=== PATIENT | female | born 1990 | race Caucasian/White ===

== ENCOUNTER 2017-10-23 22:01 | Emergency (ER) | payer OTHER ==
[~2017-10-23] VITALS: Ht 172.7 cm; Wt 81.6 kg
[~2017-10-23 22:01] MED LIST: ACHD5005 PO; ALPR1TAB72 PO; CEPH500C PO; CONCERTA; HYDR1CAP2 PO; METH20TA PO; NAPR-243 PO; PARO10TA21 PO; PARO30TA74 PO; TRAZADONE PO; TRZ50T PO; VNL75T PO; [UNRECOGNIZED DRUG - OTHER]; [UNRECOGNIZED DRUG - OTHER] PO
--- OUTSIDE RECORDS SUMMARY | 2017-10-23 22:07 | XMS REPORT ---
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 332247896 Problem Marijuana abuse F12.10 Active 21719345 Problem Alcohol dependence, binge pattern F10.20 Active 838270509 Problem Benzodiazepine abuse F13.10 Active 229735088 Problem Missed period N92.6 Active 52787253 Problem Dysthymia F34.1 Active 99431577 Problem Major depressive disorder, recurrent, moderate F33.1 Active 01981226 Problem Post-traumatic stress disorder, unspecified F43.10 Active 77184955 Problem Drug induced constipation K59.03 Active 55681812 Problem Opioid dependence, uncomplicated F11.20 Active 46734923 ALLERGIES No Information ENCOUNTERS Encounter Location Date Diagnosis [facility] [place] [address] [address] Nov, [facility] [place] [id number] [place] [address] 24884- 7852 Oct, [facility] [place] [id number] [place] [address] 12610- 0867 Sep, Acute pain of right wrist M25.531 and Missed period N92.6 [facility] [place] [id number] [place] [address] 75444[address] Aug, Acute pain of right wrist M25.531 ; Dysthymia F34.1 ; Screening for hyperlipidemia Z13.220 ; Screening for diabetes mellitus Z13.1 and Screening for other and unspecified deficiency anemia Z13.0 [facility] [id number] [place] [address] Aug, [facility] [address] [place] [address] July, Opioid dependence, uncomplicated F11.20 and Methamphetamine abuse, 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 [facility] [address] [place] [address] July, Opioid dependence, uncomplicated F11.20 and Methamphetamine abuse, 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 [facility] [address] [place] [address] July, Opioid dependence, uncomplicated F11.20 and Methamphetamine abuse, 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 [facility] [address] [address] Jun, Opioid dependence, uncomplicated F11.20 [facility] [address] [place] [address] Jun, Opioid dependence, uncomplicated F11.20 and Methamphetamine abuse, 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 [facility] [address] [address] Jun, [facility] [address] [address] Jun, Moderate episode of recurrent major depressive disorder F33.1 ; Post-traumatic stress disorder, unspecified F43.10 and Opioid dependence , uncomplicated F11.20 [facility] [id number] [place] [address] 37847- 9743 Jun, Opioid dependence, uncomplicated F11.20 [facility] [id number] [place] [address] 09964- 0830 May, Opioid dependence, uncomplicated F11.20 [facility] [address] [place] [address] May, Opioid dependence, uncomplicated F11.20 and Methamphetamine abuse, 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 [facility] [place] [address] [address] May, Opioid dependence, uncomplicated F11.20 [facility] [id number] [place] [address] 86187- 2564 May, Opioid dependence, uncomplicated F11.20 [facility] [address] [place] [address] May, Opioid dependence, uncomplicated F11.20 and Methamphetamine abuse, 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 [facility] [address] 841092- [address] May, Moderate episode of recurrent major depressive disorder F33.1 ; Post-traumatic stress disorder, unspecified F43.10 and Opioid dependence , uncomplicated F11.20 [facility] [address] [address] May, [facility] [address] [address] Apr, Opioid dependence, uncomplicated F11.20 [facility] [address] [place] [address] Apr, Opioid dependence, uncomplicated F11.20 and Methamphetamine abuse, 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 [facility] [address] [address] Apr, Opioid dependence, uncomplicated F11.20 [facility] [address] [place] [address] Apr, Opioid dependence, uncomplicated F11.20 and Methamphetamine abuse, 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 [facility] [id number] [place] [address] 37327- 8944 Apr, Opioid dependence, uncomplicated F11.20 [facility] [address] [place] [address] Apr, Opioid dependence, uncomplicated F11.20 [facility] [id number] [place] [address] 52054- 2544 Apr, Opioid dependence, uncomplicated F11.20 [facility] [address] [place] [address] Mar, Opioid dependence, uncomplicated F11.20 [facility] [id number] [place] [address] 36337- 0818 Mar, Opioid dependence, uncomplicated F11.20 [facility] [address] [place] [address] Mar, Opioid dependence, uncomplicated F11.20 [facility] [place] [id number] [place] [address] 95668- 0426 Mar, [facility] [place] [id number] [place] [address] 6[address] 2546 Mar, Opioid dependence, uncomplicated F11.20 [facility] [place] [id number] [place] [address]57[address] 2546 Mar, Opioid dependence, uncomplicated F11.20 [facility] [place] [id number] [place] [address] 64551- 1806 Mar, Moderate episode of recurrent major depressive disorder F33.1 ; Post-traumatic stress disorder, unspecified F43.10 and Opioid dependence , uncomplicated F11.20 [facility] [place] [id number] [place] [address] 56441- 8736 Mar, Opioid dependence, uncomplicated F11.20 [facility] [place] [id number] [place] [address] 34111- 7538 Feb, Moderate episode of recurrent major depressive disorder F33.1 [facility] [address] [place] [address] 28 Feb, 2017 Opioid dependence, uncomplicated F11.20 [facility] [place] [id number] [place] [address] 40194 2546 27 Feb, 2017 Opioid dependence, uncomplicated F11.20 [facility] [place] [id number] [place] [address] 02364 2546 Feb, Opioid dependence, uncomplicated F11.20 [facility] [place] [id number] [place] [address] 55118- 7596 19 Feb, 2017 [facility] [place] [id number] [place] [address] 59118- 3736 18 Feb, 2017 [facility] [place] [id number] [place] [address] 94849- 2836 15 Feb, 2017 Moderate episode of recurrent major depressive disorder F33.1 [facility] [address] [place] [address] 14 Feb, 2017 Opioid dependence, uncomplicated F11.20 [facility] [place] [id number] [place] [address] 22502 2546 14 Feb, 2017 [facility] [id number] [place] [address] 44716 2546 14 Feb, 2017 [facility] [id number] [place] [address] 84741 2546 14 Feb, 2017 [facility] [id number] [place] [address] 11009- 8756 13 Feb, 2017 [facility] [place] [id number] [place] [address] 76647- 4306 Feb, [facility] [place] [id number] [place] [address] 09180- 1226 13 Feb, 2017 Moderate episode of recurrent major depressive disorder F33.1 ; Post-traumatic stress disorder, unspecified F43.10 and Opioid dependence , uncomplicated F11.20 [facility] [place] [address] [place] [address] 04943- 9546 12 Feb, 2017 [facility] [id number] [place] [address] 21696- 9322 Feb, [facility] [address] [place] [address] 08 Feb, 2017 Opioid dependence, uncomplicated F11.20 [facility] [place] [address] [place] [address] 71738 2546 08 Feb, 2017 Moderate episode of recurrent major depressive disorder F33.1 [facility] [place] [address] [place] [address] 79050 2546 07 Feb, 2017 Opioid dependence, uncomplicated F11.20 [facility] [place] [address] [place] [address] 61473- 2546 07 Feb, 2017 [facility] [place] [id number] [place] [address] 102601- 7519 Feb, [facility] [id number] [place] [address] 62137- 9788 Feb, [facility] [id number] [place] [address] 86848- 7560 Feb, [facility] [id number] [place] [address] 81739- 5416 Feb, [facility] [address] [place] [address] Feb, Opioid dependence, uncomplicated F11.20 [facility] [id number] [place] [address] 77867- 7336 Feb, [facility] [id number] [place] [address] 18767- 0142 Jan, Opioid dependence, uncomplicated F11.20 and Drug induced constipation K59.03 [facility] [id number] [place] [address] 77069- 0425 Jan, [facility] [id number] [place] [address] 26364- 4474 Jan, Moderate episode of recurrent major depressive disorder F33.1 and Post-traumatic stress disorder, unspecified F43.10 [facility] [address] [place] [address] Jan, [facility] [id number] [place] [address] 79680- 2762 Jan, [facility] [id number] [place] [address] 86035- 2832 Jan, [facility] [address] [place] [address] Jan, [facility] [id number] [place] [address] 72789- 1810 Jan, Opioid dependence, uncomplicated F11.20 ; Drug induced constipation K59.03 and Adverse effect of other opioids, initial encounter T40.2X5A [facility] [place] [id number] [place] [address] 28366- 1109 Jan, [facility] [place] [id number] [place] [address] 34181- 6948 Jan, [facility] [place] [address] 60[address]- 4841 Jan, Opiate dependence, continuous F11.20 [facility] [address] [place] [address] 17 Jan, 2017 Opiate dependence, continuous F11.20 ; 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 ; Benzodiazepine abuse F13.10 ; Alcohol dependence, binge pattern F10.20 and Marijuana abuse F12.10 [facility] [place] [id number] [place] [address] 18812- 1452 16 Jan, 2017 [facility] [place] [address] 85348- 9817 15 Jan, 2017 [facility] [place] [address] 51882- 7934 Jan, [facility] [place] [address] 57744- 3952 14 Jan, 2017 Urinary frequency R35.0 and Opiate dependence, continuous F11.20 [facility] [address] [place] [address] 10 Jan, 2017 Opiate dependence, continuous F11.20 ; 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 ; Benzodiazepine abuse F13.10 ; Alcohol dependence, binge pattern F10.20 and Marijuana abuse F12.10 [facility] [address] [place] [address] 08 Jan, 2017 [facility] [place] [id number] [place] [address] 09914- 7508 08 Jan, 2017 Moderate episode of recurrent major depressive disorder F33.1 and Post-traumatic stress disorder, unspecified F43.10 [facility] [place] [id number] [place] [address] 91164- 9673 08 Jan, 2017 [facility] [place] [id number] [place] [address] 76435- 4909 07 Jan, 2017 Moderate episode of recurrent major depressive disorder F33.1 and Substance abuse withdrawal without complication F19.230 [facility] [place] [id number] [address] 07 Jan, 2017 [facility] [place] [address] [place] [address] 78[address] 14 Jun, 2014 [facility] [place] [address] [place] [address]- 7029 Jun, [facility] [place] [address] [place] [address] 2165 May, [facility] [place] [id number] [address]- 2793 May, [facility] [place] [address] [place] [address]- 4085 Apr, [facility] [place] [address] [place] [address]- 8675 Apr, [facility] [place] [address] [place] [address]- 3146 Apr, [facility] [place] [address] [place] [address]- 4428 Apr, [facility] [place] [address] [place] [address]- 8749 Apr, [facility] [place] [address] [place] [address]- 2804 Apr, [facility] [place] [id number], [place] [address] 4912 Dec, [facility] [place] [id number] [address]9 Dec, [id number] [id number] Nov, [facility] [place] [id number] [address] Sep, IMMUNIZATIONS No Known Immunizations SOCIAL HISTORY Never Assessed REASON FOR VISIT SUBAB f/u PLAN OF CARE Activity Details Follow Up 1 Week Reason:SUBABFU VITAL SIGNS MEDICATIONS Medication Instructions Dosage Frequency Start Date End Date Duration Status Suboxone 8-2 MG Sublingual Once a day 3 film under the tongue and allow to dissolve 24h 1 days Active RESULTS No Results PROCEDURES Procedure Date Ordered Result Body Site Alcohol and/or drug services July 28, 2017 INSTRUCTIONS MEDICATIONS ADMINISTERED No Known Medications MEDICAL (GENERAL) HISTORY Type Description Date Medical History ADHD Medical History depression Medical History anxiety Surgical History tongue clipped as a child
--- OUTSIDE RECORDS SUMMARY | 2017-10-23 22:07 | XMS REPORT ---
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 328829783 Problem Marijuana abuse F12.10 Active 56469958 Problem Alcohol dependence, binge pattern F10.20 Active 551149169 Problem Benzodiazepine abuse F13.10 Active 752056220 Problem Missed period N92.6 Active 69700906 Problem Dysthymia F34.1 Active 33917126 Problem Major depressive disorder, recurrent, moderate F33.1 Active 35715178 Problem Post-traumatic stress disorder, unspecified F43.10 Active 56325294 Problem Drug induced constipation K59.03 Active 09956196 Problem Opioid dependence, uncomplicated F11.20 Active 21179493 ALLERGIES No Information ENCOUNTERS Encounter Location Date Diagnosis [facility] [address] [address] Nov, [facility] [address] [address] Sep, Acute pain of right wrist M25.531 and Missed period N92.6 [facility] [address] [address] Aug, Acute pain of right wrist M25.531 ; Dysthymia F34.1 ; Screening for hyperlipidemia Z13.220 ; Screening for diabetes mellitus Z13.1 and Screening for other and unspecified deficiency anemia Z13.0 [facility] [id number] [place] [address] Aug, [facility] [address] [place] [address] July, Opioid dependence, uncomplicated F11.20 and Methamphetamine abuse, 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 [facility] [address] [place] [address] July, Opioid dependence, uncomplicated F11.20 and Methamphetamine abuse, 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 [facility] [place] [address] [id number] July, Opioid dependence, uncomplicated F11.20 and Methamphetamine abuse, 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 [facility] [address] [address] Jun, Opioid dependence, uncomplicated F11.20 [facility] [address] [place] [address] Jun, Opioid dependence, uncomplicated F11.20 and Methamphetamine abuse, 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 [facility] [address] 4[address] Jun, [facility] [address] [address] Jun, Moderate episode of recurrent major depressive disorder F33.1 ; Post-traumatic stress disorder, unspecified F43.10 and Opioid dependence , uncomplicated F11.20 [facility] [address] [address] Jun, Opioid dependence, uncomplicated F11.20 [facility] [id number] [place] [address] May, Opioid dependence, uncomplicated F11.20 [facility] [place] [address] [place] [address] May, Opioid dependence, uncomplicated F11.20 and Methamphetamine abuse, 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10 and Opioid dependence , uncomplicated F11.20 [facility] [address] [address] May, [facility] [address] [address] Apr, Opioid dependence, uncomplicated F11.20 [facility] [address] [place] [address] Apr, Opioid dependence, uncomplicated F11.20 and Methamphetamine abuse, 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 [facility] [address] [address] Apr, Opioid dependence, uncomplicated F11.20 [facility] [place] [address] [place] [address] Apr, Opioid dependence, uncomplicated F11.20 and Methamphetamine abuse, 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 [facility] [address] 396168[address] Apr, Opioid dependence, uncomplicated F11.20 [facility] [address] [place] [address] Apr, Opioid dependence, uncomplicated F11.20 [facility] [address] [address] Apr, Opioid dependence, uncomplicated F11.20 [facility] [address] [place] [address] Mar, Opioid dependence, uncomplicated F11.20 [facility] [address] [address] Mar, Opioid dependence, uncomplicated F11.20 [facility] [address] [address] Mar, Opioid dependence, uncomplicated F11.20 [facility] [id number] [place] [address] Mar, [facility] [id number] [place] [address] Mar, Opioid dependence, uncomplicated F11.20 [facility] [id number] [place] [address] Mar, Opioid dependence, uncomplicated F11.20 [facility] [id number] [place] [address] Mar, Moderate episode of recurrent major depressive disorder F33.1 ; Post-traumatic stress disorder, unspecified F43.10 and Opioid dependence , uncomplicated F11.20 [facility] [id number] [place] [address] Mar, Opioid dependence, uncomplicated F11.20 [facility] [id number] [place] [address] Feb, Moderate episode of recurrent major depressive disorder F33.1 [facility] [address] [place] [address] 28 Feb, 2017 Opioid dependence, uncomplicated F11.20 [facility] [id number] [place] [address] 27 Feb, 2017 Opioid dependence, uncomplicated F11.20 [facility] [id number] [place] [address] Feb, Opioid dependence, uncomplicated F11.20 [facility] [id number] [place] [address] 2546 19 Feb, 2017 [facility] [id number] [place] [address]- [address] 18 Feb, 2017 [facility] [id number] [place] [address] 15 Feb, 2017 Moderate episode of recurrent major depressive disorder F33.1 [facility] [address] [place] [address] 14 Feb, 2017 Opioid dependence, uncomplicated F11.20 [facility] [address] [address] 14 Feb, 2017 [facility] [id number] [place] [address] 2546 14 Feb, 2017 [facility] [address] [place] [address] 2546 14 Feb, 2017 [facility] [id number] [place] [address]65 2546 13 Feb, 2017 [facility] [address] [place] [address] Feb, [facility] [id number] [place] [address] 18531- 8[address] 13 Feb, 2017 Moderate episode of recurrent major depressive disorder F33.1 ; Post-traumatic stress disorder, unspecified F43.10 and Opioid dependence , uncomplicated F11.20 [facility] [id number] [place] [address]34- 8676 12 Feb, 2017 [facility] [id number] [place] [address] 90[address]- [address] Feb, [facility] [address] [place] [address] 08 Feb, 2017 Opioid dependence, uncomplicated F11.20 [facility] [address] [address] 08 Feb, 2017 Moderate episode of recurrent major depressive disorder F33.1 [facility] [address] [place] [address]26 2546 07 Feb, 2017 Opioid dependence, uncomplicated F11.20 [facility] [id number] [place] [address] 025[address] 2546 07 Feb, 2017 [facility] [address] [place] [address]68- [address] Feb, [facility] [address] [place] [address] Feb, [facility] [id number] [place] [address]297 Feb, [facility] [id number] [place] [address] Feb, [facility] [address] [place] [address] Feb, Opioid dependence, uncomplicated F11.20 [facility] [id number] [place] [address] 84[address]- 5886 Feb, [facility] [id number] [place] [address] 27646[address]098 Jan, Opioid dependence, uncomplicated F11.20 and Drug induced constipation K59.03 [facility] [id number] [place] [address] 79938- 8727 Jan, [facility] [address] [address] Jan, Moderate episode of recurrent major depressive disorder F33.1 and Post-traumatic stress disorder, unspecified F43.10 [facility] [address] [place] [address] Jan, [facility] [id number] [place] [address] 8[address]39- [address] Jan, [facility] [id number] [place] [address] 16963- 8257 Jan, [facility] [address] [place] [address] Jan, [facility] [id number] [place] [address] 69[address]- 6184 Jan, Opioid dependence, uncomplicated F11.20 ; Drug induced constipation K59.03 and Adverse effect of other opioids, initial encounter T40.2X5A [facility] [id number] [place] [address] 60037[address] 49[address] Jan, [facility] [id number] [place] [address] 27899- 4[address] Jan, [facility] [id number] [place] [address] 12129- 8236 Jan, Opiate dependence, continuous F11.20 [facility] [address] [place] [address] 17 Jan, 2017 Opiate dependence, continuous F11.20 ; 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 ; Benzodiazepine abuse F13.10 ; Alcohol dependence, binge pattern F10.20 and Marijuana abuse F12.10 [facility] [id number] [place] [address]- [address] 16 Jan, 2017 [facility] [address] [address] Jan, [facility] [address] [address] Jan, [facility] [address] [address] 14 Jan, 2017 Urinary frequency R35.0 and Opiate dependence, continuous F11.20 [facility] [address] [place] [address] Jan, Opiate dependence, continuous F11.20 ; 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 ; Benzodiazepine abuse F13.10 ; Alcohol dependence, binge pattern F10.20 and Marijuana abuse F12.10 [facility] [address] [place] [address] Jan, [facility] [id number] [place] [address] 6[address] Jan, Moderate episode of recurrent major depressive disorder F33.1 and Post-traumatic stress disorder, unspecified F43.10 [facility] [id number] [place] [address] 97822- 4617 Jan, [facility] [address] [place] [address] 6[address]82- 6588 Jan, Moderate episode of recurrent major depressive disorder F33.1 and Substance abuse withdrawal without complication F19.230 [facility] [address] [address] Jan, [facility] [id number] [address] Jun, [facility] [address] [address] Jun, [facility] [id number] [address] May, [facility] [address] [address] May, [facility] [id number] [address] Apr, [facility] [address] Apr, [facility] [address] [address] 7671 Apr, [facility] [address] [address] 8607 Apr, [facility] [address] [address] Apr, [facility] [address] [address] Apr, [facility] [id number] [address] Dec, [facility] [id number] [address] Dec, [facility] [address] [facility] [id number] [id number] Nov, [facility] [address] [address] Sep, IMMUNIZATIONS No Known Immunizations SOCIAL HISTORY [...] Body Site Alcohol and/or drug services July 22, 2017 INSTRUCTIONS MEDICATIONS ADMINISTERED No Known Medications MEDICAL (GENERAL) HISTORY Type Description Date Medical History ADHD Medical History depression Medical History anxiety Surgical History tongue clipped as a child
--- OUTSIDE RECORDS SUMMARY | 2017-10-23 22:08 | XMS REPORT ---
Author Author SHELLY ALVAREZ Organization [facility] Address [address] 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 008399191 Problem Marijuana abuse F12.10 Active 76393515 Problem Alcohol dependence, binge pattern F10.20 Active 576933876 Problem Benzodiazepine abuse F13.10 Active 700094973 Problem Missed period N92.6 Active 93404023 Problem Dysthymia F34.1 Active 48462472 Problem Major depressive disorder, recurrent, moderate F33.1 Active 91143733 Problem Post-traumatic stress disorder, unspecified F43.10 Active 31494378 Problem Drug induced constipation K59.03 Active 41364939 Problem Opioid dependence, uncomplicated F11.20 Active 59129741 ALLERGIES No Information ENCOUNTERS Encounter Location Date Diagnosis [facility] [address] [address] Nov, [facility] [address] [address] Sep, Acute pain of right wrist M25.531 and Missed period N92.6 [facility] [address] [address] Aug, Acute pain of right wrist M25.531 ; Dysthymia F34.1 ; Screening for hyperlipidemia Z13.220 ; Screening for diabetes mellitus Z13.1 and Screening for other and unspecified deficiency anemia Z13.0 [facility] [id number] [place] [address] Aug, [facility] [address] [place] [address] July, Opioid dependence, uncomplicated F11.20 and Methamphetamine abuse, 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 [facility] [address] [place] [address] July, Opioid dependence, uncomplicated F11.20 and Methamphetamine abuse, 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 [facility] [address] [id number] July, Opioid dependence, uncomplicated F11.20 and Methamphetamine abuse, 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 [facility] [address] [address] Jun, Opioid dependence, uncomplicated F11.20 [facility] [address] [place] [address] Jun, Opioid dependence, uncomplicated F11.20 and Methamphetamine abuse, 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 [facility] [address] [address] Jun, [facility] [address] [address] Jun, Moderate episode of recurrent major depressive disorder F33.1 ; Post-traumatic stress disorder, unspecified F43.10 and Opioid dependence , uncomplicated F11.20 [facility] [address] [address] Jun, Opioid dependence, uncomplicated F11.[address] [facility] [id number] [place] [address] May, Opioid dependence, uncomplicated F11.20 [facility] [address] [place] [address] May, Opioid dependence, uncomplicated F11.20 and Methamphetamine abuse, 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 [facility] [id number] [place] [address] May, Opioid dependence, uncomplicated F11.20 [facility] [address] [address] May, Opioid dependence, uncomplicated F11.20 [facility] [address] [place] [address] May, Opioid dependence, uncomplicated F11.20 and Methamphetamine abuse, 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 [facility] [id number] [place] [address] May, Moderate episode of recurrent major depressive disorder F33.1 ; Post-traumatic stress disorder, unspecified F43.10 and Opioid dependence , uncomplicated F11.20 [facility] [id number] [place] [address] May, [facility] [address] [address] Apr, Opioid dependence, uncomplicated F11.20 [facility] [address] [place] [address] Apr, Opioid dependence, uncomplicated F11.20 and Methamphetamine abuse, 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 [facility] [address] 736509[address] Apr, Opioid dependence, uncomplicated F11.20 [facility] [address] [place] [address] Apr, Opioid dependence, uncomplicated F11.20 and Methamphetamine abuse, 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 [facility] [address] 5[address]400[address] Apr, Opioid dependence, uncomplicated F11.20 [facility] [address] [place] [address] Apr, Opioid dependence, uncomplicated F11.20 [facility] [address] [address] Apr, Opioid dependence, uncomplicated F11.20 [facility] [address] [place] [address] Mar, Opioid dependence, uncomplicated F11.20 [facility] [address] [address] Mar, Opioid dependence, uncomplicated F11.20 [facility] [id number] [place] [address] Mar, Opioid dependence, uncomplicated F11.20 [facility] [id number] [place] [address] Mar, [facility] [address] [address] Mar, Opioid dependence, uncomplicated F11.20 [facility] [id number] [place] [address] Mar, Opioid dependence, uncomplicated F11.20 [facility] [id number] [place] [address] 2543 Mar, Moderate episode of recurrent major depressive disorder F33.1 ; Post-traumatic stress disorder, unspecified F43.10 and Opioid dependence , uncomplicated F11.20 [facility] [id number] [place] [address]205[address] Mar, Opioid dependence, uncomplicated F11.20 [facility] [id number] [place] [address] 10072[address] 7[address] 28 Feb, 2017 Moderate episode of recurrent major depressive disorder F33.1 [facility] [address] [place] [address] 28 Feb, 2017 Opioid dependence, uncomplicated F11.20 [facility] [id number] [place] [address] 2546 27 Feb, 2017 Opioid dependence, uncomplicated F11.20 [facility] [id number] [place] [address] 53088[address] Feb, Opioid dependence, uncomplicated F11.20 [facility] [id number] [place] [address] 2546 19 Feb, 2017 [facility] [id number] [place] [address] 8[address]93[address] 18 Feb, 2017 [facility] [id number] [place] [address]99 2546 15 Feb, 2017 Moderate episode of recurrent major depressive disorder F33.1 [facility] [address] [place] [address] 14 Feb, 2017 Opioid dependence, uncomplicated F11.20 [facility] [address] [place] [address] 14 Feb, 2017 [facility] [id number] [place] [address] 6[address]45- [address] 14 Feb, 2017 [facility] [id number] [place] [address] 13097- 3[address] 14 Feb, 2017 [facility] [id number] [place] [address] 39295- [address] Feb, [facility] [id number] [place] [address] 42060- 9846 Feb, [facility] [id number] [place] [address] 25454- 3446 13 Feb, 2017 Moderate episode of recurrent major depressive disorder F33.1 ; Post-traumatic stress disorder, unspecified F43.10 and Opioid dependence , uncomplicated F11.20 [facility] [id number] [place] [address] 88804- [address]66 12 Feb, 2017 [facility] [id number] [place] [address] 8[address]50[address] Feb, [facility] [address] [place] [address] 08 Feb, 2017 Opioid dependence, uncomplicated F11.20 [facility] [id number] [place] [address] 06677 2546 08 Feb, 2017 Moderate episode of recurrent major depressive disorder F33.1 [facility] [address] [place] [address] 46582 2546 07 Feb, 2017 Opioid dependence, uncomplicated F11.20 [facility] [id number] [place] [address] 13231 2546 07 Feb, 2017 [facility] [id number] [place] [address] 77663- 2546 06 Feb, 2017 [facility] [id number] [place] [address] 05899- 8066 Feb, [facility] [id number] [place] [address] 79043- [address]29 Feb, [facility] [id number] [place] [address]63- 80[address] Feb, [facility] [address] [place] [address] Feb, Opioid dependence, uncomplicated F11.20 [facility] [address] [address] Feb, [facility] [id number] [place] [address] 50418- 5897 Jan, Opioid dependence, uncomplicated F11.20 and Drug induced constipation K59.03 [facility] [id number] [place] [address] 53009- 7875 Jan, [facility] [address] [address] Jan, Moderate episode of recurrent major depressive disorder F33.1 and Post-traumatic stress disorder, unspecified F43.10 [facility] [address] [place] [address] Jan, [facility] [id number] [place] [address] 00907- 0418 Jan, [facility] [id number] [place] [address] 74393- 6821 Jan, [facility] [address] [place] [address] Jan, [facility] [id number] [place] [address] 55189- 1880 Jan, Opioid dependence, uncomplicated F11.20 ; Drug induced constipation K59.03 and Adverse effect of other opioids, initial encounter T40.2X5A [facility] [id number] [place] [address] 39129- 6755 Jan, [facility] [id number] [place] [address] 21885912- 6784 Jan, [facility] [id number] [place] [address] 34614- 8095 Jan, Opiate dependence, continuous F11.20 [facility] [address] [place] [address] 17 Jan, 2017 Opiate dependence, continuous F11.20 ; 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 ; Benzodiazepine abuse F13.10 ; Alcohol dependence, binge pattern F10.20 and Marijuana abuse F12.10 [facility] [id number] [place] [address] 43088- 7513 16 Jan, 2017 [facility] [id number] [place] [address] 45599- 2104 Jan, [facility] [id number] [place] [address] 18612- 4264 15 Jan, 2017 [facility] [id number] [place] [address] 01608- [address] 14 Jan, 2017 Urinary frequency R35.0 and Opiate dependence, continuous F11.20 [facility] [address] [place] [address] Jan, Opiate dependence, continuous F11.20 ; 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 ; Benzodiazepine abuse F13.10 ; Alcohol dependence, binge pattern F10.20 and Marijuana abuse F12.10 [facility] [address] [place] [address] 08 Jan, 2017 [facility] [id number] [place] [address] 28996- 8193 Jan, Moderate episode of recurrent major depressive disorder F33.1 and Post-traumatic stress disorder, unspecified F43.10 [facility] [id number] [place] [address] 03284- 5390 Jan, [facility] [address] [place] [address] 66160- 5268 Jan, Moderate episode of recurrent major depressive disorder F33.1 and Substance abuse withdrawal without complication F19.230 [facility] [id number] [place] [address] 80074- 8605 Jan, [facility] [id number] [address] Jun, [facility] [address] [address] Jun, [facility] [id number] [address] May, [facility] [address] [address] May, [facility] [address] [address] Apr, [facility] [address] [address] Apr, [facility] [address] [address] Apr, [facility] [address] [address] 25[address] Apr, [facility] [address] [address] Apr, [facility] [address] [address] Apr, [facility] [address] [address] Dec, [facility] [id number] [address] Dec, [facility] [address] [facility] [id number] [id number] Nov, [facility] [address] [address] Sep, IMMUNIZATIONS No Known Immunizations SOCIAL HISTORY Never Assessed REASON FOR VISIT suboxone rx (06/17-06/24) PLAN OF CARE VITAL SIGNS MEDICATIONS Medication Instructions Dosage Frequency Start Date End Date Duration Status Suboxone 8-2 MG Sublingual Once a day. CHARGE FULL AMOUNT TO [facility] 3 film under the tongue and allow to dissolve Jun, 8 days Active RESULTS No Results PROCEDURES No Known procedures INSTRUCTIONS MEDICATIONS ADMINISTERED No Known Medications MEDICAL (GENERAL) HISTORY Type Description Date Medical History ADHD Medical History depression Medical History anxiety Surgical History tongue clipped as a child
--- OUTSIDE RECORDS SUMMARY | 2017-10-23 22:08 | XMS REPORT ---
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 177280657 Problem Marijuana abuse F12.10 Active 50117747 Problem Alcohol dependence, binge pattern F10.20 Active 465531608 Problem Benzodiazepine abuse F13.10 Active 745433116 Problem Missed period N92.6 Active 82565082 Problem Dysthymia F34.1 Active 87379755 Problem Major depressive disorder, recurrent, moderate F33.1 Active 94918759 Problem Post-traumatic stress disorder, unspecified F43.10 Active 82441895 Problem Drug induced constipation K59.03 Active 28863834 Problem Opioid dependence, uncomplicated F11.20 Active 79035123 ALLERGIES No Information ENCOUNTERS Encounter Location Date Diagnosis [facility] [address] [address] Nov, [facility] [address] [address] Sep, Acute pain of right wrist M25.531 and Missed period N92.6 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 [facility] [address] [place] [address] July, Opioid dependence, uncomplicated F11.20 and Methamphetamine abuse, 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 [facility] [place] [address] [id number] July, Opioid dependence, uncomplicated F11.20 and Methamphetamine abuse, 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 [facility] [address] [address] Jun, Opioid dependence, uncomplicated F11.20 [facility] [address] [place] [address] Jun, Opioid dependence, uncomplicated F11.20 and Methamphetamine abuse, 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 [facility] [address] 848625- [address] Jun, [facility] [address] 371357[address] Jun, Moderate episode of recurrent major depressive disorder F33.1 ; Post-traumatic stress disorder, unspecified F43.10 and Opioid dependence , uncomplicated F11.20 [facility] [address] [address] Jun, Opioid dependence, uncomplicated F11.20 [facility] [id number] [place] [address] May, Opioid dependence, uncomplicated F11.20 [facility] [address] [place] [address] May, Opioid dependence, uncomplicated F11.20 and Methamphetamine abuse, 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 [facility] [id number] [place] [address] May, Opioid dependence, uncomplicated F11.20 [facility] [address] [id number]- [address] May, Opioid dependence, uncomplicated F11.20 [facility] [address] [place] [address] May, Opioid dependence, uncomplicated F11.20 and Methamphetamine abuse, 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 [address] [address] Apr, Opioid dependence, uncomplicated F11.20 [facility] [address] [place] [address] Apr, Opioid dependence, uncomplicated F11.20 and Methamphetamine abuse, 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 [address] 122[address] Apr, Opioid dependence, uncomplicated F11.20 [facility] [address] [place] [address] Apr, Opioid dependence, uncomplicated F11.20 [facility] [address] [address] Apr, Opioid dependence, uncomplicated F11.20 [facility] [address] [place] [address] Mar, Opioid dependence, uncomplicated F11.20 [facility] [address] [address] Mar, Opioid dependence, uncomplicated F11.20 [facility] [address] [address] Mar, Opioid dependence, uncomplicated F11.20 [facility] [id number] [place] [address] Mar, [facility] [id number] [place] [address] Mar, Opioid dependence, uncomplicated F11.20 [facility] [id number] [place] [address] Mar, Opioid dependence, uncomplicated F11.20 [facility] [id number] [place] [address] Mar, Moderate episode of recurrent major depressive disorder F33.1 ; Post-traumatic stress disorder, unspecified F43.10 and Opioid dependence , uncomplicated F11.20 [facility] [id number] [place] [address] Mar, Opioid dependence, uncomplicated F11.20 [facility] [id number] [place] [address]- [address] Feb, Moderate episode of recurrent major depressive disorder F33.1 [facility] [address] [place] [address] 28 Feb, 2017 Opioid dependence, uncomplicated F11.20 [facility] [id number] [place] [address] 7[address]67- [address] 27 Feb, 2017 Opioid dependence, uncomplicated F11.20 [facility] [id number] [place] [address] Feb, Opioid dependence, uncomplicated F11.20 [facility] [id number] [place] [address] 2546 19 Feb, 2017 [facility] [id number] [place] [address]- [address] 18 Feb, 2017 [facility] [id number] [place] [address] 81276- [address] 15 Feb, 2017 Moderate episode of recurrent major depressive disorder F33.1 [facility] [address] [place] [address] 14 Feb, 2017 Opioid dependence, uncomplicated F11.20 [facility] [id number] [place] [address] 14 Feb, 2017 [facility] [id number] [place] [address] 2546 14 Feb, 2017 [facility] [id number] [place] [address] 39657 2546 14 Feb, 2017 [facility] [id number] [place] [address] 65[address] 2546 13 Feb, 2017 [facility] [id number] [place] [address] 57[address]- [address] Feb, [facility] [id number] [place] [address] 9[address]38- [address]86 13 Feb, 2017 Moderate episode of recurrent major depressive disorder F33.1 ; Post-traumatic stress disorder, unspecified F43.10 and Opioid dependence , uncomplicated F11.20 [facility] [id number] [place] [address]60- [address] 12 Feb, 2017 [facility] [id number] [place] [address] 85462- [address] Feb, [facility] [address] [place] [address] 08 Feb, 2017 Opioid dependence, uncomplicated F11.20 [facility] [address] [place] [address] 08 Feb, 2017 Moderate episode of recurrent major depressive disorder F33.1 [facility] [id number] [place] [address]6720 2546 07 Feb, 2017 Opioid dependence, uncomplicated F11.20 [facility] [id number] [place] [address] 16406 2546 07 Feb, 2017 [facility] [id number] [place] [address] 60[address]- 2546 Feb, [facility] [id number] [place] [address] 78060- 9846 Feb, [facility] [id number] [place] [address]- 2839 Feb, [facility] [id number] [place] [address] 20230- 77[address] Feb, [facility] [address] [place] [address] Feb, Opioid dependence, uncomplicated F11.20 [facility] [id number] [place] [address] 49395- 2666 Feb, [facility] [id number] [place] [address] 55259- 3439 Jan, Opioid dependence, uncomplicated F11.20 and Drug induced constipation K59.03 [facility] [id number] [place] [address] 56332- 2912 Jan, [facility] [address] [address] Jan, Moderate episode of recurrent major depressive disorder F33.1 and Post-traumatic stress disorder, unspecified F43.10 [facility] [address] [place] [address] Jan, [facility] [id number] [place] [address] 34892- 0778 Jan, [facility] [id number] [place] [address] 23473- 2878 Jan, [facility] [address] [place] [address] Jan, [facility] [id number] [place] [address] 23689- 8278 Jan, Opioid dependence, uncomplicated F11.20 ; Drug induced constipation K59.03 and Adverse effect of other opioids, initial encounter T40.2X5A [facility] [id number] [place] [address]18- 4837 Jan, [facility] [id number] [place] [address]105- 3707 Jan, 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 [id number] [place] [address] 78055- 0279 16 Jan, 2017 [facility] [address] [address]- [address] Jan, [facility] [address] [address]- [address] Jan, 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 [id number] [place] [address] 98750- 0017 Jan, Moderate episode of recurrent major depressive disorder F33.1 and Post-traumatic stress disorder, unspecified F43.10 [facility] [id number] [place] [address] 00747- 9216 Jan, [facility] [address] [place] [address] 0[address]73- 3691 Jan, Moderate episode of recurrent major depressive disorder F33.1 and Substance abuse withdrawal without complication F19.230 [facility] [address] [address]- [address] Jan, [facility] [id number] [address] Jun, [facility] [id number] [place] [address] Jun, [facility] [id number] [address] May, [facility] [address], [place] [address] 3911 May, [facility] [id number] [address]29 Apr, [facility] [address] Apr, [facility] [address] [place] [address]- 1018 Apr, [facility] [address] [place] [address]- [address] Apr, [facility] [address] Apr, [facility] [address] Apr, [facility] [id number] [address] Dec, [facility] [id number] [address] Dec, [facility] [address] [facility] [id number] [id number] Nov, [facility] [address] [place] [address] Sep, IMMUNIZATIONS No Known Immunizations SOCIAL HISTORY Never Assessed REASON FOR VISIT SUBAB F/U PLAN OF CARE Activity Details Follow Up 1 Week Reason:SUBABFU VITAL SIGNS MEDICATIONS Medication Instructions Dosage Frequency Start Date End Date Duration Status Suboxone 8-2 MG Sublingual Once a day 3 film under the tongue and allow to dissolve 24h 1 days Active RESULTS No Results PROCEDURES Procedure Date Ordered Result Body Site Alcohol and/or drug services June 02, 2017 INSTRUCTIONS MEDICATIONS ADMINISTERED No Known Medications MEDICAL (GENERAL) HISTORY Type Description Date Medical History ADHD Medical History depression Medical History anxiety Surgical History tongue clipped as a child
--- OUTSIDE RECORDS SUMMARY | 2017-10-23 22:08 | XMS REPORT ---
Author Author SHELLY ALVAREZ Organization [facility] Address [address] 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 753480433 Problem Marijuana abuse F12.10 Active 79019996 Problem Alcohol dependence, binge pattern F10.20 Active 473385264 Problem Benzodiazepine abuse F13.10 Active 417253196 Problem Missed period N92.6 Active 78798368 Problem Dysthymia F34.1 Active 05986796 Problem Major depressive disorder, recurrent, moderate F33.1 Active 49576036 Problem Post-traumatic stress disorder, unspecified F43.10 Active 36667944 Problem Drug induced constipation K59.03 Active 43946910 Problem Opioid dependence, uncomplicated F11.20 Active 76127588 ALLERGIES No Known Allergies ENCOUNTERS Encounter Location Date Diagnosis [facility] [address] [address] Nov, [facility] [address] [address] Sep, Acute pain of right wrist M25.531 and Missed period N92.6 [facility] [address] [address] Aug, Acute pain of right wrist M25.531 ; Dysthymia F34.1 ; Screening for hyperlipidemia Z13.220 ; Screening for diabetes mellitus Z13.1 and Screening for other and unspecified deficiency anemia Z13.0 [facility] [id number] [place] [address] Aug, [facility] [address] [place] [address] July, Opioid dependence, uncomplicated F11.20 and Methamphetamine abuse, 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 [facility] [address] [place] [address] July, Opioid dependence, uncomplicated F11.20 and Methamphetamine abuse, 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 [facility] [place] [address] [id number] July, Opioid dependence, uncomplicated F11.20 and Methamphetamine abuse, 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 [facility] [address] [address] Jun, Opioid dependence, uncomplicated F11.20 [facility] [address] [place] [address] Jun, Opioid dependence, uncomplicated F11.20 and Methamphetamine abuse, 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 [facility] [id number] [place] [address] Jun, [facility] [address] [address] Jun, Moderate episode of recurrent major depressive disorder F33.1 ; Post-traumatic stress disorder, unspecified F43.10 and Opioid dependence , uncomplicated F11.20 [facility] [id number] [place] [address] Jun, Opioid dependence, uncomplicated F11.20 [facility] [id number] [place] [address] May, Opioid dependence, uncomplicated F11.20 [facility] [address] [place] [address] May, Opioid dependence, uncomplicated F11.20 and Methamphetamine abuse, 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 [facility] [id number] [place] [address] May, Opioid dependence, uncomplicated F11.20 [facility] [address] [address] May, Opioid dependence, uncomplicated F11.20 [facility] [address] [place] [address] May, Opioid dependence, uncomplicated F11.20 and Methamphetamine abuse, 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 [facility] [id number] [place] [address] May, Moderate episode of recurrent major depressive disorder F33.1 ; Post-traumatic stress disorder, unspecified F43.10 and Opioid dependence , uncomplicated F11.20 [facility] [id number] [place] [address] May, [facility] [address] [address] Apr, Opioid dependence, uncomplicated F11.20 [facility] [address] [place] [address] Apr, Opioid dependence, uncomplicated F11.20 and Methamphetamine abuse, 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 [facility] [address] [address] Apr, Opioid dependence, uncomplicated F11.20 [facility] [address] [place] [address] Apr, Opioid dependence, uncomplicated F11.20 and Methamphetamine abuse, 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 [facility] [address] 574749[address] Apr, Opioid dependence, uncomplicated F11.20 [facility] [address] [place] [address] Apr, Opioid dependence, uncomplicated F11.20 [facility] [address] [address] Apr, Opioid dependence, uncomplicated F11.20 [facility] [address] [place] [address] Mar, Opioid dependence, uncomplicated F11.20 [facility] [address] [address] Mar, Opioid dependence, uncomplicated F11.20 [facility] [id number] [place] [address] Mar, Opioid dependence, uncomplicated F11.20 [facility] [id number] [place] [address] 2541 Mar, [facility] [address] [address] 2546 Mar, Opioid dependence, uncomplicated F11.20 [facility] [id number] [place] [address]26[address] 2546 Mar, Opioid dependence, uncomplicated F11.20 [facility] [address] [address] 2546 Mar, Moderate episode of recurrent major depressive disorder F33.1 ; Post-traumatic stress disorder, unspecified F43.10 and Opioid dependence , uncomplicated F11.20 [facility] [id number] [place] [address] Mar, Opioid dependence, uncomplicated F11.20 [facility] [id number] [place] [address]6439 2546 28 Feb, 2017 Moderate episode of recurrent major depressive disorder F33.1 [facility] [address] [place] [address] 28 Feb, 2017 Opioid dependence, uncomplicated F11.20 [facility] [id number] [place] [address] 86399 2546 27 Feb, 2017 Opioid dependence, uncomplicated F11.20 [facility] [id number] [place] [address] 2546 Feb, Opioid dependence, uncomplicated F11.20 [facility] [id number] [place] [address] 84960 2546 19 Feb, 2017 [facility] [id number] [place] [address] 89466 2546 18 Feb, 2017 [facility] [id number] [place] [address] 14650 2546 15 Feb, 2017 Moderate episode of recurrent major depressive disorder F33.1 [facility] [address] [place] [address] 14 Feb, 2017 Opioid dependence, uncomplicated F11.20 [facility] [id number] [place] [address] 54970[address] 14 Feb, 2017 [facility] [id number] [place] [address] 37298 2546 14 Feb, 2017 [facility] [id number] [place] [address] 71671- 8546 14 Feb, 2017 [facility] [id number] [place] [address] 37779- 6496 Feb, [facility] [id number] [place] [address] 08982- 1186 Feb, [facility] [id number] [place] [address] 87454- 3866 Feb, Moderate episode of recurrent major depressive disorder F33.1 ; Post-traumatic stress disorder, unspecified F43.10 and Opioid dependence , uncomplicated F11.20 [facility] [id number] [place] [address] 93315- 7866 12 Feb, 2017 [facility] [id number] [place] [address] 61602- 6186 Feb, [facility] [address] [place] [address] 08 Feb, 2017 Opioid dependence, uncomplicated F11.20 [facility] [id number] [place] [address] 77439 2546 08 Feb, 2017 Moderate episode of recurrent major depressive disorder F33.1 [facility] [id number] [place] [address] 38332 2546 07 Feb, 2017 Opioid dependence, uncomplicated F11.20 [facility] [id number] [place] [address] 32111 2546 07 Feb, 2017 [facility] [id number] [place] [address] 30282 2546 06 Feb, 2017 [facility] [id number] [place] [address] 96091 2546 Feb, [facility] [id number] [place] [address] 90572- 1686 Feb, [facility] [id number] [place] [address] Feb, [facility] [address] [address] Feb, Opioid dependence, uncomplicated F11.20 [facility] [address] [address] 2546 Feb, [facility] [id number] [place] [address] 12882- 6104 Jan, Opioid dependence, uncomplicated F11.20 and Drug induced constipation K59.03 [facility] [id number] [place] [address] 29113- 7061 Jan, [facility] [address] [address] Jan, Moderate episode of recurrent major depressive disorder F33.1 and Post-traumatic stress disorder, unspecified F43.10 [facility] [address] [place] [address] Jan, [facility] [id number] [place] [address] 86291- 2485 Jan, [facility] [id number] [place] [address] 13568- 4201 Jan, [facility] [address] [place] [address] Jan, [facility] [id number] [place] [address] 88452- 5065 Jan, Opioid dependence, uncomplicated F11.20 ; Drug induced constipation K59.03 and Adverse effect of other opioids, initial encounter T40.2X5A [facility] [id number] [place] [address] 64081- 8393 Jan, [facility] [id number] [place] [address] 48062- 2043 Jan, [facility] [id number] [place] [address] 34654- 5325 Jan, Opiate dependence, continuous F11.20 [facility] [address] [place] [address] 17 Jan, 2017 Opiate dependence, continuous F11.20 ; 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 ; Benzodiazepine abuse F13.10 ; Alcohol dependence, binge pattern F10.20 and Marijuana abuse F12.10 [facility] [id number] [place] [address] 13733- 8298 16 Jan, 2017 [facility] [id number] [place] [address] 24848- 9330 15 Jan, 2017 [facility] [id number] [place] [address] 73287- 1304 15 Jan, 2017 [facility] [address] [address] 14 Jan, 2017 Urinary frequency R35.0 and Opiate dependence, continuous F11.20 [facility] [address] [place] [address] Jan, Opiate dependence, continuous F11.20 ; 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 ; Benzodiazepine abuse F13.10 ; Alcohol dependence, binge pattern F10.20 and Marijuana abuse F12.10 [facility] [address] [place] [address] 08 Jan, 2017 [facility] [id number] [place] [address] 61518- 2900 Jan, Moderate episode of recurrent major depressive disorder F33.1 and Post-traumatic stress disorder, unspecified F43.10 [facility] [id number] [place] [address] 55351- 8609 Jan, [facility] [address] [place] [address] 8[address]80- 9875 Jan, Moderate episode of recurrent major depressive disorder F33.1 and Substance abuse withdrawal without complication F19.230 [facility] [id number] [place] [address] 82595- 6718 Jan, [facility] [address] [facility] [id number] [address] Jun, [facility] [address] [facility] [id number] [address] Jun, [facility] [address] May, [facility] [address] [facility] [id number] [address] May, [facility] [address] [facility] [id number] [address] Apr, [facility] [address] [facility] [id number] Apr, [facility] [address] [address] Apr, [facility] [address] [address] 0[address] Apr, [facility] [address] [address] Apr, [facility] [id number] [address] Apr, [facility] [id number] [address] Dec, [facility] [id number] [address] Dec, [facility] [id number] [id number] Nov, [facility] [id number] [address] Sep, IMMUNIZATIONS No Known Immunizations SOCIAL HISTORY Never Assessed REASON FOR VISIT MAT F/U PLAN OF CARE Activity Details Follow Up 4 Weeks Reason:MAT Pending Test PDM - ATS (PROFILE 8) Pending Test PDM - AMPHETAMINES W/ REFLEX d/l ISOMERS VITAL SIGNS Height 69.5 in 2017-06-07 Weight 156.8 lbs 2017-06-07 Temperature 98.2 degrees Fahrenheit 2017-06-07 Heart Rate 102 bpm 2017-06-07 Respiratory Rate 20 2017-06-07 BMI 22.82 kg/m2 2017-06-07 Blood pressure systolic 144 mmHg 2017-06-07 Blood pressure diastolic 92 mmHg 2017-06-07 MEDICATIONS Medication Instructions Dosage Frequency Start Date End Date Duration Status Zoloft 100 mg Orally Once a day 1 tablet 24h Feb, 30 day(s) Active Suboxone 8-2 MG Sublingual Once a day. CHARGE FULL AMOUNT TO [place] 3 film under the tongue and allow to dissolve 7 days Active RESULTS No Results PROCEDURES Procedure Date Ordered Result Body Site DRUG TEST PRSMV CHEM ANLYZR June 07, 2017 DRUG SCREEN AMPHETAMINES 03/08June 07, 2017 INSTRUCTIONS MEDICATIONS ADMINISTERED No Known Medications MEDICAL (GENERAL) HISTORY Type Description Date Medical History ADHD Medical History depression Medical History anxiety Surgical History tongue clipped as a child
--- OUTSIDE RECORDS SUMMARY | 2017-10-23 22:08 | XMS REPORT ---
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 103996312 Problem Marijuana abuse F12.10 Active 71352972 Problem Alcohol dependence, binge pattern F10.20 Active 073058943 Problem Benzodiazepine abuse F13.10 Active 875962293 Problem Missed period N92.6 Active 94193207 Problem Dysthymia F34.1 Active 00692715 Problem Major depressive disorder, recurrent, moderate F33.1 Active 58441828 Problem Post-traumatic stress disorder, unspecified F43.10 Active 48015784 Problem Drug induced constipation K59.03 Active 76721449 Problem Opioid dependence, uncomplicated F11.20 Active 98556547 ALLERGIES No Information ENCOUNTERS Encounter Location Date Diagnosis [facility] [address] [address] Nov, [facility] [address] [address] Sep, Acute pain of right wrist M25.531 and Missed period N92.6 [facility] [address] [address] Aug, Acute pain of right wrist M25.531 ; Dysthymia F34.1 ; Screening for hyperlipidemia Z13.220 ; Screening for diabetes mellitus Z13.1 and Screening for other and unspecified deficiency anemia Z13.0 [facility] [id number] [place] [address] Aug, [facility] [address] [place] [address] July, Opioid dependence, uncomplicated F11.20 and Methamphetamine abuse, 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 [facility] [address] [place] [address] July, Opioid dependence, uncomplicated F11.20 and Methamphetamine abuse, 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 [facility] [address] [id number] July, Opioid dependence, uncomplicated F11.20 and Methamphetamine abuse, 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 [facility] [address] [address] Jun, Opioid dependence, uncomplicated F11.20 [facility] [address] [place] [address] Jun, Opioid dependence, uncomplicated F11.20 and Methamphetamine abuse, 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 [facility] [address] 5615[address] Jun, [facility] [address] [address] Jun, Moderate episode of recurrent major depressive disorder F33.1 ; Post-traumatic stress disorder, unspecified F43.10 and Opioid dependence , uncomplicated F11.20 [facility] [address] [address] Jun, Opioid dependence, uncomplicated F11.20 [facility] [id number] [place] [address] May, Opioid dependence, uncomplicated F11.20 [facility] [address] [place] [address] May, Opioid dependence, uncomplicated F11.20 and Methamphetamine abuse, 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 [facility] [id number] [place] [address] May, Opioid dependence, uncomplicated F11.20 [facility] [address] [id number] May, Opioid dependence, uncomplicated F11.20 [facility] [address] [place] [address] May, Opioid dependence, uncomplicated F11.20 and Methamphetamine abuse, 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 [facility] [address] [address] May, Moderate episode of recurrent major depressive disorder F33.1 ; Post-traumatic stress disorder, unspecified F43.10 and Opioid dependence , uncomplicated F11.20 [facility] [address] [address] May, [facility] [address] [address] Apr, Opioid dependence, uncomplicated F11.20 [facility] [address] [place] [address] Apr, Opioid dependence, uncomplicated F11.20 and Methamphetamine abuse, 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 [facility] [address] [address] Apr, Opioid dependence, uncomplicated F11.20 [facility] [address] [place] [address] Apr, Opioid dependence, uncomplicated F11.20 and Methamphetamine abuse, 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 [facility] [address] 784000- [address] Apr, Opioid dependence, uncomplicated F11.20 [facility] [address] [place] [address] Apr, Opioid dependence, uncomplicated F11.20 [facility] [address] [address] Apr, Opioid dependence, uncomplicated F11.20 [facility] [address] [place] [address] Mar, Opioid dependence, uncomplicated F11.20 [facility] [address] [address] Mar, Opioid dependence, uncomplicated F11.20 [facility] [address] [address] Mar, Opioid dependence, uncomplicated F11.20 [facility] [id number] [place] [address] Mar, [facility] [id number] [place] [address] Mar, Opioid dependence, uncomplicated F11.20 [facility] [id number] [place] [address] Mar, Opioid dependence, uncomplicated F11.20 [facility] [id number] [place] [address] Mar, Moderate episode of recurrent major depressive disorder F33.1 ; Post-traumatic stress disorder, unspecified F43.10 and Opioid dependence , uncomplicated F11.20 [facility] [id number] [place] [address] Mar, Opioid dependence, uncomplicated F11.20 [facility] [id number] [place] [address] Feb, Moderate episode of recurrent major depressive disorder F33.1 [facility] [address] [place] [address] 28 Feb, 2017 Opioid dependence, uncomplicated F11.20 [facility] [id number] [place] [address] 27 Feb, 2017 Opioid dependence, uncomplicated F11.20 [facility] [id number] [place] [address]- [address] Feb, Opioid dependence, uncomplicated F11.20 [facility] [id number] [place] [address] 2546 19 Feb, 2017 [facility] [id number] [place] [address] 26[address] 18 Feb, 2017 [facility] [id number] [place] [address] 15 Feb, 2017 Moderate episode of recurrent major depressive disorder F33.1 [facility] [address] [place] [address] 14 Feb, 2017 Opioid dependence, uncomplicated F11.20 [facility] [address] [address] 14 Feb, 2017 [facility] [id number] [place] [address] 2546 14 Feb, 2017 [facility] [id number] [place] [address] 2546 14 Feb, 2017 [facility] [id number] [place] [address] 2546 13 Feb, 2017 [facility] [id number] [place] [address]- [address] Feb, [facility] [id number] [place] [address] 13 Feb, 2017 Moderate episode of recurrent major depressive disorder F33.1 ; Post-traumatic stress disorder, unspecified F43.10 and Opioid dependence , uncomplicated F11.20 [facility] [id number] [place] [address]47[address] 12 Feb, 2017 [facility] [id number] [place] [address] Feb, [facility] [address] [place] [address] 08 Feb, 2017 Opioid dependence, uncomplicated F11.20 [facility] [address] [address] 08 Feb, 2017 Moderate episode of recurrent major depressive disorder F33.1 [facility] [id number] [place] [address] 2546 07 Feb, 2017 Opioid dependence, uncomplicated F11.20 [facility] [id number] [place] [address] 2546 07 Feb, 2017 [facility] [id number] [place] [address] 56406- 2546 Feb, [facility] [id number] [place] [address]34- 0[address] Feb, [facility] [id number] [place] [address]188- 8023 Feb, [facility] [id number] [place] [address]36- 6156 Feb, [facility] [address] [place] [address] Feb, Opioid dependence, uncomplicated F11.20 [facility] [id number] [place] [address]12- 7[address] Feb, [facility] [id number] [place] [address] 81272- 4950 Jan, Opioid dependence, uncomplicated F11.20 and Drug induced constipation K59.03 [facility] [id number] [place] [address] 87488- [address]2 Jan, [facility] [address] [address] Jan, Moderate episode of recurrent major depressive disorder F33.1 and Post-traumatic stress disorder, unspecified F43.10 [facility] [address] [place] [address] Jan, [facility] [id number] [place] [address] 43[address]- 7731 Jan, [facility] [id number] [place] [address] 76741- 5988 Jan, [facility] [address] [place] [address] Jan, [facility] [id number] [place] [address] 26073- 6468 Jan, Opioid dependence, uncomplicated F11.20 ; Drug induced constipation K59.03 and Adverse effect of other opioids, initial encounter T40.2X5A [facility] [id number] [place] [address] 27869- 2676 Jan, [facility] [id number] [place] [address] 45613- 3[address] Jan, [facility] [id number] [place] [address] 32213- 9387 Jan, Opiate dependence, continuous F11.20 [facility] [address] [place] [address] 17 Jan, 2017 Opiate dependence, continuous F11.20 ; 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 ; Benzodiazepine abuse F13.10 ; Alcohol dependence, binge pattern F10.20 and Marijuana abuse F12.10 [facility] [id number] [place] [address]237- [address] 16 Jan, 2017 [facility] [address] [address] Jan, [facility] [address] [address] Jan, [facility] [address] [address] 14 Jan, 2017 Urinary frequency R35.0 and Opiate dependence, continuous F11.20 [facility] [address] [place] [address] Jan, Opiate dependence, continuous F11.20 ; 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 ; Benzodiazepine abuse F13.10 ; Alcohol dependence, binge pattern F10.20 and Marijuana abuse F12.10 [facility] [address] [place] [address] Jan, [facility] [id number] [place] [address] 08307- 8765 Jan, Moderate episode of recurrent major depressive disorder F33.1 and Post-traumatic stress disorder, unspecified F43.10 [facility] [id number] [place] [address] 91741- 7737 Jan, [facility] [address] [place] [address]- 9846 Jan, Moderate episode of recurrent major depressive disorder F33.1 and Substance abuse withdrawal without complication F19.230 [facility] [address] [address]- [address]30 Jan, [facility] [id number] [address] Jun, [facility] [address] [address] Jun, [facility] [id number] [address] May, [facility] [id number] [address] May, [facility] [id number] [address] 8055 Apr, [facility] [address] Apr, [facility] [id number] Apr, [facility] [address] [address]- 7340 Apr, [facility] [address] 9[address] Apr, [facility] [address] Apr, [facility] [id number] [address] 4806 Dec, [facility] [id number] [address] Dec, [facility] [address] [facility] [id number] [id number] Nov, [facility] [address] [address] Sep, IMMUNIZATIONS No Known Immunizations SOCIAL HISTORY Never Assessed REASON FOR VISIT SUBAB F/U PLAN OF CARE Activity Details Follow Up MAT only Reason:SUBABFU VITAL SIGNS MEDICATIONS Medication Instructions Dosage Frequency Start Date End Date Duration Status Suboxone 8-2 MG Sublingual Once a day 3 film under the tongue and allow to dissolve 24h 1 days Active RESULTS No Results PROCEDURES Procedure Date Ordered Result Body Site Alcohol and/or drug services June 17, 2017 INSTRUCTIONS MEDICATIONS ADMINISTERED No Known Medications MEDICAL (GENERAL) HISTORY Type Description Date Medical History ADHD Medical History depression Medical History anxiety Surgical History tongue clipped as a child
--- OUTSIDE RECORDS SUMMARY | 2017-10-23 22:08 | XMS REPORT ---
Author Author SHELLY ALVAREZ Organization [facility] Address [address] 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 807675107 Problem Marijuana abuse F12.10 Active 93978727 Problem Alcohol dependence, binge pattern F10.20 Active 579373628 Problem Benzodiazepine abuse F13.10 Active 574981949 Problem Missed period N92.6 Active 45702019 Problem Dysthymia F34.1 Active 23660736 Problem Major depressive disorder, recurrent, moderate F33.1 Active 12516047 Problem Post-traumatic stress disorder, unspecified F43.10 Active 42057350 Problem Drug induced constipation K59.03 Active 83286577 Problem Opioid dependence, uncomplicated F11.20 Active 60143187 ALLERGIES No Information ENCOUNTERS Encounter Location Date Diagnosis [facility] [address] [address] Nov, [facility] [address] [address] Sep, Acute pain of right wrist M25.531 and Missed period N92.6 [facility] [address] [address] Aug, Acute pain of right wrist M25.531 ; Dysthymia F34.1 ; Screening for hyperlipidemia Z13.220 ; Screening for diabetes mellitus Z13.1 and Screening for other and unspecified deficiency anemia Z13.0 [facility] [id number] [place] [address] Aug, [facility] [address] [place] [address] July, Opioid dependence, uncomplicated F11.20 and Methamphetamine abuse, 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 [facility] [address] [place] [address] July, Opioid dependence, uncomplicated F11.20 and Methamphetamine abuse, 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 [facility] [place] [address] [id number] July, Opioid dependence, uncomplicated F11.20 and Methamphetamine abuse, 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 [facility] [address] [address] Jun, Opioid dependence, uncomplicated F11.20 [facility] [address] [place] [address] Jun, Opioid dependence, uncomplicated F11.20 and Methamphetamine abuse, 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 [facility] [address] [address] Jun, [facility] [address] [address] Jun, Moderate episode of recurrent major depressive disorder F33.1 ; Post-traumatic stress disorder, unspecified F43.10 and Opioid dependence , uncomplicated F11.20 [facility] [address] [address] Jun, Opioid dependence, uncomplicated F11.20 [facility] [id number] [place] [address] May, Opioid dependence, uncomplicated F11.20 [facility] [address] [place] [address] May, Opioid dependence, uncomplicated F11.20 and Methamphetamine abuse, 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 [facility] [id number] [place] [address] May, Opioid dependence, uncomplicated F11.20 [facility] [address] [address] May, Opioid dependence, uncomplicated F11.20 [facility] [address] [place] [address] May, Opioid dependence, uncomplicated F11.20 and Methamphetamine abuse, 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 [facility] [id number] [place] [address] May, Moderate episode of recurrent major depressive disorder F33.1 ; Post-traumatic stress disorder, unspecified F43.10 and Opioid dependence , uncomplicated F11.20 [facility] [id number] [place] [address] May, [facility] [address] [address]14[address] Apr, Opioid dependence, uncomplicated F11.20 [facility] [address] [place] [address] Apr, Opioid dependence, uncomplicated F11.20 and Methamphetamine abuse, 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 [facility] [address] 7823[address]- [address] Apr, Opioid dependence, uncomplicated F11.20 [facility] [address] [place] [address] Apr, Opioid dependence, uncomplicated F11.20 and Methamphetamine abuse, 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 [facility] [address] 803212- [address] Apr, Opioid dependence, uncomplicated F11.20 [facility] [address] [place] [address] Apr, Opioid dependence, uncomplicated F11.20 [facility] [address] [address] Apr, Opioid dependence, uncomplicated F11.20 [facility] [address] [place] [address] Mar, Opioid dependence, uncomplicated F11.20 [facility] [address] [address] Mar, Opioid dependence, uncomplicated F11.20 [facility] [id number] [place] [address] Mar, Opioid dependence, uncomplicated F11.20 [facility] [id number] [place] [address] Mar, [facility] [address] [address] Mar, Opioid dependence, uncomplicated F11.20 [facility] [id number] [place] [address] Mar, Opioid dependence, uncomplicated F11.20 [facility] [id number] [place] [address] 2542 Mar, Moderate episode of recurrent major depressive disorder F33.1 ; Post-traumatic stress disorder, unspecified F43.10 and Opioid dependence , uncomplicated F11.20 [facility] [id number] [place] [address] 6[address] Mar, Opioid dependence, uncomplicated F11.20 [facility] [id number] [place] [address] 28 Feb, 2017 Moderate episode of recurrent major depressive disorder F33.1 [facility] [address] [place] [address] 28 Feb, 2017 Opioid dependence, uncomplicated F11.20 [facility] [id number] [place] [address] 2546 27 Feb, 2017 Opioid dependence, uncomplicated F11.20 [facility] [id number] [place] [address]22- [address] Feb, Opioid dependence, uncomplicated F11.20 [facility] [id number] [place] [address] 2546 19 Feb, 2017 [facility] [id number] [place] [address] 18 Feb, 2017 [facility] [id number] [place] [address] 30443 2546 15 Feb, 2017 Moderate episode of recurrent major depressive disorder F33.1 [facility] [address] [place] [address] 14 Feb, 2017 Opioid dependence, uncomplicated F11.20 [facility] [address] [place] [address]- [address] 14 Feb, 2017 [facility] [id number] [place] [address] 56834- [address] 14 Feb, 2017 [facility] [id number] [place] [address] 04244- 7986 14 Feb, 2017 [facility] [id number] [place] [address] 8[address]03- 69[address] Feb, [facility] [id number] [place] [address] 68306- [address] Feb, [facility] [id number] [place] [address] 63933- 6986 13 Feb, 2017 Moderate episode of recurrent major depressive disorder F33.1 ; Post-traumatic stress disorder, unspecified F43.10 and Opioid dependence , uncomplicated F11.20 [facility] [id number] [place] [address] 85024- 1666 12 Feb, 2017 [facility] [id number] [place] [address] 71330- [address] Feb, [facility] [address] [place] [address] 08 Feb, 2017 Opioid dependence, uncomplicated F11.20 [facility] [id number] [place] [address] 21548 2546 08 Feb, 2017 Moderate episode of recurrent major depressive disorder F33.1 [facility] [address] [place] [address] 36[address] 2546 07 Feb, 2017 Opioid dependence, uncomplicated F11.20 [facility] [id number] [place] [address] 44467 2546 07 Feb, 2017 [facility] [address] [place] [address] 89102- 2546 06 Feb, 2017 [facility] [id number] [place] [address] 06098- [address]326 Feb, [facility] [id number] [place] [address] 88535- 2889 Feb, [facility] [id number] [place] [address] 73299- 6256 Feb, [facility] [address] [place] [address] Feb, Opioid dependence, uncomplicated F11.20 [facility] [address] [address] 2546 Feb, [facility] [id number] [place] [address] 02091- 7381 Jan, Opioid dependence, uncomplicated F11.20 and Drug induced constipation K59.03 [facility] [id number] [place] [address] 09332- 6496 Jan, [facility] [address] [address] Jan, Moderate episode of recurrent major depressive disorder F33.1 and Post-traumatic stress disorder, unspecified F43.10 [facility] [address] [place] [address] Jan, [facility] [id number] [place] [address] 58232- 8719 Jan, [facility] [id number] [place] [address] 45320- 7465 Jan, [facility] [address] [place] [address] Jan, [facility] [id number] [place] [address] 41486- 7132 Jan, Opioid dependence, uncomplicated F11.20 ; Drug induced constipation K59.03 and Adverse effect of other opioids, initial encounter T40.2X5A [facility] [id number] [place] [address] 18374- 3576 Jan, [facility] [id number] [place] [address] 89357657- 6479 Jan, [facility] [address] [place] [address] 37792- 9259 Jan, Opiate dependence, continuous F11.20 [facility] [address] [place] [address] 17 Jan, 2017 Opiate dependence, continuous F11.20 ; 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 ; Benzodiazepine abuse F13.10 ; Alcohol dependence, binge pattern F10.20 and Marijuana abuse F12.10 [facility] [id number] [place] [address] 72650- 5766 16 Jan, 2017 [facility] [id number] [place] [address] 77291- 4978 Jan, [facility] [id number] [place] [address] 58400- 3786 15 Jan, 2017 [facility] [id number] [place] [address] 41003- 5807 14 Jan, 2017 Urinary frequency R35.0 and Opiate dependence, continuous F11.20 [facility] [address] [place] [address] Jan, Opiate dependence, continuous F11.20 ; 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 ; Benzodiazepine abuse F13.10 ; Alcohol dependence, binge pattern F10.20 and Marijuana abuse F12.10 [facility] [address] [place] [address] 08 Jan, 2017 [facility] [id number] [place] [address] 22022- 4725 Jan, Moderate episode of recurrent major depressive disorder F33.1 and Post-traumatic stress disorder, unspecified F43.10 [facility] [id number] [place] [address] 93351- 9992 Jan, [facility] [address] [place] [address]39- 1420 Jan, Moderate episode of recurrent major depressive disorder F33.1 and Substance abuse withdrawal without complication F19.230 [facility] [id number] [place] [address] 11469- 2616 Jan, [facility] [id number] [address] Jun, [facility] [address] [place] [address] Jun, [facility] [id number] [address] May, [facility] [address] [address] May, [facility] [id number] [address] Apr, [facility] [address] [address] Apr, [facility] [address] [address] Apr, [facility] [address] [address]- 7[address] Apr, [facility] [address] [address] Apr, [facility] [address] [address]- [address] Apr, [facility] [id number] [address] Dec, [facility] [id number] [address] Dec, [facility] [id number] [id number] Nov, [facility] [address] [address] Sep, IMMUNIZATIONS No Known Immunizations SOCIAL HISTORY Never Assessed REASON FOR VISIT Requests return call PLAN OF CARE VITAL SIGNS MEDICATIONS Unknown Medications RESULTS No Results PROCEDURES No Known procedures INSTRUCTIONS MEDICATIONS ADMINISTERED No Known Medications MEDICAL (GENERAL) HISTORY Type Description Date Medical History ADHD Medical History depression Medical History anxiety Surgical History tongue clipped as a child
--- OUTSIDE RECORDS SUMMARY | 2017-10-23 22:09 | XMS REPORT ---
Author Author VINCE ARBEN 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 864454104 Problem Marijuana abuse F12.10 Active 62775753 Problem Alcohol dependence, binge pattern F10.20 Active 392065422 Problem Benzodiazepine abuse F13.10 Active 809502146 Problem Missed period N92.6 Active 99283401 Problem Dysthymia F34.1 Active 98377451 Problem Major depressive disorder, recurrent, moderate F33.1 Active 54822037 Problem Post-traumatic stress disorder, unspecified F43.10 Active 50062539 Problem Drug induced constipation K59.03 Active 61374197 Problem Opioid dependence, uncomplicated F11.20 Active 10744264 ALLERGIES No Information ENCOUNTERS Encounter Location Date Diagnosis [facility] [address] [address] Nov, [facility] [address] [address] Sep, Acute pain of right wrist M25.531 and Missed period N92.6 [facility] [address] [address] Aug, Acute pain of right wrist M25.531 ; Dysthymia F34.1 ; Screening for hyperlipidemia Z13.220 ; Screening for diabetes mellitus Z13.1 and Screening for other and unspecified deficiency anemia Z13.0 [facility] [id number] [place] [address] Aug, [facility] [address] [place] [address] July, Opioid dependence, uncomplicated F11.20 and Methamphetamine abuse, 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 [facility] [address] [place] [address] July, Opioid dependence, uncomplicated F11.20 and Methamphetamine abuse, 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 [facility] [place] [address] [id number] July, Opioid dependence, uncomplicated F11.20 and Methamphetamine abuse, 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 [facility] [address] [address] Jun, Opioid dependence, uncomplicated F11.20 [facility] [address] [place] [address] Jun, Opioid dependence, uncomplicated F11.20 and Methamphetamine abuse, 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 [facility] [address] 9[address] Jun, [facility] [address] 939993[address] Jun, Moderate episode of recurrent major depressive disorder F33.1 ; Post-traumatic stress disorder, unspecified F43.10 and Opioid dependence , uncomplicated F11.20 [facility] [address] [address] Jun, Opioid dependence, uncomplicated F11.[address] [facility] [id number] [place] [address] May, Opioid dependence, uncomplicated F11.20 [facility] [address] [place] [address] May, Opioid dependence, uncomplicated F11.20 and Methamphetamine abuse, 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 [facility] [id number] [place] [address] May, Opioid dependence, uncomplicated F11.20 [facility] [address] [id number] May, Opioid dependence, uncomplicated F11.20 [facility] [address] [place] [address] May, Opioid dependence, uncomplicated F11.20 and Methamphetamine abuse, 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 [facility] [facility] [address] [address] May, Moderate episode of recurrent major depressive disorder F33.1 ; Post-traumatic stress disorder, unspecified F43.10 and Opioid dependence , uncomplicated F11.20 [facility] [address] [address] May, [facility] [address] [address] Apr, Opioid dependence, uncomplicated F11.20 [facility] [address] [place] [address] Apr, Opioid dependence, uncomplicated F11.20 and Methamphetamine abuse, 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 [facility] [address] [address] Apr, Opioid dependence, uncomplicated F11.20 [facility] [address] [place] [address] Apr, Opioid dependence, uncomplicated F11.20 and Methamphetamine abuse, 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 [facility] [address] 752772- [address] Apr, Opioid dependence, uncomplicated F11.20 [facility] [address] [place] [address] Apr, Opioid dependence, uncomplicated F11.20 [facility] [address] [address] Apr, Opioid dependence, uncomplicated F11.20 [facility] [address] [place] [address] Mar, Opioid dependence, uncomplicated F11.20 [facility] [address] [address] Mar, Opioid dependence, uncomplicated F11.[address] [facility] [facility] [address] [address] Mar, Opioid dependence, uncomplicated F11.[address] [facility] [id number] [place] [address] Mar, [facility] [id number] [place] [address] Mar, Opioid dependence, uncomplicated F11.20 [facility] [id number] [place] [address]85[address] Mar, Opioid dependence, uncomplicated F11.20 [facility] [id number] [place] [address] 06775- [address] Mar, Moderate episode of recurrent major depressive disorder F33.1 ; Post-traumatic stress disorder, unspecified F43.10 and Opioid dependence , uncomplicated F11.20 [facility] [id number] [place] [address] Mar, Opioid dependence, uncomplicated F11.20 [facility] [id number] [place] [address] Feb, Moderate episode of recurrent major depressive disorder F33.1 [facility] [address] [place] [address] 28 Feb, 2017 Opioid dependence, uncomplicated F11.20 [facility] [id number] [place] [address] 27 Feb, 2017 Opioid dependence, uncomplicated F11.20 [facility] [id number] [place] [address] 79131[address] Feb, Opioid dependence, uncomplicated F11.20 [facility] [id number] [place] [address] 2546 19 Feb, 2017 [facility] [id number] [place] [address] 70221- [address] 18 Feb, 2017 [facility] [id number] [place] [address] 9[address] 15 Feb, 2017 Moderate episode of recurrent major depressive disorder F33.1 [facility] [address] [place] [address] 14 Feb, 2017 Opioid dependence, uncomplicated F11.20 [facility] [address] [address] 14 Feb, 2017 [facility] [id number] [place] [address] 2546 14 Feb, 2017 [facility] [id number] [place] [address] 19[address] 2546 14 Feb, 2017 [facility] [id number] [place] [address] 24[address] 2546 13 Feb, 2017 [facility] [id number] [place] [address] 50948- [address] Feb, [facility] [id number] [place] [address] 04783- 3[address] 13 Feb, 2017 Moderate episode of recurrent major depressive disorder F33.1 ; Post-traumatic stress disorder, unspecified F43.10 and Opioid dependence , uncomplicated F11.20 [facility] [id number] [place] [address] 30781- 79[address] 12 Feb, 2017 [facility] [id number] [place] [address]48- [address] Feb, [facility] [address] [place] [address] 08 Feb, 2017 Opioid dependence, uncomplicated F11.20 [facility] [address], [place] [address]46 08 Feb, 2017 Moderate episode of recurrent major depressive disorder F33.1 [facility] [id number] [place] [address] 50358 2546 07 Feb, 2017 Opioid dependence, uncomplicated F11.20 [facility] [id number] [place] [address] 63271 2546 07 Feb, 2017 [facility] [id number] [place] [address] 45773- 2546 Feb, [facility] [id number] [place] [address] 02237- 3[address] Feb, [facility] [id number] [place] [address]38- 0[address] Feb, [facility] [id number] [place] [address] 48218- 4376 Feb, [facility] [address] [place] [address] Feb, Opioid dependence, uncomplicated F11.20 [facility] [id number] [place] [address] 69705- 4596 Feb, [facility] [id number] [place] [address] 87080- 4282 Jan, Opioid dependence, uncomplicated F11.20 and Drug induced constipation K59.03 [facility] [id number] [place] [address] 84135- 0815 Jan, [facility] [address] [address] Jan, Moderate episode of recurrent major depressive disorder F33.1 and Post-traumatic stress disorder, unspecified F43.10 [facility] [address] [place] [address] Jan, [facility] [id number] [place] [address] 42453- 9431 Jan, [facility] [id number] [place] [address] 52303- 7472 Jan, [facility] [address] [place] [address] Jan, [facility] [id number] [place] [address] 79893- 9972 Jan, Opioid dependence, uncomplicated F11.20 ; Drug induced constipation K59.03 and Adverse effect of other opioids, initial encounter T40.2X5A [facility] [id number] [place] [address] 27721- 9348 Jan, [facility] [id number] [place] [address] 81098- 5834 Jan, [facility] [id number] [place] [address] 01473- 7442 Jan, Opiate dependence, continuous F11.20 [facility] [address] [place] [address] 17 Jan, 2017 Opiate dependence, continuous F11.20 ; 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 ; Benzodiazepine abuse F13.10 ; Alcohol dependence, binge pattern F10.20 and Marijuana abuse F12.10 [facility] [id number] [place] [address] 28846- 3[address] 16 Jan, 2017 [facility] [address] [address]- [address] Jan, [facility] [address] [address] Jan, [facility] [address] [address] 14 Jan, 2017 Urinary frequency R35.0 and Opiate dependence, continuous F11.20 [facility] [address] [place] [address] Jan, Opiate dependence, continuous F11.20 ; 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 [address] [place] [address] Jan, [facility] [id number] [place] [address] 40823- 8626 Jan, Moderate episode of recurrent major depressive disorder F33.1 and Post-traumatic stress disorder, unspecified F43.10 [facility] [id number] [place] [address] 51547- 3904 Jan, [facility] [address] [place] [address] 37729- 8594 Jan, Moderate episode of recurrent major depressive disorder F33.1 and Substance abuse withdrawal without complication F19.230 [facility] [address] [address] Jan, [facility] [id number], [place] [address] Jun, [facility] [address], [place] [address] Jun, [facility] [id number], [place] [address] May, [facility] [address], [place] [address] May, [facility] [id number], [place] [address]262 Apr, [facility] [address] Apr, [facility] [address], [place] [address]- 7[address] Apr, [facility] [address], [place] [address]- 6[address] Apr, [facility] [address], [place] [address] 6777 Apr, [facility] [address] Apr, [facility] [id number], [place] [address] Dec, [facility] [id number] [address] Dec, [facility] [address] [facility] [id number] [id number] Nov, [facility] [address], [place] [address] Sep, IMMUNIZATIONS No Known Immunizations SOCIAL HISTORY Never Assessed REASON FOR VISIT SUBAB-F/U PLAN OF CARE Activity Details Follow Up 1 Week Reason:SUBABFU VITAL SIGNS MEDICATIONS Medication Instructions Dosage Frequency Start Date End Date Duration Status Suboxone 8-2 MG Sublingual Once a day 3 film under the tongue and allow to dissolve 24h 1 days Active RESULTS No Results PROCEDURES Procedure Date Ordered Result Body Site Alcohol and/or drug services May 13, 2017 INSTRUCTIONS MEDICATIONS ADMINISTERED No Known Medications MEDICAL (GENERAL) HISTORY Type Description Date Medical History ADHD Medical History depression Medical History anxiety Surgical History tongue clipped as a child
--- OUTSIDE RECORDS SUMMARY | 2017-10-23 22:09 | XMS REPORT ---
Author Author SHELLY ALVAREZ Organization [facility] Address [address] 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 467533503 Problem Marijuana abuse F12.10 Active 33430880 Problem Alcohol dependence, binge pattern F10.20 Active 151312687 Problem Benzodiazepine abuse F13.10 Active 417250905 Problem Missed period N92.6 Active 80504361 Problem Dysthymia F34.1 Active 41715076 Problem Major depressive disorder, recurrent, moderate F33.1 Active 64767310 Problem Post-traumatic stress disorder, unspecified F43.10 Active 74370621 Problem Drug induced constipation K59.03 Active 43957177 Problem Opioid dependence, uncomplicated F11.20 Active 45438994 ALLERGIES No Information ENCOUNTERS Encounter Location Date Diagnosis [facility] [address] [address] Nov, [facility] [address] [address] Sep, Acute pain of right wrist M25.531 and Missed period N92.6 [facility] [address] [address] Aug, Acute pain of right wrist M25.531 ; Dysthymia F34.1 ; Screening for hyperlipidemia Z13.220 ; Screening for diabetes mellitus Z13.1 and Screening for other and unspecified deficiency anemia Z13.0 [facility] [id number] [place] [address] Aug, [facility] [address] [place] [address] July, Opioid dependence, uncomplicated F11.20 and Methamphetamine abuse, 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 [facility] [address] [place] [address] July, Opioid dependence, uncomplicated F11.20 and Methamphetamine abuse, 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 [facility] [place] [address] [id number] July, Opioid dependence, uncomplicated F11.20 and Methamphetamine abuse, 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 [facility] [address] [address] Jun, Opioid dependence, uncomplicated F11.20 [facility] [place] [address] [place] [address] Jun, Opioid dependence, uncomplicated F11.20 and Methamphetamine abuse, 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 [facility] [address] [address] Jun, [facility] [address] [address] Jun, Moderate episode of recurrent major depressive disorder F33.1 ; Post-traumatic stress disorder, unspecified F43.10 and Opioid dependence , uncomplicated F11.20 [facility] [address] [address] Jun, Opioid dependence, uncomplicated F11.20 [facility] [id number] [place] [address] May, Opioid dependence, uncomplicated F11.20 [facility] [place] [address] [place] [address] May, Opioid dependence, uncomplicated F11.20 and Methamphetamine abuse, 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 [facility] [id number] [place] [address] May, Opioid dependence, uncomplicated F11.20 [facility] [address] [address] May, Opioid dependence, uncomplicated F11.20 [facility] [place] [address] [place] [address] May, Opioid dependence, uncomplicated F11.20 and Methamphetamine abuse, 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 [facility] [id number] [place] [address] May, Moderate episode of recurrent major depressive disorder F33.1 ; Post-traumatic stress disorder, unspecified F43.10 and Opioid dependence , uncomplicated F11.20 [facility] [id number] [place] [address] May, [facility] [address] [address] Apr, Opioid dependence, uncomplicated F11.20 [facility] [place] [address] [place] [address] Apr, Opioid dependence, uncomplicated F11.20 and Methamphetamine abuse, 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 [facility] [address] [address] Apr, Opioid dependence, uncomplicated F11.20 [facility] [place] [address] [place] [address] Apr, Opioid dependence, uncomplicated F11.20 and Methamphetamine abuse, 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 [facility] [address] [address] Apr, Opioid dependence, uncomplicated F11.20 [facility] [place] [address] [place] [address] Apr, Opioid dependence, uncomplicated F11.20 [facility] [address] [address] Apr, Opioid dependence, uncomplicated F11.20 [facility] [address] [place] [address] Mar, Opioid dependence, uncomplicated F11.20 [facility] [address] [address] Mar, Opioid dependence, uncomplicated F11.20 [facility] [id number] [place] [address] Mar, Opioid dependence, uncomplicated F11.20 [facility] [id number] [place] [address] Mar, [facility] [address] [address] Mar, Opioid dependence, uncomplicated F11.20 [facility] [id number] [place] [address] Mar, Opioid dependence, uncomplicated F11.20 [facility] [id number] [place] [address] 25[address] Mar, Moderate episode of recurrent major depressive disorder F33.1 ; Post-traumatic stress disorder, unspecified F43.10 and Opioid dependence , uncomplicated F11.20 [facility] [id number] [place] [address] Mar, Opioid dependence, uncomplicated F11.20 [facility] [id number] [place] [address] 28 Feb, 2017 Moderate episode of recurrent major depressive disorder F33.1 [facility] [address] [place] [address] 28 Feb, 2017 Opioid dependence, uncomplicated F11.20 [facility] [id number] [place] [address] 2546 27 Feb, 2017 Opioid dependence, uncomplicated F11.20 [facility] [id number] [place] [address] Feb, Opioid dependence, uncomplicated F11.20 [facility] [id number] [place] [address] 2546 19 Feb, 2017 [facility] [id number] [place] [address] 85[address] 18 Feb, 2017 [facility] [id number] [place] [address] 25[address] 15 Feb, 2017 Moderate episode of recurrent major depressive disorder F33.1 [facility] [address] [place] [address] 14 Feb, 2017 Opioid dependence, uncomplicated F11.20 [facility] [id number] [place] [address] 14 Feb, 2017 [facility] [id number] [place] [address] 14 Feb, 2017 [facility] [id number] [place] [address]42[address] 14 Feb, 2017 [facility] [id number] [place] [address] Feb, [facility] [id number] [place] [address] Feb, [facility] [id number] [place] [address] 13 Feb, 2017 Moderate episode of recurrent major depressive disorder F33.1 ; Post-traumatic stress disorder, unspecified F43.10 and Opioid dependence , uncomplicated F11.20 [facility] [id number] [place] [address] 12 Feb, 2017 [facility] [id number] [place] [address] 47[address] Feb, [facility] [address] [place] [address] 08 Feb, 2017 Opioid dependence, uncomplicated F11.20 [facility] [id number] [place] [address] 2546 08 Feb, 2017 Moderate episode of recurrent major depressive disorder F33.1 [facility] [id number] [place] [address] 2546 07 Feb, 2017 Opioid dependence, uncomplicated F11.20 [facility] [id number] [place] [address] 2546 07 Feb, 2017 [facility] [id number] [place] [address] 11085[address] 06 Feb, 2017 [facility] [id number] [place] [address] 67[address] Feb, [facility] [id number] [place] [address] 21584[address] Feb, [facility] [id number] [place] [address] Feb, [facility] [address] [place] [address] Feb, Opioid dependence, uncomplicated F11.20 [facility] [address] [address] Feb, [facility] [id number] [place] [address] Jan, Opioid dependence, uncomplicated F11.20 and Drug induced constipation K59.03 [facility] [id number] [place] [address] Jan, [facility] [address] [address] Jan, Moderate episode of recurrent major depressive disorder F33.1 and Post-traumatic stress disorder, unspecified F43.10 [facility] [address] [place] [address] Jan, [facility] [id number] [place] [address]16- 18[address] Jan, [facility] [id number] [place] [address] 32651[address] 8[address] Jan, [facility] [address] [place] [address] Jan, [facility] [id number] [place] [address] Jan, Opioid dependence, uncomplicated F11.20 ; Drug induced constipation K59.03 and Adverse effect of other opioids, initial encounter T40.2X5A [facility] [id number] [place] [address] 68[address] Jan, [facility] [id number] [place] [address] [id number]- 5484 Jan, [facility] [id number] [place] [address] Jan, Opiate dependence, continuous F11.20 [facility] [address] [place] [address] 17 Jan, 2017 Opiate dependence, continuous F11.20 ; 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 ; Benzodiazepine abuse F13.10 ; Alcohol dependence, binge pattern F10.20 and Marijuana abuse F12.10 [facility] [id number] [place] [address] 78728- [address]23 16 Jan, 2017 [facility] [id number] [place] [address] 15589- 96[address] Jan, [facility] [id number] [place] [address] 15328- 8943 15 Jan, 2017 [facility] [id number] [place] [address] 43216- 6957 14 Jan, 2017 Urinary frequency R35.0 and Opiate dependence, continuous F11.20 [facility] [address] [place] [address] Jan, Opiate dependence, continuous F11.20 ; 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 ; Benzodiazepine abuse F13.10 ; Alcohol dependence, binge pattern F10.20 and Marijuana abuse F12.10 [facility] [address] [place] [address] 08 Jan, 2017 [facility] [id number] [place] [address] 3[address] Jan, Moderate episode of recurrent major depressive disorder F33.1 and Post-traumatic stress disorder, unspecified F43.10 [facility] [id number] [place] [address] 8[address]06- [address] Jan, [facility] [address] [place] [address] Jan, Moderate episode of recurrent major depressive disorder F33.1 and Substance abuse withdrawal without complication F19.230 [facility] [id number] [place] [address] 12648- 8[address] Jan, [facility] [id number] [address] Jun, [facility] [address] [place] [address] Jun, [facility] [address] [place] [address] May, [facility] [address] [place] [address] May, [facility] [address] [address] Apr, [facility] [address] [address] Apr, [facility] [address] [place] [address] Apr, [facility] [address] [place] [address] Apr, [facility] [address] [place] [address] Apr, [facility] [address] [place] [address] Apr, [facility] [address] [place] [address] Dec, [facility] [id number] [address] Dec, [facility] [address] [id number] [id number] Nov, [facility] [address] [place] [address] Sep, IMMUNIZATIONS No Known Immunizations SOCIAL HISTORY Never Assessed REASON FOR VISIT Suboxone RX (05/27-06/02) PLAN OF CARE VITAL SIGNS MEDICATIONS Medication Instructions Dosage Frequency Start Date End Date Duration Status Suboxone 8-2 MG Sublingual Once a day. CHARGE FULL AMOUNT TO [facility] 3 film under the tongue and allow to dissolve May, 7 days Active RESULTS No Results PROCEDURES No Known procedures INSTRUCTIONS MEDICATIONS ADMINISTERED No Known Medications MEDICAL (GENERAL) HISTORY Type Description Date Medical History ADHD Medical History depression Medical History anxiety Surgical History tongue clipped as a child
--- OUTSIDE RECORDS SUMMARY | 2017-10-23 22:09 | XMS REPORT ---
Author Author SHELLY ALVAREZ Organization [facility] Address [address] 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 333924429 Problem Marijuana abuse F12.10 Active 19102953 Problem Alcohol dependence, binge pattern F10.20 Active 413168372 Problem Benzodiazepine abuse F13.10 Active 289632795 Problem Missed period N92.6 Active 60674533 Problem Dysthymia F34.1 Active 15689571 Problem Major depressive disorder, recurrent, moderate F33.1 Active 50115817 Problem Post-traumatic stress disorder, unspecified F43.10 Active 27843275 Problem Drug induced constipation K59.03 Active 46204320 Problem Opioid dependence, uncomplicated F11.20 Active 94451228 ALLERGIES No Information ENCOUNTERS Encounter Location Date Diagnosis [facility] [address] [address] Nov, [facility] [address] [address] Sep, Acute pain of right wrist M25.531 and Missed period N92.6 [facility] [address] [address] Aug, Acute pain of right wrist M25.531 ; Dysthymia F34.1 ; Screening for hyperlipidemia Z13.220 ; Screening for diabetes mellitus Z13.1 and Screening for other and unspecified deficiency anemia Z13.0 [facility] [id number] [place] [address] Aug, [facility] [address] [place] [address] July, Opioid dependence, uncomplicated F11.20 and Methamphetamine abuse, 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 [facility] [address] [place] [address] July, Opioid dependence, uncomplicated F11.20 and Methamphetamine abuse, 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 [facility] [place] [address] [id number] July, Opioid dependence, uncomplicated F11.20 and Methamphetamine abuse, 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 [facility] [address] [address] Jun, Opioid dependence, uncomplicated F11.20 [facility] [address] [place] [address] Jun, Opioid dependence, uncomplicated F11.20 and Methamphetamine abuse, 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 [facility] [address] [address] Jun, [facility] [address] [address] Jun, Moderate episode of recurrent major depressive disorder F33.1 ; Post-traumatic stress disorder, unspecified F43.10 and Opioid dependence , uncomplicated F11.20 [facility] [address] [address] Jun, Opioid dependence, uncomplicated F11.20 [facility] [id number] [place] [address] May, Opioid dependence, uncomplicated F11.20 [facility] [address] [place] [address] May, Opioid dependence, uncomplicated F11.20 and Methamphetamine abuse, 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 [facility] [id number] [place] [address] May, Opioid dependence, uncomplicated F11.20 [facility] [address] [address] May, Opioid dependence, uncomplicated F11.20 [facility] [address] [place] [address] May, Opioid dependence, uncomplicated F11.20 and Methamphetamine abuse, 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 [facility] [id number] [place] [address] May, Moderate episode of recurrent major depressive disorder F33.1 ; Post-traumatic stress disorder, unspecified F43.10 and Opioid dependence , uncomplicated F11.20 [facility] [id number] [place] [address] May, [facility] [address] [address] Apr, Opioid dependence, uncomplicated F11.20 [facility] [address] [place] [address] Apr, Opioid dependence, uncomplicated F11.20 and Methamphetamine abuse, 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 [facility] [address] 9728[address] Apr, Opioid dependence, uncomplicated F11.20 [facility] [address] [place] [address] Apr, Opioid dependence, uncomplicated F11.20 and Methamphetamine abuse, 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 [facility] [address] 6975[address]- [address] Apr, Opioid dependence, uncomplicated F11.20 [facility] [address] [place] [address] Apr, Opioid dependence, uncomplicated F11.20 [facility] [address] [address] Apr, Opioid dependence, uncomplicated F11.20 [facility] [address] [place] [address] Mar, Opioid dependence, uncomplicated F11.20 [facility] [address] [address] Mar, Opioid dependence, uncomplicated F11.20 [facility] [id number] [place] [address] Mar, Opioid dependence, uncomplicated F11.20 [facility] [id number] [place] [address] Mar, [facility] [address] [address] Mar, Opioid dependence, uncomplicated F11.20 [facility] [id number] [place] [address] Mar, Opioid dependence, uncomplicated F11.20 [facility] [id number] [place] [address] 2541 Mar, Moderate episode of recurrent major depressive disorder F33.1 ; Post-traumatic stress disorder, unspecified F43.10 and Opioid dependence , uncomplicated F11.20 [facility] [id number] [place] [address] Mar, Opioid dependence, uncomplicated F11.20 [facility] [id number] [place] [address]- [address] 28 Feb, 2017 Moderate episode of recurrent major depressive disorder F33.1 [facility] [address] [place] [address] 28 Feb, 2017 Opioid dependence, uncomplicated F11.20 [facility] [id number] [place] [address] 2546 27 Feb, 2017 Opioid dependence, uncomplicated F11.20 [facility] [id number] [place] [address] Feb, Opioid dependence, uncomplicated F11.20 [facility] [id number] [place] [address] 14[address] 2546 19 Feb, 2017 [facility] [id number] [place] [address] 02148- 2366 18 Feb, 2017 [facility] [id number] [place] [address] 74[address] 2546 15 Feb, 2017 Moderate episode of recurrent major depressive disorder F33.1 [facility] [address] [place] [address] 14 Feb, 2017 Opioid dependence, uncomplicated F11.20 [facility] [address] [place] [address] 6[address]- [address] 14 Feb, 2017 [facility] [id number] [place] [address] 92834- 7196 14 Feb, 2017 [facility] [id number] [place] [address] 38086- 2406 14 Feb, 2017 [facility] [id number] [place] [address] 92099- 2356 Feb, [facility] [id number] [place] [address] 28240- 3006 Feb, [facility] [id number] [place] [address] 85433- 4316 13 Feb, 2017 Moderate episode of recurrent major depressive disorder F33.1 ; Post-traumatic stress disorder, unspecified F43.10 and Opioid dependence , uncomplicated F11.20 [facility] [id number] [place] [address] 30297- 3026 12 Feb, 2017 [facility] [id number] [place] [address] 12677- 8346 Feb, [facility] [address] [place] [address] 08 Feb, 2017 Opioid dependence, uncomplicated F11.20 [facility] [address] [place] [address] 15238 2546 08 Feb, 2017 Moderate episode of recurrent major depressive disorder F33.1 [facility] [address] [place] [address] 79295 2546 07 Feb, 2017 Opioid dependence, uncomplicated F11.20 [facility] [id number] [place] [address] 54443 2546 07 Feb, 2017 [facility] [address] [place] [address] 57109- 2546 06 Feb, 2017 [facility] [id number] [place] [address] 48726- 6946 Feb, [facility] [id number] [place] [address] 82140- 4049 Feb, [facility] [id number] [place] [address] 27319- 7096 Feb, [facility] [address] [place] [address] Feb, Opioid dependence, uncomplicated F11.20 [facility] [address] [address] 2546 Feb, [facility] [id number] [place] [address] 00269- 5114 Jan, Opioid dependence, uncomplicated F11.20 and Drug induced constipation K59.03 [facility] [id number] [place] [address] 36748- 5880 Jan, [facility] [address] [address] Jan, Moderate episode of recurrent major depressive disorder F33.1 and Post-traumatic stress disorder, unspecified F43.10 [facility] [address] [place] [address] Jan, [facility] [id number] [place] [address] 03521- 4223 Jan, [facility] [id number] [place] [address] 37554- 2822 Jan, [facility] [address] [place] [address] Jan, [facility] [id number] [place] [address] 96130- 7322 Jan, Opioid dependence, uncomplicated F11.20 ; Drug induced constipation K59.03 and Adverse effect of other opioids, initial encounter T40.2X5A [facility] [id number] [place] [address] 14849- 6585 Jan, [facility] [id number] [place] [address] [id number]- 6534 Jan, [facility] [address] [place] [address] 56854- 0820 Jan, Opiate dependence, continuous F11.20 [facility] [address] [place] [address] 17 Jan, 2017 Opiate dependence, continuous F11.20 ; 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 ; Benzodiazepine abuse F13.10 ; Alcohol dependence, binge pattern F10.20 and Marijuana abuse F12.10 [facility] [id number] [place] [address] 95034- 5676 16 Jan, 2017 [facility] [id number] [place] [address] 23292- 6311 Jan, [facility] [id number] [place] [address] 56268- 7512 15 Jan, 2017 [facility] [id number] [place] [address] 61662- 3892 14 Jan, 2017 Urinary frequency R35.0 and Opiate dependence, continuous F11.20 [facility] [address] [place] [address] Jan, Opiate dependence, continuous F11.20 ; 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 [address] [place] [address] 08 Jan, 2017 [facility] [id number] [place] [address] 33471- 3835 Jan, Moderate episode of recurrent major depressive disorder F33.1 and Post-traumatic stress disorder, unspecified F43.10 [facility] [id number] [place] [address] 59528- 2528 Jan, [facility] [address] [place] [address] 92673- 7134 Jan, Moderate episode of recurrent major depressive disorder F33.1 and Substance abuse withdrawal without complication F19.230 [facility] [id number] [place] [address] 35722- 4992 Jan, [facility] [id number] [address] Jun, [facility] [address] [address]76 Jun, [facility] [address] [address] May, [facility] [address] [address] May, [facility] [address] [address] Apr, [facility] [address] [address]- [address] Apr, [facility] [address] [address] 5[address] Apr, [facility] [address] [address] Apr, [facility] [address] [address] Apr, [facility] [address] [address] 8[address] Apr, [facility] [address] [address] Dec, [facility] [id number] [address] Dec, [facility] [id number] [id number] Nov, [facility] [address] [address] Sep, IMMUNIZATIONS No Known Immunizations SOCIAL HISTORY Never Assessed REASON FOR VISIT suboxone rx (06/03-06/09) PLAN OF CARE VITAL SIGNS MEDICATIONS Medication Instructions Dosage Frequency Start Date End Date Duration Status Suboxone 8-2 MG Sublingual Once a day. CHARGE FULL AMOUNT [facility] 3 film under the tongue and allow to dissolve 7 days Active RESULTS No Results PROCEDURES No Known procedures INSTRUCTIONS MEDICATIONS ADMINISTERED No Known Medications MEDICAL (GENERAL) HISTORY Type Description Date Medical History ADHD Medical History depression Medical History anxiety Surgical History tongue clipped as a child
--- OUTSIDE RECORDS SUMMARY | 2017-10-23 22:09 | XMS REPORT ---
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 853940038 Problem Marijuana abuse F12.10 Active 57077340 Problem Alcohol dependence, binge pattern F10.20 Active 877475941 Problem Benzodiazepine abuse F13.10 Active 254710092 Problem Missed period N92.6 Active 84735403 Problem Dysthymia F34.1 Active 38488169 Problem Major depressive disorder, recurrent, moderate F33.1 Active 81560466 Problem Post-traumatic stress disorder, unspecified F43.10 Active 61920345 Problem Drug induced constipation K59.03 Active 77288226 Problem Opioid dependence, uncomplicated F11.20 Active 17357513 ALLERGIES No Information ENCOUNTERS Encounter Location Date Diagnosis [facility] [address] [address] Nov, [facility] [address] [address] Sep, Acute pain of right wrist M25.531 and Missed period N92.6 [facility] [address] [address] Aug, Acute pain of right wrist M25.531 ; Dysthymia F34.1 ; Screening for hyperlipidemia Z13.220 ; Screening for diabetes mellitus Z13.1 and Screening for other and unspecified deficiency anemia Z13.0 [facility] [id number] [place] [address] Aug, [facility] [address] [place] [address] July, Opioid dependence, uncomplicated F11.20 and Methamphetamine abuse, 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 [facility] [address] [place] [address] July, Opioid dependence, uncomplicated F11.20 and Methamphetamine abuse, 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 [facility] [place] [address] [place] [address] July, Opioid dependence, uncomplicated F11.20 and Methamphetamine abuse, 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 [facility] [address] [address] Jun, Opioid dependence, uncomplicated F11.20 [facility] [address] [place] [address] Jun, Opioid dependence, uncomplicated F11.20 and Methamphetamine abuse, 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 [facility] [id number] [place] [address] Jun, [facility] [address] [address]187[address] Jun, Moderate episode of recurrent major depressive disorder F33.1 ; Post-traumatic stress disorder, unspecified F43.10 and Opioid dependence , uncomplicated F11.20 [facility] [id number] [place] [address] Jun, Opioid dependence, uncomplicated F11.20 [facility] [id number] [place] [address] May, Opioid dependence, uncomplicated F11.20 [facility] [address] [place] [address] May, Opioid dependence, uncomplicated F11.20 and Methamphetamine abuse, 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 [facility] [id number] [place] [address] May, Opioid dependence, uncomplicated F11.20 [facility] [id number] [place] [address] May, Opioid dependence, uncomplicated F11.20 [facility] [place] [address] [place] [address] May, Opioid dependence, uncomplicated F11.20 and Methamphetamine abuse, 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 [facility] [address] [address] May, Moderate episode of recurrent major depressive disorder F33.1 ; Post-traumatic stress disorder, unspecified F43.10 and Opioid dependence , uncomplicated F11.20 [facility] [address] [address] May, [facility] [address] [address]407[address] Apr, Opioid dependence, uncomplicated F11.20 [facility] [address] [address] Apr, Opioid dependence, uncomplicated F11.20 and Methamphetamine abuse, 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 [facility] [address] 082585[address] Apr, Opioid dependence, uncomplicated F11.20 [facility] [place] [address] [place] [address] Apr, Opioid dependence, uncomplicated F11.20 and Methamphetamine abuse, 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 [facility] [address] [address]406[address] Apr, Opioid dependence, uncomplicated F11.20 [facility] [address] [place] [address] Apr, Opioid dependence, uncomplicated F11.20 [facility] [address] [address] Apr, Opioid dependence, uncomplicated F11.20 [facility] [address] [place] [address] Mar, Opioid dependence, uncomplicated F11.20 [facility] [address] [address]406[address] Mar, Opioid dependence, uncomplicated F11.20 [facility] [address] [address] Mar, Opioid dependence, uncomplicated F11.20 [facility] [id number] [place] [address] Mar, [facility] [id number] [place] [address] 2546 Mar, Opioid dependence, uncomplicated F11.20 [facility] [id number] [place] [address] 2546 Mar, Opioid dependence, uncomplicated F11.20 [facility] [id number] [place] [address] 25[address] Mar, Moderate episode of recurrent major depressive disorder F33.1 ; Post-traumatic stress disorder, unspecified F43.10 and Opioid dependence , uncomplicated F11.20 [facility] [id number] [place] [address] 2546 Mar, Opioid dependence, uncomplicated F11.20 [facility] [id number] [place] [address] Feb, Moderate episode of recurrent major depressive disorder F33.1 [facility] [address] [place] [address] 28 Feb, 2017 Opioid dependence, uncomplicated F11.20 [facility] [id number] [place] [address] 2546 27 Feb, 2017 Opioid dependence, uncomplicated F11.20 [facility] [id number] [place] [address] 27[address] 2546 Feb, Opioid dependence, uncomplicated F11.20 [facility] [id number] [place] [address] 2546 19 Feb, 2017 [facility] [id number] [place] [address] 2546 18 Feb, 2017 [facility] [id number] [place] [address] 22[address] 2546 15 Feb, 2017 Moderate episode of recurrent major depressive disorder F33.1 [facility] [address] [place] [address] 14 Feb, 2017 Opioid dependence, uncomplicated F11.20 [facility] [id number] [place] [address] 14 Feb, 2017 [facility] [id number] [place] [address] 14 Feb, 2017 [facility] [id number] [place] [address]- [address] 14 Feb, 2017 [facility] [id number] [place] [address] Feb, [facility] [id number] [place] [address] Feb, [facility] [id number] [place] [address] Feb, Moderate episode of recurrent major depressive disorder F33.1 ; Post-traumatic stress disorder, unspecified F43.10 and Opioid dependence , uncomplicated F11.20 [facility] [id number] [place] [address] 12 Feb, 2017 [facility] [id number] [place] [address] Feb, [facility] [address] [place] [address] 08 Feb, 2017 Opioid dependence, uncomplicated F11.20 [facility] [id number] [place] [address] 08 Feb, 2017 Moderate episode of recurrent major depressive disorder F33.1 [facility] [id number] [place] [address] 07 Feb, 2017 Opioid dependence, uncomplicated F11.20 [facility] [id number] [place] [address] 07 Feb, 2017 [facility] [id number] [place] [address]- [address] 06 Feb, 2017 [facility] [id number] [place] [address] 12[address]- [address] Feb, [facility] [id number] [place] [address] Feb, [facility] [id number] [place] [address] Feb, [facility] [address] [place] [address] Feb, Opioid dependence, uncomplicated F11.20 [facility] [address] 704505- [address] Feb, [facility] [id number] [place] [address] 753982- 34[address] Jan, Opioid dependence, uncomplicated F11.20 and Drug induced constipation K59.03 [facility] [id number] [place] [address] Jan, [facility] [address] [address] Jan, Moderate episode of recurrent major depressive disorder F33.1 and Post-traumatic stress disorder, unspecified F43.10 [facility] [address] [place] [address] Jan, [facility] [id number] [place] [address] Jan, [facility] [id number] [place] [address] Jan, [facility] [address] [place] [address] Jan, [facility] [id number] [place] [address] Jan, Opioid dependence, uncomplicated F11.20 ; Drug induced constipation K59.03 and Adverse effect of other opioids, initial encounter T40.2X5A [facility] [id number] [place] [address] 7[address]- [address] Jan, [facility] [address] [address] Jan, [facility] [id number] [place] [address] 17 Jan, 2017 Opiate dependence, continuous F11.20 [facility] [address] [place] [address] 17 Jan, 2017 Opiate dependence, continuous F11.20 ; 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 ; Benzodiazepine abuse F13.10 ; Alcohol dependence, binge pattern F10.20 and Marijuana abuse F12.10 [facility] [id number] [place] [address] 16 Jan, 2017 [facility] [address] [address] 15 Jan, 2017 [facility] [address] [address] 15 Jan, 2017 [facility] [address] [address] 14 Jan, 2017 Urinary frequency R35.0 and Opiate dependence, continuous F11.20 [facility] [address] [place] [address] 10 Jan, 2017 Opiate dependence, continuous F11.20 ; 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 ; Benzodiazepine abuse F13.10 ; Alcohol dependence, binge pattern F10.20 and Marijuana abuse F12.10 [facility] [address] [place] [address] 08 Jan, 2017 [facility] [id number] [place] [address] 08 Jan, 2017 Moderate episode of recurrent major depressive disorder F33.1 and Post-traumatic stress disorder, unspecified F43.10 [facility] [id number] [place] [address] 08 Jan, 2017 [facility] [address] [address] 07 Jan, 2017 Moderate episode of recurrent major depressive disorder F33.1 and Substance abuse withdrawal without complication F19.230 [facility] [address] [address] Jan, [facility] [id number] [address] Jun, [facility] [address] [place] [address] Jun, [facility] [id number] [place] [address] May, [facility] [id number] [place] [address] May, [facility] [address] [address] Apr, [facility] [address] [address] Apr, [facility] [address] [place] [address] Apr, [facility] [address] [place] [address] Apr, [facility] [address] [place] [address] Apr, [facility] [address] [place] [address] Apr, [facility] [address] [address] Dec, [facility] [id number] [address] Dec, [facility] [address] [id number] [id number] Nov, [facility] [address] [address] Sep, IMMUNIZATIONS No Known Immunizations SOCIAL HISTORY Never Assessed REASON FOR VISIT BH f/u PLAN OF CARE Activity Details Follow Up 1 Week Reason: VITAL SIGNS MEDICATIONS Unknown Medications RESULTS No Results PROCEDURES Procedure Date Ordered Result Body Site Psychotherapy, patient &/family, 30 minutes, established patient June 07, 2017 INSTRUCTIONS MEDICATIONS ADMINISTERED No Known Medications MEDICAL (GENERAL) HISTORY Type Description Date Medical History ADHD Medical History depression Medical History anxiety Surgical History tongue clipped as a child
--- OUTSIDE RECORDS SUMMARY | 2017-10-23 22:10 | XMS REPORT ---
Author Author SHELLY ALVAREZ Organization [facility] Address [address] 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 406009541 Problem Major depressive disorder, recurrent, moderate F33.1 Active 72298646 Problem Post-traumatic stress disorder, unspecified F43.10 Active 75134550 ALLERGIES No Information ENCOUNTERS Encounter Location Date Diagnosis [facility] [address] [address] Aug, [facility] [address] [place] [address] Aug, [facility] [address] [address] Aug, [facility] [address] [address] Aug, [facility] [address] [place] [address] July, Opioid dependence, uncomplicated F11.20 and Methamphetamine abuse, 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 [facility] [address] [place] [address] July, Opioid dependence, uncomplicated F11.20 and Methamphetamine abuse, 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 [facility] [address] [place] [address] July, Opioid dependence, uncomplicated F11.20 and Methamphetamine abuse, 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 [facility] [address] [place] [id number] [place] [address] Jun, Opioid dependence, uncomplicated F11.20 [facility] [address] [place] [address] Jun, Opioid dependence, uncomplicated F11.20 and Methamphetamine abuse, 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 [facility] [id number] [place] [address] Jun, [facility] [address] [address] Jun, Moderate episode of recurrent major depressive disorder F33.1 ; Post-traumatic stress disorder, unspecified F43.10 and Opioid dependence , uncomplicated F11.20 [facility] [id number] [place] [address] Jun, Opioid dependence, uncomplicated F11.20 [facility] [place] [id number] [place] [address] May, Opioid dependence, uncomplicated F11.20 [facility] [address] [place] [address] May, Opioid dependence, uncomplicated F11.20 and Methamphetamine abuse, 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 [facility] [id number] [place] [address] May, Opioid dependence, uncomplicated F11.20 [facility] [place] [id number] [place] [address] May, Opioid dependence, uncomplicated F11.20 [facility] [address] [place] [address] May, Opioid dependence, uncomplicated F11.20 and Methamphetamine abuse, 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 [facility] [id number] [place] [address] May, Moderate episode of recurrent major depressive disorder F33.1 ; Post-traumatic stress disorder, unspecified F43.10 and Opioid dependence , uncomplicated F11.20 [facility] [id number] [place] [address] May, [facility] [id number] [place] [address] Apr, Opioid dependence, uncomplicated F11.20 [facility] [address] [place] [address] Apr, Opioid dependence, uncomplicated F11.20 and Methamphetamine abuse, 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 [facility] [address] [address] Apr, Opioid dependence, uncomplicated F11.20 [facility] [address] [place] [address] Apr, Opioid dependence, uncomplicated F11.20 and Methamphetamine abuse, 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 [facility] [address] [address] Apr, Opioid dependence, uncomplicated F11.20 [facility] [address] [place] [address] Apr, Opioid dependence, uncomplicated F11.20 [facility] [address] [address] Apr, Opioid dependence, uncomplicated F11.20 [facility] [address] [place] [address] Mar, Opioid dependence, uncomplicated F11.20 [facility] [address] [address] Mar, Opioid dependence, uncomplicated F11.20 [facility] [id number] [place] [address] Mar, Opioid dependence, uncomplicated F11.20 [facility] [address] [address] Mar, [facility] [address] [address] Mar, Opioid dependence, uncomplicated F11.20 [facility] [address] [address] Mar, Opioid dependence, uncomplicated F11.20 [facility] [id number] [place] [address] Mar, Moderate episode of recurrent major depressive disorder F33.1 ; Post-traumatic stress disorder, unspecified F43.10 and Opioid dependence , uncomplicated F11.20 [facility] [id number] [place] [address] 2546 Mar, Opioid dependence, uncomplicated F11.20 [facility] [id number] [place] [address]46 Feb, Moderate episode of recurrent major depressive disorder F33.1 [facility] [address] [place] [address] 28 Feb, 2017 Opioid dependence, uncomplicated F11.20 [facility] [id number] [place] [address] 2546 Feb, Opioid dependence, uncomplicated F11.20 [facility] [id number] [place] [address] 2546 Feb, Opioid dependence, uncomplicated F11.20 [facility] [id number] [place] [address] 2546 19 Feb, 2017 [facility] [id number] [place] [address] 645[address] 2546 18 Feb, 2017 [facility] [id number] [place] [address] 2546 15 Feb, 2017 Moderate episode of recurrent major depressive disorder F33.1 [facility] [address] [place] [address] 14 Feb, 2017 Opioid dependence, uncomplicated F11.20 [facility] [id number] [place] [address] 2546 14 Feb, 2017 [facility] [id number] [place] [address] 97[address] 2546 14 Feb, 2017 [facility] [id number] [place] [address] 153505- [address] 14 Feb, 2017 [facility] [address] [place] [address] Feb, [facility] [id number] [place] [address] Feb, [facility] [id number] [place] [address] 9[address]73- 75[address] 13 Feb, 2017 Moderate episode of recurrent major depressive disorder F33.1 ; Post-traumatic stress disorder, unspecified F43.10 and Opioid dependence , uncomplicated F11.20 [facility] [id number] [place] [address] 63041[address] 98[address] 12 Feb, 2017 [facility] [id number] [place] [address] Feb, [facility] [address] [place] [address] Feb, Opioid dependence, uncomplicated F11.20 [facility] [id number] [place] [address] 08 Feb, 2017 Moderate episode of recurrent major depressive disorder F33.1 [facility] [id number] [place] [address]76- [address] 07 Feb, 2017 Opioid dependence, uncomplicated F11.20 [facility] [address] [place] [address] 59951[address] Feb, [facility] [id number] [place] [address] 38[address] 2546 Feb, [facility] [address] [place] [address] 20336[address] 6[address] 05 Feb, 2017 [facility] [id number] [place] [address] 78560- [address] Feb, [facility] [id number] [place] [address] 75[address]- [address] Feb, [facility] [address] [place] [address] Feb, Opioid dependence, uncomplicated F11.20 [facility] [id number] [place] [address]76- [address] Feb, [facility] [address] 655669[address] Jan, Opioid dependence, uncomplicated F11.20 and Drug induced constipation K59.03 [facility] [address] [address] Jan, [facility] [address] [id number]- [address] Jan, Moderate episode of recurrent major depressive disorder F33.1 and Post-traumatic stress disorder, unspecified F43.10 [facility] [address] [address] Jan, [facility] [address] [address] Jan, [facility] [address] [place] [address] Jan, [facility] [address] [place] [address] Jan, [facility] [address] [place] [address] Jan, Opioid dependence, uncomplicated F11.20 ; Drug induced constipation K59.03 and Adverse effect of other opioids, initial encounter T40.2X5A [facility] [address] [place] [id number] [place] [address] 7[address]31- [address] Jan, [facility] [address] [address] Jan, [facility] [address] [place] [address] Jan, Opiate dependence, continuous F11.20 [facility] [address] [place] [address] Jan, Opiate dependence, continuous F11.20 ; 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 ; Benzodiazepine abuse F13.10 ; Alcohol dependence, binge pattern F10.20 and Marijuana abuse F12.10 [facility] [id number] [place] [address] 19953- [address] 16 Jan, 2017 [facility] [address] [address] 15 Jan, 2017 [facility] [address] [address] 15 Jan, 2017 [facility] [address] [address] 14 Jan, 2017 Urinary frequency R35.0 and Opiate dependence, continuous F11.20 [facility] [address] [place] [address] 10 Jan, 2017 Opiate dependence, continuous F11.20 ; 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 ; Benzodiazepine abuse F13.10 ; Alcohol dependence, binge pattern F10.20 and Marijuana abuse F12.10 [facility] [address] [place] [address] 08 Jan, 2017 [facility] [address] [address] 08 Jan, 2017 Moderate episode of recurrent major depressive disorder F33.1 and Post-traumatic stress disorder, unspecified F43.10 [facility] [id number] [place] [address]5820[address] 08 Jan, 2017 [facility] [id number] [place] [address] 15955- 1883 07 Jan, 2017 Moderate episode of recurrent major depressive disorder F33.1 and Substance abuse withdrawal without complication F19.230 [facility] [id number] [place] [address] 07 Jan, 2017 [facility] [address] [address] 14 Jun, 2014 [facility] [id number] [place] [address] 90806- 0594 Jun, [facility] [address] [address] May, [facility] [address] [facility] [id number] [address] May, [facility] [address] [id number] [address] Apr, [facility] [address] [id number] [address] Apr, [facility] [address] [address] Apr, [facility] [address] [id number] [address] Apr, [facility] [address] [address] Apr, [facility] [address] [address] Apr, [facility] [address] [address] Dec, [facility] [address] [facility] [id number], [place] [address] Dec, [place] [id number] [id number] Nov, [facility] [address] [facility] [id number], [place] [address] Sep, IMMUNIZATIONS No Known Immunizations SOCIAL HISTORY Never Assessed REASON FOR VISIT Suboxone RX (03/22-03/25) PLAN OF CARE VITAL SIGNS MEDICATIONS Medication Instructions Dosage Frequency Start Date End Date Duration Status Suboxone 8-2 MG Sublingual Once a day 3 film under the tongue and allow to dissolve 24h Mar, 4 days Active RESULTS No Results PROCEDURES No Known procedures INSTRUCTIONS MEDICATIONS ADMINISTERED No Known Medications MEDICAL (GENERAL) HISTORY Type Description Date Medical History ADHD Medical History depression Medical History anxiety Surgical History tongue clipped as a child
--- OUTSIDE RECORDS SUMMARY | 2017-10-23 22:10 | XMS REPORT ---
Author Author SHELLY ALVAREZ Organization [facility] Address [address] 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 681777902 Problem Marijuana abuse F12.10 Active 49553782 Problem Alcohol dependence, binge pattern F10.20 Active 874273570 Problem Benzodiazepine abuse F13.10 Active 410280200 Problem Missed period N92.6 Active 75611059 Problem Dysthymia F34.1 Active 69761111 Problem Major depressive disorder, recurrent, moderate F33.1 Active 28372352 Problem Post-traumatic stress disorder, unspecified F43.10 Active 22442087 Problem Drug induced constipation K59.03 Active 30045024 Problem Opioid dependence, uncomplicated F11.20 Active 50729964 ALLERGIES No Information ENCOUNTERS Encounter Location Date Diagnosis [facility] [address] [address] Nov, [facility] [address] [address] Sep, Acute pain of right wrist M25.531 and Missed period N92.6 [facility] [address] [address] Aug, Acute pain of right wrist M25.531 ; Dysthymia F34.1 ; Screening for hyperlipidemia Z13.220 ; Screening for diabetes mellitus Z13.1 and Screening for other and unspecified deficiency anemia Z13.0 [facility] [id number] [place] [address] Aug, [facility] [address] [place] [address] July, Opioid dependence, uncomplicated F11.20 and Methamphetamine abuse, 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 [facility] [address] [place] [address] July, Opioid dependence, uncomplicated F11.20 and Methamphetamine abuse, 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 [facility] [address] [id number] July, Opioid dependence, uncomplicated F11.20 and Methamphetamine abuse, 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 [facility] [address] [address] Jun, Opioid dependence, uncomplicated F11.20 [facility] [address] [place] [address] Jun, Opioid dependence, uncomplicated F11.20 and Methamphetamine abuse, 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 [facility] [address] [address] Jun, [facility] [address] [address] Jun, Moderate episode of recurrent major depressive disorder F33.1 ; Post-traumatic stress disorder, unspecified F43.10 and Opioid dependence , uncomplicated F11.20 [facility] [address] [address] Jun, Opioid dependence, uncomplicated F11.20 [facility] [id number] [place] [address] May, Opioid dependence, uncomplicated F11.20 [facility] [address] [place] [address] May, Opioid dependence, uncomplicated F11.20 and Methamphetamine abuse, 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 [facility] [id number] [place] [address] May, Opioid dependence, uncomplicated F11.20 [facility] [address] [address] May, Opioid dependence, uncomplicated F11.20 [facility] [address] [place] [address] May, Opioid dependence, uncomplicated F11.20 and Methamphetamine abuse, 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 [facility] [id number] [place] [address] May, Moderate episode of recurrent major depressive disorder F33.1 ; Post-traumatic stress disorder, unspecified F43.10 and Opioid dependence , uncomplicated F11.20 [facility] [id number] [place] [address] May, [facility] [address] [address] Apr, Opioid dependence, uncomplicated F11.20 [facility] [address] [place] [address] Apr, Opioid dependence, uncomplicated F11.20 and Methamphetamine abuse, 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 [facility] [address] [address]44833[address] Apr, Opioid dependence, uncomplicated F11.20 [facility] [address] [place] [address] Apr, Opioid dependence, uncomplicated F11.20 and Methamphetamine abuse, 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 [facility] [address] 280461[address] Apr, Opioid dependence, uncomplicated F11.20 [facility] [address] [place] [address] Apr, Opioid dependence, uncomplicated F11.20 [facility] [address] [address] Apr, Opioid dependence, uncomplicated F11.20 [facility] [address] [place] [address] Mar, Opioid dependence, uncomplicated F11.20 [facility] [address] [address] Mar, Opioid dependence, uncomplicated F11.20 [facility] [id number] [place] [address] Mar, Opioid dependence, uncomplicated F11.20 [facility] [id number] [place] [address]34[address] Mar, [facility] [address] [address] Mar, Opioid dependence, uncomplicated F11.20 [facility] [id number] [place] [address] 24[address] Mar, Opioid dependence, uncomplicated F11.20 [facility] [id number] [place] [address] 254 Mar, Moderate episode of recurrent major depressive disorder F33.1 ; Post-traumatic stress disorder, unspecified F43.10 and Opioid dependence , uncomplicated F11.20 [facility] [id number] [place] [address] 98[address] Mar, Opioid dependence, uncomplicated F11.20 [facility] [id number] [place] [address]17[address] 28 Feb, 2017 Moderate episode of recurrent major depressive disorder F33.1 [facility] [address] [place] [address] 28 Feb, 2017 Opioid dependence, uncomplicated F11.20 [facility] [id number] [place] [address] 2546 27 Feb, 2017 Opioid dependence, uncomplicated F11.20 [facility] [id number] [place] [address] Feb, Opioid dependence, uncomplicated F11.20 [facility] [id number] [place] [address] 29272 2546 19 Feb, 2017 [facility] [id number] [place] [address] 77482- 4[address] 18 Feb, 2017 [facility] [id number] [place] [address] 19480 2546 15 Feb, 2017 Moderate episode of recurrent major depressive disorder F33.1 [facility] [address] [place] [address] 14 Feb, 2017 Opioid dependence, uncomplicated F11.20 [facility] [id number] [place] [address] 65856[address] 14 Feb, 2017 [facility] [id number] [place] [address] 02503- 4[address] 14 Feb, 2017 [facility] [id number] [place] [address] 20038- 6[address] 14 Feb, 2017 [facility] [id number] [place] [address] 42518- 79[address] Feb, [facility] [id number] [place] [address]- [address] Feb, [facility] [id number] [place] [address] 42922- 4[address] 13 Feb, 2017 Moderate episode of recurrent major depressive disorder F33.1 ; Post-traumatic stress disorder, unspecified F43.10 and Opioid dependence , uncomplicated F11.20 [facility] [id number] [place] [address] 64424- [address] 12 Feb, 2017 [facility] [id number] [place] [address] 98829- 57[address] Feb, [facility] [address] [place] [address] 08 Feb, 2017 Opioid dependence, uncomplicated F11.20 [facility] [id number] [place] [address] 31018 2546 08 Feb, 2017 Moderate episode of recurrent major depressive disorder F33.1 [facility] [id number] [place] [address] 23335 2546 07 Feb, 2017 Opioid dependence, uncomplicated F11.20 [facility] [id number] [place] [address] 89616 2546 07 Feb, 2017 [facility] [id number] [place] [address] 26368- 25[address] 06 Feb, 2017 [facility] [id number] [place] [address] 03450- 8286 Feb, [facility] [id number] [place] [address] 98707- [address] Feb, [facility] [id number] [place] [address] 54985- 8636 Feb, [facility] [address] [place] [address] Feb, Opioid dependence, uncomplicated F11.20 [facility] [address] [address] Feb, [facility] [id number] [place] [address] 9[address]92- 8[address] Jan, Opioid dependence, uncomplicated F11.20 and Drug induced constipation K59.03 [facility] [id number] [place] [address]- [address] Jan, [facility] [address] [address] Jan, Moderate episode of recurrent major depressive disorder F33.1 and Post-traumatic stress disorder, unspecified F43.10 [facility] [address] [place] [address] Jan, [facility] [id number] [place] [address] 99016- 8[address] Jan, [facility] [id number] [place] [address] 43156- 5529 Jan, [facility] [address] [place] [address] Jan, [facility] [id number] [place] [address] 75713- 84[address] Jan, Opioid dependence, uncomplicated F11.20 ; Drug induced constipation K59.03 and Adverse effect of other opioids, initial encounter T40.2X5A [facility] [id number] [place] [address] 71113- 4533 Jan, [facility] [id number] [place] [address] [id number]- 8602 Jan, [facility] [id number] [place] [address] 88183- 4790 Jan, Opiate dependence, continuous F11.20 [facility] [address] [place] [address] 17 Jan, 2017 Opiate dependence, continuous F11.20 ; 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 ; Benzodiazepine abuse F13.10 ; Alcohol dependence, binge pattern F10.20 and Marijuana abuse F12.10 [facility] [id number] [place] [address] 29800- 5214 16 Jan, 2017 [facility] [id number] [place] [address] 60303- 9887 Jan, [facility] [id number] [place] [address] 71554- 1579 15 Jan, 2017 [facility] [id number] [place] [address] 52800- 2720 14 Jan, 2017 Urinary frequency R35.0 and Opiate dependence, continuous F11.20 [facility] [address] [place] [address] Jan, Opiate dependence, continuous F11.20 ; 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 ; Benzodiazepine abuse F13.10 ; Alcohol dependence, binge pattern F10.20 and Marijuana abuse F12.10 [facility] [address] [place] [address] 08 Jan, 2017 [facility] [id number] [place] [address] 39792- 2344 Jan, Moderate episode of recurrent major depressive disorder F33.1 and Post-traumatic stress disorder, unspecified F43.10 [facility] [id number] [place] [address] 82754- 5534 Jan, [facility] [address] [place] [address] 69368- [address]687 Jan, Moderate episode of recurrent major depressive disorder F33.1 and Substance abuse withdrawal without complication F19.230 [facility] [id number] [place] [address] 32502- 7484 Jan, [facility] [id number] [address] Jun, [facility] [address] [address] Jun, [facility] [address] [address] May, [facility] [id number] [address] May, [facility] [id number] [address] Apr, [facility] [address] [address] Apr, [facility] [address] [address] Apr, [facility] [address] [address] Apr, [facility] [address] [address] Apr, [facility] [address] [address] Apr, [facility] [address] [address] Dec, [facility] [id number] [address] Dec, [facility] [address] [id number] [id number] Nov, [facility] [address] [address] Sep, IMMUNIZATIONS No Known Immunizations SOCIAL HISTORY Never Assessed REASON FOR VISIT Suboxone RX (05/13-05/19) PLAN OF CARE VITAL SIGNS MEDICATIONS Medication Instructions Dosage Frequency Start Date End Date Duration Status Suboxone 8-2 MG Sublingual Once a day. CHARGE TO [facility] 3 film under the tongue and allow to dissolve 7 days Active RESULTS No Results PROCEDURES No Known procedures INSTRUCTIONS MEDICATIONS ADMINISTERED No Known Medications MEDICAL (GENERAL) HISTORY Type Description Date Medical History ADHD Medical History depression Medical History anxiety Surgical History tongue clipped as a child
--- OUTSIDE RECORDS SUMMARY | 2017-10-23 22:10 | XMS REPORT ---
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 452269296 Problem Marijuana abuse F12.10 Active 88800778 Problem Alcohol dependence, binge pattern F10.20 Active 803297317 Problem Benzodiazepine abuse F13.10 Active 711622119 Problem Missed period N92.6 Active 18140583 Problem Dysthymia F34.1 Active 07213206 Problem Major depressive disorder, recurrent, moderate F33.1 Active 04896403 Problem Post-traumatic stress disorder, unspecified F43.10 Active 25980300 Problem Drug induced constipation K59.03 Active 02471589 Problem Opioid dependence, uncomplicated F11.20 Active 18062251 ALLERGIES No Information ENCOUNTERS Encounter Location Date Diagnosis [facility] [address] [address] Nov, [facility] [address] [address] Sep, Acute pain of right wrist M25.531 and Missed period N92.6 [facility] [address] [address] Aug, Acute pain of right wrist M25.531 ; Dysthymia F34.1 ; Screening for hyperlipidemia Z13.220 ; Screening for diabetes mellitus Z13.1 and Screening for other and unspecified deficiency anemia Z13.0 [facility] [id number] [place] [address] Aug, [facility] [address] [place] [address] July, Opioid dependence, uncomplicated F11.20 and Methamphetamine abuse, 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 [facility] [address] [place] [address] July, Opioid dependence, uncomplicated F11.20 and Methamphetamine abuse, 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 [facility] [address] [id number] July, Opioid dependence, uncomplicated F11.20 and Methamphetamine abuse, 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 [facility] [address] [address] Jun, Opioid dependence, uncomplicated F11.20 [facility] [address] [place] [address] Jun, Opioid dependence, uncomplicated F11.20 and Methamphetamine abuse, 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 [facility] [address] 3320[address] Jun, [facility] [address] [address] Jun, Moderate episode of recurrent major depressive disorder F33.1 ; Post-traumatic stress disorder, unspecified F43.10 and Opioid dependence , uncomplicated F11.20 [facility] [address] [address] Jun, Opioid dependence, uncomplicated F11.20 [facility] [id number] [place] [address] May, Opioid dependence, uncomplicated F11.20 [facility] [address] [place] [address] May, Opioid dependence, uncomplicated F11.20 and Methamphetamine abuse, 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 [facility] [id number] [place] [address] May, Opioid dependence, uncomplicated F11.20 [facility] [address] [id number] May, Opioid dependence, uncomplicated F11.20 [facility] [address] [place] [address] May, Opioid dependence, uncomplicated F11.20 and Methamphetamine abuse, 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 [facility] [address] [address] May, Moderate episode of recurrent major depressive disorder F33.1 ; Post-traumatic stress disorder, unspecified F43.10 and Opioid dependence , uncomplicated F11.20 [facility] [address] [address] May, [facility] [address] [address] Apr, Opioid dependence, uncomplicated F11.20 [facility] [address] [place] [address] Apr, Opioid dependence, uncomplicated F11.20 and Methamphetamine abuse, 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 [facility] [address] [address] Apr, Opioid dependence, uncomplicated F11.20 [facility] [address] [place] [address] Apr, Opioid dependence, uncomplicated F11.20 and Methamphetamine abuse, 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 [facility] [address] 172598- [address] Apr, Opioid dependence, uncomplicated F11.20 [facility] [address] [place] [address] Apr, Opioid dependence, uncomplicated F11.20 [facility] [address] [address] Apr, Opioid dependence, uncomplicated F11.20 [facility] [address] [place] [address] Mar, Opioid dependence, uncomplicated F11.20 [facility] [address] [address] Mar, Opioid dependence, uncomplicated F11.20 [facility] [address] [address] Mar, Opioid dependence, uncomplicated F11.20 [facility] [id number] [place] [address] Mar, [facility] [id number] [place] [address] Mar, Opioid dependence, uncomplicated F11.20 [facility] [id number] [place] [address] Mar, Opioid dependence, uncomplicated F11.20 [facility] [id number] [place] [address] Mar, Moderate episode of recurrent major depressive disorder F33.1 ; Post-traumatic stress disorder, unspecified F43.10 and Opioid dependence , uncomplicated F11.20 [facility] [id number] [place] [address] Mar, Opioid dependence, uncomplicated F11.20 [facility] [id number] [place] [address] Feb, Moderate episode of recurrent major depressive disorder F33.1 [facility] [address] [place] [address] 28 Feb, 2017 Opioid dependence, uncomplicated F11.20 [facility] [id number] [place] [address] 27 Feb, 2017 Opioid dependence, uncomplicated F11.20 [facility] [id number] [place] [address] Feb, Opioid dependence, uncomplicated F11.20 [facility] [id number] [place] [address] 2546 19 Feb, 2017 [facility] [id number] [place] [address] 18 Feb, 2017 [facility] [id number] [place] [address] 15 Feb, 2017 Moderate episode of recurrent major depressive disorder F33.1 [facility] [address] [place] [address] 14 Feb, 2017 Opioid dependence, uncomplicated F11.20 [facility] [address] [address] 14 Feb, 2017 [facility] [id number] [place] [address] 2546 14 Feb, 2017 [facility] [address] [place] [address] 2546 14 Feb, 2017 [facility] [id number] [place] [address] 2546 13 Feb, 2017 [facility] [address] [place] [address] Feb, [facility] [id number] [place] [address] 13 Feb, 2017 Moderate episode of recurrent major depressive disorder F33.1 ; Post-traumatic stress disorder, unspecified F43.10 and Opioid dependence , uncomplicated F11.20 [facility] [id number] [place] [address]- [address] 12 Feb, 2017 [facility] [id number] [place] [address] Feb, [facility] [address] [place] [address] 08 Feb, 2017 Opioid dependence, uncomplicated F11.20 [facility] [address] [address] 08 Feb, 2017 Moderate episode of recurrent major depressive disorder F33.1 [facility] [address] [place] [address] 2546 07 Feb, 2017 Opioid dependence, uncomplicated F11.20 [facility] [id number] [place] [address] 56[address] 2546 07 Feb, 2017 [facility] [address] [place] [address]51- [address] Feb, [facility] [address] [place] [address] 7[address]- [address] Feb, [facility] [id number] [place] [address] Feb, [facility] [id number] [place] [address]- [address] Feb, [facility] [address] [place] [address] Feb, Opioid dependence, uncomplicated F11.20 [facility] [id number] [place] [address]- [address] Feb, [facility] [id number] [place] [address]- [address] Jan, Opioid dependence, uncomplicated F11.20 and Drug induced constipation K59.03 [facility] [id number] [place] [address]34- [address] Jan, [facility] [address] [address] Jan, Moderate episode of recurrent major depressive disorder F33.1 and Post-traumatic stress disorder, unspecified F43.10 [facility] [address] [place] [address] Jan, [facility] [id number] [place] [address] 24[address]- [address] Jan, [facility] [id number] [place] [address] 7[address]- [address] Jan, [facility] [address] [place] [address] Jan, [facility] [id number] [place] [address]- [address] Jan, Opioid dependence, uncomplicated F11.20 ; Drug induced constipation K59.03 and Adverse effect of other opioids, initial encounter T40.2X5A [facility] [id number] [place] [address] 9[address]83- 69[address] Jan, [facility] [id number] [place] [address] 44[address]- [address] Jan, [facility] [id number] [place] [address] 34666- 1485 Jan, Opiate dependence, continuous F11.20 [facility] [address] [place] [address] 17 Jan, 2017 Opiate dependence, continuous F11.20 ; 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 ; Benzodiazepine abuse F13.10 ; Alcohol dependence, binge pattern F10.20 and Marijuana abuse F12.10 [facility] [id number] [place] [address] 16 Jan, 2017 [facility] [address] [address] Jan, [facility] [address] [address] Jan, [facility] [address] [address] 14 Jan, 2017 Urinary frequency R35.0 and Opiate dependence, continuous F11.20 [facility] [address] [place] [address] Jan, Opiate dependence, continuous F11.20 ; 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 ; Benzodiazepine abuse F13.10 ; Alcohol dependence, binge pattern F10.20 and Marijuana abuse F12.10 [facility] [address] [place] [address] Jan, [facility] [id number] [place] [address] Jan, Moderate episode of recurrent major depressive disorder F33.1 and Post-traumatic stress disorder, unspecified F43.10 [facility] [id number] [place] [address] 6[address] Jan, [facility] [address] [place] [address] Jan, Moderate episode of recurrent major depressive disorder F33.1 and Substance abuse withdrawal without complication F19.230 [facility] [address] [address] Jan, [facility] [id number] [address] Jun, [facility] [address] Jun, [facility] [id number] May, [facility] [address] [address] May, [facility] [id number] [address] Apr, [facility] [address] Apr, [facility] [address] Apr, [facility] [address] [address] Apr, [facility] [address] [address] Apr, [facility] [id number] Apr, [facility] [id number] [address] Dec, [facility] [address] [id number] [address] Dec, [facility] [address] [facility] [id number] [id number] Nov, [facility] [address] [address] Sep, IMMUNIZATIONS No Known Immunizations SOCIAL HISTORY [...]
--- OUTSIDE RECORDS SUMMARY | 2017-10-23 22:10 | XMS REPORT ---
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 259344520 Problem Marijuana abuse F12.10 Active 98773370 Problem Alcohol dependence, binge pattern F10.20 Active 173081916 Problem Benzodiazepine abuse F13.10 Active 323885062 Problem Missed period N92.6 Active 38711278 Problem Dysthymia F34.1 Active 53474920 Problem Major depressive disorder, recurrent, moderate F33.1 Active 35785174 Problem Post-traumatic stress disorder, unspecified F43.10 Active 87337097 Problem Drug induced constipation K59.03 Active 65957596 Problem Opioid dependence, uncomplicated F11.20 Active 92443870 ALLERGIES No Information ENCOUNTERS Encounter Location Date Diagnosis [facility] [address] [address] Nov, [facility] [address] [address] Sep, Acute pain of right wrist M25.531 and Missed period N92.6 [facility] [address] [address] Aug, Acute pain of right wrist M25.531 ; Dysthymia F34.1 ; Screening for hyperlipidemia Z13.220 ; Screening for diabetes mellitus Z13.1 and Screening for other and unspecified deficiency anemia Z13.0 [facility] [id number] [place] [address] Aug, [facility] [address] [place] [address] July, Opioid dependence, uncomplicated F11.20 and Methamphetamine abuse, 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 [facility] [address] [place] [address] July, Opioid dependence, uncomplicated F11.20 and Methamphetamine abuse, 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 [address] [address] Jun, Moderate episode of recurrent major depressive disorder F33.1 ; Post-traumatic stress disorder, unspecified F43.10 and Opioid dependence , uncomplicated F11.20 [facility] [id number] [place] [address] Jun, Opioid dependence, uncomplicated F11.20 [facility] [id number] [place] [address] May, Opioid dependence, uncomplicated F11.20 [facility] [address] [place] [address] May, Opioid dependence, uncomplicated F11.20 and Methamphetamine abuse, 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 [facility] [id number] [place] [address] May, Opioid dependence, uncomplicated F11.20 [facility] [id number] [place] [address] May, Opioid dependence, uncomplicated F11.20 [facility] [address] [place] [address] May, Opioid dependence, uncomplicated F11.20 and Methamphetamine abuse, 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 [facility] [address] [address] May, Moderate episode of recurrent major depressive disorder F33.1 ; Post-traumatic stress disorder, unspecified F43.10 and Opioid dependence , uncomplicated F11.20 [facility] [address] [address] May, 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 [address] [address] Apr, Opioid dependence, uncomplicated F11.20 [facility] [address] [place] [address] Mar, Opioid dependence, uncomplicated F11.20 [facility] [address] 722138[address] Mar, Opioid dependence, uncomplicated F11.20 [facility] [address] [address] Mar, Opioid dependence, uncomplicated F11.20 [facility] [id number] [place] [address] Mar, [facility] [id number] [place] [address] 2546 Mar, Opioid dependence, uncomplicated F11.20 [facility] [id number] [place] [address] 44882 2546 Mar, Opioid dependence, uncomplicated F11.20 [facility] [id number] [place] [address] 2546 Mar, Moderate episode of recurrent major depressive disorder F33.1 ; Post-traumatic stress disorder, unspecified F43.10 and Opioid dependence , uncomplicated F11.20 [facility] [id number] [place] [address] 2546 Mar, Opioid dependence, uncomplicated F11.20 [facility] [id number] [place] [address] 2546 Feb, Moderate episode of recurrent major depressive disorder F33.1 [facility] [address] [place] [address] 28 Feb, 2017 Opioid dependence, uncomplicated F11.20 [facility] [id number] [place] [address] 15068 2546 27 Feb, 2017 Opioid dependence, uncomplicated F11.20 [facility] [id number] [place] [address] 2546 Feb, Opioid dependence, uncomplicated F11.20 [facility] [id number] [place] [address] 07859 2546 19 Feb, 2017 [facility] [id number] [place] [address] 78328 2546 18 Feb, 2017 [facility] [id number] [place] [address] 11118 2546 15 Feb, 2017 Moderate episode of recurrent major depressive disorder F33.1 [facility] [address] [place] [address] 14 Feb, 2017 Opioid dependence, uncomplicated F11.20 [facility] [id number] [place] [address] 14 Feb, 2017 [facility] [id number] [place] [address] 14 Feb, 2017 [facility] [id number] [place] [address]- [address] 14 Feb, 2017 [facility] [id number] [place] [address] Feb, [facility] [id number] [place] [address] Feb, [facility] [id number] [place] [address] Feb, Moderate episode of recurrent major depressive disorder F33.1 ; Post-traumatic stress disorder, unspecified F43.10 and Opioid dependence , uncomplicated F11.20 [facility] [id number] [place] [address] 12 Feb, 2017 [facility] [id number] [place] [address] Feb, [facility] [address] [place] [address] 08 Feb, 2017 Opioid dependence, uncomplicated F11.20 [facility] [id number] [place] [address] 08 Feb, 2017 Moderate episode of recurrent major depressive disorder F33.1 [facility] [address] [place] [address] 07 Feb, 2017 Opioid dependence, uncomplicated F11.20 [facility] [id number] [place] [address] 07 Feb, 2017 [facility] [id number] [place] [address] 22[address]- 56[address] 06 Feb, 2017 [facility] [id number] [place] [address] 19043- [address] Feb, [facility] [id number] [place] [address] 8[address]- [address] Feb, [facility] [id number] [place], [place] [address] Feb, [facility] [address] [place] [address] Feb, Opioid dependence, uncomplicated F11.20 [facility] [address] 530169- [address] Feb, [facility] [id number] [place] [address] 687145- [address]2 Jan, Opioid dependence, uncomplicated F11.20 and Drug induced constipation K59.03 [facility] [id number] [place] [address]853- [address] Jan, [facility] [address] [address] Jan, Moderate episode of recurrent major depressive disorder F33.1 and Post-traumatic stress disorder, unspecified F43.10 [facility] [address] [place] [address] Jan, [facility] [id number] [place] [address] 99208[address] 2445 Jan, [facility] [id number] [place] [address] 83185- 5688 Jan, [facility] [address] [place] [address] Jan, [facility] [id number] [place] [address] 16809[address] 26[address] Jan, Opioid dependence, uncomplicated F11.20 ; Drug induced constipation K59.03 and Adverse effect of other opioids, initial encounter T40.2X5A [facility] [id number] [place] [address] 33969- [address]2 Jan, [facility] [address] 8[address] Jan, [facility] [id number] [place] [address] 26063- 69[address] 17 Jan, 2017 Opiate dependence, continuous F11.20 [facility] [address] [place] [address] 17 Jan, 2017 Opiate dependence, continuous F11.20 ; 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 ; Benzodiazepine abuse F13.10 ; Alcohol dependence, binge pattern F10.20 and Marijuana abuse F12.10 [facility] [id number] [place] [address] 33590- 5453 16 Jan, 2017 [facility] [address] [address] 15 Jan, 2017 [facility] [address] [address] 15 Jan, 2017 [facility] [address] [address] 14 Jan, 2017 Urinary frequency R35.0 and Opiate dependence, continuous F11.20 [facility] [address] [place] [address] 10 Jan, 2017 Opiate dependence, continuous F11.20 ; 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 ; Benzodiazepine abuse F13.10 ; Alcohol dependence, binge pattern F10.20 and Marijuana abuse F12.10 [facility] [address] [place] [address] 08 Jan, 2017 [facility] [id number] [place] [address] 08 Jan, 2017 Moderate episode of recurrent major depressive disorder F33.1 and Post-traumatic stress disorder, unspecified F43.10 [facility] [id number] [place] [address] 71371- [address] 08 Jan, 2017 [facility] [address] [address] 07 Jan, 2017 Moderate episode of recurrent major depressive disorder F33.1 and Substance abuse withdrawal without complication F19.230 [facility] [address] [address] Jan, [facility] [id number] [address] Jun, [facility] [address] [address] Jun, [facility] [address] [address] May, [facility] [address] [address] May, [facility] [address] [address] Apr, [facility] [address] [address] Apr, [facility] [address] [address] Apr, [facility] [address] [address] Apr, [facility] [address] [address] Apr, [facility] [address] [address] Apr, [facility] [address] [address] Dec, [facility] [id number] [address] Dec, [facility] [address] [id number] [id number] Nov, [facility] [address] [address] Sep, IMMUNIZATIONS No Known Immunizations SOCIAL HISTORY Never Assessed REASON FOR VISIT f/u PLAN OF CARE Activity Details Follow Up 1 Week for one hour Reason: VITAL SIGNS MEDICATIONS Unknown Medications RESULTS No Results PROCEDURES Procedure Date Ordered Result Body Site Psychotherapy, patient &/family, 30 minutes, established patient May 10, 2017 INSTRUCTIONS MEDICATIONS ADMINISTERED No Known Medications MEDICAL (GENERAL) HISTORY Type Description Date Medical History ADHD Medical History depression Medical History anxiety Surgical History tongue clipped as a child
--- OUTSIDE RECORDS SUMMARY | 2017-10-23 22:11 | XMS REPORT ---
Author Author SHELLY ALVAREZ Organization [facility] Address [address] 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 078048282 Problem Major depressive disorder, recurrent, moderate F33.1 Active 70071047 Problem Post-traumatic stress disorder, unspecified F43.10 Active 77463294 ALLERGIES No Information ENCOUNTERS Encounter Location Date Diagnosis [facility] [address] [place] [address] Aug, [facility] [address] [address] Aug, [facility] [address] [place] [address] July, Opioid dependence, uncomplicated F11.20 and Methamphetamine abuse, 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 [facility] [address] [place] [address] July, Opioid dependence, uncomplicated F11.20 and Methamphetamine abuse, 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 [facility] [address] [place] [address] July, Opioid dependence, uncomplicated F11.20 and Methamphetamine abuse, 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 [facility] [address] [address] Jun, Opioid dependence, uncomplicated F11.20 [facility] [address] [place] [address] Jun, Opioid dependence, uncomplicated F11.20 and Methamphetamine abuse, 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 [facility] [id number] [place] [address] Jun, [facility] [id number] [place], [place] [address] Jun, Moderate episode of recurrent major depressive disorder F33.1 ; Post-traumatic stress disorder, unspecified F43.10 and Opioid dependence , uncomplicated F11.20 [facility] [id number] [place] [address] Jun, Opioid dependence, uncomplicated F11.20 [facility] [id number] [place] [address] 808524- [address] May, Opioid dependence, uncomplicated F11.20 [facility] [address] [id number] May, Opioid dependence, uncomplicated F11.20 and Methamphetamine abuse, 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 [facility] [id number] [place] [address]46[address] May, Opioid dependence, uncomplicated F11.20 [facility] [id number] [place] [address] 67[address] May, Opioid dependence, uncomplicated F11.20 [facility] [address] [place] [address] May, Opioid dependence, uncomplicated F11.20 and Methamphetamine abuse, 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 [facility] [id number] [place] [address] May, Moderate episode of recurrent major depressive disorder F33.1 ; Post-traumatic stress disorder, unspecified F43.10 and Opioid dependence , uncomplicated F11.20 [facility] [id number] [place] [id number] May, [facility] [id number] [place] [address]994[address] Apr, Opioid dependence, uncomplicated F11.20 [facility] [address] [place] [address] Apr, Opioid dependence, uncomplicated F11.20 and Methamphetamine abuse, 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 [address] 376362[address] Apr, Opioid dependence, uncomplicated F11.20 [facility] [address] [address] Apr, Opioid dependence, uncomplicated F11.20 [facility] [address] [address] Apr, Opioid dependence, uncomplicated F11.20 [facility] [address] [place] [address] Mar, Opioid dependence, uncomplicated F11.20 [facility] [address] [address] Mar, Opioid dependence, uncomplicated F11.20 [facility] [address] [id number] Mar, Opioid dependence, uncomplicated F11.20 [facility] [id number] [place] [address] 2542 Mar, [facility] [address] [address] Mar, Opioid dependence, uncomplicated F11.20 [facility] [address] [id number]- [address] Mar, Opioid dependence, uncomplicated F11.20 [facility] [address] [place] [address]44- [address] Mar, Moderate episode of recurrent major depressive disorder F33.1 ; Post-traumatic stress disorder, unspecified F43.10 and Opioid dependence , uncomplicated F11.20 [facility] [address] [place] [address] 82572 2546 02 Mar, 2017 Opioid dependence, uncomplicated F11.20 [facility] [address] [place] [address] 46235 2546 28 Feb, 2017 Moderate episode of recurrent major depressive disorder F33.1 [facility] [address] [place] [address] 28 Feb, 2017 Opioid dependence, uncomplicated F11.20 [facility] [address] [place] [address] 33991 2546 27 Feb, 2017 Opioid dependence, uncomplicated F11.20 [facility] [address] [place] [address] 55383 2546 20 Feb, 2017 Opioid dependence, uncomplicated F11.20 [facility] [address] [place] [address] 17837 2546 19 Feb, 2017 [facility] [address] [place] [address] 81694 2546 18 Feb, 2017 [facility] [address] [place] [address] 13712 2546 15 Feb, 2017 Moderate episode of recurrent major depressive disorder F33.1 [facility] [address] [place] [address] 14 Feb, 2017 Opioid dependence, uncomplicated F11.20 [facility] [address] [place] [address] 21894 2546 14 Feb, 2017 [facility] [address] [place] [address] 99540 2546 14 Feb, 2017 [facility] [address] [place] [address] 72780 2546 14 Feb, 2017 [facility] [address] [place] [address] 54608 2546 13 Feb, 2017 [facility] [address] [place] [address] 65413- 25[address] Feb, [facility] [address] [address] Feb, Moderate episode of recurrent major depressive disorder F33.1 ; Post-traumatic stress disorder, unspecified F43.10 and Opioid dependence , uncomplicated F11.20 [facility] [address] [place] [address] 45550 2546 12 Feb, 2017 [facility] [address] [place] [address] 19374 2546 Feb, [facility] [address] [place] [address] Feb, Opioid dependence, uncomplicated F11.20 [facility] [address] [place] [address] 21280 2546 Feb, Moderate episode of recurrent major depressive disorder F33.1 [facility] [address] [place] [address] 97481- 8186 Feb, Opioid dependence, uncomplicated F11.20 [facility] [address] [place] [address] 98098 2546 Feb, [facility] [address] [place] [address] 50436 2546 Feb, [facility] [address] [place] [address] 21746 2546 Feb, [facility] [address] [place] [address] 44253 2546 Feb, [facility] [address] [place] [address] 30313 2546 Feb, [facility] [address] [place] [address] Feb, Opioid dependence, uncomplicated F11.20 [facility] [address] [address] 2546 Feb, [facility] [address] [place] [address] 28565 2546 Jan, Opioid dependence, uncomplicated F11.20 and Drug induced constipation K59.03 [facility] [address] [place] [address] 01681- 4[address] Jan, [facility] [address] 812654- 7163 Jan, Moderate episode of recurrent major depressive disorder F33.1 and Post-traumatic stress disorder, unspecified F43.10 [facility] [address] [place] [address] Jan, [facility] [address] [address] Jan, [facility] [address] [address] Jan, [facility] [address] [place] [address] Jan, [facility] [address] [place] [address] Jan, Opioid dependence, uncomplicated F11.20 ; Drug induced constipation K59.03 and Adverse effect of other opioids, initial encounter T40.2X5A [facility] [address] [place] [address] 83890- 7118 Jan, [facility] [address] [address]- [address] Jan, [facility] [address] [address] Jan, Opiate dependence, continuous F11.20 [facility] [address] [place] [address] Jan, Opiate dependence, continuous F11.20 ; 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 ; Benzodiazepine abuse F13.10 ; Alcohol dependence, binge pattern F10.20 and Marijuana abuse F12.10 [facility] [address] [place] [address] 53200- 2431 Jan, [facility] [address] [place] [address] 13372- 4412 Jan, [facility] [address] [place] [address] 00629- 1550 15 Jan, 2017 [facility] [address] [place] [address] 82297- 2983 14 Jan, 2017 Urinary frequency R35.0 and Opiate dependence, continuous F11.20 [facility] [address] [place] [address] 10 Jan, 2017 Opiate dependence, continuous F11.20 ; 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 ; Benzodiazepine abuse F13.10 ; Alcohol dependence, binge pattern F10.20 and Marijuana abuse F12.10 [facility] [address] [place] [address] 08 Jan, 2017 [facility] [address] [place] [address] 23804- 6146 08 Jan, 2017 Moderate episode of recurrent major depressive disorder F33.1 and Post-traumatic stress disorder, unspecified F43.10 [facility] [address] [place] [address] 82137- 3716 08 Jan, 2017 [facility] [address] [address]21- [address] 07 Jan, 2017 Moderate episode of recurrent major depressive disorder F33.1 and Substance abuse withdrawal without complication F19.230 [facility] [address] [place] [address] 61225- 5621 07 Jan, 2017 [facility] [address] [place] [address] 01728- 0709 Jun, [facility] [address] [place] [address] 96048- 2204 Jun, [facility] [address] [address]- [address] May, [facility] [address] [place] [address] 55410- 3599 May, [facility] [address] [place] [address] 90508- 0622 Apr, [facility] [address] [facility] [id number] [address] Apr, [facility] [address] [id number] [address] 2546 Apr, [facility] [address] [id number] [address] 2546 Apr, [facility] [address] [address]- 25[address] Apr, [facility] [address] [id number] [address] 2546 Apr, [facility] [address] [address] 2546 Dec, [facility] [address] [id number] [address] 2546 Dec, [facility] [address] [id number] [id number] Nov, [facility] [address] [facility] [id number] [address] 2546 Sep, IMMUNIZATIONS No Known Immunizations SOCIAL HISTORY Never Assessed REASON FOR VISIT Med Dispense PLAN OF CARE VITAL SIGNS MEDICATIONS Unknown Medications RESULTS No Results PROCEDURES No Known procedures INSTRUCTIONS MEDICATIONS ADMINISTERED No Known Medications MEDICAL (GENERAL) HISTORY Type Description Date Medical History ADHD Medical History depression Medical History anxiety Surgical History tongue clipped as a child
--- OUTSIDE RECORDS SUMMARY | 2017-10-23 22:11 | XMS REPORT ---
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 959818859 Problem Marijuana abuse F12.10 Active 02434354 Problem Alcohol dependence, binge pattern F10.20 Active 657268929 Problem Benzodiazepine abuse F13.10 Active 430678145 Problem Missed period N92.6 Active 76905694 Problem Dysthymia F34.1 Active 51023805 Problem Major depressive disorder, recurrent, moderate F33.1 Active 47054981 Problem Post-traumatic stress disorder, unspecified F43.10 Active 47504807 Problem Drug induced constipation K59.03 Active 29715021 Problem Opioid dependence, uncomplicated F11.20 Active 72075554 ALLERGIES No Information ENCOUNTERS Encounter Location Date Diagnosis [facility] [address] [address] Nov, [facility] [address] [address] Sep, Acute pain of right wrist M25.531 and Missed period N92.6 [facility] [address] [address] Aug, Acute pain of right wrist M25.531 ; Dysthymia F34.1 ; Screening for hyperlipidemia Z13.220 ; Screening for diabetes mellitus Z13.1 and Screening for other and unspecified deficiency anemia Z13.0 [facility] [id number] [place] [address] Aug, [facility] [address] [place] [address] July, Opioid dependence, uncomplicated F11.20 and Methamphetamine abuse, 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 [facility] [address] [place] [address] July, Opioid dependence, uncomplicated F11.20 and Methamphetamine abuse, 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 [facility] [address] [id number] July, Opioid dependence, uncomplicated F11.20 and Methamphetamine abuse, 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 [facility] [address] [address] Jun, Opioid dependence, uncomplicated F11.20 [facility] [address] [place] [address] Jun, Opioid dependence, uncomplicated F11.20 and Methamphetamine abuse, 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 [facility] [address] [address] Jun, [facility] [address] [address] Jun, Moderate episode of recurrent major depressive disorder F33.1 ; Post-traumatic stress disorder, unspecified F43.10 and Opioid dependence , uncomplicated F11.20 [facility] [address] [address] Jun, Opioid dependence, uncomplicated F11.20 [facility] [id number] [place] [address] May, Opioid dependence, uncomplicated F11.20 [facility] [address] [place] [address] May, Opioid dependence, uncomplicated F11.20 and Methamphetamine abuse, 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 [facility] [id number] [place] [address] May, Opioid dependence, uncomplicated F11.20 [facility] [address] [id number] May, Opioid dependence, uncomplicated F11.20 [facility] [address] [place] [address] May, Opioid dependence, uncomplicated F11.20 and Methamphetamine abuse, 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 [facility] [address] [address] May, Moderate episode of recurrent major depressive disorder F33.1 ; Post-traumatic stress disorder, unspecified F43.10 and Opioid dependence , uncomplicated F11.20 [facility] [address] [address] May, [facility] [address] [address] Apr, Opioid dependence, uncomplicated F11.20 [facility] [address] [place] [address] Apr, Opioid dependence, uncomplicated F11.20 and Methamphetamine abuse, 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 [facility] [address] [address] Apr, Opioid dependence, uncomplicated F11.20 [facility] [address] [place] [address] Apr, Opioid dependence, uncomplicated F11.20 and Methamphetamine abuse, 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 [facility] [address] 648142- [address] Apr, Opioid dependence, uncomplicated F11.20 [facility] [address] [place] [address] Apr, Opioid dependence, uncomplicated F11.20 [facility] [address] [address] Apr, Opioid dependence, uncomplicated F11.20 [facility] [address] [place] [address] Mar, Opioid dependence, uncomplicated F11.20 [facility] [address] [address] Mar, Opioid dependence, uncomplicated F11.20 [facility] [address] [address] Mar, Opioid dependence, uncomplicated F11.20 [facility] [id number] [place] [address] Mar, [facility] [id number] [place] [address] Mar, Opioid dependence, uncomplicated F11.20 [facility] [id number] [place] [address] Mar, Opioid dependence, uncomplicated F11.20 [facility] [id number] [place] [address] Mar, Moderate episode of recurrent major depressive disorder F33.1 ; Post-traumatic stress disorder, unspecified F43.10 and Opioid dependence , uncomplicated F11.20 [facility] [id number] [place] [address] Mar, Opioid dependence, uncomplicated F11.20 [facility] [id number] [place] [address] Feb, Moderate episode of recurrent major depressive disorder F33.1 [facility] [address] [place] [address] 28 Feb, 2017 Opioid dependence, uncomplicated F11.20 [facility] [id number] [place] [address] 27 Feb, 2017 Opioid dependence, uncomplicated F11.20 [facility] [id number] [place] [address] Feb, Opioid dependence, uncomplicated F11.20 [facility] [id number] [place] [address] 2546 19 Feb, 2017 [facility] [id number] [place] [address] 18 Feb, 2017 [facility] [id number] [place] [address] 15 Feb, 2017 Moderate episode of recurrent major depressive disorder F33.1 [facility] [address] [place] [address] 14 Feb, 2017 Opioid dependence, uncomplicated F11.20 [facility] [address] [address] 14 Feb, 2017 [facility] [id number] [place] [address] 25[address] 14 Feb, 2017 [facility] [address] [place] [address] 2546 14 Feb, 2017 [facility] [id number] [place] [address] 2546 13 Feb, 2017 [facility] [address] [place] [address] Feb, [facility] [id number] [place] [address] 13 Feb, 2017 Moderate episode of recurrent major depressive disorder F33.1 ; Post-traumatic stress disorder, unspecified F43.10 and Opioid dependence , uncomplicated F11.20 [facility] [id number] [place] [address] 12 Feb, 2017 [facility] [id number] [place] [address] Feb, [facility] [address] [place] [address] 08 Feb, 2017 Opioid dependence, uncomplicated F11.20 [facility] [address] [address] 08 Feb, 2017 Moderate episode of recurrent major depressive disorder F33.1 [facility] [address] [place] [address] 2546 07 Feb, 2017 Opioid dependence, uncomplicated F11.20 [facility] [id number] [place] [address] 2546 07 Feb, 2017 [facility] [address] [place] [address]- [address] Feb, [facility] [address] [place] [address] 8[address]- [address] Feb, [facility] [id number] [place] [address] Feb, [facility] [id number] [place] [address] Feb, [facility] [address] [place] [address] Feb, Opioid dependence, uncomplicated F11.20 [facility] [id number] [place] [address] Feb, [facility] [id number] [place] [address] 82457[address] Jan, Opioid dependence, uncomplicated F11.20 and Drug induced constipation K59.03 [facility] [id number] [place] [address]- [address] Jan, [facility] [address] [address] Jan, Moderate episode of recurrent major depressive disorder F33.1 and Post-traumatic stress disorder, unspecified F43.10 [facility] [address] [place] [address] Jan, [facility] [id number] [place] [address]10- 164[address] Jan, [facility] [id number] [place] [address] 6[address]52- 8827 Jan, [facility] [address] [place] [address] Jan, [facility] [id number] [place] [address]- [address] Jan, Opioid dependence, uncomplicated F11.20 ; Drug induced constipation K59.03 and Adverse effect of other opioids, initial encounter T40.2X5A [facility] [id number] [place] [address] 65[address]- [address] Jan, [facility] [id number] [place] [address] 52196- 9[address] Jan, [facility] [id number] [place] [address] 9[address]23- 2429 Jan, Opiate dependence, continuous F11.20 [facility] [address] [place] [address] 17 Jan, 2017 Opiate dependence, continuous F11.20 ; 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 ; Benzodiazepine abuse F13.10 ; Alcohol dependence, binge pattern F10.20 and Marijuana abuse F12.10 [facility] [id number] [place] [address] 16 Jan, 2017 [facility] [address] [address] Jan, [facility] [address] [address] Jan, [facility] [address] [address] 14 Jan, 2017 Urinary frequency R35.0 and Opiate dependence, continuous F11.20 [facility] [address] [place] [address] Jan, Opiate dependence, continuous F11.20 ; 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 ; Benzodiazepine abuse F13.10 ; Alcohol dependence, binge pattern F10.20 and Marijuana abuse F12.10 [facility] [address] [place] [address] Jan, [facility] [id number] [place] [address] Jan, Moderate episode of recurrent major depressive disorder F33.1 and Post-traumatic stress disorder, unspecified F43.10 [facility] [id number] [place] [address] 89959- [address]66 Jan, [facility] [address] [place] [address] Jan, Moderate episode of recurrent major depressive disorder F33.1 and Substance abuse withdrawal without complication F19.230 [facility] [address] [address] Jan, [facility] [id number] [address] Jun, [facility] [address] [address] Jun, [facility] [id number] [address] May, [facility] [address] [place] [address] May, [facility] [id number] [address] Apr, [facility] [address] Apr, [facility] [address] [address] Apr, [facility] [address] [place] [address] Apr, [facility] [address] [address] Apr, [facility] [address] Apr, [facility] [id number] [address] Dec, [facility] [id number] [address] Dec, [facility] [address] [facility] [id number] [id number] Nov, [facility] [address] [address] Sep, IMMUNIZATIONS No Known Immunizations SOCIAL HISTORY [...] Result Body Site Alcohol and/or drug services Apr 29, 2017 INSTRUCTIONS MEDICATIONS ADMINISTERED No Known Medications MEDICAL (GENERAL) HISTORY Type Description Date Medical History ADHD Medical History depression Medical History anxiety Surgical History tongue clipped as a child
--- OUTSIDE RECORDS SUMMARY | 2017-10-23 22:11 | XMS REPORT ---
Author Author SHELLY ALVAREZ Organization [facility] Address [address] 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 [address] [place] [address] July, Opioid dependence, uncomplicated F11.20 and Methamphetamine abuse, 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 [facility] [address] [place] [address] July, Opioid dependence, uncomplicated F11.20 and Methamphetamine abuse, 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 [facility] [address] [address] Jun, Opioid dependence, uncomplicated F11.20 [facility] [address] [place] [address] Jun, Opioid dependence, uncomplicated F11.20 and Methamphetamine abuse, 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 [facility] [id number] [place] [address] Jun, [facility] [id number] [place] [address] Jun, Moderate episode of recurrent major depressive disorder F33.1 ; Post-traumatic stress disorder, unspecified F43.10 and Opioid dependence , uncomplicated F11.20 [facility] [id number] [place] [address]32[address] Jun, Opioid dependence, uncomplicated F11.20 [facility] [id number] [place] [address]- [address] May, Opioid dependence, uncomplicated F11.20 [facility] [address] [id number] May, Opioid dependence, uncomplicated F11.20 and Methamphetamine abuse, 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 [facility] [id number] [place] [address] May, Opioid dependence, uncomplicated F11.20 [facility] [id number] [place] [address] May, Opioid dependence, uncomplicated F11.20 [facility] [address] [place] [address] May, Opioid dependence, uncomplicated F11.20 and Methamphetamine abuse, 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 [facility] [id number] [place] [address] May, Moderate episode of recurrent major depressive disorder F33.1 ; Post-traumatic stress disorder, unspecified F43.10 and Opioid dependence , uncomplicated F11.20 [facility] [id number] [place], [place] [id number] May, [facility] [id number] [place] [address] 34[address] Apr, Opioid dependence, uncomplicated F11.20 [facility] [address] [place] [address] Apr, Opioid dependence, uncomplicated F11.20 and Methamphetamine abuse, 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 [facility] [address] [address] Apr, Opioid dependence, uncomplicated F11.20 [facility] [address] [address] Apr, Opioid dependence, uncomplicated F11.20 and Methamphetamine abuse, 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 [facility] [address] 5745[address] Apr, Opioid dependence, uncomplicated F11.20 [facility] [address] [address] Apr, Opioid dependence, uncomplicated F11.20 [facility] [address] [address] Apr, Opioid dependence, uncomplicated F11.20 [facility] [address] [place] [address] Mar, Opioid dependence, uncomplicated F11.20 [facility] [address] [address] Mar, Opioid dependence, uncomplicated F11.20 [facility] [address] [id number] Mar, Opioid dependence, uncomplicated F11.20 [facility] [id number] [place] [address] 2543 Mar, [facility] [address] [address] Mar, Opioid dependence, uncomplicated F11.20 [facility] [address] [id number]- 47[address] Mar, Opioid dependence, uncomplicated F11.20 [facility] [id number] [place] [address] Mar, Moderate episode of recurrent major depressive disorder F33.1 ; Post-traumatic stress disorder, unspecified F43.10 and Opioid dependence , uncomplicated F11.20 [facility] [id number] [place] [address]804 2546 02 Mar, 2017 Opioid dependence, uncomplicated F11.20 [facility] [id number] [place] [address] 84868 2546 28 Feb, 2017 Moderate episode of recurrent major depressive disorder F33.1 [facility] [address] [place] [address] 28 Feb, 2017 Opioid dependence, uncomplicated F11.20 [facility] [id number] [place] [address] 21878 2546 27 Feb, 2017 Opioid dependence, uncomplicated F11.20 [facility] [id number] [place] [address] 33784 2546 20 Feb, 2017 Opioid dependence, uncomplicated F11.20 [facility] [id number] [place] [address] 2546 19 Feb, 2017 [facility] [id number] [place] [address] 64269 2546 18 Feb, 2017 [facility] [id number] [place] [address] 62223 2546 15 Feb, 2017 Moderate episode of recurrent major depressive disorder F33.1 [facility] [address] [place] [address] 14 Feb, 2017 Opioid dependence, uncomplicated F11.20 [facility] [id number] [place] [address] 82394 2546 14 Feb, 2017 [facility] [id number] [place] [address] 48849 2546 14 Feb, 2017 [facility] [id number] [place] [address] 33572 2546 14 Feb, 2017 [facility] [id number] [place] [address] 53383 2546 13 Feb, 2017 [facility] [id number] [place] [address] 6[address]- [address] Feb, [facility] [address] [address] Feb, Moderate episode of recurrent major depressive disorder F33.1 ; Post-traumatic stress disorder, unspecified F43.10 and Opioid dependence , uncomplicated F11.20 [facility] [address] [place] [address] 54950 2546 12 Feb, 2017 [facility] [id number] [place] [address] 55318 2546 Feb, [facility] [address] [place] [address] Feb, Opioid dependence, uncomplicated F11.20 [facility] [id number] [place] [address] 32307 2546 Feb, Moderate episode of recurrent major depressive disorder F33.1 [facility] [id number] [place] [address] 33562- 6116 Feb, Opioid dependence, uncomplicated F11.20 [facility] [id number] [place] [address] 32311 2546 Feb, [facility] [id number] [place] [address] 45565 2546 Feb, [facility] [address] [place] [address] 19051 2546 Feb, [facility] [id number] [place] [address] 21563 2546 Feb, [facility] [id number] [place] [address] 07673 2546 Feb, [facility] [address] [place] [address] Feb, Opioid dependence, uncomplicated F11.20 [facility] [address] [address] 2546 Feb, [facility] [address] [place] [address] 50142 2546 Jan, Opioid dependence, uncomplicated F11.20 and Drug induced constipation K59.03 [facility] [id number] [place] [address] 7[address]- 1048 Jan, [facility] [address] 771265- [address] Jan, Moderate episode of recurrent major depressive disorder F33.1 and Post-traumatic stress disorder, unspecified F43.10 [facility] [address] [place] [address] Jan, [facility] [address] [address] Jan, [facility] [address] [address] Jan, [facility] [address] [place] [address] Jan, [facility] [address] [place] [address]- [address] Jan, Opioid dependence, uncomplicated F11.20 ; Drug induced constipation K59.03 and Adverse effect of other opioids, initial encounter T40.2X5A [facility] [address] [place] [address] 38181- 24[address] Jan, [facility] [address] [address] Jan, [facility] [address] [address] Jan, Opiate dependence, continuous F11.20 [facility] [address] [place] [address] Jan, Opiate dependence, continuous F11.20 ; 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 ; Benzodiazepine abuse F13.10 ; Alcohol dependence, binge pattern F10.20 and Marijuana abuse F12.10 [facility] [id number] [place] [address] 46[address]- 8156 Jan, [facility] [address] [place] [address]- 1334 Jan, [facility] [id number] [place] [address] 33660- 6111 15 Jan, 2017 [facility] [id number] [place] [address] 53453- 0237 14 Jan, 2017 Urinary frequency R35.0 and Opiate dependence, continuous F11.20 [facility] [address] [place] [address] 10 Jan, 2017 Opiate dependence, continuous F11.20 ; 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 [address] [place] [address] 08 Jan, 2017 [facility] [id number] [place] [address]- 6[address] 08 Jan, 2017 Moderate episode of recurrent major depressive disorder F33.1 and Post-traumatic stress disorder, unspecified F43.10 [facility] [id number] [place] [address] 54632- 9688 08 Jan, 2017 [facility] [address] [address] 07 Jan, 2017 Moderate episode of recurrent major depressive disorder F33.1 and Substance abuse withdrawal without complication F19.230 [facility] [id number] [place] [address] 33637- 4102 07 Jan, 2017 [facility] [id number] [place] [address] 20935- 4055 Jun, [facility] [id number] [place] [address] 41640- 9595 Jun, [facility] [address] [address] May, [facility] [id number] [place] [address]11- 7365 May, [facility] [id number] [place] [address] 25237- 1728 Apr, [facility] [address] [facility] [id number] [address] Apr, [facility] [id number] [address] 2546 Apr, [facility] [id number] [address] 2546 Apr, [facility] [address] [address] Apr, [facility] [id number] [address] 2546 Apr, [facility] [address] [address] 2546 Dec, [facility] [id number] [address] 2546 Dec, [facility] [address] [id number] [id number] Nov, [facility] [address] [facility] [id number] [address] 2546 Sep, IMMUNIZATIONS No Known Immunizations SOCIAL [...]
--- OUTSIDE RECORDS SUMMARY | 2017-10-23 22:12 | XMS REPORT ---
Author Author SHELLY ALVAREZ Organization [facility] Address [address] 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 631483552 Problem Major depressive disorder, recurrent, moderate F33.1 Active 01933526 Problem Post-traumatic stress disorder, unspecified F43.10 Active [id number] ALLERGIES No Information ENCOUNTERS Encounter Location Date Diagnosis [facility] [address] [place] [address] Aug, [facility] [address] [address] Aug, [facility] [address] [place] [address] July, Opioid dependence, uncomplicated F11.20 and Methamphetamine abuse, 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 [facility] [address] [place] [address] July, Opioid dependence, uncomplicated F11.20 and Methamphetamine abuse, 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 [facility] [address] [place] [address] July, Opioid dependence, uncomplicated F11.20 and Methamphetamine abuse, 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 [facility] [address] [address] Jun, Opioid dependence, uncomplicated F11.20 [facility] [address] [place] [address] Jun, Opioid dependence, uncomplicated F11.20 and Methamphetamine abuse, 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 [facility] [id number] [place] [address] Jun, [facility] [id number] [place] [address] Jun, Moderate episode of recurrent major depressive disorder F33.1 ; Post-traumatic stress disorder, unspecified F43.10 and Opioid dependence , uncomplicated F11.20 [facility] [id number] [place] [address] Jun, Opioid dependence, uncomplicated F11.20 [facility] [id number] [place] [address] May, Opioid dependence, uncomplicated F11.20 [facility] [address] [id number] May, Opioid dependence, uncomplicated F11.20 and Methamphetamine abuse, 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 [facility] [id number] [place] [address] May, Opioid dependence, uncomplicated F11.20 [facility] [id number] [place] [address] May, Opioid dependence, uncomplicated F11.20 [facility] [address] [place] [address] May, Opioid dependence, uncomplicated F11.20 and Methamphetamine abuse, 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 [facility] [id number] [place] [address] May, Moderate episode of recurrent major depressive disorder F33.1 ; Post-traumatic stress disorder, unspecified F43.10 and Opioid dependence , uncomplicated F11.20 [facility] [id number] [place] [id number] May, [facility] [id number] [place] [address] Apr, Opioid dependence, uncomplicated F11.20 [facility] [address] [place] [address] Apr, Opioid dependence, uncomplicated F11.20 and Methamphetamine abuse, 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 [facility] [address] [address] Apr, Opioid dependence, uncomplicated F11.20 [facility] [address] [address] Apr, Opioid dependence, uncomplicated F11.20 and Methamphetamine abuse, 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 [facility] [address] 6949[address] Apr, Opioid dependence, uncomplicated F11.20 [facility] [address] [address] Apr, Opioid dependence, uncomplicated F11.20 [facility] [address] [address] Apr, Opioid dependence, uncomplicated F11.20 [facility] [address] [place] [address] Mar, Opioid dependence, uncomplicated F11.20 [facility] [address] [address] Mar, Opioid dependence, uncomplicated F11.20 [facility] [address] [id number] Mar, Opioid dependence, uncomplicated F11.20 [facility] [id number] [place] [address] 25[address] Mar, [facility] [address] [address] Mar, Opioid dependence, uncomplicated F11.20 [facility] [address] [id number] Mar, Opioid dependence, uncomplicated F11.20 [facility] [id number] [place] [address] Mar, Moderate episode of recurrent major depressive disorder F33.1 ; Post-traumatic stress disorder, unspecified F43.10 and Opioid dependence , uncomplicated F11.20 [facility] [id number] [place] [address] 2546 02 Mar, 2017 Opioid dependence, uncomplicated F11.20 [facility] [id number] [place] [address] 62346 2546 28 Feb, 2017 Moderate episode of recurrent major depressive disorder F33.1 [facility] [address] [place] [address] 28 Feb, 2017 Opioid dependence, uncomplicated F11.20 [facility] [id number] [place] [address] 2546 27 Feb, 2017 Opioid dependence, uncomplicated F11.20 [facility] [id number] [place] [address] 96652 2546 20 Feb, 2017 Opioid dependence, uncomplicated F11.20 [facility] [id number] [place] [address] 69652 2546 19 Feb, 2017 [facility] [id number] [place] [address] 7[address] 2546 18 Feb, 2017 [facility] [id number] [place] [address] 33155 2546 15 Feb, 2017 Moderate episode of recurrent major depressive disorder F33.1 [facility] [address] [place] [address] 14 Feb, 2017 Opioid dependence, uncomplicated F11.20 [facility] [id number] [place] [address] 47373 2546 14 Feb, 2017 [facility] [id number] [place] [address] 52892 2546 14 Feb, 2017 [facility] [id number] [place] [address] 16007 2546 14 Feb, 2017 [facility] [id number] [place] [address] 82317 2546 13 Feb, 2017 [facility] [id number] [place] [address] 15489- 25[address] Feb, [facility] [address] [address] Feb, Moderate episode of recurrent major depressive disorder F33.1 ; Post-traumatic stress disorder, unspecified F43.10 and Opioid dependence , uncomplicated F11.20 [facility] [address] [place] [address]885 2546 12 Feb, 2017 [facility] [id number] [place] [address] 59028 2546 Feb, [facility] [address] [place] [address] Feb, Opioid dependence, uncomplicated F11.20 [facility] [id number] [place] [address] 86446 2546 Feb, Moderate episode of recurrent major depressive disorder F33.1 [facility] [id number] [place] [address] 8[address] Feb, Opioid dependence, uncomplicated F11.20 [facility] [id number] [place] [address] 66789 2546 Feb, [facility] [id number] [place] [address] 61442 2546 Feb, [facility] [address] [place] [address] 46848 2546 Feb, [facility] [id number] [place] [address] 81444 2546 Feb, [facility] [address] [place] [address] 37[address] 2546 Feb, [facility] [address] [place] [address] Feb, Opioid dependence, uncomplicated F11.20 [facility] [address], [place] [address] 25[address] Feb, [facility] [address] [place] [address] 10160 2546 Jan, Opioid dependence, uncomplicated F11.20 and Drug induced constipation K59.03 [facility] [id number] [place] [address] Jan, [facility] [address] 798089- [address] Jan, Moderate episode of recurrent major depressive disorder F33.1 and Post-traumatic stress disorder, unspecified F43.10 [facility] [address] [place] [address] Jan, [facility] [address] [address] Jan, [facility] [address] [address] Jan, [facility] [address] [place] [address] Jan, [facility] [address] [place] [address] Jan, Opioid dependence, uncomplicated F11.20 ; Drug induced constipation K59.03 and Adverse effect of other opioids, initial encounter T40.2X5A [facility] [address] [place] [address] Jan, [facility] [address] [address] Jan, [facility] [address] [address] Jan, Opiate dependence, continuous F11.20 [facility] [address] [place] [address] Jan, Opiate dependence, continuous F11.20 ; 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 ; Benzodiazepine abuse F13.10 ; Alcohol dependence, binge pattern F10.20 and Marijuana abuse F12.10 [facility] [id number] [place] [address] 06738[address] 6[address] Jan, [facility] [address] [place] [address] 46394- 5295 Jan, [facility] [id number] [place] [address] 68[address]- [address] 15 Jan, 2017 [facility] [id number] [place] [address] 92342- 2275 14 Jan, 2017 Urinary frequency R35.0 and Opiate dependence, continuous F11.20 [facility] [address] [place] [address] 10 Jan, 2017 Opiate dependence, continuous F11.20 ; 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 ; Benzodiazepine abuse F13.10 ; Alcohol dependence, binge pattern F10.20 and Marijuana abuse F12.10 [facility] [address] [place] [address] 08 Jan, 2017 [facility] [id number] [place] [address] 16666- 4268 08 Jan, 2017 Moderate episode of recurrent major depressive disorder F33.1 and Post-traumatic stress disorder, unspecified F43.10 [facility] [id number] [place] [address] 73083- 4401 08 Jan, 2017 [facility] [address] [address]- [address] 07 Jan, 2017 Moderate episode of recurrent major depressive disorder F33.1 and Substance abuse withdrawal without complication F19.230 [facility] [id number] [place] [address] 69243- 7973 07 Jan, 2017 [facility] [id number] [place] [address] 20799- 3667 Jun, [facility] [id number] [place] [address] 57936- 7730 Jun, [facility] [address] [address] May, [facility] [id number] [place] [address] 6[address]89- 6658 May, [facility] [id number] [place] [address] 13165- 0747 Apr, [facility] [address] [facility] [id number], [place] [address] Apr, [facility] [address] [id number], [place] [address] 2546 Apr, [facility] [id number], [place] [address] 2546 Apr, [facility] [address], [place] [address] Apr, [facility] [id number], [place] [address] 2546 Apr, [facility] [address], [place] [address] 2546 Dec, [facility] [id number], [place] [address] 2546 Dec, [facility] [address] [id number] [id number] Nov, [facility] [address] [facility] [id number], [place] [address] 2546 Sep, IMMUNIZATIONS No Known Immunizations SOCIAL [...]
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
--- OUTSIDE RECORDS SUMMARY | 2017-10-23 22:12 | XMS REPORT ---
Author Author SHELLY ALVAREZ Organization [facility] Address [address] 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 592185629 Problem Marijuana abuse F12.10 Active 98263928 Problem Alcohol dependence, binge pattern F10.20 Active 337623310 Problem Benzodiazepine abuse F13.10 Active 557194303 Problem Missed period N92.6 Active 57886376 Problem Dysthymia F34.1 Active 44316005 Problem Major depressive disorder, recurrent, moderate F33.1 Active 54573810 Problem Post-traumatic stress disorder, unspecified F43.10 Active 15369046 Problem Drug induced constipation K59.03 Active 35116686 Problem Opioid dependence, uncomplicated F11.20 Active 66377487 ALLERGIES No Information ENCOUNTERS Encounter Location Date Diagnosis [facility] [address] [address] Sep, Acute pain of right wrist M25.531 and Missed period N92.6 [facility] [id number] [place] [address] Aug, Acute pain of right wrist M25.531 ; Dysthymia F34.1 ; Screening for hyperlipidemia Z13.220 ; Screening for diabetes mellitus Z13.1 and Screening for other and unspecified deficiency anemia Z13.0 [facility] [address] [address] Aug, [facility] [address] [place] [address] July, Opioid dependence, uncomplicated F11.20 and Methamphetamine abuse, 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 [facility] [address] [place] [address] July, Opioid dependence, uncomplicated F11.20 and Methamphetamine abuse, 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 [facility] [address] [place] [address] July, Opioid dependence, uncomplicated F11.20 and Methamphetamine abuse, 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 [facility] [id number] [place] [address] Jun, Opioid dependence, uncomplicated F11.20 [facility] [address] [place] [address] Jun, Opioid dependence, uncomplicated F11.20 and Methamphetamine abuse, 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 [facility] [address] [address] Jun, [facility] [address] [address] Jun, Moderate episode of recurrent major depressive disorder F33.1 ; Post-traumatic stress disorder, unspecified F43.10 and Opioid dependence , uncomplicated F11.20 [facility] [id number] [place] [address] Jun, Opioid dependence, uncomplicated F11.20 [facility] [address] [address] May, Opioid dependence, uncomplicated F11.20 [facility] [address] [place] [address] May, Opioid dependence, uncomplicated F11.20 and Methamphetamine abuse, 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 [facility] [id number] [place] [address] May, Opioid dependence, uncomplicated F11.20 [facility] [id number] [place] [address] May, Opioid dependence, uncomplicated F11.20 [facility] [address] [place] [address] May, Opioid dependence, uncomplicated F11.20 and Methamphetamine abuse, 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 [facility] [address] [address] May, Moderate episode of recurrent major depressive disorder F33.1 ; Post-traumatic stress disorder, unspecified F43.10 and Opioid dependence , uncomplicated F11.20 [facility] [id number] [place] [address] May, [facility] [id number] [place] [address] Apr, Opioid dependence, uncomplicated F11.20 [facility] [address] [place] [address] Apr, Opioid dependence, uncomplicated F11.20 and Methamphetamine abuse, 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 [facility] [address] 6[address] 16 Apr, 2017 Opioid dependence, uncomplicated F11.[address] [facility] [address] [place] [address] Apr, Opioid dependence, uncomplicated F11.20 and Methamphetamine abuse, 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 [facility] [id number] [place] [address] Apr, Opioid dependence, uncomplicated F11.20 [facility] [address] [place] [address] Apr, Opioid dependence, uncomplicated F11.20 [facility] [id number] [place] [address] Apr, Opioid dependence, uncomplicated F11.20 [facility] [address] [place] [address] Mar, Opioid dependence, uncomplicated F11.20 [facility] [id number] [place] [address] Mar, Opioid dependence, uncomplicated F11.20 [facility] [id number] [place] [address] Mar, Opioid dependence, uncomplicated F11.20 [facility] [id number] [place] [address] Mar, [facility] [id number] [address] Mar, Opioid dependence, uncomplicated F11.20 [facility] [id number] [place] [address] 2546 Mar, Opioid dependence, uncomplicated F11.20 [facility] [id number] [place] [address] 2546 Mar, Moderate episode of recurrent major depressive disorder F33.1 ; Post-traumatic stress disorder, unspecified F43.10 and Opioid dependence , uncomplicated F11.20 [facility] [id number] [place] [address] 2546 Mar, Opioid dependence, uncomplicated F11.20 [facility] [id number] [place] [address] 2546 28 Feb, 2017 Moderate episode of recurrent major depressive disorder F33.1 [facility] [address] [place] [address] 28 Feb, 2017 Opioid dependence, uncomplicated F11.20 [facility] [id number] [place] [address] 2546 27 Feb, 2017 Opioid dependence, uncomplicated F11.20 [facility] [id number] [place] [address] 2546 20 Feb, 2017 Opioid dependence, uncomplicated F11.20 [facility] [id number] [place] [address] 73765 2546 19 Feb, 2017 [facility] [id number] [place] [address] 125[address] 2546 18 Feb, 2017 [facility] [id number] [place] [address] 2546 15 Feb, 2017 Moderate episode of recurrent major depressive disorder F33.1 [facility] [address] [place] [address] 14 Feb, 2017 Opioid dependence, uncomplicated F11.20 [facility] [id number] [place] [address]18[address] 14 Feb, 2017 [facility] [address] [address] 14 Feb, 2017 [facility] [id number] [place] [address]- [address] 14 Feb, 2017 [facility] [id number] [place] [address] 14014[address] 13 Feb, 2017 [facility] [id number] [place] [address] 16661- 6[address] 13 Feb, 2017 [facility] [id number] [place] [address] 7[address]87- [address] 13 Feb, 2017 Moderate episode of recurrent major depressive disorder F33.1 ; Post-traumatic stress disorder, unspecified F43.10 and Opioid dependence , uncomplicated F11.20 [facility] [id number] [place] [address] 12 Feb, 2017 [facility] [id number] [place] [address] Feb, [facility] [address] [place] [address] 08 Feb, 2017 Opioid dependence, uncomplicated F11.20 [facility] [id number] [place] [address] 72765- 8[address] 08 Feb, 2017 Moderate episode of recurrent major depressive disorder F33.1 [facility] [id number] [place] [address] 05486- [address] 07 Feb, 2017 Opioid dependence, uncomplicated F11.20 [facility] [id number] [place] [address] 20379 2546 07 Feb, 2017 [facility] [id number] [place] [address]- [address] 06 Feb, 2017 [facility] [id number] [place] [address] 8[address]23- 74[address] 05 Feb, 2017 [facility] [id number] [place] [address] 37267- 4[address] Feb, [facility] [id number] [place] [address] 53229[address] Feb, [facility] [address] [address] Feb, Opioid dependence, uncomplicated F11.20 [facility] [id number] [place] [address] 41428- 9556 Feb, [facility] [address] [address] Jan, Opioid dependence, uncomplicated F11.20 and Drug induced constipation K59.03 [facility] [address] [address] Jan, [facility] [address] [address] Jan, Moderate episode of recurrent major depressive disorder F33.1 and Post-traumatic stress disorder, unspecified F43.10 [facility] [address] [place] [address] Jan, [facility] [address] [address] Jan, [facility] [address] [address] Jan, [facility] [address] [place] [address] Jan, [facility] [address] [address] Jan, Opioid dependence, uncomplicated F11.20 ; Drug induced constipation K59.03 and Adverse effect of other opioids, initial encounter T40.2X5A [facility] [address] [address] Jan, [facility] [address] [address] Jan, [facility] [address] [address] Jan, Opiate dependence, continuous F11.20 [facility] [address] [place] [address] 17 Jan, 2017 Opiate dependence, continuous F11.20 ; 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 ; Benzodiazepine abuse F13.10 ; Alcohol dependence, binge pattern F10.20 and Marijuana abuse F12.10 [facility] [id number] [place] [address]56- 57[address] 16 Jan, 2017 [facility] [address] 826316- 2299 Jan, [facility] [id number] [place] [address] 17102- 459[address] Jan, [facility] [address] [address] 14 Jan, 2017 Urinary frequency R35.0 and Opiate dependence, continuous F11.20 [facility] [address] [place] [address] Jan, Opiate dependence, continuous F11.20 ; 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 ; Benzodiazepine abuse F13.10 ; Alcohol dependence, binge pattern F10.20 and Marijuana abuse F12.10 [facility] [address] [place] [address] 08 Jan, 2017 [facility] [address] [place] [id number] [place] [address] 9[address]64[address] 08 Jan, 2017 Moderate episode of recurrent major depressive disorder F33.1 and Post-traumatic stress disorder, unspecified F43.10 [facility] [id number] [place] [address] 9[address]06- [address] 08 Jan, 2017 [facility] [address] [place] [address]187- [address] 07 Jan, 2017 Moderate episode of recurrent major depressive disorder F33.1 and Substance abuse withdrawal without complication F19.230 [facility] [id number] [place] [address] 17799- 9510 07 Jan, 2017 [facility] [address] [address] Jun, [facility] [id number] [address] Jun, [facility] [address] [place] [address] May, [facility] [id number] [address] May, [facility] [address] [address] Apr, [facility] [id number] [address] Apr, [facility] [address] [address] Apr, [facility] [address] [address] Apr, [facility] [address] [address] Apr, [facility] [id number] [address] Apr, [facility] [address] [address] Dec, [facility] [address] [facility] [id number] [address] Dec, [facility] [address] [id number] [id number] Nov, [facility] [address] [facility] [id number] [address] Sep, IMMUNIZATIONS No Known Immunizations SOCIAL HISTORY Never Assessed REASON FOR VISIT Suboxone RX (04/30-05/05) PLAN OF CARE VITAL SIGNS MEDICATIONS Medication Instructions Dosage Frequency Start Date End Date Duration Status Suboxone 8-2 MG Sublingual Once a day. CHARGE TO [facility] AL[place] 3 film under the tongue and allow to dissolve 6 days Active RESULTS No Results PROCEDURES No Known procedures INSTRUCTIONS MEDICATIONS ADMINISTERED No Known Medications MEDICAL (GENERAL) HISTORY Type Description Date Medical History ADHD Medical History depression Medical History anxiety Surgical History tongue clipped as a child
--- OUTSIDE RECORDS SUMMARY | 2017-10-23 22:12 | XMS REPORT ---
Author Author SHELLY ALVAREZ Organization [facility] Address [address] 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 204766661 Problem Major depressive disorder, recurrent, moderate F33.1 Active 66361622 Problem Post-traumatic stress disorder, unspecified F43.10 Active [id number] ALLERGIES No Information ENCOUNTERS Encounter Location Date Diagnosis [facility] [address] [place] [address] Aug, [facility] [address] [address] Aug, [facility] [address] [place] [address] July, Opioid dependence, uncomplicated F11.20 and Methamphetamine abuse, 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 [facility] [address] [place] [address] July, Opioid dependence, uncomplicated F11.20 and Methamphetamine abuse, 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 [facility] [address] [place] [address] July, Opioid dependence, uncomplicated F11.20 and Methamphetamine abuse, 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 [facility] [address] [address] Jun, Opioid dependence, uncomplicated F11.20 [facility] [address] [place] [address] Jun, Opioid dependence, uncomplicated F11.20 and Methamphetamine abuse, 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 [facility] [id number] [place] [address] Jun, [facility] [id number] [place], [place] [address] Jun, Moderate episode of recurrent major depressive disorder F33.1 ; Post-traumatic stress disorder, unspecified F43.10 and Opioid dependence , uncomplicated F11.20 [facility] [id number] [place] [address] Jun, Opioid dependence, uncomplicated F11.20 [facility] [id number] [place] [address] 963352[address] May, Opioid dependence, uncomplicated F11.20 [facility] [address] [id number] May, Opioid dependence, uncomplicated F11.20 and Methamphetamine abuse, 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 [facility] [id number] [place] [address] May, Opioid dependence, uncomplicated F11.20 [facility] [id number] [place] [address] May, Opioid dependence, uncomplicated F11.20 [facility] [address] [place] [address] May, Opioid dependence, uncomplicated F11.20 and Methamphetamine abuse, 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 [facility] [id number] [place] [address] May, Moderate episode of recurrent major depressive disorder F33.1 ; Post-traumatic stress disorder, unspecified F43.10 and Opioid dependence , uncomplicated F11.20 [facility] [id number] [place], [place] [id number] May, [facility] [id number] [place] [address] Apr, Opioid dependence, uncomplicated F11.20 [facility] [address] [place] [address] Apr, Opioid dependence, uncomplicated F11.20 and Methamphetamine abuse, 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 [facility] [address] [address] Apr, Opioid dependence, uncomplicated F11.20 [facility] [address] [address] Apr, Opioid dependence, uncomplicated F11.20 and Methamphetamine abuse, 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 [facility] [address] 6376[address] Apr, Opioid dependence, uncomplicated F11.20 [facility] [address] [address] Apr, Opioid dependence, uncomplicated F11.20 [facility] [address] [address] Apr, Opioid dependence, uncomplicated F11.20 [facility] [address] [place] [address] Mar, Opioid dependence, uncomplicated F11.20 [facility] [address] [address] Mar, Opioid dependence, uncomplicated F11.20 [facility] [address] [id number] Mar, Opioid dependence, uncomplicated F11.20 [facility] [id number] [place] [address] 2543 Mar, [facility] [address] [address] Mar, Opioid dependence, uncomplicated F11.20 [facility] [address] [id number] Mar, Opioid dependence, uncomplicated F11.20 [facility] [id number] [place] [address] Mar, Moderate episode of recurrent major depressive disorder F33.1 ; Post-traumatic stress disorder, unspecified F43.10 and Opioid dependence , uncomplicated F11.20 [facility] [id number] [place] [address]57 2546 02 Mar, 2017 Opioid dependence, uncomplicated F11.20 [facility] [id number] [place] [address] 29505 2546 28 Feb, 2017 Moderate episode of recurrent major depressive disorder F33.1 [facility] [address] [place] [address] 28 Feb, 2017 Opioid dependence, uncomplicated F11.20 [facility] [id number] [place] [address]30 2546 27 Feb, 2017 Opioid dependence, uncomplicated F11.20 [facility] [id number] [place] [address]63 2546 20 Feb, 2017 Opioid dependence, uncomplicated F11.20 [facility] [id number] [place] [address] 0[address]95 2546 19 Feb, 2017 [facility] [id number] [place] [address] 66732 2546 18 Feb, 2017 [facility] [id number] [place] [address] 54162 2546 15 Feb, 2017 Moderate episode of recurrent major depressive disorder F33.1 [facility] [address] [place] [address] 14 Feb, 2017 Opioid dependence, uncomplicated F11.20 [facility] [id number] [place] [address] 51265 2546 14 Feb, 2017 [facility] [id number] [place] [address] 46118 2546 14 Feb, 2017 [facility] [id number] [place] [address] 53804 2546 14 Feb, 2017 [facility] [id number] [place] [address] 84180 2546 13 Feb, 2017 [facility] [id number] [place] [address]33[address] Feb, [facility] [address] [address] Feb, Moderate episode of recurrent major depressive disorder F33.1 ; Post-traumatic stress disorder, unspecified F43.10 and Opioid dependence , uncomplicated F11.20 [facility] [address] [place] [address] 31327 2546 12 Feb, 2017 [facility] [id number] [place] [address] 43407 2546 Feb, [facility] [address] [place] [address] Feb, Opioid dependence, uncomplicated F11.20 [facility] [id number] [place] [address] 66791 2546 Feb, Moderate episode of recurrent major depressive disorder F33.1 [facility] [id number] [place] [address] 76608[address] Feb, Opioid dependence, uncomplicated F11.20 [facility] [id number] [place] [address] 41864 2546 Feb, [facility] [id number] [place] [address] 44216 2546 Feb, [facility] [address] [place] [address] 96554 2546 Feb, [facility] [id number] [place] [address] 07644 2546 Feb, [facility] [address] [place] [address] 53232 2546 Feb, [facility] [address] [place] [address] Feb, Opioid dependence, uncomplicated F11.20 [facility] [address] [address] 2546 Feb, [facility] [address] [place] [address] 77613 2546 Jan, Opioid dependence, uncomplicated F11.20 and Drug induced constipation K59.03 [facility] [id number] [place] [address]39[address] Jan, [facility] [address] 878516- [address] Jan, Moderate episode of recurrent major depressive disorder F33.1 and Post-traumatic stress disorder, unspecified F43.10 [facility] [address] [place] [address] Jan, [facility] [address] [address] Jan, [facility] [address] [address] Jan, [facility] [address] [place] [address] Jan, [facility] [address] [place] [address] Jan, Opioid dependence, uncomplicated F11.20 ; Drug induced constipation K59.03 and Adverse effect of other opioids, initial encounter T40.2X5A [facility] [address] [place] [address] 36695- 0009 Jan, [facility] [address] [address] Jan, [facility] [address] [address] Jan, Opiate dependence, continuous F11.20 [facility] [address] [place] [address] Jan, Opiate dependence, continuous F11.20 ; 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 ; Benzodiazepine abuse F13.10 ; Alcohol dependence, binge pattern F10.20 and Marijuana abuse F12.10 [facility] [id number] [place] [address]65[address] 7[address] Jan, [facility] [address] [place] [address] 55901- 7879 Jan, [facility] [id number] [place] [address] 87660- 6[address] 15 Jan, 2017 [facility] [id number] [place] [address] 31458- 8236 14 Jan, 2017 Urinary frequency R35.0 and Opiate dependence, continuous F11.20 [facility] [address] [place] [address] 10 Jan, 2017 Opiate dependence, continuous F11.20 ; 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 ; Benzodiazepine abuse F13.10 ; Alcohol dependence, binge pattern F10.20 and Marijuana abuse F12.10 [facility] [address] [place] [address] 08 Jan, 2017 [facility] [id number] [place] [address] 30308- [address] 08 Jan, 2017 Moderate episode of recurrent major depressive disorder F33.1 and Post-traumatic stress disorder, unspecified F43.10 [facility] [id number] [place] [address] 60081- 0056 08 Jan, 2017 [facility] [address] [address] 07 Jan, 2017 Moderate episode of recurrent major depressive disorder F33.1 and Substance abuse withdrawal without complication F19.230 [facility] [id number] [place] [address] 35733- 5857 07 Jan, 2017 [facility] [id number] [place] [address] 49582- 8391 Jun, [facility] [id number] [place] [address] 31145- 3296 Jun, [facility] [address] [address] May, [facility] [id number] [place] [address] 37801- 9595 May, [facility] [id number] [place] [address] 99099- 6396 Apr, [facility] [address] [facility] [id number] [address] Apr, [facility] [id number] [address] 2546 Apr, [facility] [id number] [address] 2546 Apr, [facility] [address] [place] [address] Apr, [facility] [address] [id number] [address] 2546 Apr, [facility] [address], [place] [address] 2546 Dec, [facility] [address] [id number], [place] [address] 2546 Dec, [facility] [address] [id number] [id number] Nov, [facility] [address] [facility] [id number] [address] 2546 Sep, IMMUNIZATIONS No Known Immunizations SOCIAL [...]
--- OUTSIDE RECORDS SUMMARY | 2017-10-23 22:12 | XMS REPORT ---
Author Author MARYLIN MARRUFO [facility] [place] [facility] Address [address] [place] [address] Care Team Providers Care Transfer Machine Operator Name Role Phone MARYLIN MARRUFO Unavailable PROBLEMS Type Condition ICD9-CM Code CYB35-UU Code Onset Dates Condition Status SNOMED Code Problem Benzodiazepine abuse F13.10 Active 465751573 Problem Alcohol dependence, binge pattern F10.20 Active 500784021 Problem Drug induced constipation K59.03 Active 69585717 Problem Opioid dependence, uncomplicated F11.20 Active 61621846 Problem Marijuana abuse F12.10 Active 67324347 Problem 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 903091439 Problem Major depressive disorder, recurrent, moderate F33.1 Active 78173425 Problem Post-traumatic stress disorder, unspecified F43.10 Active [id number] ALLERGIES No Information ENCOUNTERS Encounter Location Date Diagnosis [facility] [address] [place] [address] Aug, [facility] [address] [address] Aug, [facility] [address] [place] [address] July, [facility] [address] [place] [address] July, Opioid dependence, uncomplicated F11.20 and Methamphetamine abuse, 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 [facility] [id number] [place] [address]678[address] Jun, Opioid dependence, uncomplicated F11.20 [facility] [address] [place] [address] Jun, Opioid dependence, uncomplicated F11.20 and Methamphetamine abuse, 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 [facility] [id number] [place] [address]309- 9942 Jun, [facility] [address] [place] [address] Jun, Moderate episode of recurrent major depressive disorder F33.1 ; Post-traumatic stress disorder, unspecified F43.10 and Opioid dependence , uncomplicated F11.20 [facility] [id number] [place] [address] 87240- 7803 Jun, Opioid dependence, uncomplicated F11.20 [facility] [address] [address] May, Opioid dependence, uncomplicated F11.20 [facility] [address] [place] [address] May, Opioid dependence, uncomplicated F11.20 and Methamphetamine abuse, 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 [facility] [id number] [place] [address] 22289- 8415 May, Opioid dependence, uncomplicated F11.20 [facility] [address] [address] May, Opioid dependence, uncomplicated F11.20 [facility] [address] [place] [address] May, Opioid dependence, uncomplicated F11.20 and Methamphetamine abuse, 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 [facility] [id number] [place] [address] 12608- 3234 May, Moderate episode of recurrent major depressive disorder F33.1 ; Post-traumatic stress disorder, unspecified F43.10 and Opioid dependence , uncomplicated F11.20 [facility] [id number] [place] [address] 71330- 7146 May, [facility] [id number] [place] [address] 33232- 4794 Apr, Opioid dependence, uncomplicated F11.20 [facility] [address] [place] [address] Apr, Opioid dependence, uncomplicated F11.20 and Methamphetamine abuse, 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 [facility] [address] [address] Apr, Opioid dependence, uncomplicated F11.20 [facility] [address] [place] [address] 16 Apr, 2017 Opioid dependence, uncomplicated F11.20 and Methamphetamine abuse, 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 [facility] [id number] [place] [address] 02212 2546 15 Apr, 2017 Opioid dependence, uncomplicated F11.20 [facility] [address] [place] [address] Apr, Opioid dependence, uncomplicated F11.20 [facility] [id number] [place] [address]9586 2546 Apr, Opioid dependence, uncomplicated F11.20 [facility] [address] [place] [address] Mar, Opioid dependence, uncomplicated F11.20 [facility] [id number] [place] [address] 16071- 2486 Mar, Opioid dependence, uncomplicated F11.20 [facility] [id number] [place] [address] 14691- 2136 Mar, Opioid dependence, uncomplicated F11.20 [facility] [address] [address] 2546 Mar, [facility] [id number] [place] [address] 82406 254 Mar, Opioid dependence, uncomplicated F11.20 [facility] [id number] [place] [address] 39736 2546 Mar, Opioid dependence, uncomplicated F11.20 [facility] [id number] [place] [address] 68457 2549 Mar, Moderate episode of recurrent major depressive disorder F33.1 ; Post-traumatic stress disorder, unspecified F43.10 and Opioid dependence , uncomplicated F11.20 [facility] [id number] [place] [address] 50663- 5536 Mar, Opioid dependence, uncomplicated F11.20 [facility] [id number] [place] [address] 54663 2546 28 Feb, 2017 Moderate episode of recurrent major depressive disorder F33.1 [facility] [address] [place] [address] 28 Feb, 2017 Opioid dependence, uncomplicated F11.20 [facility] [id number] [place] [address] 97676 2546 27 Feb, 2017 Opioid dependence, uncomplicated F11.20 [facility] [id number] [place] [address] 68984 2546 20 Feb, 2017 Opioid dependence, uncomplicated F11.20 [facility] [id number] [place] [address] 76133 2546 19 Feb, 2017 [facility] [id number] [place] [address] 84554 2546 18 Feb, 2017 [facility] [id number] [place] [address] 47922 2546 15 Feb, 2017 Moderate episode of recurrent major depressive disorder F33.1 [facility] [address] [place] [address] 14 Feb, 2017 Opioid dependence, uncomplicated F11.20 [facility] [id number] [place] [address] 00023 2546 14 Feb, 2017 [facility] [id number] [place] [address] 62842 2546 14 Feb, 2017 [facility] [id number] [place] [address] 25403 2546 14 Feb, 2017 [facility] [id number] [place] [address] 74546 2546 13 Feb, 2017 [facility] [id number] [place] [address] 36981 2546 13 Feb, 2017 [facility] [id number] [place] [address] 25435 2546 13 Feb, 2017 Moderate episode of recurrent major depressive disorder F33.1 ; Post-traumatic stress disorder, unspecified F43.10 and Opioid dependence , uncomplicated F11.20 [facility] [id number] [place] [address] 76506 2546 12 Feb, 2017 [facility] [id number] [place] [address] 62898 2546 Feb, [facility] [address] [place] [address] Feb, Opioid dependence, uncomplicated F11.20 [facility] [id number] [place] [address] 72356 2546 Feb, Moderate episode of recurrent major depressive disorder F33.1 [facility] [address] [address] 2546 Feb, Opioid dependence, uncomplicated F11.20 [facility] [id number] [place] [address] 94962- 8906 Feb, [facility] [address] [address] 2546 Feb, [facility] [id number] [place] [address] 44562 2546 Feb, [facility] [id number] [place] [address] 02631 2546 Feb, [facility] [id number] [place] [address] 16273 2546 Feb, [facility] [address] [place] [address] Feb, Opioid dependence, uncomplicated F11.20 [facility] [id number] [place] [address] 74207 2546 Feb, [facility] [id number] [place] [address] 30423 2546 Jan, Opioid dependence, uncomplicated F11.20 and Drug induced constipation K59.03 [facility] [id number] [place] [address] 74040 2546 Jan, [facility] [id number] [place] [address] 13266- 7451 Jan, Moderate episode of recurrent major depressive disorder F33.1 and Post-traumatic stress disorder, unspecified F43.10 [facility] [address] [place] [address] Jan, [facility] [id number] [place] [address] 19010- 7789 Jan, [facility] [address] 39045- 7[address] Jan, [facility] [address] [place] [address] Jan, [facility] [address] [address] Jan, Opioid dependence, uncomplicated F11.20 ; Drug induced constipation K59.03 and Adverse effect of other opioids, initial encounter T40.2X5A [facility] [address] [address]- [address] Jan, [facility] [address] 10757- 1044 Jan, [facility] [id number] [place] [address] 36845- 8550 Jan, Opiate dependence, continuous F11.20 [facility] [address] [place] [address] Jan, Opiate dependence, continuous F11.20 ; 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 ; Benzodiazepine abuse F13.10 ; Alcohol dependence, binge pattern F10.20 and Marijuana abuse F12.10 [facility] [id number] [place] [address] 00724- 4997 Jan, [facility] [address] [address]26- 6[address] Jan, [facility] [id number] [place] [address] 23352- 9879 Jan, [facility] [address] [address] Jan, Urinary frequency R35.0 and Opiate dependence, continuous F11.20 [facility] [address] [place] [address] Jan, Opiate dependence, continuous F11.20 ; 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 ; Benzodiazepine abuse F13.10 ; Alcohol dependence, binge pattern F10.20 and Marijuana abuse F12.10 [facility] [address] [place] [address] Jan, [facility] [address] 373182- 8003 Jan, Moderate episode of recurrent major depressive disorder F33.1 and Post-traumatic stress disorder, unspecified F43.10 [facility] [id number] [place] [address] [id number]- [phone] Jan, [facility] [id number] [place] [address] 23400- 8682 Jan, Moderate episode of recurrent major depressive disorder F33.1 and Substance abuse withdrawal without complication F19.230 [facility] [id number] [place] [address] 86330- 1260 Jan, [facility] [id number] [place] [address] 42619- 2654 Jun, [facility] [id number] [place] [address] 81478- 3785 Jun, [facility] [id number] [place] [address] 85150- 2601 May, [facility] [id number] [place] [address] 78225- 7347 May, [facility] [address] [id number]- [id number] Apr, [facility] [id number] [place] [address] 35501- 7530 Apr, [facility] [address] 74258- 9606 Apr, [facility] [address] [facility] [id number] [place] [address] 2546 Apr, [facility] [address] [id number] [address] 25[address] Apr, [facility] [address] [id number] [address] 2546 Apr, [facility] [address] [id number] [address] 2546 Dec, [facility] [address] [facility] [id number] [address] 2546 Dec, [facility] [address] [id number] [id number] Nov, [facility] [address] [facility] [id number] [address] 2546 Sep, IMMUNIZATIONS No Known Immunizations SOCIAL HISTORY Never Assessed REASON FOR VISIT Brief PLAN OF CARE VITAL SIGNS MEDICATIONS Unknown Medications RESULTS No Results PROCEDURES Procedure Date Ordered Result Body Site Alcohol and/or drug services Jan 11, 2017 INSTRUCTIONS MEDICATIONS ADMINISTERED No Known Medications MEDICAL (GENERAL) HISTORY Type Description Date Medical History ADHD Medical History depression Medical History anxiety Surgical History tongue clipped as a child
--- OUTSIDE RECORDS SUMMARY | 2017-10-23 22:13 | XMS REPORT ---
Author Author SHELLY ALVAREZ Organization [facility] Address [address] 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 426236598 Problem Dysthymia F34.1 Active 30866328 Problem Drug induced constipation K59.03 Active 83867515 Problem Post-traumatic stress disorder, unspecified F43.10 Active 54254161 Problem Alcohol dependence, binge pattern F10.20 Active 482056094 Problem Opioid dependence, uncomplicated F11.20 Active 49340991 Problem Major depressive disorder, recurrent, moderate F33.1 Active 10538030 ALLERGIES No Information ENCOUNTERS Encounter Location Date Diagnosis [facility] [address] [address] Aug, Acute pain of right wrist M25.531 ; Dysthymia F34.1 ; Screening for hyperlipidemia Z13.220 ; Screening for diabetes mellitus Z13.1 and Screening for other and unspecified deficiency anemia Z13.0 [facility] [id number] [place] [address] Aug, [facility] [address] [place] [address] July, Opioid dependence, uncomplicated F11.20 and Methamphetamine abuse, 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 [facility] [address] [place] [address] July, Opioid dependence, uncomplicated F11.20 and Methamphetamine abuse, 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 [facility] [address] [place] [address] July, Opioid dependence, uncomplicated F11.20 and Methamphetamine abuse, 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 [facility] [id number] [place] [address] Jun, Opioid dependence, uncomplicated F11.20 [facility] [address] [place] [address] Jun, Opioid dependence, uncomplicated F11.20 and Methamphetamine abuse, 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 [facility] [id number] [place] [address] Jun, [facility] [id number] [place] [address]65[address] Jun, Moderate episode of recurrent major depressive disorder F33.1 ; Post-traumatic stress disorder, unspecified F43.10 and Opioid dependence , uncomplicated F11.20 [facility] [id number] [place] [address]68[address] Jun, Opioid dependence, uncomplicated F11.20 [facility] [id number] [place] [address] May, Opioid dependence, uncomplicated F11.20 [facility] [address] [place] [address] May, Opioid dependence, uncomplicated F11.20 and Methamphetamine abuse, 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 [facility] [id number] [place] [address] May, Opioid dependence, uncomplicated F11.20 [facility] [id number] [place] [address]1286[address] May, Opioid dependence, uncomplicated F11.20 [facility] [address] [place] [address] May, Opioid dependence, uncomplicated F11.20 and Methamphetamine abuse, 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 [facility] [id number] [place] [address] May, Moderate episode of recurrent major depressive disorder F33.1 ; Post-traumatic stress disorder, unspecified F43.10 and Opioid dependence , uncomplicated F11.20 [facility] [id number] [place] [address] May, [facility] [address] [address] Apr, Opioid dependence, uncomplicated F11.20 [facility] [place] [address] [place] [address] Apr, Opioid dependence, uncomplicated F11.20 and Methamphetamine abuse, 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 [facility] [address] [address] Apr, Opioid dependence, uncomplicated F11.20 [facility] [address] [place] [address] Apr, Opioid dependence, uncomplicated F11.20 and Methamphetamine abuse, 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 [facility] [address] [address] Apr, Opioid dependence, uncomplicated F11.20 [facility] [address] [place] [address] Apr, Opioid dependence, uncomplicated F11.20 [facility] [address] [address] Apr, Opioid dependence, uncomplicated F11.20 [facility] [address] [place] [address] Mar, Opioid dependence, uncomplicated F11.20 [facility] [address] [address] Mar, Opioid dependence, uncomplicated F11.20 [facility] [id number] [place] [address] Mar, Opioid dependence, uncomplicated F11.20 [facility] [address] [address] Mar, [facility] [address] [address] Mar, Opioid dependence, uncomplicated F11.20 [facility] [address] [address] Mar, Opioid dependence, uncomplicated F11.20 [facility] [id number] [place] [address] 11269[address] Mar, Moderate episode of recurrent major depressive disorder F33.1 ; Post-traumatic stress disorder, unspecified F43.10 and Opioid dependence , uncomplicated F11.20 [facility] [id number] [place] [address] 07807[address] 7[address] Mar, Opioid dependence, uncomplicated F11.20 [facility] [id number] [place] [address]46[address] Feb, Moderate episode of recurrent major depressive disorder F33.1 [facility] [address] [place] [address] Feb, Opioid dependence, uncomplicated F11.20 [facility] [id number] [place] [address] 7[address]63[address] 27 Feb, 2017 Opioid dependence, uncomplicated F11.20 [facility] [id number] [place] [address] 18981- 7767 20 Feb, 2017 Opioid dependence, uncomplicated F11.20 [facility] [id number] [place] [address] 11915- 3178 19 Feb, 2017 [facility] [id number] [place] [address] 75441[address] 64[address] 18 Feb, 2017 [facility] [id number] [place] [address] 87021- [address] 15 Feb, 2017 Moderate episode of recurrent major depressive disorder F33.1 [facility] [address] [place] [address] 14 Feb, 2017 Opioid dependence, uncomplicated F11.20 [facility] [id number] [place] [address] 93736[address] 14 Feb, 2017 [facility] [id number] [place] [address] 50322[address] 7299 14 Feb, 2017 [facility] [id number] [place] [address] 44938[address] 14 Feb, 2017 [facility] [id number] [place] [address] 13863- 8096 13 Feb, 2017 [facility] [id number] [place] [address] 27651- 9166 13 Feb, 2017 [facility] [id number] [place] [address] 15779- 7194 13 Feb, 2017 Moderate episode of recurrent major depressive disorder F33.1 ; Post-traumatic stress disorder, unspecified F43.10 and Opioid dependence , uncomplicated F11.20 [facility] [id number] [place] [address] 95738- 7986 12 Feb, 2017 [facility] [id number] [place] [address] 28338[address] Feb, [facility] [address] [place] [address] Feb, Opioid dependence, uncomplicated F11.20 [facility] [id number] [place] [address] 30990- 4809 08 Feb, 2017 Moderate episode of recurrent major depressive disorder F33.1 [facility] [id number] [place] [address] 41016- 9316 07 Feb, 2017 Opioid dependence, uncomplicated F11.20 [facility] [id number] [place] [address] 18320- 5016 07 Feb, 2017 [facility] [id number] [place] [address]45 2546 Feb, [facility] [id number] [place] [address] 69424- 4686 05 Feb, 2017 [facility] [id number] [place] [address] 85356- 8536 Feb, [facility] [id number] [place] [address] 34303- 5566 Feb, [facility] [address] [place] [address] Feb, Opioid dependence, uncomplicated F11.20 [facility] [id number] [place] [address] 05815- 7294 Feb, [facility] [address] 7479[address]- [address]89 Jan, Opioid dependence, uncomplicated F11.20 and Drug induced constipation K59.03 [facility] [address] [address] Jan, [facility] [address] [address] Jan, Moderate episode of recurrent major depressive disorder F33.1 and Post-traumatic stress disorder, unspecified F43.10 [facility] [address] [place] [address] Jan, [facility] [address] [address] Jan, [facility] [address] 65545- [address] Jan, [facility] [address] [place] [address] Jan, [facility] [address] 05447[address]60 Jan, Opioid dependence, uncomplicated F11.20 ; Drug induced constipation K59.03 and Adverse effect of other opioids, initial encounter T40.2X5A [facility] [id number] [place] [address] 16183- 8965 Jan, [facility] [id number] [place] [address] 40604- 1730 Jan, [facility] [address] [address] Jan, Opiate dependence, continuous F11.20 [facility] [address] [place] [address] Jan, Opiate dependence, continuous F11.20 ; 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 ; Benzodiazepine abuse F13.10 ; Alcohol dependence, binge pattern F10.20 and Marijuana abuse F12.10 [facility] [id number] [place] [address] 03467- 9494 16 Jan, 2017 [facility] [address] 747910- 7[address] 15 Jan, 2017 [facility] [id number] [place] [address] 42171- 2850 Jan, [facility] [address] 412468- [address] 14 Jan, 2017 Urinary frequency R35.0 and Opiate dependence, continuous F11.20 [facility] [address] [address] 10 Jan, 2017 Opiate dependence, continuous F11.20 ; 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 ; Benzodiazepine abuse F13.10 ; Alcohol dependence, binge pattern F10.20 and Marijuana abuse F12.10 [facility] [address] [place] [address] 08 Jan, 2017 [facility] [address] [address] 08 Jan, 2017 Moderate episode of recurrent major depressive disorder F33.1 and Post-traumatic stress disorder, unspecified F43.10 [facility] [id number] [place] [address] 10283- 1413 08 Jan, 2017 [facility] [id number] [place] [address] 73407- 4627 07 Jan, 2017 Moderate episode of recurrent major depressive disorder F33.1 and Substance abuse withdrawal without complication F19.230 [facility] [id number] [place] [address] 11661- 5000 07 Jan, 2017 [facility] [address] 18752- 1747 14 Jun, 2014 [facility] [id number] [place] [address] 38792- 9368 13 Jun, 2014 [facility] [address] [address] May, [facility] [address] [facility] [id number] [address] May, [facility] [address] [id number] [address] Apr, [facility] [address] [id number] [address] Apr, [facility] [address] [address] Apr, [facility] [address] [id number] [address] Apr, [facility] [address] [address] Apr, [facility] [address] [id number] [address] Apr, [facility] [address] [id number] [address] Dec, [facility] [address] [id number] [address] 2546 Dec, [facility] [id number] [id number] Nov, [facility] [address] [facility] [id number] [address] 2546 Sep, IMMUNIZATIONS No Known Immunizations SOCIAL HISTORY Never Assessed REASON FOR VISIT Suboxone RX (04/22-04/29) PLAN OF CARE VITAL SIGNS MEDICATIONS Medication Instructions Dosage Frequency Start Date End Date Duration Status Suboxone 8-2 MG Sublingual Once a day. CHARGE TO [facility] 3 film under the tongue and allow to dissolve Apr, 8 days Active RESULTS No Results PROCEDURES No Known procedures INSTRUCTIONS MEDICATIONS ADMINISTERED No Known Medications MEDICAL (GENERAL) HISTORY Type Description Date Medical History ADHD Medical History depression Medical History anxiety Surgical History tongue clipped as a child
--- OUTSIDE RECORDS SUMMARY | 2017-10-23 22:13 | XMS REPORT ---
Author Author SHELLY ALVAREZ Organization [facility] Address [address] 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20 and Methamphetamine abuse, 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 [facility] [address] [place] [address] July, Opioid dependence, uncomplicated F11.20 and Methamphetamine abuse, 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 [facility] [address] [address] Jun, Opioid dependence, uncomplicated F11.20 [facility] [address] [place] [address] Jun, Opioid dependence, uncomplicated F11.20 and Methamphetamine abuse, 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 [facility] [id number] [place] [address] Jun, [facility] [id number] [place], [place] [address] Jun, Moderate episode of recurrent major depressive disorder F33.1 ; Post-traumatic stress disorder, unspecified F43.10 and Opioid dependence , uncomplicated F11.20 [facility] [id number] [place] [address] Jun, Opioid dependence, uncomplicated F11.20 [facility] [id number] [place] [address] May, Opioid dependence, uncomplicated F11.20 [facility] [address] [id number] May, Opioid dependence, uncomplicated F11.20 and Methamphetamine abuse, 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 [facility] [id number] [place] [address] May, Opioid dependence, uncomplicated F11.20 [facility] [id number] [place] [address] May, Opioid dependence, uncomplicated F11.20 [facility] [address] [place] [address] May, Opioid dependence, uncomplicated F11.20 and Methamphetamine abuse, 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 [facility] [id number] [place] [address] May, Moderate episode of recurrent major depressive disorder F33.1 ; Post-traumatic stress disorder, unspecified F43.10 and Opioid dependence , uncomplicated F11.20 [facility] [id number] [place] [id number] May, [facility] [id number] [place] [address] Apr, Opioid dependence, uncomplicated F11.20 [facility] [address] [place] [address] Apr, Opioid dependence, uncomplicated F11.20 and Methamphetamine abuse, 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 [facility] [address] [address] Apr, Opioid dependence, uncomplicated F11.20 [facility] [address] [address] Apr, Opioid dependence, uncomplicated F11.20 and Methamphetamine abuse, 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 [facility] [address] [address]88[address] Apr, Opioid dependence, uncomplicated F11.20 [facility] [address] [address] Apr, Opioid dependence, uncomplicated F11.20 [facility] [address] [address] Apr, Opioid dependence, uncomplicated F11.20 [facility] [address] [place] [address] Mar, Opioid dependence, uncomplicated F11.20 [facility] [address] [address] Mar, Opioid dependence, uncomplicated F11.20 [facility] [address] [phone] Mar, Opioid dependence, uncomplicated F11.20 [facility] [id number] [place] [address] 2541 Mar, [facility] [address] [address] 254 Mar, Opioid dependence, uncomplicated F11.20 [facility] [address] [id number]- [address] Mar, Opioid dependence, uncomplicated F11.20 [facility] [id number] [place] [address] Mar, Moderate episode of recurrent major depressive disorder F33.1 ; Post-traumatic stress disorder, unspecified F43.10 and Opioid dependence , uncomplicated F11.20 [facility] [id number] [place] [address] 30786 2546 02 Mar, 2017 Opioid dependence, uncomplicated F11.20 [facility] [id number] [place] [address] 49499 2546 28 Feb, 2017 Moderate episode of recurrent major depressive disorder F33.1 [facility] [address] [place] [address] 28 Feb, 2017 Opioid dependence, uncomplicated F11.20 [facility] [id number] [place] [address] 76130 2546 27 Feb, 2017 Opioid dependence, uncomplicated F11.20 [facility] [id number] [place] [address] 59946 2546 20 Feb, 2017 Opioid dependence, uncomplicated F11.20 [facility] [id number] [place] [address] 09199 2546 19 Feb, 2017 [facility] [id number] [place] [address] 81624 2546 18 Feb, 2017 [facility] [id number] [place] [address] 10734 2546 15 Feb, 2017 Moderate episode of recurrent major depressive disorder F33.1 [facility] [address] [place] [address] 14 Feb, 2017 Opioid dependence, uncomplicated F11.20 [facility] [id number] [place] [address] 69892 2546 14 Feb, 2017 [facility] [id number] [place] [address] 80186 2546 14 Feb, 2017 [facility] [id number] [place] [address] 56966 2546 14 Feb, 2017 [facility] [id number] [place] [address] 67162 2546 13 Feb, 2017 [facility] [id number] [place] [address] Feb, [facility] [address] [address] Feb, Moderate episode of recurrent major depressive disorder F33.1 ; Post-traumatic stress disorder, unspecified F43.10 and Opioid dependence , uncomplicated F11.20 [facility] [id number] [place] [address] 10224 2546 12 Feb, 2017 [facility] [id number] [place] [address] 67628 2546 Feb, [facility] [address] [place] [address] Feb, Opioid dependence, uncomplicated F11.20 [facility] [id number] [place] [address] 0[address]97 2546 Feb, Moderate episode of recurrent major depressive disorder F33.1 [facility] [id number] [place] [address] 0[address]14[address] Feb, Opioid dependence, uncomplicated F11.20 [facility] [id number] [place] [address] 64654 2546 Feb, [facility] [id number] [place] [address] 40753 2546 Feb, [facility] [id number] [place] [address] 39731 2546 Feb, [facility] [id number] [place] [address] 49205 2546 Feb, [facility] [id number] [place] [address] 33356 2546 Feb, [facility] [address] [place] [address] Feb, Opioid dependence, uncomplicated F11.20 [facility] [address] [address] 2546 Feb, [facility] [id number] [place] [address] 11266 2546 Jan, Opioid dependence, uncomplicated F11.20 and Drug induced constipation K59.03 [facility] [id number] [place] [address] 98571- 2666 Jan, [facility] [address] 272178- [address] Jan, Moderate episode of recurrent major depressive disorder F33.1 and Post-traumatic stress disorder, unspecified F43.10 [facility] [address] [place] [address] Jan, [facility] [address] [address] Jan, [facility] [address] [address] Jan, [facility] [address] [place] [address] Jan, [facility] [address] [place] [address] 11046[address] Jan, Opioid dependence, uncomplicated F11.20 ; Drug induced constipation K59.03 and Adverse effect of other opioids, initial encounter T40.2X5A [facility] [address] [place] [address] 47050- 4[address] Jan, [facility] [address] 23[address] Jan, [facility] [address] [address] Jan, Opiate dependence, continuous F11.20 [facility] [address] [place] [address] Jan, Opiate dependence, continuous F11.20 ; 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 ; Benzodiazepine abuse F13.10 ; Alcohol dependence, binge pattern F10.20 and Marijuana abuse F12.10 [facility] [id number] [place] [address] 98713- 7805 Jan, [facility] [address] [place] [address] 20797- 0785 Jan, [facility] [id number] [place] [address] 66888- [address] 15 Jan, 2017 [facility] [id number] [place] [address] 61630- [address] 14 Jan, 2017 Urinary frequency R35.0 and Opiate dependence, continuous F11.20 [facility] [address] [place] [address] 10 Jan, 2017 Opiate dependence, continuous F11.20 ; 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 ; Benzodiazepine abuse F13.10 ; Alcohol dependence, binge pattern F10.20 and Marijuana abuse F12.10 [facility] [address] [place] [address] 08 Jan, 2017 [facility] [id number] [place] [address] 01349- [address] 08 Jan, 2017 Moderate episode of recurrent major depressive disorder F33.1 and Post-traumatic stress disorder, unspecified F43.10 [facility] [id number] [place] [address] 10008- 9946 08 Jan, 2017 [facility] [address] [address] 07 Jan, 2017 Moderate episode of recurrent major depressive disorder F33.1 and Substance abuse withdrawal without complication F19.230 [facility] [id number] [place] [address] 27324- 34[address] 07 Jan, 2017 [facility] [id number] [place] [address] 04035- 5742 Jun, [facility] [id number] [place] [address] 87625- 48[address] Jun, [facility] [address] [address] May, [facility] [id number] [place] [address] 40321- 6243 May, [facility] [id number] [place] [address] 23492- 3801 Apr, [facility] [address] [facility] [id number] [address] Apr, [facility] [address] [id number] [address] 2546 Apr, [facility] [address] [id number] [address] 2546 Apr, [facility] [address] [place] [address] Apr, [facility] [address] [id number] [address] 2546 Apr, [facility] [address] [place] [address] 2546 Dec, [facility] [address] [id number] [address] 2546 Dec, [facility] [address] [id number] [id number] Nov, [facility] [address] [facility] [id number] [address] 2546 Sep, IMMUNIZATIONS No Known Immunizations SOCIAL [...]
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
--- OUTSIDE RECORDS SUMMARY | 2017-10-23 22:14 | XMS REPORT ---
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 065215395 Problem Major depressive disorder, recurrent, moderate F33.1 Active 59542458 Problem Post-traumatic stress disorder, unspecified F43.10 Active 40407272 ALLERGIES No Information ENCOUNTERS Encounter Location Date Diagnosis [facility] [address] [place] [address] Aug, [facility] [address] [place] [id number] [place] [address] Aug, [facility] [address] [place] [address] July, Opioid dependence, uncomplicated F11.20 and Methamphetamine abuse, 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 [facility] [address] [place] [address] July, Opioid dependence, uncomplicated F11.20 and Methamphetamine abuse, 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 [facility] [address] [place] [address] July, Opioid dependence, uncomplicated F11.20 and Methamphetamine abuse, 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 [facility] [id number] [place] [address] 27[address] Jun, Opioid dependence, uncomplicated F11.20 [facility] [address] [place] [address] Jun, Opioid dependence, uncomplicated F11.20 and Methamphetamine abuse, 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 [facility] [id number] [place] [address] 14399- 4269 Jun, [facility] [id number] [place] [address] Jun, Moderate episode of recurrent major depressive disorder F33.1 ; Post-traumatic stress disorder, unspecified F43.10 and Opioid dependence , uncomplicated F11.20 [facility] [id number] [place] [address] 25840- 4342 Jun, Opioid dependence, uncomplicated F11.20 [facility] [id number] [place] [address] 723121- 7187 May, Opioid dependence, uncomplicated F11.20 [facility] [address] [place] [address] May, Opioid dependence, uncomplicated F11.20 and Methamphetamine abuse, 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 [facility] [id number] [place] [address] 09095- 2579 May, Opioid dependence, uncomplicated F11.20 [facility] [id number] [place] [address] 03151[address] 9161 May, Opioid dependence, uncomplicated F11.20 [facility] [address] [place] [address] May, Opioid dependence, uncomplicated F11.20 and Methamphetamine abuse, 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 [facility] [id number] [place] [address] 87597- 9993 May, Moderate episode of recurrent major depressive disorder F33.1 ; Post-traumatic stress disorder, unspecified F43.10 and Opioid dependence , uncomplicated F11.20 [facility] [id number] [place] [id number] May, [facility] [id number] [place] [address] 56299- 3147 Apr, Opioid dependence, uncomplicated F11.20 [facility] [address] [place] [address] Apr, Opioid dependence, uncomplicated F11.20 and Methamphetamine abuse, 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 [facility] [address] [address] Apr, Opioid dependence, uncomplicated F11.20 [facility] [address] [place] [address] Apr, Opioid dependence, uncomplicated F11.20 and Methamphetamine abuse, 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 [facility] [address] [address] 8[address] Apr, Opioid dependence, uncomplicated F11.20 [facility] [address] [place] [address] Apr, Opioid dependence, uncomplicated F11.20 [facility] [id number] [place] [address] 42564- 4556 Apr, Opioid dependence, uncomplicated F11.20 [facility] [address] [place] [address] Mar, Opioid dependence, uncomplicated F11.20 [facility] [address] [address] Mar, Opioid dependence, uncomplicated F11.20 [facility] [id number] [place] [address] 94821- 4387 Mar, Opioid dependence, uncomplicated F11.20 [facility] [id number] [place] [address] 45097- 1642 Mar, [facility] [address] [address] 2542 Mar, Opioid dependence, uncomplicated F11.20 [facility] [id number] [place] [address] 48057- 1223 Mar, Opioid dependence, uncomplicated F11.20 [facility] [id number] [place] [address] 25561- 0475 Mar, Moderate episode of recurrent major depressive disorder F33.1 ; Post-traumatic stress disorder, unspecified F43.10 and Opioid dependence , uncomplicated F11.20 [facility] [id number] [place] [address] 80240 2546 02 Mar, 2017 Opioid dependence, uncomplicated F11.20 [facility] [id number] [place] [address] 77450 2546 28 Feb, 2017 Moderate episode of recurrent major depressive disorder F33.1 [facility] [address] [place] [address] 28 Feb, 2017 Opioid dependence, uncomplicated F11.20 [facility] [id number] [place] [address] 32138 2546 27 Feb, 2017 Opioid dependence, uncomplicated F11.20 [facility] [id number] [place] [address] 80085 2546 20 Feb, 2017 Opioid dependence, uncomplicated F11.20 [facility] [id number] [place] [address] 12613 2546 19 Feb, 2017 [facility] [id number] [place] [address] 83151 2546 18 Feb, 2017 [facility] [id number] [place] [address] 79579 2546 15 Feb, 2017 Moderate episode of recurrent major depressive disorder F33.1 [facility] [address] [place] [address] 14 Feb, 2017 Opioid dependence, uncomplicated F11.20 [facility] [address] [place] [address] 16720 2546 14 Feb, 2017 [facility] [id number] [place] [address] 42093 2546 14 Feb, 2017 [facility] [id number] [place] [address] 22310 2546 14 Feb, 2017 [facility] [id number] [place] [address] 26879 2546 13 Feb, 2017 [facility] [id number] [place] [address] 56880 2546 13 Feb, 2017 [facility] [address] [place] [address] 86685- 3430 Feb, Moderate episode of recurrent major depressive disorder F33.1 ; Post-traumatic stress disorder, unspecified F43.10 and Opioid dependence , uncomplicated F11.20 [facility] [id number] [place] [address] 45932- 0196 12 Feb, 2017 [facility] [id number] [place] [address] 12227 2546 Feb, [facility] [address] [place] [address] Feb, Opioid dependence, uncomplicated F11.20 [facility] [id number] [place] [address] 21195- 8146 Feb, Moderate episode of recurrent major depressive disorder F33.1 [facility] [id number] [place] [address] 86422- 8426 07 Feb, 2017 Opioid dependence, uncomplicated F11.20 [facility] [address] [place] [address] 57536 2546 Feb, [facility] [id number] [place] [address] 83498 2546 Feb, [facility] [address] [place] [address] 06927 2546 Feb, [facility] [id number] [place] [address] 59588 2546 Feb, [facility] [address] [place] [address] 15187 2546 Feb, [facility] [address] [place] [address] Feb, Opioid dependence, uncomplicated F11.20 [facility] [address] [place] [address] 96523 2546 Feb, [facility] [address] [place] [address] 96556- 8496 Jan, Opioid dependence, uncomplicated F11.20 and Drug induced constipation K59.03 [facility] [id number] [place] [address] 19467- 9414 Jan, [facility] [address] [id number]- 4410 Jan, Moderate episode of recurrent major depressive disorder F33.1 and Post-traumatic stress disorder, unspecified F43.10 [facility] [address] [id number] Jan, [facility] [id number] [place] [address] 16418- 9171 Jan, [facility] [address] 84023- 2203 Jan, [facility] [address] [place] [address] Jan, [facility] [address] [place] [address] 84614- 7060 Jan, Opioid dependence, uncomplicated F11.20 ; Drug induced constipation K59.03 and Adverse effect of other opioids, initial encounter T40.2X5A [facility] [address] [place] [address] 39116- 9301 Jan, [facility] [id number] [place] [address] 38640- 7995 Jan, [facility] [address] [place] [address] 62603- 5150 Jan, Opiate dependence, continuous F11.20 [facility] [address] [place] [address] Jan, Opiate dependence, continuous F11.20 ; 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 ; Benzodiazepine abuse F13.10 ; Alcohol dependence, binge pattern F10.20 and Marijuana abuse F12.10 [facility] [id number] [place] [address] 48912- 8865 16 Jan, 2017 [facility] [address] 76598- 4106 Jan, [facility] [id number] [place] [address] 39679- 7469 15 Jan, 2017 [facility] [id number] [place] [address] 18577- 1332 14 Jan, 2017 Urinary frequency R35.0 and Opiate dependence, continuous F11.20 [facility] [address] [place] [address] 10 Jan, 2017 Opiate dependence, continuous F11.20 ; 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 ; Benzodiazepine abuse F13.10 ; Alcohol dependence, binge pattern F10.20 and Marijuana abuse F12.10 [facility] [address] [place] [address] 08 Jan, 2017 [facility] [address] 64375- 2503 08 Jan, 2017 Moderate episode of recurrent major depressive disorder F33.1 and Post-traumatic stress disorder, unspecified F43.10 [facility] [id number] [place] [address] 63368- 1408 08 Jan, 2017 [facility] [address] 22271- 5971 07 Jan, 2017 Moderate episode of recurrent major depressive disorder F33.1 and Substance abuse withdrawal without complication F19.230 [facility] [id number] [place] [address] 28316- 4546 07 Jan, 2017 [facility] [id number] [place] [address] 94498- 2402 Jun, [facility] [id number] [place] [address] 06897- 2016 Jun, [facility] [address] 77817- 7931 May, [facility] [id number] [place] [address] 18868- 5357 May, [facility] [id number] [place] [address] 02827- 7643 Apr, [facility] [address] [facility] [id number] [address] Apr, [facility] [address] [id number] [address] 4226 Apr, [facility] [address] [id number] [address] 7636 Apr, [facility] [address] [address] 65[address] Apr, [facility] [address] [id number] [address] 1488 Apr, [facility] [address] [address] Dec, [facility] [address] [id number] [address] 0226 Dec, [facility] [address] [id number] [id number] Nov, [facility] [address] [facility] [id number], [place] [address] Sep, IMMUNIZATIONS No Known Immunizations SOCIAL HISTORY Never Assessed REASON FOR VISIT Subab-F/U PLAN OF CARE Activity Details Follow Up 2 Weeks Reason:subsb fu meet with Peer support and casemanagement between appointment VITAL SIGNS MEDICATIONS Unknown Medications RESULTS No Results PROCEDURES Procedure Date Ordered Result Body Site Alcohol and/or drug services Jan 21, 2017 INSTRUCTIONS MEDICATIONS ADMINISTERED No Known Medications MEDICAL (GENERAL) HISTORY Type Description Date Medical History ADHD Medical History depression Medical History anxiety Surgical History tongue clipped as a child
--- OUTSIDE RECORDS SUMMARY | 2017-10-23 22:14 | XMS REPORT ---
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 666275846 Problem Major depressive disorder, recurrent, moderate F33.1 Active 62225589 Problem Post-traumatic stress disorder, unspecified F43.10 Active 61124019 ALLERGIES No Information ENCOUNTERS Encounter Location Date Diagnosis [facility] [address] [place] [address] Aug, [facility] [address] [place], [place] [id number] [place] [address] Aug, [facility] [address] [place] [address] July, Opioid dependence, uncomplicated F11.20 and Methamphetamine abuse, 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 [facility] [address] [place] [address] July, Opioid dependence, uncomplicated F11.20 and Methamphetamine abuse, 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 [facility] [address] [place] [address] July, Opioid dependence, uncomplicated F11.20 and Methamphetamine abuse, 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 [facility] [id number] [place] [address] 85112- [address]574 Jun, Opioid dependence, uncomplicated F11.20 [facility] [address] [place] [address] Jun, Opioid dependence, uncomplicated F11.20 and Methamphetamine abuse, 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 [facility] [id number] [place] [address] 96572- 0312 Jun, [facility] [id number] [place] [address] Jun, Moderate episode of recurrent major depressive disorder F33.1 ; Post-traumatic stress disorder, unspecified F43.10 and Opioid dependence , uncomplicated F11.20 [facility] [id number] [place] [address] 50139- 2377 Jun, Opioid dependence, uncomplicated F11.20 [facility] [id number] [place] [address] 945437- 6469 May, Opioid dependence, uncomplicated F11.20 [facility] [address] [place] [address] May, Opioid dependence, uncomplicated F11.20 and Methamphetamine abuse, 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 [facility] [id number] [place] [address] 52820- 3835 May, Opioid dependence, uncomplicated F11.20 [facility] [id number] [place] [address] 74411- 2670 May, Opioid dependence, uncomplicated F11.20 [facility] [address] [place] [address] May, Opioid dependence, uncomplicated F11.20 and Methamphetamine abuse, 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 [facility] [id number] [place] [address] 33429- 2602 May, Moderate episode of recurrent major depressive disorder F33.1 ; Post-traumatic stress disorder, unspecified F43.10 and Opioid dependence , uncomplicated F11.20 [facility] [id number] [place] [id number] May, [facility] [id number] [place] [address] 65860- 9854 Apr, Opioid dependence, uncomplicated F11.20 [facility] [address] [place] [address] Apr, Opioid dependence, uncomplicated F11.20 and Methamphetamine abuse, 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 [facility] [address] [address] Apr, Opioid dependence, uncomplicated F11.20 [facility] [address] [place] [address] Apr, Opioid dependence, uncomplicated F11.20 and Methamphetamine abuse, 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 [facility] [address] [address] Apr, Opioid dependence, uncomplicated F11.20 [facility] [address] [place] [address] Apr, Opioid dependence, uncomplicated F11.20 [facility] [id number] [place] [address] 59100- 6673 Apr, Opioid dependence, uncomplicated F11.20 [facility] [address] [place] [address] Mar, Opioid dependence, uncomplicated F11.20 [facility] [address] [address] Mar, Opioid dependence, uncomplicated F11.20 [facility] [id number] [place] [address] 43126- 2525 Mar, Opioid dependence, uncomplicated F11.20 [facility] [id number] [place] [address] 96200- 0648 Mar, [facility] [address] [address] 2544 Mar, Opioid dependence, uncomplicated F11.20 [facility] [id number] [place] [address] 46280- 4513 Mar, Opioid dependence, uncomplicated F11.20 [facility] [id number] [place] [address] 62612- 5476 Mar, Moderate episode of recurrent major depressive disorder F33.1 ; Post-traumatic stress disorder, unspecified F43.10 and Opioid dependence , uncomplicated F11.20 [facility] [id number] [place] [address] 86237 2546 02 Mar, 2017 Opioid dependence, uncomplicated F11.20 [facility] [id number] [place] [address] 92456 2546 28 Feb, 2017 Moderate episode of recurrent major depressive disorder F33.1 [facility] [address] [place] [address] 28 Feb, 2017 Opioid dependence, uncomplicated F11.20 [facility] [id number] [place] [address] 24549 2546 27 Feb, 2017 Opioid dependence, uncomplicated F11.20 [facility] [id number] [place] [address] 76056 2546 20 Feb, 2017 Opioid dependence, uncomplicated F11.20 [facility] [id number] [place] [address] 86996 2546 19 Feb, 2017 [facility] [id number] [place] [address] 39582 2546 18 Feb, 2017 [facility] [id number] [place] [address] 81496 2546 15 Feb, 2017 Moderate episode of recurrent major depressive disorder F33.1 [facility] [address] [place] [address] 14 Feb, 2017 Opioid dependence, uncomplicated F11.20 [facility] [address] [place] [address] 90609 2546 14 Feb, 2017 [facility] [id number] [place] [address] 33711 2546 14 Feb, 2017 [facility] [id number] [place] [address] 78455 2546 14 Feb, 2017 [facility] [id number] [place] [address] 54359 2546 13 Feb, 2017 [facility] [id number] [place] [address] 55103 2546 13 Feb, 2017 [facility] [address] [place] [address] 20547- 6071 Feb, Moderate episode of recurrent major depressive disorder F33.1 ; Post-traumatic stress disorder, unspecified F43.10 and Opioid dependence , uncomplicated F11.20 [facility] [id number] [place] [address] 84118- 8656 12 Feb, 2017 [facility] [id number] [place] [address] 55617 2546 Feb, [facility] [address] [place] [address] Feb, Opioid dependence, uncomplicated F11.20 [facility] [id number] [place] [address] 22590- 8286 Feb, Moderate episode of recurrent major depressive disorder F33.1 [facility] [id number] [place] [address] 63070- 0656 07 Feb, 2017 Opioid dependence, uncomplicated F11.20 [facility] [address] [place] [address] 68372 2546 Feb, [facility] [id number] [place] [address] 03516 2546 Feb, [facility] [address] [place] [address] 20657 2546 Feb, [facility] [id number] [place] [address] 26183 2546 Feb, [facility] [address] [place] [address] 47516 2546 Feb, [facility] [address] [place] [address] Feb, Opioid dependence, uncomplicated F11.20 [facility] [address] [place] [address] 31281 2546 Feb, [facility] [address] [place] [address] 68667- 2358 Jan, Opioid dependence, uncomplicated F11.20 and Drug induced constipation K59.03 [facility] [id number] [place] [address] 02917- 7746 Jan, [facility] [address] [id number]- 5701 Jan, Moderate episode of recurrent major depressive disorder F33.1 and Post-traumatic stress disorder, unspecified F43.10 [facility] [address] [id number] Jan, [facility] [id number] [place] [address] 67457- 6864 Jan, [facility] [address] [address]- 2021 Jan, [facility] [address] [place] [address] Jan, [facility] [address] [place] [address] 32388- 7695 Jan, Opioid dependence, uncomplicated F11.20 ; Drug induced constipation K59.03 and Adverse effect of other opioids, initial encounter T40.2X5A [facility] [address] [place] [address] 25697- 4696 Jan, [facility] [id number] [place] [address] 22975- 9589 Jan, [facility] [address] [place] [address] 76721- 2377 Jan, Opiate dependence, continuous F11.20 [facility] [address] [place] [address] Jan, Opiate dependence, continuous F11.20 ; 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 ; Benzodiazepine abuse F13.10 ; Alcohol dependence, binge pattern F10.20 and Marijuana abuse F12.10 [facility] [id number] [place] [address] 03767- 1651 16 Jan, 2017 [facility] [address] 36540- 4431 Jan, [facility] [id number] [place] [address] 62594- 6870 15 Jan, 2017 [facility] [id number] [place] [address] 25748- 4239 14 Jan, 2017 Urinary frequency R35.0 and Opiate dependence, continuous F11.20 [facility] [address] [place] [address] 10 Jan, 2017 Opiate dependence, continuous F11.20 ; 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 ; Benzodiazepine abuse F13.10 ; Alcohol dependence, binge pattern F10.20 and Marijuana abuse F12.10 [facility] [address] [place] [address] 08 Jan, 2017 [facility] [address] 65956- 2770 08 Jan, 2017 Moderate episode of recurrent major depressive disorder F33.1 and Post-traumatic stress disorder, unspecified F43.10 [facility] [id number] [place] [address] 34081- 1171 08 Jan, 2017 [facility] [address] 54877- 7359 07 Jan, 2017 Moderate episode of recurrent major depressive disorder F33.1 and Substance abuse withdrawal without complication F19.230 [facility] [id number] [place] [address] 11457- 0275 07 Jan, 2017 [facility] [id number] [place] [address] 62929- 6072 Jun, [facility] [id number] [place] [address] 78127- 1470 Jun, [facility] [address] 02956- 8486 May, [facility] [id number] [place] [address] 61681- 2983 May, [facility] [id number] [place] [address] 28807- 3709 Apr, [facility] [address] [facility] [id number] [address] 8[address] Apr, [facility] [address] [id number] [address]- 6726 Apr, [facility] [address] [id number] [address]- 5376 Apr, [facility] [address] [address] 2546 Apr, [facility] [address] [id number] [address]- 9896 Apr, [facility] [address] [address]- 1656 Dec, [facility] [address] [id number] [address] 7826 Dec, [id number] [id number] Nov, [facility] [address] [facility] [id number] [address] Sep, IMMUNIZATIONS No Known Immunizations SOCIAL HISTORY Never Assessed REASON FOR VISIT SUBAB F/U PLAN OF CARE Activity Details Follow Up 1 Week Reason:subabfu VITAL SIGNS MEDICATIONS Medication Instructions Dosage Frequency Start Date End Date Duration Status Suboxone 8-2 MG Sublingual Once a day 3 film under the tongue and allow to dissolve 24h 07 days Active RESULTS No Results PROCEDURES Procedure Date Ordered Result Body Site Alcohol and/or drug services Feb 11, 2017 INSTRUCTIONS MEDICATIONS ADMINISTERED No Known Medications MEDICAL (GENERAL) HISTORY Type Description Date Medical History ADHD Medical History depression Medical History anxiety Surgical History tongue clipped as a child
--- OUTSIDE RECORDS SUMMARY | 2017-10-23 22:14 | XMS REPORT ---
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 202787410 Problem Major depressive disorder, recurrent, moderate F33.1 Active 29533555 Problem Post-traumatic stress disorder, unspecified F43.10 Active 69658020 ALLERGIES No Information ENCOUNTERS Encounter Location Date Diagnosis [facility] [address] [place] [address] Aug, [facility] [address] [place], [place] [id number] [place] [address]63- 7009 Aug, [facility] [address] [place] [address] July, Opioid dependence, uncomplicated F11.20 and Methamphetamine abuse, episodic F15.10 [facility] [address] [place] [address] July, Opioid dependence, uncomplicated F11.20 and Methamphetamine abuse, 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 [id number] [place] [address] Jun, Moderate episode of recurrent major depressive disorder F33.1 ; Post-traumatic stress disorder, unspecified F43.10 and Opioid dependence , uncomplicated F11.20 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 [id number] [place] [address] 77900- 4650 May, Moderate episode of recurrent major depressive disorder F33.1 ; Post-traumatic stress disorder, unspecified F43.10 and Opioid dependence , uncomplicated F11.20 [facility] [id number] [place], [place] [address] May, 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 [facility] [address] 8[address]16- 7746 Apr, Opioid dependence, uncomplicated F11.20 [facility] [address] [place] [address] Apr, Opioid dependence, uncomplicated F11.20 [facility] [id number] [place] [address] 79131- 9485 Apr, Opioid dependence, uncomplicated F11.20 [facility] [address] [place] [address] Mar, Opioid dependence, uncomplicated F11.20 [facility] [address] 68162[address] 9855 Mar, Opioid dependence, uncomplicated F11.20 [facility] [id number] [place] [address] 29409- 8545 Mar, Opioid dependence, uncomplicated F11.20 [facility] [id number] [place] [address] 79187- 1755 Mar, [facility] [address] [address] 2547 Mar, Opioid dependence, uncomplicated F11.20 [facility] [id number] [place] [address] 22433- 0980 Mar, Opioid dependence, uncomplicated F11.20 [facility] [id number] [place] [address] 11866- 5806 Mar, Moderate episode of recurrent major depressive disorder F33.1 ; Post-traumatic stress disorder, unspecified F43.10 and Opioid dependence , uncomplicated F11.20 [facility] [id number] [place] [address] 39738 2546 02 Mar, 2017 Opioid dependence, uncomplicated F11.20 [facility] [id number] [place] [address] 19696 2546 28 Feb, 2017 Moderate episode of recurrent major depressive disorder F33.1 [facility] [address] [place] [address] 28 Feb, 2017 Opioid dependence, uncomplicated F11.20 [facility] [id number] [place] [address] 63286 2546 27 Feb, 2017 Opioid dependence, uncomplicated F11.20 [facility] [id number] [place] [address] 89596 2546 20 Feb, 2017 Opioid dependence, uncomplicated F11.20 [facility] [id number] [place] [address] 49522 2546 19 Feb, 2017 [facility] [id number] [place] [address] 82425 2546 18 Feb, 2017 [facility] [id number] [place] [address] 38116 2546 15 Feb, 2017 Moderate episode of recurrent major depressive disorder F33.1 [facility] [address] [place] [address] 14 Feb, 2017 Opioid dependence, uncomplicated F11.20 [facility] [address] [place] [address] 77340 2546 14 Feb, 2017 [facility] [id number] [place] [address] 22960 2546 14 Feb, 2017 [facility] [id number] [place] [address] 57176 2546 14 Feb, 2017 [facility] [id number] [place] [address] 55426 2546 13 Feb, 2017 [facility] [id number] [place] [address] 59705 2546 13 Feb, 2017 [facility] [address] [place] [address] 13430- 6263 Feb, Moderate episode of recurrent major depressive disorder F33.1 ; Post-traumatic stress disorder, unspecified F43.10 and Opioid dependence , uncomplicated F11.20 [facility] [id number] [place] [address] 87458- 6966 12 Feb, 2017 [facility] [id number] [place] [address] 61496 2546 Feb, [facility] [address] [place] [address] Feb, Opioid dependence, uncomplicated F11.20 [facility] [id number] [place] [address] 96185- 5126 Feb, Moderate episode of recurrent major depressive disorder F33.1 [facility] [id number] [place] [address] 56187- 1696 07 Feb, 2017 Opioid dependence, uncomplicated F11.20 [facility] [address] [place] [address] 76636 2546 Feb, [facility] [id number] [place] [address] 04254 2546 Feb, [facility] [address] [place] [address] 60447 2546 Feb, [facility] [id number] [place] [address] 63193 2546 Feb, [facility] [address] [place] [address] 22654 2546 Feb, [facility] [address] [place] [address] Feb, Opioid dependence, uncomplicated F11.20 [facility] [address] [place] [address] 64655 2546 Feb, [facility] [address] [place] [address] 28542- 7933 Jan, Opioid dependence, uncomplicated F11.20 and Drug induced constipation K59.03 [facility] [id number] [place] [address] 13845- 9763 Jan, [facility] [address] [id number]- 4433 Jan, Moderate episode of recurrent major depressive disorder F33.1 and Post-traumatic stress disorder, unspecified F43.10 [facility] [address] [id number] Jan, [facility] [id number] [place] [address] 05120- 7563 Jan, [facility] [address] 31629- 6446 Jan, [facility] [address] [place] [address] Jan, [facility] [address] [place] [address] 37805- 2494 Jan, Opioid dependence, uncomplicated F11.20 ; Drug induced constipation K59.03 and Adverse effect of other opioids, initial encounter T40.2X5A [facility] [address] [place] [address] 94788- 6446 Jan, [facility] [id number] [place] [address] 17057- 1118 Jan, [facility] [address] [place] [address] 55404- 4120 Jan, Opiate dependence, continuous F11.20 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 [id number] [place] [address] 09921- 5579 16 Jan, 2017 [facility] [address] 64022- 7120 Jan, [facility] [id number] [place] [address] 13122- 8862 15 Jan, 2017 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 [address] 87713- 0435 08 Jan, 2017 Moderate episode of recurrent major depressive disorder F33.1 and Post-traumatic stress disorder, unspecified F43.10 [facility] [id number] [place] [address] 31420- 2074 08 Jan, 2017 [facility] [address] 22883- 7134 07 Jan, 2017 Moderate episode of recurrent major depressive disorder F33.1 and Substance abuse withdrawal without complication F19.230 [facility] [id number] [place] [address] 36379- 1717 07 Jan, 2017 [facility] [id number] [place] [address] 85124- 9450 Jun, [facility] [id number] [place] [address] 98161- 6382 Jun, [facility] [address] 14827- 3141 May, [facility] [id number] [place] [address] 67034- 6561 May, [facility] [id number] [place] [address] 94958- 8647 Apr, [facility] [address] [facility] [id number] [address]- [address]56 Apr, [facility] [address] [id number] [address]- 5966 Apr, [facility] [address] [id number] [address]- 3766 Apr, [facility] [address] [place] [address] 2546 Apr, [facility] [address] [id number] [address]- 6586 Apr, [facility] [address] [place] [address]- 3766 Dec, [facility] [address] [id number], [place] [address]- 6996 Dec, [place] [id number] [id number] Nov, [facility] [address] [facility] [id number] [address] Sep, IMMUNIZATIONS No Known Immunizations SOCIAL HISTORY [...] Body Site Alcohol and/or drug services Feb 17, 2017 INSTRUCTIONS MEDICATIONS ADMINISTERED No Known Medications MEDICAL (GENERAL) HISTORY Type Description Date Medical History ADHD Medical History depression Medical History anxiety Surgical History tongue clipped as a child
--- OUTSIDE RECORDS SUMMARY | 2017-10-23 22:14 | XMS REPORT ---
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 533419005 Problem Major depressive disorder, recurrent, moderate F33.1 Active 39549988 Problem Post-traumatic stress disorder, unspecified F43.10 Active [id number] ALLERGIES No Information ENCOUNTERS Encounter Location Date Diagnosis [facility] [address] [place] [address] Aug, [facility] [address] [place] [id number] [place] [address] 19553- 0914 Aug, [facility] [address] [place] [address] July, Opioid dependence, uncomplicated F11.20 and Methamphetamine abuse, 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 [facility] [address] [place] [address] July, Opioid dependence, uncomplicated F11.20 and Methamphetamine abuse, 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 [id number] [place] [id number] Jun, [facility] [address] 955885- 1673 Jun, Moderate episode of recurrent major depressive disorder F33.1 ; Post-traumatic stress disorder, unspecified F43.10 and Opioid dependence , uncomplicated F11.20 [facility] [address] [address]6 Jun, Opioid dependence, uncomplicated F11.20 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 [facility] [id number] [place] [address] 61262- 1979 May, Moderate episode of recurrent major depressive disorder F33.1 ; Post-traumatic stress disorder, unspecified F43.10 and Opioid dependence , uncomplicated F11.20 [facility] [id number] [place] [id number] May, [facility] [id number] [place] [address] 26437- 0904 Apr, Opioid dependence, uncomplicated F11.20 [facility] [address] [place] [id number] Apr, Opioid dependence, uncomplicated F11.20 and Methamphetamine abuse, 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 [facility] [address] [address]882 2546 Apr, Opioid dependence, uncomplicated F11.20 [facility] [address] [place] [address] Apr, Opioid dependence, uncomplicated F11.20 and Methamphetamine abuse, 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 [facility] [address] 955882- 8406 Apr, Opioid dependence, uncomplicated F11.20 [facility] [address] [place] [id number] Apr, Opioid dependence, uncomplicated F11.20 [facility] [address] [address]- [address]80 Apr, Opioid dependence, uncomplicated F11.20 [facility] [address] [place] [address] Mar, Opioid dependence, uncomplicated F11.20 [facility] [address] [address]160 Mar, Opioid dependence, uncomplicated F11.20 [facility] [id number] [place] [address] 89696 2546 Mar, Opioid dependence, uncomplicated F11.20 [facility] [id number] [place] [address] 71732- 2426 Mar, [facility] [id number] [place] [address] 01503 2546 Mar, Opioid dependence, uncomplicated F11.20 [facility] [address] [address] 2546 Mar, Opioid dependence, uncomplicated F11.20 [facility] [id number] [place] [address] 66898- 9736 Mar, Moderate episode of recurrent major depressive disorder F33.1 ; Post-traumatic stress disorder, unspecified F43.10 and Opioid dependence , uncomplicated F11.20 [facility] [id number] [place] [address] 46858 2546 02 Mar, 2017 Opioid dependence, uncomplicated F11.20 [facility] [id number] [place] [address] 77439 2546 28 Feb, 2017 Moderate episode of recurrent major depressive disorder F33.1 [facility] [address] [place] [address] 28 Feb, 2017 Opioid dependence, uncomplicated F11.20 [facility] [id number] [place] [address] 36477 2546 27 Feb, 2017 Opioid dependence, uncomplicated F11.20 [facility] [id number] [place] [address] 69008 2546 20 Feb, 2017 Opioid dependence, uncomplicated F11.20 [facility] [id number] [place] [address] 02692 2546 19 Feb, 2017 [facility] [id number] [place] [address] 63594 2546 18 Feb, 2017 [facility] [id number] [place] [address] 76940 2546 15 Feb, 2017 Moderate episode of recurrent major depressive disorder F33.1 [facility] [address] [place] [address] 14 Feb, 2017 Opioid dependence, uncomplicated F11.20 [facility] [id number] [place] [address] 32939 2546 14 Feb, 2017 [facility] [address] [place] [address] 95631 2546 14 Feb, 2017 [facility] [id number] [place] [address] 84703 2546 14 Feb, 2017 [facility] [address] [place] [address] 19396 2546 13 Feb, 2017 [facility] [id number] [place] [address] 98973- 2546 Feb, [facility] [address] [place] [address] 27579- 6396 Feb, Moderate episode of recurrent major depressive disorder F33.1 ; Post-traumatic stress disorder, unspecified F43.10 and Opioid dependence , uncomplicated F11.20 [facility] [id number] [place] [address] 07144- 6386 12 Feb, 2017 [facility] [id number] [place] [address] 79994 2546 Feb, [facility] [address] [place] [address] Feb, Opioid dependence, uncomplicated F11.20 [facility] [id number] [place] [address] 72539- 6116 Feb, Moderate episode of recurrent major depressive disorder F33.1 [facility] [id number] [place] [address] 00099- 0976 07 Feb, 2017 Opioid dependence, uncomplicated F11.20 [facility] [id number] [place] [address] 42738 2546 Feb, [facility] [id number] [place] [address] 91050 2546 Feb, [facility] [address] [place] [address] 31498 2546 Feb, [facility] [id number] [place] [address] 92369 2546 Feb, [facility] [id number] [place] [address] 04464 2546 Feb, [facility] [address] [place] [address] Feb, Opioid dependence, uncomplicated F11.20 [facility] [id number] [place] [address] 67882 2546 Feb, [facility] [id number] [place] [address] 42444920- 4930 Jan, Opioid dependence, uncomplicated F11.20 and Drug induced constipation K59.03 [facility] [id number] [place] [address] 78408- 8400 Jan, [facility] [address] [place] [id number]- 6955 Jan, Moderate episode of recurrent major depressive disorder F33.1 and Post-traumatic stress disorder, unspecified F43.10 [facility] [address] [place] [id number] Jan, [facility] [address] 9[address]94- 8678 Jan, [facility] [address] 35899- 1157 Jan, [facility] [address] [place] [address] Jan, [facility] [address] [place] [address] 69730- 1498 Jan, Opioid dependence, uncomplicated F11.20 ; Drug induced constipation K59.03 and Adverse effect of other opioids, initial encounter T40.2X5A [facility] [address] [place] [address] 02432- 6709 Jan, [facility] [address] 48648- 6660 Jan, [facility] [address] [address]- [address] Jan, Opiate dependence, continuous F11.20 [facility] [address] [place] [address] Jan, Opiate dependence, continuous F11.20 ; 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 ; Benzodiazepine abuse F13.10 ; Alcohol dependence, binge pattern F10.20 and Marijuana abuse F12.10 [facility] [id number] [place] [address] 18419- 6205 Jan, [facility] [address] 04888- 1659 15 Jan, 2017 [facility] [id number] [place] [address] 04348- 4358 15 Jan, 2017 [facility] [address] 573200- 2231 14 Jan, 2017 Urinary frequency R35.0 and Opiate dependence, continuous F11.20 [facility] [address] [place] [address] Jan, Opiate dependence, continuous F11.20 ; 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 ; Benzodiazepine abuse F13.10 ; Alcohol dependence, binge pattern F10.20 and Marijuana abuse F12.10 [facility] [address] [place] [address] 08 Jan, 2017 [facility] [address] 61808- 1070 08 Jan, 2017 Moderate episode of recurrent major depressive disorder F33.1 and Post-traumatic stress disorder, unspecified F43.10 [facility] [id number] [place] [address] 69237- 1445 08 Jan, 2017 [facility] [address] 50821- 8597 07 Jan, 2017 Moderate episode of recurrent major depressive disorder F33.1 and Substance abuse withdrawal without complication F19.230 [facility] [id number] [place] [address] 15011- 8046 Jan, [facility] [id number] [place] [address] 45627- 6256 Jun, [facility] [id number] [place] [address] 23178- 0026 Jun, [facility] [address] 40994- 0844 May, [facility] [id number] [place] [address] 15917- 8765 May, [facility] [address] 24745- 3876 Apr, [facility] [address] [facility] [id number] [address]6 Apr, [facility] [address] [facility] [id number] [address]- 2546 Apr, [facility] [address] [id number] [address]- 2546 Apr, [facility] [address] [id number] [address]- 2546 Apr, [facility] [address] [id number] [address]- 2546 Apr, [facility] [address] [address]- 2476 Dec, [facility] [address] [id number] [address] 1636 Dec, [place] [id number] [id number] Nov, [facility] [address] [facility] [id number] [address]336 Sep, IMMUNIZATIONS No Known Immunizations SOCIAL HISTORY Never Assessed REASON FOR VISIT f/u PLAN OF CARE Activity Details Follow Up Next available Reason: VITAL SIGNS MEDICATIONS Unknown Medications RESULTS No Results PROCEDURES Procedure Date Ordered Result Body Site Psychotherapy, patient &/family, 30 minutes, established patient Feb 16, 2017 INSTRUCTIONS MEDICATIONS ADMINISTERED No Known Medications MEDICAL (GENERAL) HISTORY Type Description Date Medical History ADHD Medical History depression Medical History anxiety Surgical History tongue clipped as a child
--- OUTSIDE RECORDS SUMMARY | 2017-10-23 22:15 | XMS REPORT ---
Author Author SHELLY ALVAREZ Organization [facility] Address [address] 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 [facility] [id number] [place] [address] Jun, [facility] [id number] [place], [place] [address] Jun, Moderate episode of recurrent major depressive disorder F33.1 ; Post-traumatic stress disorder, unspecified F43.10 and Opioid dependence , uncomplicated F11.20 [facility] [id number] [place] [address] Jun, Opioid dependence, uncomplicated F11.20 [facility] [address] [address] May, Opioid dependence, uncomplicated F11.20 [facility] [address] [place] [address] May, Opioid dependence, uncomplicated F11.20 and Methamphetamine abuse, 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 [id number] [place] [address] May, Moderate episode of recurrent major depressive disorder F33.1 ; Post-traumatic stress disorder, unspecified F43.10 and Opioid dependence , uncomplicated F11.20 [facility] [id number] [place] [address] May, 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 [facility] [address] [address]37[address] Apr, Opioid dependence, uncomplicated F11.20 [facility] [address] Apr, Opioid dependence, uncomplicated F11.20 [facility] [address] [address] Apr, Opioid dependence, uncomplicated F11.20 [facility] [address] [place] [address] Mar, Opioid dependence, uncomplicated F11.20 [facility] [address] [address] Mar, Opioid dependence, uncomplicated F11.20 [facility] [address] [address] Mar, Opioid dependence, uncomplicated F11.20 [facility] [address] [address] Mar, [facility] [address] [address] Mar, Opioid dependence, uncomplicated F11.20 [facility] [address] [id number] Mar, Opioid dependence, uncomplicated F11.20 [facility] [address] [address] Mar, Moderate episode of recurrent major depressive disorder F33.1 ; Post-traumatic stress disorder, unspecified F43.10 and Opioid dependence , uncomplicated F11.20 [facility] [id number] [place] [address] 2546 02 Mar, 2017 Opioid dependence, uncomplicated F11.20 [facility] [id number] [place] [address] 2546 28 Feb, 2017 Moderate episode of recurrent major depressive disorder F33.1 [facility] [address] [place] [address] 28 Feb, 2017 Opioid dependence, uncomplicated F11.20 [facility] [id number] [place] [address] 2546 27 Feb, 2017 Opioid dependence, uncomplicated F11.20 [facility] [id number] [place] [address] 2546 20 Feb, 2017 Opioid dependence, uncomplicated F11.20 [facility] [id number] [place] [address] 2546 19 Feb, 2017 [facility] [id number] [place] [address] 2546 18 Feb, 2017 [facility] [id number] [place] [address] 2546 15 Feb, 2017 Moderate episode of recurrent major depressive disorder F33.1 [facility] [address] [place] [address] 14 Feb, 2017 Opioid dependence, uncomplicated F11.20 [facility] [id number] [place] [address] 2546 14 Feb, 2017 [facility] [id number] [place] [address] 36[address] 2546 14 Feb, 2017 [facility] [id number] [place] [address] 2546 14 Feb, 2017 [facility] [id number] [place] [address] 2546 13 Feb, 2017 [facility] [id number] [place] [address] Feb, [facility] [address] [address] Feb, Moderate episode of recurrent major depressive disorder F33.1 ; Post-traumatic stress disorder, unspecified F43.10 and Opioid dependence , uncomplicated F11.20 [facility] [address] [place] [address] 12 Feb, 2017 [facility] [id number] [place] [address] 25[address] Feb, [facility] [address] [place] [address] Feb, Opioid dependence, uncomplicated F11.20 [facility] [id number] [place] [address] Feb, Moderate episode of recurrent major depressive disorder F33.1 [facility] [id number] [place] [address] 07 Feb, 2017 Opioid dependence, uncomplicated F11.20 [facility] [id number] [place] [address] Feb, [facility] [id number] [place] [address] Feb, [facility] [address] [place] [address] [address] Feb, [facility] [id number] [place] [address]57 [address] Feb, [facility] [address] [place] [address] 2546 Feb, [facility] [address] [place] [address] Feb, Opioid dependence, uncomplicated F11.20 [facility] [address] [place] [address]845 2546 Feb, [facility] [address] [place] [address] Jan, Opioid dependence, uncomplicated F11.20 and Drug induced constipation K59.03 [facility] [address] [address] Jan, [facility] [address] [id number] Jan, Moderate episode of recurrent major depressive disorder F33.1 and Post-traumatic stress disorder, unspecified F43.10 [facility] [address] [id number] Jan, [facility] [address] [address] Jan, [facility] [address] [address] Jan, [facility] [address] [place] [address] Jan, [facility] [address] [place] [address] Jan, Opioid dependence, uncomplicated F11.20 ; Drug induced constipation K59.03 and Adverse effect of other opioids, initial encounter T40.2X5A [facility] [address] [place] [address] Jan, [facility] [address] [address] Jan, 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 [id number] [place] [address] 16 Jan, 2017 [facility] [address] [address] 15 Jan, 2017 [facility] [id number] [place] [address] 15 Jan, 2017 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 [id number] [place] [address] 08 Jan, 2017 Moderate episode of recurrent major depressive disorder F33.1 and Post-traumatic stress disorder, unspecified F43.10 [facility] [id number] [place] [address] 08 Jan, 2017 [facility] [address] [address] 07 Jan, 2017 Moderate episode of recurrent major depressive disorder F33.1 and Substance abuse withdrawal without complication F19.230 [facility] [id number] [place] [address]- [address] 07 Jan, 2017 [facility] [id number] [place] [address]- [address] Jun, [facility] [id number] [place] [address] Jun, [facility] [address] [address] May, [facility] [id number] [place] [address] 47873- [address] May, [facility] [address] [address] Apr, [facility] [address] [facility] [id number] [address] Apr, [facility] [address] [facility] [id number] [address] Apr, [facility] [address] [facility] [id number], [place] [address] Apr, [facility] [address] [address] Apr, [facility] [address] [id number], [place] [address] Apr, [facility] [address] [id number], [place] [address] Dec, [facility] [address] [id number], [place] [address] Dec, [facility] [address] [id number] [id number] Nov, [facility] [address] [facility] [id number] [address] Sep, IMMUNIZATIONS No Known Immunizations SOCIAL HISTORY Never Assessed REASON FOR VISIT MAT F/U PLAN OF CARE Activity Details Follow Up 2 Weeks Reason:MAT VITAL SIGNS Height 69.5 in 2017-02-02 Weight 170.3 lbs 2017-02-02 Temperature 98.1 degrees Fahrenheit 2017-02-02 Heart Rate 68 bpm 2017-02-02 Respiratory Rate 20 2017-02-02 BMI 24.79 kg/m2 2017-02-02 Blood pressure systolic 112 mmHg 2017-02-02 Blood pressure diastolic 64 mmHg 2017-02-02 MEDICATIONS Medication Instructions Dosage Frequency Start Date End Date Duration Status Buprenorphine HCl 8 MG Sublingual Once a day 2 tablets under the tongue and allow to dissolve 24h Jan, Active Suboxone 8-2 MG Sublingual Once a day 3 film under the tongue and allow to dissolve 24h Jan, Feb, 07 days Active Suboxone 8-2 MG Sublingual Once a day 2 film under the tongue and allow to dissolve 24h Jan, 1 dose Not-Taking RESULTS No Results PROCEDURES No Known procedures INSTRUCTIONS MEDICATIONS ADMINISTERED No Known Medications MEDICAL (GENERAL) HISTORY Type Description Date Medical History ADHD Medical History depression Medical History anxiety Surgical History tongue clipped as a child
--- OUTSIDE RECORDS SUMMARY | 2017-10-23 22:15 | XMS REPORT ---
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 746326588 Problem Major depressive disorder, recurrent, moderate F33.1 Active 48768247 Problem Post-traumatic stress disorder, unspecified F43.10 Active 39160528 ALLERGIES No Information ENCOUNTERS Encounter Location Date Diagnosis [facility] [address] [place] [address] Aug, [facility] [id number] [place] [address] Aug, [facility] [address] [place] [address] July, [facility] [address] [place] [address] July, Opioid dependence, uncomplicated F11.20 and Methamphetamine abuse, 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 [facility] [address] [place] [address] July, Opioid dependence, uncomplicated F11.20 and Methamphetamine abuse, 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 [facility] [address] [place] [address]87[address] Jun, Opioid dependence, uncomplicated F11.20 [facility] [address] [place] [address] Jun, Opioid dependence, uncomplicated F11.20 and Methamphetamine abuse, 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 [facility] [id number] [place] [address] 67348[address]555 Jun, [facility] [address] 653525- [address] Jun, Moderate episode of recurrent major depressive disorder F33.1 ; Post-traumatic stress disorder, unspecified F43.10 and Opioid dependence , uncomplicated F11.20 [facility] [address] [address] Jun, Opioid dependence, uncomplicated F11.20 [facility] [address] 9112[address] May, Opioid dependence, uncomplicated F11.20 [facility] [address] [address] May, Opioid dependence, uncomplicated F11.20 and Methamphetamine abuse, 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 [facility] [id number] [place] [address] 10478- 1681 May, Opioid dependence, uncomplicated F11.20 [facility] [id number] [place] [address] 54723[address] 8349 May, Opioid dependence, uncomplicated F11.20 [facility] [address] [address] May, Opioid dependence, uncomplicated F11.20 and Methamphetamine abuse, 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 [facility] [id number] [place] [id number] May, Moderate episode of recurrent major depressive disorder F33.1 ; Post-traumatic stress disorder, unspecified F43.10 and Opioid dependence , uncomplicated F11.20 [facility] [id number] [place] [address] May, [facility] [address] 653523- [address] Apr, Opioid dependence, uncomplicated F11.20 [facility] [address] [place] [address] Apr, Opioid dependence, uncomplicated F11.20 and Methamphetamine abuse, 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 [facility] [id number] [place] [address] Apr, Opioid dependence, uncomplicated F11.20 [facility] [address] [address] Apr, Opioid dependence, uncomplicated F11.20 and Methamphetamine abuse, 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 [facility] [address] 653522- [address] Apr, Opioid dependence, uncomplicated F11.20 [facility] [address] [address] Apr, Opioid dependence, uncomplicated F11.20 [facility] [address] [id number]46 Apr, Opioid dependence, uncomplicated F11.20 [facility] [address] [address] Mar, Opioid dependence, uncomplicated F11.20 [facility] [id number] [place] [address] 33314- 4270 Mar, Opioid dependence, uncomplicated F11.20 [facility] [address] 653522- 7796 Mar, Opioid dependence, uncomplicated F11.20 [facility] [address] [address]- [address] Mar, [facility] [id number] [place] Mar, Opioid dependence, uncomplicated F11.20 [facility] [id number] [place] [address] 81803- 5991 Mar, Opioid dependence, uncomplicated F11.20 [facility] [address] [id number]- 4202 Mar, Moderate episode of recurrent major depressive disorder F33.1 ; Post-traumatic stress disorder, unspecified F43.10 and Opioid dependence , uncomplicated F11.20 [facility] [address] [place] [address] 59101 2546 02 Mar, 2017 Opioid dependence, uncomplicated F11.20 [facility] [address] [place] [address] 59941 2546 28 Feb, 2017 Moderate episode of recurrent major depressive disorder F33.1 [facility] [address] [place] [address] 28 Feb, 2017 Opioid dependence, uncomplicated F11.20 [facility] [id number] [place] [address] 78428 2546 27 Feb, 2017 Opioid dependence, uncomplicated F11.20 [facility] [id number] [place] [address] 96037 2546 20 Feb, 2017 Opioid dependence, uncomplicated F11.20 [facility] [address] [place] [address] 00378 2546 19 Feb, 2017 [facility] [id number] [place] [address] 13319 2546 18 Feb, 2017 [facility] [address] [place] [address] 42172 2546 15 Feb, 2017 Moderate episode of recurrent major depressive disorder F33.1 [facility] [address] [place] [address] 14 Feb, 2017 Opioid dependence, uncomplicated F11.20 [facility] [address] [address] 2546 14 Feb, 2017 [facility] [address] [place] [address] 61994 2546 14 Feb, 2017 [facility] [address] [place] [address] 88449 2546 14 Feb, 2017 [facility] [address] [place] [address] 38821 2546 13 Feb, 2017 [facility] [address] [place] [address] 02754 2546 13 Feb, 2017 [facility] [id number] [place] [address] 42127 2546 13 Feb, 2017 Moderate episode of recurrent major depressive disorder F33.1 ; Post-traumatic stress disorder, unspecified F43.10 and Opioid dependence , uncomplicated F11.20 [facility] [id number] [place] [address] 60238 2546 12 Feb, 2017 [facility] [id number] [place] [address] 15551- 1166 Feb, [facility] [address] [place] [address] Feb, Opioid dependence, uncomplicated F11.20 [facility] [id number] [place] [address] 56877- 8766 08 Feb, 2017 Moderate episode of recurrent major depressive disorder F33.1 [facility] [id number] [place] [address] 70660 2546 07 Feb, 2017 Opioid dependence, uncomplicated F11.20 [facility] [id number] [place] [address] 64964 2546 Feb, [facility] [id number] [place] [address] 82227 2546 Feb, [facility] [id number] [place] [address] 92128 2546 Feb, [facility] [id number] [place] [address] 31304 2546 Feb, [facility] [id number] [place] [address] 22296 2546 Feb, [facility] [address] [place] [address] Feb, Opioid dependence, uncomplicated F11.20 [facility] [id number] [place] [address] 94347 2546 Feb, [facility] [id number] [place] [address] 91531 2546 Jan, Opioid dependence, uncomplicated F11.20 and Drug induced constipation K59.03 [facility] [id number] [place] [address] 41912- 8913 Jan, [facility] [id number] [place] [address] 30676- 4154 Jan, Moderate episode of recurrent major depressive disorder F33.1 and Post-traumatic stress disorder, unspecified F43.10 [facility] [address] [place] [address] Jan, [facility] [id number] [place] [address] 36741- 6704 Jan, [facility] [address] 62557- 3424 Jan, [facility] [address] [place] [address] Jan, [facility] [address] [address]- [address] Jan, Opioid dependence, uncomplicated F11.20 ; Drug induced constipation K59.03 and Adverse effect of other opioids, initial encounter T40.2X5A [facility] [id number] [place] [address] 47443- 2708 Jan, [facility] [address] [address]27- 1210 Jan, [facility] [id number] [place] [address] 48206- 1824 Jan, Opiate dependence, continuous F11.20 [facility] [address] [place] [address] Jan, Opiate dependence, continuous F11.20 ; 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 ; Benzodiazepine abuse F13.10 ; Alcohol dependence, binge pattern F10.20 and Marijuana abuse F12.10 [facility] [id number] [place] [address] 15107- 9390 16 Jan, 2017 [facility] [id number] [place] [address] 36639- 5880 Jan, [facility] [id number] [place] [address] 15008- 1449 15 Jan, 2017 [facility] [id number] [place] [address] 39572- 6647 14 Jan, 2017 Urinary frequency R35.0 and Opiate dependence, continuous F11.20 [facility] [address] [place] [address] 10 Jan, 2017 Opiate dependence, continuous F11.20 ; 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 ; Benzodiazepine abuse F13.10 ; Alcohol dependence, binge pattern F10.20 and Marijuana abuse F12.10 [facility] [address] [place] [address] 08 Jan, 2017 [facility] [id number] [place] [address] 78643- 0125 08 Jan, 2017 Moderate episode of recurrent major depressive disorder F33.1 and Post-traumatic stress disorder, unspecified F43.10 [facility] [id number] [place] [address] 51105- 1871 08 Jan, 2017 [facility] [id number] [place] [address] 27813- 2915 07 Jan, 2017 Moderate episode of recurrent major depressive disorder F33.1 and Substance abuse withdrawal without complication F19.230 [facility] [id number] [place] [address] 82627- 1171 07 Jan, 2017 [facility] [address] [place] [address] 81252- 8576 Jun, [facility] [id number] [place] [address] 26531- 8866 Jun, [facility] [id number] [place] [address] 44718- 4483 May, [facility] [id number] [place] [address] 23190- 6070 May, [facility] [address] [place] [address] 19721- 2747 Apr, [facility] [id number] [address]- 2546 Apr, [facility] [address] [facility] [id number] [address]- 2546 Apr, [facility] [id number] [address]- 2546 Apr, [facility] [id number] [address]- 2546 Apr, [facility] [id number], [place] [address]- 2546 Apr, [facility] [address] [address]- 2546 Dec, [facility] [id number], [place] [address] 2546 Dec, [facility] [id number] [id number] Nov, [facility] [address] [facility] [id number], [place] [address] Sep, IMMUNIZATIONS No Known Immunizations SOCIAL HISTORY Never Assessed REASON FOR VISIT f/u PLAN OF CARE Activity Details Follow Up Next available Reason: VITAL SIGNS MEDICATIONS Unknown Medications RESULTS No Results PROCEDURES Procedure Date Ordered Result Body Site Psychotherapy, patient &/family, 30 minutes, established patient Feb 01, 2017 INSTRUCTIONS MEDICATIONS ADMINISTERED No Known Medications MEDICAL (GENERAL) HISTORY Type Description Date Medical History ADHD Medical History depression Medical History anxiety Surgical History tongue clipped as a child
--- OUTSIDE RECORDS SUMMARY | 2017-10-23 22:15 | XMS REPORT ---
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 033439365 Problem Dysthymia F34.1 Active 97958860 Problem Drug induced constipation K59.03 Active 04897068 Problem Post-traumatic stress disorder, unspecified F43.10 Active 00300350 Problem Alcohol dependence, binge pattern F10.20 Active 246176018 Problem Opioid dependence, uncomplicated F11.20 Active 16887031 Problem Major depressive disorder, recurrent, moderate F33.1 Active [id number] ALLERGIES No Information ENCOUNTERS Encounter Location Date Diagnosis [facility] [place] [address] [address] Aug, Acute pain of right wrist M25.531 ; Dysthymia F34.1 ; Screening for hyperlipidemia Z13.220 ; Screening for diabetes mellitus Z13.1 and Screening for other and unspecified deficiency anemia Z13.0 [facility] [id number] [place] [address] Aug, [facility] [address] [place] [address] July, Opioid dependence, uncomplicated F11.20 and Methamphetamine abuse, episodic F15.10 [facility] [address] [place] [address] July, Opioid dependence, uncomplicated F11.20 and Methamphetamine abuse, episodic F15.10 [facility] [address] [place] [address] July, Opioid dependence, uncomplicated F11.20 and Methamphetamine abuse, episodic F15.10 [facility] [place] [id number] [place] [address]89[address] Jun, Opioid dependence, uncomplicated F11.20 [facility] [address] [id number] Jun, Opioid dependence, uncomplicated F11.20 and Methamphetamine abuse, episodic F15.10 [facility] [place] [id number] [place] [address] Jun, [facility] [id number] [place], [place] [id number] Jun, Moderate episode of recurrent major depressive disorder F33.1 ; Post-traumatic stress disorder, unspecified F43.10 and Opioid dependence , uncomplicated F11.20 [facility] [place] [id number] [place] [address] Jun, Opioid dependence, uncomplicated F11.20 [facility] [id number] [place] [address] May, Opioid dependence, uncomplicated F11.20 [facility] [address] [place] [address] May, Opioid dependence, uncomplicated F11.20 and Methamphetamine abuse, episodic F15.10 [facility] [place] [id number] [place] [id number] May, Opioid dependence, uncomplicated F11.20 [facility] [id number] [place] [address]40[address] May, Opioid dependence, uncomplicated F11.20 [facility] [address] [place] [address] May, Opioid dependence, uncomplicated F11.20 and Methamphetamine abuse, episodic F15.10 [facility] [place] [id number] [place] [address] May, Moderate episode of recurrent major depressive disorder F33.1 ; Post-traumatic stress disorder, unspecified F43.10 and Opioid dependence , uncomplicated F11.20 [facility] [place] [id number] [place] [id number] May, [facility] [id number] [place] [address] Apr, Opioid dependence, uncomplicated F11.20 [facility] [address] [address] Apr, Opioid dependence, uncomplicated F11.20 and Methamphetamine abuse, 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 [facility] [place] [address] [address] Apr, Opioid dependence, uncomplicated F11.20 [facility] [address] [address] Apr, Opioid dependence, uncomplicated F11.20 and Methamphetamine abuse, episodic F15.10 [facility] [place] [id number] [place] [address]703[address] Apr, Opioid dependence, uncomplicated F11.20 [facility] [address] [place] [address] Apr, Opioid dependence, uncomplicated F11.20 [facility] [id number] [place] [address] Apr, Opioid dependence, uncomplicated F11.20 [facility] [address] [place] [address] Mar, Opioid dependence, uncomplicated F11.20 [facility] [place] [id number] [place] [address] Mar, Opioid dependence, uncomplicated F11.20 [facility] [place] [id number] [place] [address] 34365 2546 Mar, Opioid dependence, uncomplicated F11.20 [facility] [place] [id number] [place] [address]7986[address] Mar, [facility] [place] [id number] [place] [address]89[address] 2546 Mar, Opioid dependence, uncomplicated F11.20 [facility] [place] [id number] [place] [address] 8[address]69[address] Mar, Opioid dependence, uncomplicated F11.20 [facility] [place] [id number] [place] [address]11[address] 18[address] Mar, Moderate episode of recurrent major depressive disorder F33.1 ; Post-traumatic stress disorder, unspecified F43.10 and Opioid dependence , uncomplicated F11.20 [facility] [place] [id number] [place] [address] Mar, Opioid dependence, uncomplicated F11.20 [facility] [id number] [place] [address] 2546 Feb, Moderate episode of recurrent major depressive disorder F33.1 [facility] [address] [place] [address] 28 Feb, 2017 Opioid dependence, uncomplicated F11.20 [facility] [place] [id number] [place] [address] 27 Feb, 2017 Opioid dependence, uncomplicated F11.20 [facility] [place] [id number] [place] [address] 2546 20 Feb, 2017 Opioid dependence, uncomplicated F11.20 [facility] [place] [id number] [place] [address] 2546 19 Feb, 2017 [facility] [place] [id number] [place] [address] 39472 2546 18 Feb, 2017 [facility] [place] [id number] [place] [address] 12902 2546 15 Feb, 2017 Moderate episode of recurrent major depressive disorder F33.1 [facility] [address] [place] [address] 14 Feb, 2017 Opioid dependence, uncomplicated F11.20 [facility] [place] [id number] [place] [address] 2546 14 Feb, 2017 [facility] [place] [id number] [place] [address] 38216 2546 14 Feb, 2017 [facility] [place] [id number] [place] [address] 74790- 9587 14 Feb, 2017 [facility] [place] [id number] [place] [address] 63758- 74[address] 13 Feb, 2017 [facility] [place] [id number] [place] [address] 9[address]89- 2196 13 Feb, 2017 [facility] [place] [id number] [place] [address] 26[address] 13 Feb, 2017 Moderate episode of recurrent major depressive disorder F33.1 ; Post-traumatic stress disorder, unspecified F43.10 and Opioid dependence , uncomplicated F11.20 [facility] [id number] [place] [address] 66573- 2596 12 Feb, 2017 [facility] [place] [id number] [place] [address] Feb, [facility] [address] [place] [address] Feb, Opioid dependence, uncomplicated F11.20 [facility] [id number] [place] [address] 77098- 0404 08 Feb, 2017 Moderate episode of recurrent major depressive disorder F33.1 [facility] [place] [id number] [place] [address] 75486- 8286 07 Feb, 2017 Opioid dependence, uncomplicated F11.20 [facility] [place] [address] [place] [address] 23460- 0186 07 Feb, 2017 [facility] [place] [id number] [place] [address] 30014 2546 Feb, [facility] [address] [place] [address] 07823 2546 05 Feb, 2017 [facility] [place] [id number] [place] [address] 43707- 7926 Feb, [facility] [id number] [place] [address] 46960- 6926 Feb, [facility] [address] [place] [address] Feb, Opioid dependence, uncomplicated F11.20 [facility] [id number] [place] [address]196- 2150 Feb, [facility] [address] [id number] 2546 Jan, Opioid dependence, uncomplicated F11.20 and Drug induced constipation K59.03 [facility] [address] [address] Jan, [facility] [address] [address] Jan, Moderate episode of recurrent major depressive disorder F33.1 and Post-traumatic stress disorder, unspecified F43.10 [facility] [address] [place] [address] Jan, [facility] [address] [address] Jan, [facility] [address] [address] Jan, [facility] [address] [place] [address] Jan, [facility] [address] [address] Jan, Opioid dependence, uncomplicated F11.20 ; Drug induced constipation K59.03 and Adverse effect of other opioids, initial encounter T40.2X5A [facility] [id number] [place] [address] 47968- 2261 Jan, [facility] [id number] [place] [address] 67474- 2542 Jan, 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 ; Benzodiazepine abuse F13.10 ; Alcohol dependence, binge pattern F10.20 and Marijuana abuse F12.10 [facility] [place] [id number] [place] [address] 04493- 3202 16 Jan, 2017 [facility] [place] [id number] [place] [address] 322519- 5000 15 Jan, 2017 [facility] [place] [id number] [place] [address] 50698- 7335 15 Jan, 2017 [facility] [place] [address] 10[address]70 14 Jan, 2017 Urinary frequency R35.0 and Opiate dependence, continuous F11.20 [facility] [address] [address] 10 Jan, 2017 Opiate dependence, continuous F11.20 ; 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 ; Benzodiazepine abuse F13.10 ; Alcohol dependence, binge pattern F10.20 and Marijuana abuse F12.10 [facility] [address] [place] [address] 08 Jan, 2017 [facility] [place] [id number] [place] [address] 65608- 1347 08 Jan, 2017 Moderate episode of recurrent major depressive disorder F33.1 and Post-traumatic stress disorder, unspecified F43.10 [facility] [place] [id number] [place] [address] 48311- 7834 08 Jan, 2017 [facility] [place] [id number] [place] [address] 02141- 1070 07 Jan, 2017 Moderate episode of recurrent major depressive disorder F33.1 and Substance abuse withdrawal without complication F19.230 [facility] [place] [id number] [place] [address] 40903- 9950 07 Jan, 2017 [facility] [place] [address] 43783- 0634 14 Jun, 2014 [facility] [place] [id number] [place] [address] 06819- 3060 13 Jun, 2014 [facility] [place] [address] 67[address] May, [facility] [place] [address] [facility] [id number] [address] 2546 May, [facility] [place] [id number] [address] Apr, [facility] [place] [id number] [address] Apr, [facility] [place] [address] [address] Apr, [facility] [place] [id number] [address] Apr, [facility] [place] [address] [address] 2546 Apr, [facility] [place] [address] [address] 2546 Apr, [facility] [place] [address] [address] Dec, [facility] [place] [id number] [address] Dec, [facility] [address] [id number] [id number] Nov, [facility] [place] [id number] [address] Sep, IMMUNIZATIONS No Known Immunizations SOCIAL HISTORY Never Assessed REASON FOR VISIT SUBAB F/U PLAN OF CARE Activity Details Follow Up 1 Week Reason:SUBABFU VITAL SIGNS MEDICATIONS Medication Instructions Dosage Frequency Start Date End Date Duration Status Suboxone 8-2 MG Sublingual Once a day 3 film under the tongue and allow to dissolve 24h 7 days Active RESULTS No Results PROCEDURES Procedure Date Ordered Result Body Site Alcohol and/or drug services Apr 01, 2017 INSTRUCTIONS MEDICATIONS ADMINISTERED No Known Medications MEDICAL (GENERAL) HISTORY Type Description Date Medical History ADHD Medical History depression Medical History anxiety Surgical History tongue clipped as a child
--- OUTSIDE RECORDS SUMMARY | 2017-10-23 22:15 | XMS REPORT ---
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 472037969 Problem Dysthymia F34.1 Active 34655387 Problem Drug induced constipation K59.03 Active 73082156 Problem Post-traumatic stress disorder, unspecified F43.10 Active 29349899 Problem Alcohol dependence, binge pattern F10.20 Active 857383508 Problem Opioid dependence, uncomplicated F11.20 Active 94670580 Problem Major depressive disorder, recurrent, moderate F33.1 Active 98656813 ALLERGIES No Information ENCOUNTERS Encounter Location Date Diagnosis [facility] [address] [address] Aug, Acute pain of right wrist M25.531 ; Dysthymia F34.1 ; Screening for hyperlipidemia Z13.220 ; Screening for diabetes mellitus Z13.1 and Screening for other and unspecified deficiency anemia Z13.0 [facility] [id number] [place] [address] Aug, [facility] [address] [place] [address] July, Opioid dependence, uncomplicated F11.20 and Methamphetamine abuse, 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 [facility] [address] [place] [address] July, Opioid dependence, uncomplicated F11.20 and Methamphetamine abuse, 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 [facility] [address] [place] [address] July, Opioid dependence, uncomplicated F11.20 and Methamphetamine abuse, 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 [facility] [id number] [place] [address]11[address] Jun, Opioid dependence, uncomplicated F11.20 [facility] [address] [id number] Jun, Opioid dependence, uncomplicated F11.20 and Methamphetamine abuse, 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 [facility] [id number] [place] [address] Jun, [facility] [id number] [place] [id number] Jun, Moderate episode of recurrent major depressive disorder F33.1 ; Post-traumatic stress disorder, unspecified F43.10 and Opioid dependence , uncomplicated F11.20 [facility] [id number] [place] [address] Jun, Opioid dependence, uncomplicated F11.20 [facility] [id number] [place] [address]5987- [address] May, Opioid dependence, uncomplicated F11.20 [facility] [address] [place] [address] May, Opioid dependence, uncomplicated F11.20 and Methamphetamine abuse, 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 [facility] [id number] [place] [id number] May, Opioid dependence, uncomplicated F11.20 [facility] [id number] [place] [address]30[address] May, Opioid dependence, uncomplicated F11.20 [facility] [address] [place] [address] May, Opioid dependence, uncomplicated F11.20 and Methamphetamine abuse, episodic F15.10 [facility] [id number] [place] [address] May, Moderate episode of recurrent major depressive disorder F33.1 ; Post-traumatic stress disorder, unspecified F43.10 and Opioid dependence , uncomplicated F11.20 [facility] [id number] [place] [id number] May, [facility] [id number] [place] [address]65[address] Apr, Opioid dependence, uncomplicated F11.20 [facility] [address] [address] Apr, Opioid dependence, uncomplicated F11.20 and Methamphetamine abuse, episodic F15.10 [facility] [address] [address] Apr, Opioid dependence, uncomplicated F11.20 [facility] [address] [address] Apr, Opioid dependence, uncomplicated F11.20 and Methamphetamine abuse, episodic F15.10 [facility] [id number] [place] [address] 47966[address] 44[address] Apr, Opioid dependence, uncomplicated F11.20 [facility] [address] [place] [address] Apr, Opioid dependence, uncomplicated F11.20 [facility] [id number] [place] [address] 48044[address] Apr, Opioid dependence, uncomplicated F11.20 [facility] [address] [place] [address] Mar, Opioid dependence, uncomplicated F11.20 [facility] [id number] [place] [address] 13244- [address] Mar, Opioid dependence, uncomplicated F11.20 [facility] [id number] [place] [address] 28582 2546 Mar, Opioid dependence, uncomplicated F11.20 [facility] [id number] [place] [address] 15442[address] Mar, [facility] [id number] [place] [address] 81133 2546 Mar, Opioid dependence, uncomplicated F11.20 [facility] [id number] [place] [address] 57278[address] Mar, Opioid dependence, uncomplicated F11.20 [facility] [id number] [place] [address] 33587[address] 9796 Mar, Moderate episode of recurrent major depressive disorder F33.1 ; Post-traumatic stress disorder, unspecified F43.10 and Opioid dependence , uncomplicated F11.20 [facility] [id number] [place] [address] 63776- 2486 Mar, Opioid dependence, uncomplicated F11.20 [facility] [id number] [place] [address]197 2546 Feb, Moderate episode of recurrent major depressive disorder F33.1 [facility] [address] [place] [address] 28 Feb, 2017 Opioid dependence, uncomplicated F11.20 [facility] [id number] [place] [address] 12553- 76[address] 27 Feb, 2017 Opioid dependence, uncomplicated F11.20 [facility] [id number] [place] [address] 14343 2546 20 Feb, 2017 Opioid dependence, uncomplicated F11.20 [facility] [id number] [place] [address] 68752 2546 19 Feb, 2017 [facility] [id number] [place] [address] 35445 2546 18 Feb, 2017 [facility] [id number] [place] [address] 41471 2546 15 Feb, 2017 Moderate episode of recurrent major depressive disorder F33.1 [facility] [address] [place] [address] 14 Feb, 2017 Opioid dependence, uncomplicated F11.20 [facility] [id number] [place] [address] 57168 2546 14 Feb, 2017 [facility] [id number] [place] [address] 10095 2546 14 Feb, 2017 [facility] [id number] [place] [address] 43287- 0657 14 Feb, 2017 [facility] [address] [place] [address] 52669- 6606 13 Feb, 2017 [facility] [id number] [place] [address] 52458- 4606 13 Feb, 2017 [facility] [id number] [place] [address] 76668- 4606 13 Feb, 2017 Moderate episode of recurrent major depressive disorder F33.1 ; Post-traumatic stress disorder, unspecified F43.10 and Opioid dependence , uncomplicated F11.20 [facility] [id number] [place] [address] 41909- 4656 12 Feb, 2017 [facility] [id number] [place] [address] 50436- 6246 Feb, [facility] [address] [place] [address] Feb, Opioid dependence, uncomplicated F11.20 [facility] [id number] [place] [address] 42565- [address] 08 Feb, 2017 Moderate episode of recurrent major depressive disorder F33.1 [facility] [id number] [place] [address] 82357- 5656 07 Feb, 2017 Opioid dependence, uncomplicated F11.20 [facility] [address] [place] [address] 88345- 0376 07 Feb, 2017 [facility] [id number] [place] [address] 29100 2546 Feb, [facility] [address] [place] [address] 64167 2546 05 Feb, 2017 [facility] [id number] [place] [address] 96718- 1966 Feb, [facility] [address] [place] [address] 41928- 7426 Feb, [facility] [address] [place] [address] Feb, Opioid dependence, uncomplicated F11.20 [facility] [id number] [place] [address] 25940- 5653 Feb, [facility] [address] [id number]46 Jan, Opioid dependence, uncomplicated F11.20 and Drug induced constipation K59.03 [facility] [address] [address] Jan, [facility] [address] [address] Jan, Moderate episode of recurrent major depressive disorder F33.1 and Post-traumatic stress disorder, unspecified F43.10 [facility] [address] [place] [address] Jan, [facility] [address] [address]- 3316 Jan, [facility] [address] [address] Jan, [facility] [address] [place] [address] Jan, [facility] [address] [address]9967[address] Jan, Opioid dependence, uncomplicated F11.20 ; Drug induced constipation K59.03 and Adverse effect of other opioids, initial encounter T40.2X5A [facility] [id number] [place] [address] 12554- 5318 Jan, [facility] [id number] [place] [address] 51368- 2541 Jan, [facility] [address] 74[address] Jan, Opiate dependence, continuous F11.20 [facility] [address] [place] [address] Jan, Opiate dependence, continuous F11.20 ; 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 ; Benzodiazepine abuse F13.10 ; Alcohol dependence, binge pattern F10.20 and Marijuana abuse F12.10 [facility] [id number] [place] [address] 84912- 0050 16 Jan, 2017 [facility] [id number] [place] [address] 675313- 1115 15 Jan, 2017 [facility] [id number] [place] [address] 89217- 4702 15 Jan, 2017 [facility] [address] [address]- [address] 14 Jan, 2017 Urinary frequency R35.0 and Opiate dependence, continuous F11.20 [facility] [address] [address] 10 Jan, 2017 Opiate dependence, continuous F11.20 ; 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 ; Benzodiazepine abuse F13.10 ; Alcohol dependence, binge pattern F10.20 and Marijuana abuse F12.10 [facility] [address] [place] [address] 08 Jan, 2017 [facility] [id number] [place] [address] 14106- 8645 08 Jan, 2017 Moderate episode of recurrent major depressive disorder F33.1 and Post-traumatic stress disorder, unspecified F43.10 [facility] [id number] [place] [address] 44664- 8668 08 Jan, 2017 [facility] [id number] [place] [address] 68318- 1005 07 Jan, 2017 Moderate episode of recurrent major depressive disorder F33.1 and Substance abuse withdrawal without complication F19.230 [facility] [id number] [place] [address] 18246- 4135 07 Jan, 2017 [facility] [address] 28186- 2573 14 Jun, 2014 [facility] [id number] [place] [address] 19392- 0834 13 Jun, 2014 [facility] [address] 17585- 5328 May, [facility] [address] [facility] [id number] [address] May, [facility] [address] [id number] [address] Apr, [facility] [address] [id number] [address] 0586 Apr, [facility] [address] [address] 8036 Apr, [facility] [address] [id number] [address] 7976 Apr, [facility] [address] [address]- 1226 Apr, [facility] [address] [address] 1806 Apr, [facility] [address] [address] 6[address] Dec, [facility] [id number] [address] Dec, [facility] [address] [id number] [id number] Nov, [facility] [address] [id number] [address] Sep, IMMUNIZATIONS No Known Immunizations SOCIAL HISTORY [...] Body Site Alcohol and/or drug services Apr 07, 2017 INSTRUCTIONS MEDICATIONS ADMINISTERED No Known Medications MEDICAL (GENERAL) HISTORY Type Description Date Medical History ADHD Medical History depression Medical History anxiety Surgical History tongue clipped as a child
--- OUTSIDE RECORDS SUMMARY | 2017-10-23 22:16 | XMS REPORT ---
Author Author SEHLLY ALVARZE Organization [facility] Address [address] 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 780992280 Problem Major depressive disorder, recurrent, moderate F33.1 Active 85647412 Problem Post-traumatic stress disorder, unspecified F43.10 Active [id number] ALLERGIES No Information ENCOUNTERS Encounter Location Date Diagnosis [facility] [address] [place] [address] Aug, [facility] [address] [address] Aug, [facility] [address] [place] [address] July, Opioid dependence, uncomplicated F11.20 and Methamphetamine abuse, 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 [facility] [address] [place] [address] July, Opioid dependence, uncomplicated F11.20 and Methamphetamine abuse, 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 [facility] [address] [place] [address] July, Opioid dependence, uncomplicated F11.20 and Methamphetamine abuse, 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 [facility] [address] [address] Jun, Opioid dependence, uncomplicated F11.20 [facility] [address] [place] [address] Jun, Opioid dependence, uncomplicated F11.20 and Methamphetamine abuse, 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 [facility] [id number] [place] [address] Jun, [facility] [id number] [place] [address] Jun, Moderate episode of recurrent major depressive disorder F33.1 ; Post-traumatic stress disorder, unspecified F43.10 and Opioid dependence , uncomplicated F11.20 [facility] [id number] [place] [address]50- [address]68 Jun, Opioid dependence, uncomplicated F11.20 [facility] [id number] [place] [address] 917663- [address] May, Opioid dependence, uncomplicated F11.20 [facility] [address] [id number] May, Opioid dependence, uncomplicated F11.20 and Methamphetamine abuse, 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 [facility] [id number] [place] [address] May, Opioid dependence, uncomplicated F11.20 [facility] [id number] [place] [address] May, Opioid dependence, uncomplicated F11.20 [facility] [address] [place] [address] May, Opioid dependence, uncomplicated F11.20 and Methamphetamine abuse, 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 [facility] [id number] [place] [address] May, Moderate episode of recurrent major depressive disorder F33.1 ; Post-traumatic stress disorder, unspecified F43.10 and Opioid dependence , uncomplicated F11.20 [facility] [id number] [place] [id number] May, [facility] [id number] [place] [address] Apr, Opioid dependence, uncomplicated F11.20 [facility] [address] [place] [address] Apr, Opioid dependence, uncomplicated F11.20 and Methamphetamine abuse, 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 [facility] [address] 3480[address] Apr, Opioid dependence, uncomplicated F11.20 [facility] [address] [address] Apr, Opioid dependence, uncomplicated F11.20 and Methamphetamine abuse, 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 [facility] [address] 348042- [address] Apr, Opioid dependence, uncomplicated F11.20 [facility] [address] [address] Apr, Opioid dependence, uncomplicated F11.20 [facility] [address] [address] Apr, Opioid dependence, uncomplicated F11.20 [facility] [address] [place] [address] Mar, Opioid dependence, uncomplicated F11.20 [facility] [address] [address] Mar, Opioid dependence, uncomplicated F11.20 [facility] [address] [id number] Mar, Opioid dependence, uncomplicated F11.20 [facility] [id number] [place] [address] 137[address] 2543 Mar, [facility] [address] [address] 254 Mar, Opioid dependence, uncomplicated F11.20 [facility] [address] [id number] [address]56 Mar, Opioid dependence, uncomplicated F11.20 [facility] [id number] [place] [address] Mar, Moderate episode of recurrent major depressive disorder F33.1 ; Post-traumatic stress disorder, unspecified F43.10 and Opioid dependence , uncomplicated F11.20 [facility] [id number] [place] [address] 35340 2546 02 Mar, 2017 Opioid dependence, uncomplicated F11.20 [facility] [id number] [place] [address] 35216 2546 28 Feb, 2017 Moderate episode of recurrent major depressive disorder F33.1 [facility] [address] [place] [address] 28 Feb, 2017 Opioid dependence, uncomplicated F11.20 [facility] [id number] [place] [address] 89316 2546 27 Feb, 2017 Opioid dependence, uncomplicated F11.20 [facility] [id number] [place] [address] 69341 2546 20 Feb, 2017 Opioid dependence, uncomplicated F11.20 [facility] [id number] [place] [address] 21986 2546 19 Feb, 2017 [facility] [id number] [place] [address] 34015 2546 18 Feb, 2017 [facility] [id number] [place] [address] 89926 2546 15 Feb, 2017 Moderate episode of recurrent major depressive disorder F33.1 [facility] [address] [place] [address] 14 Feb, 2017 Opioid dependence, uncomplicated F11.20 [facility] [id number] [place] [address] 86839 2546 14 Feb, 2017 [facility] [id number] [place] [address] 87410 2546 14 Feb, 2017 [facility] [id number] [place] [address] 01871 2546 14 Feb, 2017 [facility] [id number] [place] [address] 68608 2546 13 Feb, 2017 [facility] [id number] [place] [address] 80441- [address] Feb, [facility] [address] [address] Feb, Moderate episode of recurrent major depressive disorder F33.1 ; Post-traumatic stress disorder, unspecified F43.10 and Opioid dependence , uncomplicated F11.20 [facility] [address] [place] [address] 95623 2546 12 Feb, 2017 [facility] [id number] [place] [address] 32790 2546 Feb, [facility] [address] [place] [address] Feb, Opioid dependence, uncomplicated F11.20 [facility] [id number] [place] [address] 52787 2546 Feb, Moderate episode of recurrent major depressive disorder F33.1 [facility] [id number] [place] [address] 96658- 2[address] Feb, Opioid dependence, uncomplicated F11.20 [facility] [id number] [place] [address] 24420 2546 Feb, [facility] [id number] [place] [address] 09058 2546 Feb, [facility] [address] [place] [address] 13112 2546 Feb, [facility] [id number] [place] [address] 55287 2546 Feb, [facility] [id number] [place] [address] 36679 2546 Feb, [facility] [address] [place] [address] Feb, Opioid dependence, uncomplicated F11.20 [facility] [address] [address] 2546 Feb, [facility] [address] [place] [address] 44223 2546 Jan, Opioid dependence, uncomplicated F11.20 and Drug induced constipation K59.03 [facility] [id number] [place] [address] 54778- [address] Jan, [facility] [address] 913900- [address] Jan, Moderate episode of recurrent major depressive disorder F33.1 and Post-traumatic stress disorder, unspecified F43.10 [facility] [address] [place] [address] Jan, [facility] [address] [address] Jan, [facility] [address] [address] Jan, [facility] [address] [place] [address] Jan, [facility] [address] [place] [address] 32659- 4487 Jan, Opioid dependence, uncomplicated F11.20 ; Drug induced constipation K59.03 and Adverse effect of other opioids, initial encounter T40.2X5A [facility] [address] [place] [address] 38347- 0[address] Jan, [facility] [address] [address]- 1661 Jan, [facility] [address] [address]- [address] Jan, Opiate dependence, continuous F11.20 [facility] [address] [place] [address] Jan, Opiate dependence, continuous F11.20 ; 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 ; Benzodiazepine abuse F13.10 ; Alcohol dependence, binge pattern F10.20 and Marijuana abuse F12.10 [facility] [id number] [place] [address] 47408- 2763 Jan, [facility] [address] [place] [address] 23656- 3659 Jan, [facility] [id number] [place] [address] 28036- 3483 15 Jan, 2017 [facility] [id number] [place] [address] 76520- 2341 14 Jan, 2017 Urinary frequency R35.0 and Opiate dependence, continuous F11.20 [facility] [address] [place] [address] 10 Jan, 2017 Opiate dependence, continuous F11.20 ; 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 ; Benzodiazepine abuse F13.10 ; Alcohol dependence, binge pattern F10.20 and Marijuana abuse F12.10 [facility] [address] [place] [address] 08 Jan, 2017 [facility] [id number] [place] [address] 64376- 4[address] 08 Jan, 2017 Moderate episode of recurrent major depressive disorder F33.1 and Post-traumatic stress disorder, unspecified F43.10 [facility] [id number] [place] [address] 66390- 5490 08 Jan, 2017 [facility] [address] [address] 07 Jan, 2017 Moderate episode of recurrent major depressive disorder F33.1 and Substance abuse withdrawal without complication F19.230 [facility] [id number] [place] [address] 89444- 5402 07 Jan, 2017 [facility] [id number] [place] [address] 27434- 8603 Jun, [facility] [id number] [place] [address] 68600- 1738 Jun, [facility] [address] [address] May, [facility] [id number] [place] [address] 98058- 6580 May, [facility] [id number] [place] [address] 95050- 9777 Apr, [facility] [address] [facility] [id number] [address] Apr, [facility] [id number] [address] Apr, [facility] [id number] [address] 2546 Apr, [facility] [address] [id number] [address] 2546 Apr, [facility] [id number] [address] 2546 Apr, [facility] [address] [id number] [address] 25[address] Dec, [facility] [address] [id number] [address] Dec, [facility] [id number] [id number] Nov, [facility] [address] [facility] [id number] [address] Sep, IMMUNIZATIONS No Known Immunizations SOCIAL HISTORY Never Assessed REASON FOR VISIT Suboxone RX (02/10-02/23) PLAN OF CARE VITAL SIGNS MEDICATIONS Medication Instructions Dosage Frequency Start Date End Date Duration Status Suboxone 8-2 MG Sublingual Once a day 3 film under the tongue and allow to dissolve 24h Feb, 14 days Active RESULTS No Results PROCEDURES No Known procedures INSTRUCTIONS MEDICATIONS ADMINISTERED No Known Medications MEDICAL (GENERAL) HISTORY Type Description Date Medical History ADHD Medical History depression Medical History anxiety Surgical History tongue clipped as a child
--- OUTSIDE RECORDS SUMMARY | 2017-10-23 22:16 | XMS REPORT ---
Author Author SHELLY ALVAREZ Organization [facility] [place] Address [address] 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 813681652 Problem Major depressive disorder, recurrent, moderate F33.1 Active 24607383 Problem Post-traumatic stress disorder, unspecified F43.10 Active 49496546 ALLERGIES No Information ENCOUNTERS Encounter Location Date Diagnosis [facility] [address] [place] [address] Aug, [facility] [place] [address] [address] Aug, [facility] [address] [place] [address] July, Opioid dependence, uncomplicated F11.20 and Methamphetamine abuse, 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 [facility] [address] [place] [address] July, Opioid dependence, uncomplicated F11.20 and Methamphetamine abuse, 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 [facility] [address] [place] [address] July, Opioid dependence, uncomplicated F11.20 and Methamphetamine abuse, 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 [facility] [place] [address] [address] Jun, Opioid dependence, uncomplicated F11.20 [facility] [address] [place] [address] Jun, Opioid dependence, uncomplicated F11.20 and Methamphetamine abuse, 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 [facility] [id number] [place] [address] Jun, [facility] [place] [id number] [place], [place] [address] Jun, Moderate episode of recurrent major depressive disorder F33.1 ; Post-traumatic stress disorder, unspecified F43.10 and Opioid dependence , uncomplicated F11.20 [facility] [place] [id number] [place] [address] Jun, Opioid dependence, uncomplicated F11.20 [facility] [id number] [place] [address]235[address] May, Opioid dependence, uncomplicated F11.20 [facility] [address] [id number] May, Opioid dependence, uncomplicated F11.20 and Methamphetamine abuse, 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 [facility] [place] [id number] [place] [address]32[address] May, Opioid dependence, uncomplicated F11.20 [facility] [id number] [place] [address] May, Opioid dependence, uncomplicated F11.20 [facility] [address] [place] [address] May, Opioid dependence, uncomplicated F11.20 and Methamphetamine abuse, 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 [facility] [place] [id number] [place] [address] May, Moderate episode of recurrent major depressive disorder F33.1 ; Post-traumatic stress disorder, unspecified F43.10 and Opioid dependence , uncomplicated F11.20 [facility] [place] [id number] [place] [id number] May, [facility] [place] [id number] [place] [address] 10794[address] Apr, Opioid dependence, uncomplicated F11.20 [facility] [address] [place] [address] Apr, Opioid dependence, uncomplicated F11.20 and Methamphetamine abuse, 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 [facility] [address] [address] Apr, Opioid dependence, uncomplicated F11.20 [facility] [address] [address] Apr, Opioid dependence, uncomplicated F11.20 and Methamphetamine abuse, 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 [facility] [address] [address] Apr, Opioid dependence, uncomplicated F11.20 [facility] [address] [address] Apr, Opioid dependence, uncomplicated F11.20 [facility] [address] [address] Apr, Opioid dependence, uncomplicated F11.20 [facility] [address] [place] [address] Mar, Opioid dependence, uncomplicated F11.20 [facility] [address] [address] Mar, Opioid dependence, uncomplicated F11.20 [facility] [address] [id number] Mar, Opioid dependence, uncomplicated F11.20 [facility] [place] [id number] [place] [address] 2544 Mar, [facility] [place] [address] [address]48 Mar, Opioid dependence, uncomplicated F11.20 [facility] [place] [address] [id number] Mar, Opioid dependence, uncomplicated F11.20 [facility] [place] [id number] [place] [address] Mar, Moderate episode of recurrent major depressive disorder F33.1 ; Post-traumatic stress disorder, unspecified F43.10 and Opioid dependence , uncomplicated F11.20 [facility] [id number] [place] [address] 65269 2546 02 Mar, 2017 Opioid dependence, uncomplicated F11.20 [facility] [id number] [place] [address] 50048 2546 28 Feb, 2017 Moderate episode of recurrent major depressive disorder F33.1 [facility] [address] [place] [address] 28 Feb, 2017 Opioid dependence, uncomplicated F11.20 [facility] [id number] [place] [address] 67060 2546 27 Feb, 2017 Opioid dependence, uncomplicated F11.20 [facility] [id number] [place] [address] 50304 2546 20 Feb, 2017 Opioid dependence, uncomplicated F11.20 [facility] [id number] [place] [address] 96298 2546 19 Feb, 2017 [facility] [id number] [place] [address] 68894 2546 18 Feb, 2017 [facility] [id number] [place] [address] 40205 2546 15 Feb, 2017 Moderate episode of recurrent major depressive disorder F33.1 [facility] [address] [place] [address] 14 Feb, 2017 Opioid dependence, uncomplicated F11.20 [facility] [place] [id number] [place] [address] 47660 2546 14 Feb, 2017 [facility] [id number] [place] [address] 16367 2546 14 Feb, 2017 [facility] [id number] [place] [address] 73429 2546 14 Feb, 2017 [facility] [id number] [place] [address] 87512 2546 13 Feb, 2017 [facility] [place] [id number] [place] [address]66- [address] Feb, [facility] [place] [address] [address] Feb, Moderate episode of recurrent major depressive disorder F33.1 ; Post-traumatic stress disorder, unspecified F43.10 and Opioid dependence , uncomplicated F11.20 [facility] [place] [id number] [place] [address] 92051 2546 12 Feb, 2017 [facility] [place] [id number] [place] [address] 77497 2546 Feb, [facility] [address] [place] [address] Feb, Opioid dependence, uncomplicated F11.20 [facility] [place] [id number] [place] [address] 16301 2546 Feb, Moderate episode of recurrent major depressive disorder F33.1 [facility] [place] [id number] [place] [address]20- [address]6 Feb, Opioid dependence, uncomplicated F11.20 [facility] [place] [id number] [place] [address] 60930 2546 Feb, [facility] [place] [id number] [place] [address] 83155 2546 Feb, [facility] [place] [id number] [place] [address] 03108 2546 Feb, [facility] [place] [id number] [place] [address] 14625 2546 Feb, [facility] [place] [address] [place] [address] 75096 2546 Feb, [facility] [address] [place] [address] Feb, Opioid dependence, uncomplicated F11.20 [facility] [place] [address] [address] 2546 Feb, [facility] [place] [address] [place] [address] 60778 2546 Jan, Opioid dependence, uncomplicated F11.20 and Drug induced constipation K59.03 [facility] [place] [id number] [place] [address]32- 7407 Jan, [facility] [place] [address] 158106- 6180 Jan, Moderate episode of recurrent major depressive disorder F33.1 and Post-traumatic stress disorder, unspecified F43.10 [facility] [address] [place] [address] Jan, [facility] [address] [address] Jan, [facility] [place] [address] [address] Jan, [facility] [address] [place] [address] Jan, [facility] [place] [address] [place] [address] Jan, Opioid dependence, uncomplicated F11.20 ; Drug induced constipation K59.03 and Adverse effect of other opioids, initial encounter T40.2X5A [facility] [place] [address] [place] [address]- [address] Jan, [facility] [place] [address] [address] Jan, [facility] [place] [address] [address] Jan, Opiate dependence, continuous F11.20 [facility] [address] [place] [address] Jan, Opiate dependence, continuous F11.20 ; 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 ; Benzodiazepine abuse F13.10 ; Alcohol dependence, binge pattern F10.20 and Marijuana abuse F12.10 [facility] [place] [id number] [place] [address] 27252- 80[address] Jan, [facility] [place] [address] [place] [address]259[address] 26[address] Jan, [facility] [place] [id number] [place] [address] 66841- 7[address] 15 Jan, 2017 [facility] [place] [id number] [place] [address] 25796- 5765 14 Jan, 2017 Urinary frequency R35.0 and Opiate dependence, continuous F11.20 [facility] [address] [place] [address] 10 Jan, 2017 Opiate dependence, continuous F11.20 ; 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 ; Benzodiazepine abuse F13.10 ; Alcohol dependence, binge pattern F10.20 and Marijuana abuse F12.10 [facility] [address] [place] [address] 08 Jan, 2017 [facility] [place] [id number] [place] [address]444- [address] 08 Jan, 2017 Moderate episode of recurrent major depressive disorder F33.1 and Post-traumatic stress disorder, unspecified F43.10 [facility] [place] [id number] [place] [address]164- [address] 08 Jan, 2017 [facility] [place] [address] [address] 07 Jan, 2017 Moderate episode of recurrent major depressive disorder F33.1 and Substance abuse withdrawal without complication F19.230 [facility] [place] [id number] [place] [address] 15161- 0562 07 Jan, 2017 [facility] [place] [id number] [place] [address] 67796- 6679 Jun, [facility] [place] [id number] [place] [address] 09630- 4983 Jun, [facility] [place] [address] [address] May, [facility] [place] [id number] [place] [address] 43078- 0115 May, [facility] [place] [id number] [place] [address] 84666- 1105 Apr, [facility] [place] [address] [facility] [id number] [address] Apr, [facility] [place] [id number] [address] Apr, [facility] [place] [id number] [address] 2546 Apr, [facility] [place] [id number] [address]46 Apr, [facility] [place] [id number] [address]46 Apr, [facility] [place] [id number] [address] Dec, [facility] [place] [id number] [address] Dec, [facility] [address] [id number] [id number] Nov, [facility] [place] [address] [facility] [id number] [address] Sep, IMMUNIZATIONS No Known Immunizations SOCIAL HISTORY Never Assessed REASON FOR VISIT rx refill-zoloft PLAN OF CARE VITAL SIGNS MEDICATIONS Medication Instructions Dosage Frequency Start Date End Date Duration Status Zoloft 100 mg Orally Once a day 1 tablet 24h Feb, 30 day(s) Active RESULTS No Results PROCEDURES No Known procedures INSTRUCTIONS MEDICATIONS ADMINISTERED No Known Medications MEDICAL (GENERAL) HISTORY Type Description Date Medical History ADHD Medical History depression Medical History anxiety Surgical History tongue clipped as a child
--- OUTSIDE RECORDS SUMMARY | 2017-10-23 22:16 | XMS REPORT ---
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 934385595 Problem Major depressive disorder, recurrent, moderate F33.1 Active 15455545 Problem Post-traumatic stress disorder, unspecified F43.10 Active 21599412 ALLERGIES No Information ENCOUNTERS Encounter Location Date Diagnosis [facility] [address] [place] [address] Aug, [facility] [address] [place] [id number] [place] [address] Aug, [facility] [address] [place] [address] July, Opioid dependence, uncomplicated F11.20 and Methamphetamine abuse, 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 [facility] [address] [place] [address] July, Opioid dependence, uncomplicated F11.20 and Methamphetamine abuse, 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 [facility] [address] [place] [address] July, Opioid dependence, uncomplicated F11.20 and Methamphetamine abuse, 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 [facility] [id number] [place] [address]277[address] Jun, Opioid dependence, uncomplicated F11.20 [facility] [address] [place] [address] Jun, Opioid dependence, uncomplicated F11.20 and Methamphetamine abuse, 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 [facility] [id number] [place] [id number] Jun, [facility] [address] [address]364[address]- [address] Jun, Moderate episode of recurrent major depressive disorder F33.1 ; Post-traumatic stress disorder, unspecified F43.10 and Opioid dependence , uncomplicated F11.20 [facility] [address] [address] Jun, Opioid dependence, uncomplicated F11.20 [facility] [address] 253640- [address] May, Opioid dependence, uncomplicated F11.20 [facility] [address] [place] [address] May, Opioid dependence, uncomplicated F11.20 and Methamphetamine abuse, 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 [facility] [id number] [place] [address]36- 3686 May, Opioid dependence, uncomplicated F11.20 [facility] [id number] [place] [address] 975543- 3328 May, Opioid dependence, uncomplicated F11.20 [facility] [address] [place] [address] May, Opioid dependence, uncomplicated F11.20 and Methamphetamine abuse, 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 [facility] [id number] [place] [address] 35258[address] 8[address] May, Moderate episode of recurrent major depressive disorder F33.1 ; Post-traumatic stress disorder, unspecified F43.10 and Opioid dependence , uncomplicated F11.20 [facility] [id number] [place] [id number] May, [facility] [id number] [place] [address] 13661- 2496 Apr, Opioid dependence, uncomplicated F11.20 [facility] [address] [id number] Apr, Opioid dependence, uncomplicated F11.20 and Methamphetamine abuse, 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 [facility] [address] 25364[address] 2546 Apr, Opioid dependence, uncomplicated F11.20 [facility] [address] [place] [address] Apr, Opioid dependence, uncomplicated F11.20 and Methamphetamine abuse, 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 [facility] [address] 253642- [address]886 Apr, Opioid dependence, uncomplicated F11.20 [facility] [address] [address] Apr, Opioid dependence, uncomplicated F11.20 [facility] [address] [address] Apr, Opioid dependence, uncomplicated F11.20 [facility] [address] [place] [address] Mar, Opioid dependence, uncomplicated F11.20 [facility] [address] [address] Mar, Opioid dependence, uncomplicated F11.20 [facility] [id number] [place] [address] 83279 2546 Mar, Opioid dependence, uncomplicated F11.20 [facility] [id number] [place] [address] 88260- 6496 Mar, [facility] [id number] [place] [address] 31393 2546 Mar, Opioid dependence, uncomplicated F11.20 [facility] [address] [address]67 2546 Mar, Opioid dependence, uncomplicated F11.20 [facility] [id number] [place] [address] 87369- 3866 Mar, Moderate episode of recurrent major depressive disorder F33.1 ; Post-traumatic stress disorder, unspecified F43.10 and Opioid dependence , uncomplicated F11.20 [facility] [id number] [place] [address] 25165 2546 02 Mar, 2017 Opioid dependence, uncomplicated F11.20 [facility] [id number] [place] [address] 90097 2546 28 Feb, 2017 Moderate episode of recurrent major depressive disorder F33.1 [facility] [address] [place] [address] 28 Feb, 2017 Opioid dependence, uncomplicated F11.20 [facility] [id number] [place] [address] 39508 2546 27 Feb, 2017 Opioid dependence, uncomplicated F11.20 [facility] [id number] [place] [address] 54889 2546 20 Feb, 2017 Opioid dependence, uncomplicated F11.20 [facility] [id number] [place] [address] 16881 2546 19 Feb, 2017 [facility] [id number] [place] [address] 80477 2546 18 Feb, 2017 [facility] [id number] [place] [address] 32300 2546 15 Feb, 2017 Moderate episode of recurrent major depressive disorder F33.1 [facility] [address] [place] [address] 14 Feb, 2017 Opioid dependence, uncomplicated F11.20 [facility] [id number] [place] [address] 71651 2546 14 Feb, 2017 [facility] [id number] [place] [address] 12342 2546 14 Feb, 2017 [facility] [place] [id number] [place] [address] 98579 2546 14 Feb, 2017 [facility] [place] [id number] [place] [address] 78725 2546 13 Feb, 2017 [facility] [place] [id number] [place] [address] 06349- 2546 Feb, [facility] [id number] [place] [address] 42364- 6426 Feb, Moderate episode of recurrent major depressive disorder F33.1 ; Post-traumatic stress disorder, unspecified F43.10 and Opioid dependence , uncomplicated F11.20 [facility] [id number] [place] [address] 52483- 8926 12 Feb, 2017 [facility] [id number] [place] [address] 19521 2546 Feb, [facility] [address] [place] [address] Feb, Opioid dependence, uncomplicated F11.20 [facility] [id number] [place] [address] 15166- 4296 Feb, Moderate episode of recurrent major depressive disorder F33.1 [facility] [id number] [place] [address] 45482- 7346 07 Feb, 2017 Opioid dependence, uncomplicated F11.20 [facility] [id number] [place] [address] 63919 2546 Feb, [facility] [id number] [place] [address] 45018 2546 Feb, [facility] [address] [place] [address] 44377 2546 Feb, [facility] [id number] [place] [address] 57824 2546 Feb, [facility] [id number] [place] [address] 29655 2546 Feb, [facility] [address] [place] [address] Feb, Opioid dependence, uncomplicated F11.20 [facility] [id number] [place] [address] 15578 2546 Feb, [facility] [id number] [place] [address] 05836761- 5673 Jan, Opioid dependence, uncomplicated F11.20 and Drug induced constipation K59.03 [facility] [id number] [place] [address] 26398- 8112 Jan, [facility] [address] [id number]- 1120 Jan, Moderate episode of recurrent major depressive disorder F33.1 and Post-traumatic stress disorder, unspecified F43.10 [facility] [address] [id number] Jan, [facility] [address] [address]- 1724 Jan, [facility] [address] 69214- 2926 Jan, [facility] [address] [place] [address] Jan, [facility] [address] [place] [address] 25152- 8234 Jan, Opioid dependence, uncomplicated F11.20 ; Drug induced constipation K59.03 and Adverse effect of other opioids, initial encounter T40.2X5A [facility] [address] [place] [address] 90600- 6850 Jan, [facility] [address] 46226- 2173 Jan, [facility] [address] [address]- 1362 Jan, Opiate dependence, continuous F11.20 [facility] [address] [place] [address] Jan, Opiate dependence, continuous F11.20 ; 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 ; Benzodiazepine abuse F13.10 ; Alcohol dependence, binge pattern F10.20 and Marijuana abuse F12.10 [facility] [id number] [place] [address] 90230- 9777 Jan, [facility] [address] 06132- 8558 15 Jan, 2017 [facility] [id number] [place] [address] 44203- 8843 15 Jan, 2017 [facility] [address] 055251- 5584 14 Jan, 2017 Urinary frequency R35.0 and Opiate dependence, continuous F11.20 [facility] [address] [place] [address] Jan, Opiate dependence, continuous F11.20 ; 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 ; Benzodiazepine abuse F13.10 ; Alcohol dependence, binge pattern F10.20 and Marijuana abuse F12.10 [facility] [address] [place] [address] 08 Jan, 2017 [facility] [address] 50[address]- 3696 08 Jan, 2017 Moderate episode of recurrent major depressive disorder F33.1 and Post-traumatic stress disorder, unspecified F43.10 [facility] [id number] [place] [address] 84639- 8251 08 Jan, 2017 [facility] [address] [address]- 1995 07 Jan, 2017 Moderate episode of recurrent major depressive disorder F33.1 and Substance abuse withdrawal without complication F19.230 [facility] [id number] [place] [address] 05316- 0318 Jan, [facility] [id number] [place] [address] 93661- 7488 Jun, [facility] [id number] [place] [address] 38581- 2578 Jun, [facility] [address] 45073- 5703 May, [facility] [id number] [place] [address] 81316- 0751 May, [facility] [address] 32589- 5749 Apr, [facility] [address] [facility] [id number] [address] 49[address] Apr, [facility] [address] [facility] [id number] [address]- 2546 Apr, [facility] [address] [id number] [address]- 2546 Apr, [facility] [address] [id number] [address]- 2546 Apr, [facility] [address] [id number] [address] 2546 Apr, [facility] [address] [address]- 6426 Dec, [facility] [address] [id number] [address]- 9916 Dec, [place] [id number] [id number] Nov, [facility] [address] [facility] [id number] [address]6 Sep, IMMUNIZATIONS No Known Immunizations SOCIAL HISTORY Never Assessed REASON FOR VISIT f/u PLAN OF CARE Activity Details Follow Up Next available Reason: VITAL SIGNS MEDICATIONS Unknown Medications RESULTS No Results PROCEDURES Procedure Date Ordered Result Body Site Psychotherapy, patient &/family, 30 minutes, established patient Mar 08, 2017 INSTRUCTIONS MEDICATIONS ADMINISTERED No Known Medications MEDICAL (GENERAL) HISTORY Type Description Date Medical History ADHD Medical History depression Medical History anxiety Surgical History tongue clipped as a child
--- OUTSIDE RECORDS SUMMARY | 2017-10-23 22:16 | XMS REPORT ---
Author Author SHELLY ALVAREZ Organization [facility] Address [address] 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 292512106 Problem Major depressive disorder, recurrent, moderate F33.1 Active 56396279 Problem Post-traumatic stress disorder, unspecified F43.10 Active 66806898 ALLERGIES No Information ENCOUNTERS Encounter Location Date Diagnosis [facility] [address] [place] [address] Aug, [facility] [address] [address] Aug, [facility] [address] [place] [address] July, Opioid dependence, uncomplicated F11.20 and Methamphetamine abuse, 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 [facility] [address] [place] [address] July, Opioid dependence, uncomplicated F11.20 and Methamphetamine abuse, 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 [facility] [address] [place] [address] July, Opioid dependence, uncomplicated F11.20 and Methamphetamine abuse, 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 [facility] [address] [address] Jun, Opioid dependence, uncomplicated F11.20 [facility] [address] [place] [address] Jun, Opioid dependence, uncomplicated F11.20 and Methamphetamine abuse, 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 [facility] [id number] [place] [address] Jun, [facility] [id number] [place], [place] [address] Jun, Moderate episode of recurrent major depressive disorder F33.1 ; Post-traumatic stress disorder, unspecified F43.10 and Opioid dependence , uncomplicated F11.20 [facility] [id number] [place] [address] Jun, Opioid dependence, uncomplicated F11.20 [facility] [id number] [place] [address]676[address] May, Opioid dependence, uncomplicated F11.20 [facility] [address] [id number] May, Opioid dependence, uncomplicated F11.20 and Methamphetamine abuse, 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 [facility] [id number] [place] [address] May, Opioid dependence, uncomplicated F11.20 [facility] [id number] [place] [address]67[address] May, Opioid dependence, uncomplicated F11.20 [facility] [address] [place] [address] May, Opioid dependence, uncomplicated F11.20 and Methamphetamine abuse, 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 [facility] [id number] [place] [address] May, Moderate episode of recurrent major depressive disorder F33.1 ; Post-traumatic stress disorder, unspecified F43.10 and Opioid dependence , uncomplicated F11.20 [facility] [id number] [place] [id number] May, [facility] [id number] [place] [address] Apr, Opioid dependence, uncomplicated F11.20 [facility] [address] [place] [address] Apr, Opioid dependence, uncomplicated F11.20 and Methamphetamine abuse, 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 [facility] [address] [address] Apr, Opioid dependence, uncomplicated F11.20 [facility] [address] [address] Apr, Opioid dependence, uncomplicated F11.20 and Methamphetamine abuse, 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 [facility] [address] 684732- [address] Apr, Opioid dependence, uncomplicated F11.20 [facility] [address] [address] Apr, Opioid dependence, uncomplicated F11.20 [facility] [address] [address] Apr, Opioid dependence, uncomplicated F11.20 [facility] [address] [place] [address] Mar, Opioid dependence, uncomplicated F11.20 [facility] [address] [address] Mar, Opioid dependence, uncomplicated F11.20 [facility] [address] [id number]- [address] Mar, Opioid dependence, uncomplicated F11.20 [facility] [id number] [place] [address] 35629 2543 Mar, [facility] [address] [address] Mar, Opioid dependence, uncomplicated F11.20 [facility] [address] [id number]- [address] Mar, Opioid dependence, uncomplicated F11.20 [facility] [id number] [place] [address] 18149[address] Mar, Moderate episode of recurrent major depressive disorder F33.1 ; Post-traumatic stress disorder, unspecified F43.10 and Opioid dependence , uncomplicated F11.20 [facility] [id number] [place] [address] 41957 2546 02 Mar, 2017 Opioid dependence, uncomplicated F11.20 [facility] [id number] [place] [address] 12596 2546 28 Feb, 2017 Moderate episode of recurrent major depressive disorder F33.1 [facility] [address] [place] [address] 28 Feb, 2017 Opioid dependence, uncomplicated F11.20 [facility] [id number] [place] [address] 06720 2546 27 Feb, 2017 Opioid dependence, uncomplicated F11.20 [facility] [id number] [place] [address] 01821 2546 20 Feb, 2017 Opioid dependence, uncomplicated F11.20 [facility] [id number] [place] [address] 65090 2546 19 Feb, 2017 [facility] [id number] [place] [address] 16660 2546 18 Feb, 2017 [facility] [id number] [place] [address] 69583 2546 15 Feb, 2017 Moderate episode of recurrent major depressive disorder F33.1 [facility] [address] [place] [address] 14 Feb, 2017 Opioid dependence, uncomplicated F11.20 [facility] [id number] [place] [address] 06182 2546 14 Feb, 2017 [facility] [id number] [place] [address] 16097 2546 14 Feb, 2017 [facility] [id number] [place] [address] 93363 2546 14 Feb, 2017 [facility] [id number] [place] [address] 47218 2546 13 Feb, 2017 [facility] [id number] [place] [address] 17270- 25[address] Feb, [facility] [address] [address] Feb, Moderate episode of recurrent major depressive disorder F33.1 ; Post-traumatic stress disorder, unspecified F43.10 and Opioid dependence , uncomplicated F11.20 [facility] [address] [place] [address] 87739 2546 12 Feb, 2017 [facility] [id number] [place] [address] 70285 2546 Feb, [facility] [address] [place] [address] Feb, Opioid dependence, uncomplicated F11.20 [facility] [id number] [place] [address] 69032 2546 Feb, Moderate episode of recurrent major depressive disorder F33.1 [facility] [id number] [place] [address] 18354- 5[address] Feb, Opioid dependence, uncomplicated F11.20 [facility] [id number] [place] [address] 73583 2546 Feb, [facility] [id number] [place] [address] 25946 2546 Feb, [facility] [address] [place] [address] 04365 2546 Feb, [facility] [id number] [place] [address] 25538 2546 Feb, [facility] [address] [place] [address] 68144 2546 Feb, [facility] [address] [place] [address] Feb, Opioid dependence, uncomplicated F11.20 [facility] [address] [address] 2546 Feb, [facility] [address] [place] [address] 85745 2546 Jan, Opioid dependence, uncomplicated F11.20 and Drug induced constipation K59.03 [facility] [id number] [place] [address] 46303- 7[address] Jan, [facility] [address] [address]654- [address] Jan, Moderate episode of recurrent major depressive disorder F33.1 and Post-traumatic stress disorder, unspecified F43.10 [facility] [address] [place] [address] Jan, [facility] [address] [address] Jan, [facility] [address] [address] Jan, [facility] [address] [place] [address] Jan, [facility] [address] [place] [address]- [address] Jan, Opioid dependence, uncomplicated F11.20 ; Drug induced constipation K59.03 and Adverse effect of other opioids, initial encounter T40.2X5A [facility] [address] [place] [address] 10954- 7131 Jan, [facility] [address] [address] Jan, [facility] [address] [address] Jan, Opiate dependence, continuous F11.20 [facility] [address] [place] [address] Jan, Opiate dependence, continuous F11.20 ; 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 ; Benzodiazepine abuse F13.10 ; Alcohol dependence, binge pattern F10.20 and Marijuana abuse F12.10 [facility] [id number] [place] [address] 94042- 7208 Jan, [facility] [address] [place] [address] 05918- 4188 Jan, [facility] [id number] [place] [address] 83312- 0062 15 Jan, 2017 [facility] [id number] [place] [address] 53261- 7346 14 Jan, 2017 Urinary frequency R35.0 and Opiate dependence, continuous F11.20 [facility] [address] [place] [address] 10 Jan, 2017 Opiate dependence, continuous F11.20 ; 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 ; Benzodiazepine abuse F13.10 ; Alcohol dependence, binge pattern F10.20 and Marijuana abuse F12.10 [facility] [address] [place] [address] 08 Jan, 2017 [facility] [id number] [place] [address] 51302- 1565 08 Jan, 2017 Moderate episode of recurrent major depressive disorder F33.1 and Post-traumatic stress disorder, unspecified F43.10 [facility] [id number] [place] [address] 93620- 7228 08 Jan, 2017 [facility] [address] [address] 07 Jan, 2017 Moderate episode of recurrent major depressive disorder F33.1 and Substance abuse withdrawal without complication F19.230 [facility] [id number] [place] [address] 02131- 6440 07 Jan, 2017 [facility] [id number] [place] [address] 27255- 2539 Jun, [facility] [id number] [place] [address] 33194- 0516 Jun, [facility] [address] [address]- [address] May, [facility] [id number] [place] [address] 09674- 1405 May, [facility] [id number] [place] [address] 80181- 5946 Apr, [facility] [address] [facility] [id number] [address] Apr, [facility] [id number], [place] [address] Apr, [facility] [id number], [place] [address] 25[address] Apr, [facility] [id number] [address] 25[address] Apr, [facility] [id number], [place] [address]- 2546 Apr, [facility] [id number], [place] [address] 2546 Dec, [facility] [id number], [place] [address] Dec, [id number] [id number] Nov, [facility] [address] [facility] [id number] [address] Sep, IMMUNIZATIONS No Known Immunizations SOCIAL HISTORY Never Assessed REASON FOR VISIT med dispense PLAN OF CARE VITAL SIGNS MEDICATIONS Medication Instructions Dosage Frequency Start Date End Date Duration Status Zoloft 50 mg Orally Once a day. Please voucher 2 tablets Jan, 30 day(s) Active RESULTS No Results PROCEDURES No Known procedures INSTRUCTIONS MEDICATIONS ADMINISTERED No Known Medications MEDICAL (GENERAL) HISTORY Type Description Date Medical History ADHD Medical History depression Medical History anxiety Surgical History tongue clipped as a child
--- OUTSIDE RECORDS SUMMARY | 2017-10-23 22:17 | XMS REPORT ---
Author Author SHELLY ALVAREZ Organization [facility] Address [address] 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 374484339 Problem Major depressive disorder, recurrent, moderate F33.1 Active 89660413 Problem Post-traumatic stress disorder, unspecified F43.10 Active 12416570 ALLERGIES No Information ENCOUNTERS Encounter Location Date Diagnosis [facility] [address] [place] [address] Aug, [facility] [address] [address] Aug, [facility] [address] [place] [address] July, Opioid dependence, uncomplicated F11.20 and Methamphetamine abuse, 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 [facility] [address] [place] [address] July, Opioid dependence, uncomplicated F11.20 and Methamphetamine abuse, 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 [facility] [address] [place] [address] July, Opioid dependence, uncomplicated F11.20 and Methamphetamine abuse, 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 [facility] [address] [address] Jun, Opioid dependence, uncomplicated F11.20 [facility] [address] [place] [address] Jun, Opioid dependence, uncomplicated F11.20 and Methamphetamine abuse, 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 [facility] [id number] [place] [address] Jun, [facility] [id number] [place] [address] Jun, Moderate episode of recurrent major depressive disorder F33.1 ; Post-traumatic stress disorder, unspecified F43.10 and Opioid dependence , uncomplicated F11.20 [facility] [id number] [place] [address] Jun, Opioid dependence, uncomplicated F11.20 [facility] [id number] [place] [address] 211434- [address] May, Opioid dependence, uncomplicated F11.20 [facility] [address] [id number] May, Opioid dependence, uncomplicated F11.20 and Methamphetamine abuse, 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 [facility] [id number] [place] [address] May, Opioid dependence, uncomplicated F11.20 [facility] [id number] [place] [address] May, Opioid dependence, uncomplicated F11.20 [facility] [address] [place] [address] May, Opioid dependence, uncomplicated F11.20 and Methamphetamine abuse, 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 [facility] [id number] [place] [address] May, Moderate episode of recurrent major depressive disorder F33.1 ; Post-traumatic stress disorder, unspecified F43.10 and Opioid dependence , uncomplicated F11.20 [facility] [id number] [place] [id number] May, [facility] [id number] [place] [address]47[address] Apr, Opioid dependence, uncomplicated F11.20 [facility] [address] [place] [address] Apr, Opioid dependence, uncomplicated F11.20 and Methamphetamine abuse, 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 [facility] [address] 3038[address] Apr, Opioid dependence, uncomplicated F11.20 [facility] [address] [address] Apr, Opioid dependence, uncomplicated F11.20 and Methamphetamine abuse, 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 [facility] [address] 303832[address] Apr, Opioid dependence, uncomplicated F11.20 [facility] [address] [address] Apr, Opioid dependence, uncomplicated F11.20 [facility] [address] [address] Apr, Opioid dependence, uncomplicated F11.20 [facility] [address] [place] [address] Mar, Opioid dependence, uncomplicated F11.20 [facility] [address] [address] Mar, Opioid dependence, uncomplicated F11.20 [facility] [address] [id number]- [address] Mar, Opioid dependence, uncomplicated F11.20 [facility] [id number] [place] [address] 2542 Mar, [facility] [address] [address] Mar, Opioid dependence, uncomplicated F11.20 [facility] [address] [id number]- [address] Mar, Opioid dependence, uncomplicated F11.20 [facility] [id number] [place] [address] 59[address] Mar, Moderate episode of recurrent major depressive disorder F33.1 ; Post-traumatic stress disorder, unspecified F43.10 and Opioid dependence , uncomplicated F11.20 [facility] [id number] [place] [address] 18637 2546 02 Mar, 2017 Opioid dependence, uncomplicated F11.20 [facility] [id number] [place] [address] 03366 2546 28 Feb, 2017 Moderate episode of recurrent major depressive disorder F33.1 [facility] [address] [place] [address] 28 Feb, 2017 Opioid dependence, uncomplicated F11.20 [facility] [id number] [place] [address]37 2546 27 Feb, 2017 Opioid dependence, uncomplicated F11.20 [facility] [id number] [place] [address] 09141 2546 20 Feb, 2017 Opioid dependence, uncomplicated F11.20 [facility] [id number] [place] [address] 39628 2546 19 Feb, 2017 [facility] [id number] [place] [address] 72338 2546 18 Feb, 2017 [facility] [id number] [place] [address] 05519 2546 15 Feb, 2017 Moderate episode of recurrent major depressive disorder F33.1 [facility] [address] [place] [address] 14 Feb, 2017 Opioid dependence, uncomplicated F11.20 [facility] [id number] [place] [address] 91064 2546 14 Feb, 2017 [facility] [id number] [place] [address] 57181 2546 14 Feb, 2017 [facility] [id number] [place] [address] 75934 2546 14 Feb, 2017 [facility] [id number] [place] [address] 10995 2546 13 Feb, 2017 [facility] [id number] [place] [address]16- [address] Feb, [facility] [address] [address] Feb, Moderate episode of recurrent major depressive disorder F33.1 ; Post-traumatic stress disorder, unspecified F43.10 and Opioid dependence , uncomplicated F11.20 [facility] [address] [place] [address] 50992 2546 12 Feb, 2017 [facility] [id number] [place] [address] 16217 2546 Feb, [facility] [address] [place] [address] Feb, Opioid dependence, uncomplicated F11.20 [facility] [id number] [place] [address] 16125 2546 Feb, Moderate episode of recurrent major depressive disorder F33.1 [facility] [id number] [place] [address] Feb, Opioid dependence, uncomplicated F11.20 [facility] [id number] [place] [address] 69206 2546 Feb, [facility] [id number] [place] [address] 93341 2546 Feb, [facility] [address] [place] [address] 70493 2546 Feb, [facility] [id number] [place] [address] 92366 2546 Feb, [facility] [address] [place] [address] 72665 2546 Feb, [facility] [address] [place] [address] Feb, Opioid dependence, uncomplicated F11.20 [facility] [address], [place] [address] 2546 Feb, [facility] [address] [place] [address] 79278 2546 Jan, Opioid dependence, uncomplicated F11.20 and Drug induced constipation K59.03 [facility] [id number] [place] [address]110[address]- 28[address] Jan, [facility] [address] 378428- [address] Jan, Moderate episode of recurrent major depressive disorder F33.1 and Post-traumatic stress disorder, unspecified F43.10 [facility] [address] [place] [address] Jan, [facility] [address] [address] Jan, [facility] [address] [address] Jan, [facility] [address] [place] [address] Jan, [facility] [address] [place] [address] Jan, Opioid dependence, uncomplicated F11.20 ; Drug induced constipation K59.03 and Adverse effect of other opioids, initial encounter T40.2X5A [facility] [address] [place] [address] 73025- 3[address] Jan, [facility] [address] [address] Jan, [facility] [address] [address] Jan, Opiate dependence, continuous F11.20 [facility] [address] [place] [address] Jan, Opiate dependence, continuous F11.20 ; 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 ; Benzodiazepine abuse F13.10 ; Alcohol dependence, binge pattern F10.20 and Marijuana abuse F12.10 [facility] [id number] [place] [address] 13776- 3116 Jan, [facility] [address] [place] [address] 26401- 5211 Jan, [facility] [id number] [place] [address] 99771- 7256 15 Jan, 2017 [facility] [id number] [place] [address] 80633- 4993 14 Jan, 2017 Urinary frequency R35.0 and Opiate dependence, continuous F11.20 [facility] [address] [place] [address] 10 Jan, 2017 Opiate dependence, continuous F11.20 ; 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 ; Benzodiazepine abuse F13.10 ; Alcohol dependence, binge pattern F10.20 and Marijuana abuse F12.10 [facility] [address] [place] [address] 08 Jan, 2017 [facility] [id number] [place] [address] 76471- 9573 08 Jan, 2017 Moderate episode of recurrent major depressive disorder F33.1 and Post-traumatic stress disorder, unspecified F43.10 [facility] [id number] [place] [address] 00584- 6705 08 Jan, 2017 [facility] [address] [address] 07 Jan, 2017 Moderate episode of recurrent major depressive disorder F33.1 and Substance abuse withdrawal without complication F19.230 [facility] [id number] [place] [address] 58553- 7191 07 Jan, 2017 [facility] [id number] [place] [address] 91542- 7255 Jun, [facility] [id number] [place] [address] 71601- 1269 Jun, [facility] [address] [address]- [address] May, [facility] [id number] [place] [address] 82406- 1695 May, [facility] [id number] [place] [address] 67479- 3[address] Apr, [facility] [address] [facility] [id number] [address] Apr, [facility] [id number] [address] 2546 Apr, [facility] [address] [id number], [place] [address] 2546 Apr, [facility] [address], [place] [address] 25[address] Apr, [facility] [id number], [place] [address] 2546 Apr, [facility] [address], [place] [address] 2546 Dec, [facility] [address] [id number], [place] [address] 2546 Dec, [facility] [address] [id number] [id number] Nov, [facility] [address] [facility] [id number] [address] 2546 Sep, IMMUNIZATIONS No Known Immunizations SOCIAL [...]
--- OUTSIDE RECORDS SUMMARY | 2017-10-23 22:17 | XMS REPORT ---
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 412102929 Problem Dysthymia F34.1 Active 17124357 Problem Drug induced constipation K59.03 Active 60303930 Problem Post-traumatic stress disorder, unspecified F43.10 Active 73317772 Problem Alcohol dependence, binge pattern F10.20 Active 798480317 Problem Opioid dependence, uncomplicated F11.20 Active 19731088 Problem Major depressive disorder, recurrent, moderate F33.1 Active 82241991 ALLERGIES No Information ENCOUNTERS Encounter Location Date Diagnosis [facility] [address] [place] [address] Aug, [facility] [id number] [place] [address] Aug, Acute pain of right wrist M25.531 ; Dysthymia F34.1 ; Screening for hyperlipidemia Z13.220 ; Screening for diabetes mellitus Z13.1 and Screening for other and unspecified deficiency anemia Z13.0 [facility] [id number] [place] [address] Aug, [facility] [address] [place] [address] July, Opioid dependence, uncomplicated F11.20 and Methamphetamine abuse, 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 [facility] [address] [place] [address] July, Opioid dependence, uncomplicated F11.20 and Methamphetamine abuse, 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 [facility] [address] [place] [address] July, Opioid dependence, uncomplicated F11.20 and Methamphetamine abuse, 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 [facility] [place] [id number] [place] [address] 890733- 6036 Jun, Opioid dependence, uncomplicated F11.20 [facility] [address] [place] [address] Jun, Opioid dependence, uncomplicated F11.20 and Methamphetamine abuse, 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20 [facility] [id number] [place] [address] 87129- 2222 May, Opioid dependence, uncomplicated F11.20 [facility] [address] [place] [address] May, Opioid dependence, uncomplicated F11.20 and Methamphetamine abuse, 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 [facility] [place] [id number] [place] [address] 38019- 0781 May, Opioid dependence, uncomplicated F11.20 [facility] [id number] [place] [address] 42372- 6913 May, Opioid dependence, uncomplicated F11.20 [facility] [address] [place] [address] May, Opioid dependence, uncomplicated F11.20 and Methamphetamine abuse, 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 [facility] [place] [id number] [place] [address] 69974- 7961 May, Moderate episode of recurrent major depressive disorder F33.1 ; Post-traumatic stress disorder, unspecified F43.10 and Opioid dependence , uncomplicated F11.20 [facility] [id number] [place] [address] 87261 2546 May, [facility] [id number] [place] [address] 69769 2546 Apr, Opioid dependence, uncomplicated F11.20 [facility] [address] [place] [address] Apr, Opioid dependence, uncomplicated F11.20 and Methamphetamine abuse, 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 [facility] [id number] [place] [address] 37455 2546 Apr, Opioid dependence, uncomplicated F11.20 [facility] [address] [address] Apr, Opioid dependence, uncomplicated F11.20 and Methamphetamine abuse, 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 [facility] [address] [address] 8736 Apr, Opioid dependence, uncomplicated F11.20 [facility] [address] [place] [address] Apr, Opioid dependence, uncomplicated F11.20 [facility] [address] [address] 2546 Apr, Opioid dependence, uncomplicated F11.20 [facility] [address] [place] [address] Mar, Opioid dependence, uncomplicated F11.20 [facility] [id number] [place] [address] 98589 2546 Mar, Opioid dependence, uncomplicated F11.20 [facility] [id number] [place] [address] 73497 2546 Mar, Opioid dependence, uncomplicated F11.20 [facility] [id number] [place] [address] 09644 2546 Mar, [facility] [id number] [place] [address] 82776 2546 Mar, Opioid dependence, uncomplicated F11.20 [facility] [address] [place] [address] 90209 2546 Mar, Opioid dependence, uncomplicated F11.20 [facility] [id number] [place] [address] 79122 2546 Mar, Moderate episode of recurrent major depressive disorder F33.1 ; Post-traumatic stress disorder, unspecified F43.10 and Opioid dependence , uncomplicated F11.20 [facility] [id number] [place] [address] 77905- 0756 Mar, Opioid dependence, uncomplicated F11.20 [facility] [id number] [place] [address] 95253- 0686 Feb, Moderate episode of recurrent major depressive disorder F33.1 [facility] [address] [place] [address] Feb, Opioid dependence, uncomplicated F11.20 [facility] [id number] [place] [address] 30908 2546 27 Feb, 2017 Opioid dependence, uncomplicated F11.20 [facility] [id number] [place] [address] 63446 2546 Feb, Opioid dependence, uncomplicated F11.20 [facility] [id number] [place] [address] 72228- 7366 19 Feb, 2017 [facility] [id number] [place] [address] 68968 2546 18 Feb, 2017 [facility] [id number] [place] [address] 45448 254 15 Feb, 2017 Moderate episode of recurrent major depressive disorder F33.1 [facility] [address] [place] [address] 14 Feb, 2017 Opioid dependence, uncomplicated F11.20 [facility] [id number] [place] [address] 89519 2546 14 Feb, 2017 [facility] [id number] [place] [address] 26776 2546 14 Feb, 2017 [facility] [address] [address]686 14 Feb, 2017 [facility] [id number] [place] [address] 37351- 1796 13 Feb, 2017 [facility] [id number] [place] [address] 84443 2546 13 Feb, 2017 [facility] [id number] [place] [address] 75574 2546 13 Feb, 2017 Moderate episode of recurrent major depressive disorder F33.1 ; Post-traumatic stress disorder, unspecified F43.10 and Opioid dependence , uncomplicated F11.20 [facility] [id number] [place] [address] 28107- 0676 12 Feb, 2017 [facility] [id number] [place] [address] 93510- 9896 Feb, [facility] [address] [place] [address] 08 Feb, 2017 Opioid dependence, uncomplicated F11.20 [facility] [address] [place] [address] 36676 2546 08 Feb, 2017 Moderate episode of recurrent major depressive disorder F33.1 [facility] [address] [place] [address] 93290 2546 07 Feb, 2017 Opioid dependence, uncomplicated F11.20 [facility] [id number] [place] [address] 90695 2546 07 Feb, 2017 [facility] [id number] [place] [address] 09147 2546 Feb, [facility] [id number] [place] [address] 39710 2546 05 Feb, 2017 [facility] [id number] [place] [address] 27572 2546 Feb, [facility] [id number] [place] [address] 63853 2546 Feb, [facility] [address] [place] [address] Feb, Opioid dependence, uncomplicated F11.20 [facility] [address] [address] 2546 Feb, [facility] [address] [address]99 2546 Jan, Opioid dependence, uncomplicated F11.20 and Drug induced constipation K59.03 [facility] [address] 84774 2546 Jan, [facility] [address] [address]92 2546 Jan, Moderate episode of recurrent major depressive disorder F33.1 and Post-traumatic stress disorder, unspecified F43.10 [facility] [address] [place] [address] Jan, [facility] [address] [address]28 2546 Jan, [facility] [address] 0[address]24 2547 Jan, [facility] [address] [place] [address] Jan, [facility] [id number] [place] [address] 24523 2546 Jan, Opioid dependence, uncomplicated F11.20 ; Drug induced constipation K59.03 and Adverse effect of other opioids, initial encounter T40.2X5A [facility] [id number] [place] [address] 13693 2546 Jan, [facility] [address] [address] 2546 Jan, [facility] [id number] [place] [address] 13102 2546 Jan, Opiate dependence, continuous F11.20 [facility] [address] [place] [address] Jan, Opiate dependence, continuous F11.20 ; 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 ; Benzodiazepine abuse F13.10 ; Alcohol dependence, binge pattern F10.20 and Marijuana abuse F12.10 [facility] [id number] [place] [address] 58086- 3993 16 Jan, 2017 [facility] [id number] [place] [address] 73724- 5086 15 Jan, 2017 [facility] [id number] [place] [address] 62503- 3404 15 Jan, 2017 [facility] [id number] [place] [address] 47849- 4128 14 Jan, 2017 Urinary frequency R35.0 and Opiate dependence, continuous F11.20 [facility] [address] [place] [address] Jan, Opiate dependence, continuous F11.20 ; 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 ; Benzodiazepine abuse F13.10 ; Alcohol dependence, binge pattern F10.20 and Marijuana abuse F12.10 [facility] [address] [place] [address] 08 Jan, 2017 [facility] [id number] [place] [address] 54757- 9433 08 Jan, 2017 Moderate episode of recurrent major depressive disorder F33.1 and Post-traumatic stress disorder, unspecified F43.10 [facility] [id number] [place] [address] 43239- 6642 08 Jan, 2017 [facility] [id number] [place] [address] 43752- 6423 Jan, Moderate episode of recurrent major depressive disorder F33.1 and Substance abuse withdrawal without complication F19.230 [facility] [id number] [place] [address] 87335- 8353 Jan, [facility] [id number] [place] [address] 85101- 8545 14 Jun, 2014 [facility] [id number] [place] [address] 56385- 6161 Jun, [facility] [id number] [address] May, [facility] [id number] [address]- 1286 May, [facility] [id number] [address]- 5958 Apr, [facility] [address] [place] [address]- 56[address] Apr, [facility] [address] [place] [address]- 1740 Apr, [facility] [address] [place] [address]- 8616 Apr, [facility] [address] [place] [address]- 3956 Apr, [facility] [address] [place] [address]- 4218 Apr, [facility] [id number] [address]- 9577 Dec, [facility] [id number] [address] Dec, [facility] [id number] [id number] Nov, [facility] [id number] [address] Sep, IMMUNIZATIONS No Known Immunizations SOCIAL HISTORY [...]
--- OUTSIDE RECORDS SUMMARY | 2017-10-23 22:17 | XMS REPORT ---
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 101838972 Problem Dysthymia F34.1 Active 65973127 Problem Drug induced constipation K59.03 Active 99358393 Problem Post-traumatic stress disorder, unspecified F43.10 Active 74236582 Problem Alcohol dependence, binge pattern F10.20 Active 898389061 Problem Opioid dependence, uncomplicated F11.20 Active 77637874 Problem Major depressive disorder, recurrent, moderate F33.1 Active 23711388 ALLERGIES No Information ENCOUNTERS Encounter Location Date Diagnosis [facility] [address] [place] [address] Aug, [facility] [id number] [place] [address] Aug, Acute pain of right wrist M25.531 ; Dysthymia F34.1 ; Screening for hyperlipidemia Z13.220 ; Screening for diabetes mellitus Z13.1 and Screening for other and unspecified deficiency anemia Z13.0 [facility] [id number] [place] [address] Aug, [facility] [address] [place] [address] July, Opioid dependence, uncomplicated F11.20 and Methamphetamine abuse, 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 [facility] [address] [place] [address] July, Opioid dependence, uncomplicated F11.20 and Methamphetamine abuse, 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 [facility] [address] [place] [address] July, Opioid dependence, uncomplicated F11.20 and Methamphetamine abuse, 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 [facility] [id number] [place] [address] 270136- [address] Jun, Opioid dependence, uncomplicated F11.20 [facility] [address] [place] [address] Jun, Opioid dependence, uncomplicated F11.20 and Methamphetamine abuse, 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 [facility] [address] [address]115[address] Jun, [facility] [id number] [place] [address]37[address] Jun, Moderate episode of recurrent major depressive disorder F33.1 ; Post-traumatic stress disorder, unspecified F43.10 and Opioid dependence , uncomplicated F11.20 [facility] [id number] [place] [address] 48869- 1599 Jun, Opioid dependence, uncomplicated F11.20 [facility] [id number] [place] [address] 6[address]13- 89[address] May, Opioid dependence, uncomplicated F11.20 [facility] [address] [place] [address] May, Opioid dependence, uncomplicated F11.20 and Methamphetamine abuse, 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 [facility] [id number] [place] [address]6723- [address] May, Opioid dependence, uncomplicated F11.20 [facility] [id number] [place] [address] 74517- 7763 May, Opioid dependence, uncomplicated F11.20 [facility] [address] [place] [address] May, Opioid dependence, uncomplicated F11.20 and Methamphetamine abuse, 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 [facility] [id number] [place] [address] May, Moderate episode of recurrent major depressive disorder F33.1 ; Post-traumatic stress disorder, unspecified F43.10 and Opioid dependence , uncomplicated F11.20 [facility] [id number] [place] [address] 46361 2546 May, [facility] [id number] [place] [address] 19572 2546 Apr, Opioid dependence, uncomplicated F11.20 [facility] [address] [place] [address] Apr, Opioid dependence, uncomplicated F11.20 and Methamphetamine abuse, 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 [facility] [id number] [place] [address]28[address] 2546 Apr, Opioid dependence, uncomplicated F11.20 [facility] [address] [address] Apr, Opioid dependence, uncomplicated F11.20 and Methamphetamine abuse, 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 [facility] [address] [address] Apr, Opioid dependence, uncomplicated F11.20 [facility] [address] [place] [address] Apr, Opioid dependence, uncomplicated F11.20 [facility] [address] [address]46 Apr, Opioid dependence, uncomplicated F11.20 [facility] [address] [place] [address] Mar, Opioid dependence, uncomplicated F11.20 [facility] [id number] [place] [address] 60886 2546 Mar, Opioid dependence, uncomplicated F11.20 [facility] [id number] [place] [address] 66765 2546 Mar, Opioid dependence, uncomplicated F11.20 [facility] [id number] [place] [address] 26475 2546 Mar, [facility] [id number] [place] [address] 16319 2546 Mar, Opioid dependence, uncomplicated F11.20 [facility] [id number] [place] [address] 42215 2546 Mar, Opioid dependence, uncomplicated F11.20 [facility] [id number] [place] [address] 85480 2546 Mar, Moderate episode of recurrent major depressive disorder F33.1 ; Post-traumatic stress disorder, unspecified F43.10 and Opioid dependence , uncomplicated F11.20 [facility] [id number] [place] [address] 09908- 4186 Mar, Opioid dependence, uncomplicated F11.20 [facility] [id number] [place] [address] 54765- 8566 Feb, Moderate episode of recurrent major depressive disorder F33.1 [facility] [address] [place] [address] Feb, Opioid dependence, uncomplicated F11.20 [facility] [id number] [place] [address] 78185 2546 27 Feb, 2017 Opioid dependence, uncomplicated F11.20 [facility] [id number] [place] [address] 70716 2546 Feb, Opioid dependence, uncomplicated F11.20 [facility] [id number] [place] [address] 34012- 7656 19 Feb, 2017 [facility] [id number] [place] [address] 35366 2546 18 Feb, 2017 [facility] [id number] [place] [address] 75987 2541 15 Feb, 2017 Moderate episode of recurrent major depressive disorder F33.1 [facility] [address] [place] [address] 14 Feb, 2017 Opioid dependence, uncomplicated F11.20 [facility] [id number] [place] [address] 22357 2546 14 Feb, 2017 [facility] [id number] [place] [address] 21088 2546 14 Feb, 2017 [facility] [address] [address] 14 Feb, 2017 [facility] [id number] [place] [address] 76496- 9486 13 Feb, 2017 [facility] [id number] [place] [address] 72044 2546 13 Feb, 2017 [facility] [id number] [place] [address] 24140 2546 13 Feb, 2017 Moderate episode of recurrent major depressive disorder F33.1 ; Post-traumatic stress disorder, unspecified F43.10 and Opioid dependence , uncomplicated F11.20 [facility] [id number] [place] [address] 08935- 4126 12 Feb, 2017 [facility] [id number] [place] [address] 44220- 6266 Feb, [facility] [address] [place] [address] 08 Feb, 2017 Opioid dependence, uncomplicated F11.20 [facility] [address] [place] [address] 23088 2546 08 Feb, 2017 Moderate episode of recurrent major depressive disorder F33.1 [facility] [address] [place] [address] 06825 2546 07 Feb, 2017 Opioid dependence, uncomplicated F11.20 [facility] [address] [place] [address] 78155 2546 07 Feb, 2017 [facility] [id number] [place] [address] 46679 2546 Feb, [facility] [id number] [place] [address] 25653 2546 05 Feb, 2017 [facility] [address] [place] [address] 18597 2546 Feb, [facility] [address] [place] [address] 81399 2546 Feb, [facility] [address] [place] [address] Feb, Opioid dependence, uncomplicated F11.20 [facility] [address] [address] 2546 Feb, [facility] [address] [address]361 2546 Jan, Opioid dependence, uncomplicated F11.20 and Drug induced constipation K59.03 [facility] [address] 79807 2546 Jan, [facility] [address] [address] 2546 Jan, Moderate episode of recurrent major depressive disorder F33.1 and Post-traumatic stress disorder, unspecified F43.10 [facility] [address] [place] [address] Jan, [facility] [address] 15403 2546 Jan, [facility] [address] 38380 2544 Jan, [facility] [address] [place] [address] Jan, [facility] [id number] [place] [address] 15423 2546 Jan, Opioid dependence, uncomplicated F11.20 ; Drug induced constipation K59.03 and Adverse effect of other opioids, initial encounter T40.2X5A [facility] [id number] [place] [address] 44292 2546 Jan, [facility] [address] [address] 2546 Jan, [facility] [id number] [place] [address] 92354 2546 Jan, Opiate dependence, continuous F11.20 [facility] [address] [place] [address] Jan, Opiate dependence, continuous F11.20 ; 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 ; Benzodiazepine abuse F13.10 ; Alcohol dependence, binge pattern F10.20 and Marijuana abuse F12.10 [facility] [id number] [place] [address] 40332- 4173 16 Jan, 2017 [facility] [id number] [place] [address] 01775- 8704 15 Jan, 2017 [facility] [id number] [place] [address] 72322- 0901 15 Jan, 2017 [facility] [id number] [place] [address] 55635- 5507 14 Jan, 2017 Urinary frequency R35.0 and Opiate dependence, continuous F11.20 [facility] [address] [place] [address] Jan, Opiate dependence, continuous F11.20 ; 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 ; Benzodiazepine abuse F13.10 ; Alcohol dependence, binge pattern F10.20 and Marijuana abuse F12.10 [facility] [address] [place] [address] 08 Jan, 2017 [facility] [id number] [place] [address] 12308- 9769 08 Jan, 2017 Moderate episode of recurrent major depressive disorder F33.1 and Post-traumatic stress disorder, unspecified F43.10 [facility] [id number] [place] [address] 28653- 0085 08 Jan, 2017 [facility] [id number] [place] [address] 26446- 2158 Jan, Moderate episode of recurrent major depressive disorder F33.1 and Substance abuse withdrawal without complication F19.230 [facility] [id number] [place] [address] 48208- 0127 Jan, [facility] [id number] [place] [address] 83096- 5229 14 Jun, 2014 [facility] [id number] [place] [address] 48454- 9449 Jun, [facility] [id number] [address] May, [facility] [address] [place] [address]- 7[address] May, [facility] [address], [place] [address]- 408[address] Apr, [facility] [address] [place] [address]- 4523 Apr, [facility] [address] [place] [address]- 6010 Apr, [facility] [address] [place] [address]- 3626 Apr, [facility] [address] [place] [address]- 4696 Apr, [facility] [address], [place] [address]- 9700 Apr, [facility] [id number] [address]- 0[address] Dec, [facility] [id number] [address] Dec, [facility] [id number] [id number] Nov, [facility] [id number], [place] [address] Sep, IMMUNIZATIONS No Known Immunizations SOCIAL HISTORY Never Assessed REASON FOR VISIT Medication Dispense PLAN OF CARE VITAL SIGNS MEDICATIONS Unknown Medications RESULTS No Results PROCEDURES No Known procedures INSTRUCTIONS MEDICATIONS ADMINISTERED No Known Medications MEDICAL (GENERAL) HISTORY Type Description Date Medical History ADHD Medical History depression Medical History anxiety Surgical History tongue clipped as a child
--- OUTSIDE RECORDS SUMMARY | 2017-10-23 22:18 | XMS REPORT ---
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 503940032 Problem Major depressive disorder, recurrent, moderate F33.1 Active 98526184 Problem Post-traumatic stress disorder, unspecified F43.10 Active 83763583 ALLERGIES No Information ENCOUNTERS Encounter Location Date Diagnosis [facility] [address] [place] [address] Aug, [facility] [address] [address] Aug, [facility] [address] [place] [address] July, [facility] [address] [place] [address] July, Opioid dependence, uncomplicated F11.20 and Methamphetamine abuse, 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 [facility] [id number] [place] [address] Jun, Opioid dependence, uncomplicated F11.20 [facility] [address] [place] [address] Jun, Opioid dependence, uncomplicated F11.20 and Methamphetamine abuse, 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 [facility] [id number] [place] [address] Jun, [facility] [address] [place] [address] Jun, Moderate episode of recurrent major depressive disorder F33.1 ; Post-traumatic stress disorder, unspecified F43.10 and Opioid dependence , uncomplicated F11.20 [facility] [id number] [place] [address] Jun, Opioid dependence, uncomplicated F11.20 [facility] [address] [address] May, Opioid dependence, uncomplicated F11.20 [facility] [address] [place] [address] May, Opioid dependence, uncomplicated F11.20 and Methamphetamine abuse, 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 [facility] [id number] [place] [address] May, Opioid dependence, uncomplicated F11.20 [facility] [address] [address] May, Opioid dependence, uncomplicated F11.20 [facility] [address] [place] [address] May, Opioid dependence, uncomplicated F11.20 and Methamphetamine abuse, 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 [facility] [id number] [place] [address] May, Moderate episode of recurrent major depressive disorder F33.1 ; Post-traumatic stress disorder, unspecified F43.10 and Opioid dependence , uncomplicated F11.20 [facility] [id number] [place] [address]- [address] May, [facility] [id number] [place] [address] 6[address] Apr, Opioid dependence, uncomplicated F11.20 [facility] [address] [place] [address] Apr, Opioid dependence, uncomplicated F11.20 and Methamphetamine abuse, 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 [facility] [id number] [place] [address] Apr, Opioid dependence, uncomplicated F11.20 [facility] [address] [place] [address] 16 Apr, 2017 Opioid dependence, uncomplicated F11.20 and Methamphetamine abuse, 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 [facility] [id number] [place] [address] 2546 15 Apr, 2017 Opioid dependence, uncomplicated F11.20 [facility] [address] [place] [address] Apr, Opioid dependence, uncomplicated F11.20 [facility] [id number] [place] [address] 2546 Apr, Opioid dependence, uncomplicated F11.20 [facility] [address] [place] [address] Mar, Opioid dependence, uncomplicated F11.20 [facility] [id number] [place] [address] Mar, Opioid dependence, uncomplicated F11.20 [facility] [id number] [place] [address] 2542 Mar, Opioid dependence, uncomplicated F11.20 [facility] [address] [address] Mar, [facility] [id number] [place] [address] 6[address] 2544 Mar, Opioid dependence, uncomplicated F11.20 [facility] [id number] [place] [address] 39595 2546 Mar, Opioid dependence, uncomplicated F11.20 [facility] [id number] [place] [address] 08912 2546 Mar, Moderate episode of recurrent major depressive disorder F33.1 ; Post-traumatic stress disorder, unspecified F43.10 and Opioid dependence , uncomplicated F11.20 [facility] [id number] [place] [address] 17876 2546 Mar, Opioid dependence, uncomplicated F11.20 [facility] [id number] [place] [address] 54885 2546 28 Feb, 2017 Moderate episode of recurrent major depressive disorder F33.1 [facility] [address] [place] [address] 28 Feb, 2017 Opioid dependence, uncomplicated F11.20 [facility] [id number] [place] [address] 80290 2546 27 Feb, 2017 Opioid dependence, uncomplicated F11.20 [facility] [id number] [place] [address] 31463 2546 20 Feb, 2017 Opioid dependence, uncomplicated F11.20 [facility] [id number] [place] [address] 08940 2546 19 Feb, 2017 [facility] [id number] [place] [address] 38624 2546 18 Feb, 2017 [facility] [id number] [place] [address] 46[address] 2546 15 Feb, 2017 Moderate episode of recurrent major depressive disorder F33.1 [facility] [address] [place] [address] 14 Feb, 2017 Opioid dependence, uncomplicated F11.20 [facility] [id number] [place] [address] 16907 2546 14 Feb, 2017 [facility] [id number] [place] [address] 065[address] 2546 14 Feb, 2017 [facility] [id number] [place] [address] 62551 2546 14 Feb, 2017 [facility] [id number] [place] [address] 07041 2546 13 Feb, 2017 [facility] [id number] [place] [address] 54660 2546 13 Feb, 2017 [facility] [id number] [place] [address] 89171 2546 13 Feb, 2017 Moderate episode of recurrent major depressive disorder F33.1 ; Post-traumatic stress disorder, unspecified F43.10 and Opioid dependence , uncomplicated F11.20 [facility] [id number] [place] [address] 14882- 7796 Feb, [facility] [id number] [place] [address] 80898 2546 Feb, [facility] [address] [place] [address] Feb, Opioid dependence, uncomplicated F11.20 [facility] [id number] [place] [address] 7[address]- [address] Feb, Moderate episode of recurrent major depressive disorder F33.1 [facility] [address] [address] 07 Feb, 2017 Opioid dependence, uncomplicated F11.20 [facility] [id number] [place] [address] 9[address]69- 5226 Feb, [facility] [address] [address] Feb, [facility] [id number] [place] [address] 01210 2546 Feb, [facility] [id number] [place] [address] 19528 2546 Feb, [facility] [id number] [place] [address] 81980 2546 Feb, [facility] [address] [place] [address] Feb, Opioid dependence, uncomplicated F11.20 [facility] [id number] [place] [address] 69027 2546 Feb, [facility] [id number] [place] [address] 62892 2546 Jan, Opioid dependence, uncomplicated F11.20 and Drug induced constipation K59.03 [facility] [id number] [place] [address] 78907 2546 Jan, [facility] [id number] [place] [address] 13244- 6[address] Jan, Moderate episode of recurrent major depressive disorder F33.1 and Post-traumatic stress disorder, unspecified F43.10 [facility] [address] [place] [address] Jan, [facility] [id number] [place] [address] 06868- 550[address] Jan, [facility] [address] [address] Jan, [facility] [address] [place] [address] Jan, [facility] [address] [address] Jan, Opioid dependence, uncomplicated F11.20 ; Drug induced constipation K59.03 and Adverse effect of other opioids, initial encounter T40.2X5A [facility] [address] [place] [address] 79704- 58[address] Jan, [facility] [address] [address] Jan, [facility] [address] [place] [address] 90647- 8250 Jan, Opiate dependence, continuous F11.20 [facility] [address] [place] [address] Jan, Opiate dependence, continuous F11.20 ; 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 ; Benzodiazepine abuse F13.10 ; Alcohol dependence, binge pattern F10.20 and Marijuana abuse F12.10 [facility] [id number] [place] [address] 57564- 3462 Jan, [facility] [address] 7[address]- 6163 Jan, [facility] [address] [address]- [address] Jan, [facility] [address] [address] 14 Jan, 2017 Urinary frequency R35.0 and Opiate dependence, continuous F11.20 [facility] [address] [place] [address] Jan, Opiate dependence, continuous F11.20 ; 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 ; Benzodiazepine abuse F13.10 ; Alcohol dependence, binge pattern F10.20 and Marijuana abuse F12.10 [facility] [address] [place] [address] 08 Jan, 2017 [facility] [address] [place] [address]- [address] Jan, Moderate episode of recurrent major depressive disorder F33.1 and Post-traumatic stress disorder, unspecified F43.10 [facility] [address] [address] Jan, [facility] [address] 7[address]- 387[address] Jan, Moderate episode of recurrent major depressive disorder F33.1 and Substance abuse withdrawal without complication F19.230 [facility] [id number] [place] [address] 52181- 5153 Jan, [facility] [address] 436[address]- 5667 Jun, [facility] [id number] [place] [address] 37473- 5370 Jun, [facility] [id number] [place] [address] 58215- 9278 May, [facility] [id number] [place] [address] 55291- 4326 May, [facility] [address] 51545- 1045 Apr, [facility] [id number] [place] [address] 27218- 5251 Apr, [facility] [address] 87[address]- 5[address] Apr, [facility] [address] [facility] [id number] [place] [address]- 2546 Apr, [facility] [address] [facility] [id number] [place] [address]- 2546 Apr, [facility] [id number] [address]- 2546 Apr, [facility] [id number] [address]- 2546 Dec, [facility] [address] [facility] [id number] [place] [address] 2546 Dec, [address] [id number] [place] [id number] Nov, [facility] [address] [facility] [id number] [place] [address] 2546 Sep, IMMUNIZATIONS No Known Immunizations SOCIAL HISTORY Never Assessed REASON FOR VISIT SOCWK-IN PLAN OF CARE VITAL SIGNS MEDICATIONS Unknown Medications RESULTS No Results PROCEDURES No Known procedures INSTRUCTIONS MEDICATIONS ADMINISTERED No Known Medications MEDICAL (GENERAL) HISTORY Type Description Date Medical History ADHD Medical History depression Medical History anxiety Surgical History tongue clipped as a child
--- OUTSIDE RECORDS SUMMARY | 2017-10-23 22:18 | XMS REPORT ---
Author Author SHELLY ALVAREZ Organization [facility] Address [address] 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 [facility] [id number] [place] [address] Jun, [facility] [id number] [place], [place] [address] Jun, Moderate episode of recurrent major depressive disorder F33.1 ; Post-traumatic stress disorder, unspecified F43.10 and Opioid dependence , uncomplicated F11.20 [facility] [id number] [place] [address] Jun, Opioid dependence, uncomplicated F11.20 [facility] [id number] [place] [address]- [address] May, Opioid dependence, uncomplicated F11.20 [facility] [address] [id number] May, Opioid dependence, uncomplicated F11.20 and Methamphetamine abuse, 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 [facility] [id number] [place] [address] May, Opioid dependence, uncomplicated F11.20 [facility] [id number] [place] [address] May, Opioid dependence, uncomplicated F11.20 [facility] [address] [place] [address] May, Opioid dependence, uncomplicated F11.20 and Methamphetamine abuse, 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 [facility] [id number] [place] [address] May, Moderate episode of recurrent major depressive disorder F33.1 ; Post-traumatic stress disorder, unspecified F43.10 and Opioid dependence , uncomplicated F11.20 [facility] [id number] [place] [id number] May, [facility] [id number] [place] [address] 16[address] Apr, Opioid dependence, uncomplicated F11.20 [facility] [address] [place] [address] Apr, Opioid dependence, uncomplicated F11.20 and Methamphetamine abuse, 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 [facility] [address] [address] Apr, Opioid dependence, uncomplicated F11.20 [facility] [address] [address] Apr, Opioid dependence, uncomplicated F11.20 and Methamphetamine abuse, 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 [facility] [address] 376282[address] Apr, Opioid dependence, uncomplicated F11.20 [facility] [address] [address] Apr, Opioid dependence, uncomplicated F11.20 [facility] [address] [address] Apr, Opioid dependence, uncomplicated F11.20 [facility] [address] [place] [address] Mar, Opioid dependence, uncomplicated F11.20 [facility] [address] [address] Mar, Opioid dependence, uncomplicated F11.20 [facility] [address] [id number] Mar, Opioid dependence, uncomplicated F11.20 [facility] [id number] [place] [address] 2544 Mar, [facility] [address] [address] 2544 Mar, Opioid dependence, uncomplicated F11.20 [facility] [address] [id number]- [address] Mar, Opioid dependence, uncomplicated F11.20 [facility] [id number] [place] [address] 43372- [address] Mar, Moderate episode of recurrent major depressive disorder F33.1 ; Post-traumatic stress disorder, unspecified F43.10 and Opioid dependence , uncomplicated F11.20 [facility] [id number] [place] [address] 05387 2546 02 Mar, 2017 Opioid dependence, uncomplicated F11.20 [facility] [id number] [place] [address] 30113 2546 28 Feb, 2017 Moderate episode of recurrent major depressive disorder F33.1 [facility] [address] [place] [address] 28 Feb, 2017 Opioid dependence, uncomplicated F11.20 [facility] [id number] [place] [address] 77093 2546 27 Feb, 2017 Opioid dependence, uncomplicated F11.20 [facility] [id number] [place] [address] 03065 2546 20 Feb, 2017 Opioid dependence, uncomplicated F11.20 [facility] [id number] [place] [address] 54556 2546 19 Feb, 2017 [facility] [id number] [place] [address] 79207 2546 18 Feb, 2017 [facility] [id number] [place] [address] 04799 2546 15 Feb, 2017 Moderate episode of recurrent major depressive disorder F33.1 [facility] [address] [place] [address] 14 Feb, 2017 Opioid dependence, uncomplicated F11.20 [facility] [id number] [place] [address] 67303 2546 14 Feb, 2017 [facility] [id number] [place] [address] 85362 2546 14 Feb, 2017 [facility] [id number] [place] [address] 57329 2546 14 Feb, 2017 [facility] [id number] [place] [address] 97070 2546 13 Feb, 2017 [facility] [id number] [place] [address] 82626- [address] Feb, [facility] [address] [address] Feb, Moderate episode of recurrent major depressive disorder F33.1 ; Post-traumatic stress disorder, unspecified F43.10 and Opioid dependence , uncomplicated F11.20 [facility] [address] [place] [address] 95599 2546 12 Feb, 2017 [facility] [id number] [place] [address] 45283 2546 Feb, [facility] [address] [place] [address] Feb, Opioid dependence, uncomplicated F11.20 [facility] [id number] [place] [address] 18392 2546 Feb, Moderate episode of recurrent major depressive disorder F33.1 [facility] [id number] [place] [address] 83677- [address]896 Feb, Opioid dependence, uncomplicated F11.20 [facility] [id number] [place] [address] 36186 2546 Feb, [facility] [id number] [place] [address] 29364 2546 Feb, [facility] [address] [place] [address] 01712 2546 Feb, [facility] [id number] [place] [address] 50541 2546 Feb, [facility] [address] [place] [address] 45370 2546 Feb, [facility] [address] [place] [address] Feb, Opioid dependence, uncomplicated F11.20 [facility] [address] [address] 2546 Feb, [facility] [address] [place] [address] 82392 2546 Jan, Opioid dependence, uncomplicated F11.20 and Drug induced constipation K59.03 [facility] [id number] [place] [address] 57594- 9744 Jan, [facility] [address] 825178- 4714 Jan, Moderate episode of recurrent major depressive disorder F33.1 and Post-traumatic stress disorder, unspecified F43.10 [facility] [address] [place] [address] Jan, [facility] [address] [address] Jan, [facility] [address] [address] Jan, [facility] [address] [place] [address] Jan, [facility] [address] [place] [address] Jan, Opioid dependence, uncomplicated F11.20 ; Drug induced constipation K59.03 and Adverse effect of other opioids, initial encounter T40.2X5A [facility] [address] [place] [address] 46272- 4830 Jan, [facility] [address] [address] Jan, [facility] [address] [address] Jan, Opiate dependence, continuous F11.20 [facility] [address] [place] [address] Jan, Opiate dependence, continuous F11.20 ; 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 ; Benzodiazepine abuse F13.10 ; Alcohol dependence, binge pattern F10.20 and Marijuana abuse F12.10 [facility] [id number] [place] [address] 33270- 8676 Jan, [facility] [address] [place] [address] 23935- 9065 Jan, [facility] [id number] [place] [address] 20294- 0371 15 Jan, 2017 [facility] [id number] [place] [address] 99731- 6758 14 Jan, 2017 Urinary frequency R35.0 and Opiate dependence, continuous F11.20 [facility] [address] [place] [address] 10 Jan, 2017 Opiate dependence, continuous F11.20 ; 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 [address] [place] [address] 08 Jan, 2017 [facility] [id number] [place] [address] 85194- 85[address] 08 Jan, 2017 Moderate episode of recurrent major depressive disorder F33.1 and Post-traumatic stress disorder, unspecified F43.10 [facility] [id number] [place] [address] 08506- 2[address] 08 Jan, 2017 [facility] [address] [address] 07 Jan, 2017 Moderate episode of recurrent major depressive disorder F33.1 and Substance abuse withdrawal without complication F19.230 [facility] [id number] [place] [address] 40398- 9740 07 Jan, 2017 [facility] [id number] [place] [address] 32249- 2319 Jun, [facility] [id number] [place] [address] 39608- 7597 Jun, [facility] [address] [address] May, [facility] [id number] [place] [address] 05447- 0839 May, [facility] [id number] [place] [address] 05141- 2122 Apr, [facility] [address] [facility] [id number] [address] Apr, [facility] [id number] [address] 2546 Apr, [facility] [id number] [address] 2546 Apr, [facility] [address] [address] 25[address] Apr, [facility] [id number] [address] 2546 Apr, [facility] [address] [address] 2546 Dec, [facility] [id number] [address] 2546 Dec, [facility] [address] [id number] [id number] Nov, [facility] [address] [facility] [id number] [address] 2546 Sep, IMMUNIZATIONS No Known Immunizations SOCIAL [...]
--- OUTSIDE RECORDS SUMMARY | 2017-10-23 22:18 | XMS REPORT ---
Author Author SHELLY ALVAREZ Organization [facility] Address [address] 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 327800930 Problem Dysthymia F34.1 Active 13669865 Problem Drug induced constipation K59.03 Active 75138777 Problem Post-traumatic stress disorder, unspecified F43.10 Active 21764243 Problem Alcohol dependence, binge pattern F10.20 Active 837949717 Problem Opioid dependence, uncomplicated F11.20 Active 75145338 Problem Major depressive disorder, recurrent, moderate F33.1 Active [id number] ALLERGIES No Information ENCOUNTERS Encounter Location Date Diagnosis [facility] [address] [place] [address] Aug, [facility] [id number] [place] [address] 07180[address]132 Aug, Acute pain of right wrist M25.531 ; Dysthymia F34.1 ; Screening for hyperlipidemia Z13.220 ; Screening for diabetes mellitus Z13.1 and Screening for other and unspecified deficiency anemia Z13.0 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 [facility] [id number] [place] [address] [phone]- 6554 Jun, Opioid dependence, uncomplicated F11.20 [facility] [address] [place] [address] Jun, Opioid dependence, uncomplicated F11.20 and Methamphetamine abuse, 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 [facility] [address] 947977- 3570 Jun, [facility] [id number] [place] [address] 66149- 4464 Jun, Moderate episode of recurrent major depressive disorder F33.1 ; Post-traumatic stress disorder, unspecified F43.10 and Opioid dependence , uncomplicated F11.20 [facility] [id number] [place] [address] 11648- 0313 Jun, Opioid dependence, uncomplicated F11.20 [facility] [id number] [place] [address] 74932- 1719 May, Opioid dependence, uncomplicated F11.20 [facility] [address] [place] [address] May, Opioid dependence, uncomplicated F11.20 and Methamphetamine abuse, 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 [facility] [id number] [place] [address] 75946- 4496 May, Opioid dependence, uncomplicated F11.20 [facility] [id number] [place] [address] 85611- 3255 May, Opioid dependence, uncomplicated F11.20 [facility] [address] [place] [address] May, Opioid dependence, uncomplicated F11.20 and Methamphetamine abuse, 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 [facility] [id number] [place] [address] 25879- 8617 May, Moderate episode of recurrent major depressive disorder F33.1 ; Post-traumatic stress disorder, unspecified F43.10 and Opioid dependence , uncomplicated F11.20 [facility] [id number] [place] [address] 89045- 7226 May, [facility] [address] [address] 2546 Apr, Opioid dependence, uncomplicated F11.20 [facility] [address] [place] [address] Apr, Opioid dependence, uncomplicated F11.20 and Methamphetamine abuse, 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 [facility] [address] [address] 2546 Apr, Opioid dependence, uncomplicated F11.20 [facility] [address] [address] Apr, Opioid dependence, uncomplicated F11.20 and Methamphetamine abuse, 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 [facility] [address] 42513- 6876 Apr, Opioid dependence, uncomplicated F11.20 [facility] [address] [place] [address] Apr, Opioid dependence, uncomplicated F11.20 [facility] [id number] 2546 Apr, Opioid dependence, uncomplicated F11.20 [facility] [address] [place] [address] Mar, Opioid dependence, uncomplicated F11.20 [facility] [id number] [place] [address] 79402 2546 Mar, Opioid dependence, uncomplicated F11.20 [facility] [id number] [place] [address] 01240 2546 Mar, Opioid dependence, uncomplicated F11.20 [facility] [id number] [place] [address] 28713 2546 Mar, [facility] [id number] [place] [address] 65844 2546 Mar, Opioid dependence, uncomplicated F11.20 [facility] [address] [place] [address] 55753- 1075 Mar, Opioid dependence, uncomplicated F11.20 [facility] [id number] [place] [address] 28158- 7846 Mar, Moderate episode of recurrent major depressive disorder F33.1 ; Post-traumatic stress disorder, unspecified F43.10 and Opioid dependence , uncomplicated F11.20 [facility] [id number] [place] [address] 84884- 2667 Mar, Opioid dependence, uncomplicated F11.20 [facility] [id number] [place] [address] 98543- 1206 Feb, Moderate episode of recurrent major depressive disorder F33.1 [facility] [address] [place] [address] Feb, Opioid dependence, uncomplicated F11.20 [facility] [id number] [place] [address] 63055- 0019 27 Feb, 2017 Opioid dependence, uncomplicated F11.20 [facility] [id number] [place] [address] 61761- 9019 Feb, Opioid dependence, uncomplicated F11.20 [facility] [id number] [place] [address] 78991- 8876 19 Feb, 2017 [facility] [id number] [place] [address] 93118- 6866 18 Feb, 2017 [facility] [id number] [place] [address] 90896 2547 15 Feb, 2017 Moderate episode of recurrent major depressive disorder F33.1 [facility] [address] [place] [address] 14 Feb, 2017 Opioid dependence, uncomplicated F11.20 [facility] [id number] [place] [address] 24606 2546 14 Feb, 2017 [facility] [id number] [place] [address] 71288- 2692 14 Feb, 2017 [facility] [address] [address] 6[address] 14 Feb, 2017 [facility] [id number] [place] [address] 00119- 3926 13 Feb, 2017 [facility] [id number] [place] [address] 49206 2546 13 Feb, 2017 [facility] [id number] [place] [address] 45964 2546 13 Feb, 2017 Moderate episode of recurrent major depressive disorder F33.1 ; Post-traumatic stress disorder, unspecified F43.10 and Opioid dependence , uncomplicated F11.20 [facility] [id number] [place] [address] 99801- 4606 12 Feb, 2017 [facility] [id number] [place] [address] 00266- 5426 11 Feb, 2017 [facility] [address] [place] [address] 08 Feb, 2017 Opioid dependence, uncomplicated F11.20 [facility] [address] [place] [address] 70438 2546 08 Feb, 2017 Moderate episode of recurrent major depressive disorder F33.1 [facility] [address] [place] [address] 61298 2546 07 Feb, 2017 Opioid dependence, uncomplicated F11.20 [facility] [address] [place] [address] 93355 2546 07 Feb, 2017 [facility] [address] [place] [address] 19706 2546 Feb, [facility] [id number] [place] [address] 96996 2546 05 Feb, 2017 [facility] [id number] [place] [address] 05870 2546 Feb, [facility] [id number] [place] [address] 88289 2546 Feb, [facility] [address] [place] [address] Feb, Opioid dependence, uncomplicated F11.20 [facility] [place] [address] [address] 2546 Feb, [facility] [address] [address]887 2546 Jan, Opioid dependence, uncomplicated F11.20 and Drug induced constipation K59.03 [facility] [address] [address]38 2546 Jan, [facility] [address] [address] 2546 Jan, Moderate episode of recurrent major depressive disorder F33.1 and Post-traumatic stress disorder, unspecified F43.10 [facility] [address] [place] [address] Jan, [facility] [address] [address] 2546 Jan, [facility] [address] [address]57 2540 Jan, [facility] [address] [place] [address] Jan, [facility] [id number] [place] [address] 42381 2546 Jan, Opioid dependence, uncomplicated F11.20 ; Drug induced constipation K59.03 and Adverse effect of other opioids, initial encounter T40.2X5A [facility] [id number] [place] [address] 65477 2546 Jan, [facility] [address] [address] 2546 Jan, [facility] [id number] [place] [address] 74960 2546 Jan, Opiate dependence, continuous F11.20 [facility] [address] [place] [address] Jan, Opiate dependence, continuous F11.20 ; 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 ; Benzodiazepine abuse F13.10 ; Alcohol dependence, binge pattern F10.20 and Marijuana abuse F12.10 [facility] [id number] [place] [address] 07578- 2258 16 Jan, 2017 [facility] [id number] [place] [address] 93807- 9722 15 Jan, 2017 [facility] [address] 74635- 9528 15 Jan, 2017 [facility] [id number] [place] [address] 14987- 3436 14 Jan, 2017 Urinary frequency R35.0 and Opiate dependence, continuous F11.20 [facility] [address] [place] [address] 10 Jan, 2017 Opiate dependence, continuous F11.20 ; 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 ; Benzodiazepine abuse F13.10 ; Alcohol dependence, binge pattern F10.20 and Marijuana abuse F12.10 [facility] [address] [place] [address] 08 Jan, 2017 [facility] [address] 98682- 4657 08 Jan, 2017 Moderate episode of recurrent major depressive disorder F33.1 and Post-traumatic stress disorder, unspecified F43.10 [facility] [id number] [place] [address] 61930- 3309 08 Jan, 2017 [facility] [id number] [place] [address] 79962- 0972 07 Jan, 2017 Moderate episode of recurrent major depressive disorder F33.1 and Substance abuse withdrawal without complication F19.230 [facility] [address] 83959- 2397 07 Jan, 2017 [facility] [id number] [place] [address] 23290- 6546 14 Jun, 2014 [facility] [address] 38654- 3478 Jun, [facility] [id number] [address]- 2546 May, [facility] [address] [place] [address]- 2546 May, [facility] [address] [place] [address]- 2546 Apr, [facility] [address] [place] [address]- 2546 Apr, [facility] [address] [place] [address]- 2546 Apr, [facility] [address] [place] [address]- 2546 Apr, [facility] [address] [place] [address]- 2546 Apr, [facility] [address] [place] [address]- 2546 Apr, [facility] [address] [place] [address]- 0[address] Dec, [facility] [address] [place] [address] 2546 Dec, [facility] [address] [id number] [id number] Nov, [facility] [address] [place] [address] 2546 Sep, IMMUNIZATIONS No Known Immunizations SOCIAL HISTORY Never Assessed REASON FOR VISIT Suboxone RX (04/02-04/07) PLAN OF CARE VITAL SIGNS MEDICATIONS Medication [...]
--- OUTSIDE RECORDS SUMMARY | 2017-10-23 22:19 | XMS REPORT ---
Author Author SHELLY ALVAREZ Organization [facility] Address [address] 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 475798927 Problem Major depressive disorder, recurrent, moderate F33.1 Active 86150690 Problem Post-traumatic stress disorder, unspecified F43.10 Active 05752095 ALLERGIES No Information ENCOUNTERS Encounter Location Date Diagnosis [facility] [address] [place] [address] Aug, [facility] [address] [address] Aug, [facility] [address] [place] [address] July, Opioid dependence, uncomplicated F11.20 and Methamphetamine abuse, 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 [facility] [address] [place] [address] July, Opioid dependence, uncomplicated F11.20 and Methamphetamine abuse, 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 [facility] [address] [place] [address] July, Opioid dependence, uncomplicated F11.20 and Methamphetamine abuse, 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 [facility] [address] [address] Jun, Opioid dependence, uncomplicated F11.20 [facility] [address] [place] [address] Jun, Opioid dependence, uncomplicated F11.20 and Methamphetamine abuse, 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 [facility] [place] [id number] [place] [address] Jun, [facility] [id number] [place], [place] [address] Jun, Moderate episode of recurrent major depressive disorder F33.1 ; Post-traumatic stress disorder, unspecified F43.10 and Opioid dependence , uncomplicated F11.20 [facility] [id number] [place] [address] Jun, Opioid dependence, uncomplicated F11.20 [facility] [id number] [place] [address] 726822[address] May, Opioid dependence, uncomplicated F11.20 [facility] [address] [id number] May, Opioid dependence, uncomplicated F11.20 and Methamphetamine abuse, 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 [facility] [id number] [place] [address] May, Opioid dependence, uncomplicated F11.20 [facility] [place] [id number] [place] [address] May, Opioid dependence, uncomplicated F11.20 [facility] [address] [place] [address] May, Opioid dependence, uncomplicated F11.20 and Methamphetamine abuse, 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 [facility] [id number] [place] [address] May, Moderate episode of recurrent major depressive disorder F33.1 ; Post-traumatic stress disorder, unspecified F43.10 and Opioid dependence , uncomplicated F11.20 [facility] [id number] [place] [id number] May, [facility] [id number] [place] [address] Apr, Opioid dependence, uncomplicated F11.20 [facility] [address] [place] [address] Apr, Opioid dependence, uncomplicated F11.20 and Methamphetamine abuse, 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 [facility] [address] [address] Apr, Opioid dependence, uncomplicated F11.20 [facility] [address] [address] Apr, Opioid dependence, uncomplicated F11.20 and Methamphetamine abuse, 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 [facility] [address] 778122[address] Apr, Opioid dependence, uncomplicated F11.20 [facility] [address] [address] Apr, Opioid dependence, uncomplicated F11.20 [facility] [address] [address] Apr, Opioid dependence, uncomplicated F11.20 [facility] [address] [place] [address] Mar, Opioid dependence, uncomplicated F11.20 [facility] [address] [address] Mar, Opioid dependence, uncomplicated F11.20 [facility] [address] [id number] Mar, Opioid dependence, uncomplicated F11.20 [facility] [id number] [place] [address] Mar, [facility] [address] [address] 25[address] Mar, Opioid dependence, uncomplicated F11.20 [facility] [address] [id number]- [address] Mar, Opioid dependence, uncomplicated F11.20 [facility] [id number] [place] [address] Mar, Moderate episode of recurrent major depressive disorder F33.1 ; Post-traumatic stress disorder, unspecified F43.10 and Opioid dependence , uncomplicated F11.20 [facility] [id number] [place] [address] 78143 2546 02 Mar, 2017 Opioid dependence, uncomplicated F11.20 [facility] [id number] [place] [address] 15115 2546 28 Feb, 2017 Moderate episode of recurrent major depressive disorder F33.1 [facility] [address] [place] [address] 28 Feb, 2017 Opioid dependence, uncomplicated F11.20 [facility] [id number] [place] [address] 56885 2546 27 Feb, 2017 Opioid dependence, uncomplicated F11.20 [facility] [id number] [place] [address]43 2546 20 Feb, 2017 Opioid dependence, uncomplicated F11.20 [facility] [id number] [place] [address] 16863 2546 19 Feb, 2017 [facility] [id number] [place] [address] 23543 2546 18 Feb, 2017 [facility] [id number] [place] [address] 91510 2546 15 Feb, 2017 Moderate episode of recurrent major depressive disorder F33.1 [facility] [address] [place] [address] 14 Feb, 2017 Opioid dependence, uncomplicated F11.20 [facility] [id number] [place] [address] 64018 2546 14 Feb, 2017 [facility] [id number] [place] [address] 99228 25[address], [address] [facility] [id number] [place] [address]13 25[address], [address] [facility] [id number] [place] [address] 52256 2546 13 Feb, 2017 [facility] [id number] [place] [address] 060[address]- [address] Feb, [facility] [address] [address] Feb, Moderate episode of recurrent major depressive disorder F33.1 ; Post-traumatic stress disorder, unspecified F43.10 and Opioid dependence , uncomplicated F11.20 [facility] [address] [place] [address] 55991 2546 12 Feb, 2017 [facility] [id number] [place] [address] 699[address] 2546 Feb, [facility] [address] [place] [address] Feb, Opioid dependence, uncomplicated F11.20 [facility] [id number] [place] [address] 17965 2546 Feb, Moderate episode of recurrent major depressive disorder F33.1 [facility] [id number] [place] [address] Feb, Opioid dependence, uncomplicated F11.20 [facility] [id number] [place] [address] 68281 2546 Feb, [facility] [id number] [place] [address] 98834 2546 Feb, [facility] [address] [place] [address] 42625 2546 Feb, [facility] [id number] [place] [address] 47672 2546 Feb, [facility] [address] [place] [address] 96524 2546 Feb, [facility] [address] [place] [address] Feb, Opioid dependence, uncomplicated F11.20 [facility] [address] [address] 2546 Feb, [facility] [address] [place] [address]13 2546 Jan, Opioid dependence, uncomplicated F11.20 and Drug induced constipation K59.03 [facility] [id number] [place] [address]245[address] Jan, [facility] [address] 643062- [address] Jan, Moderate episode of recurrent major depressive disorder F33.1 and Post-traumatic stress disorder, unspecified F43.10 [facility] [address] [place] [address] Jan, [facility] [address] [address] Jan, [facility] [address] [address] Jan, [facility] [address] [place] [address] Jan, [facility] [address] [place] [address] Jan, Opioid dependence, uncomplicated F11.20 ; Drug induced constipation K59.03 and Adverse effect of other opioids, initial encounter T40.2X5A [facility] [address] [place] [address]52- [address] Jan, [facility] [address] [address] Jan, [facility] [address] [address] Jan, Opiate dependence, continuous F11.20 [facility] [address] [place] [address] Jan, Opiate dependence, continuous F11.20 ; 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 ; Benzodiazepine abuse F13.10 ; Alcohol dependence, binge pattern F10.20 and Marijuana abuse F12.10 [facility] [id number] [place] [address] 7[address]- [address] Jan, [facility] [address] [place] [address]226- 9259 Jan, [facility] [id number] [place] [address] 67843- 7209 15 Jan, 2017 [facility] [id number] [place] [address] 42834- 0489 14 Jan, 2017 Urinary frequency R35.0 and Opiate dependence, continuous F11.20 [facility] [address] [place] [address] 10 Jan, 2017 Opiate dependence, continuous F11.20 ; 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 ; Benzodiazepine abuse F13.10 ; Alcohol dependence, binge pattern F10.20 and Marijuana abuse F12.10 [facility] [address] [place] [address] 08 Jan, 2017 [facility] [id number] [place] [address] 936[address]- [address] 08 Jan, 2017 Moderate episode of recurrent major depressive disorder F33.1 and Post-traumatic stress disorder, unspecified F43.10 [facility] [id number] [place] [address]71- 57[address] 08 Jan, 2017 [facility] [address] [address] 07 Jan, 2017 Moderate episode of recurrent major depressive disorder F33.1 and Substance abuse withdrawal without complication F19.230 [facility] [id number] [place] [address] 13925- 0784 07 Jan, 2017 [facility] [id number] [place] [address] 48438- 4920 Jun, [facility] [id number] [place] [address]13- [address] Jun, [facility] [address] [address] May, [facility] [id number] [place] [address] 94057- 77[address] May, [facility] [id number] [place] [address] 03482- 39[address] Apr, [facility] [address] [facility] [id number] [address]46 Apr, [facility] [id number] [address] Apr, [facility] [id number], [place] [address] Apr, [facility] [id number] [address] Apr, [facility] [id number], [place] [address] Apr, [facility] [address] [id number], [place] [address] Dec, [facility] [address] [id number], [place] [address] Dec, [facility] [address] [id number] [id number] Nov, [facility] [address] [facility] [id number], [place] [address] Sep, IMMUNIZATIONS No Known Immunizations SOCIAL HISTORY Never Assessed REASON FOR VISIT Suboxone RX (03/02-03/07) PLAN OF CARE VITAL SIGNS MEDICATIONS Medication Instructions Dosage Frequency Start Date End Date Duration Status Suboxone 8-2 MG Sublingual Once a day 3 film under the tongue and allow to dissolve 24h Mar, 6 days Active RESULTS No Results PROCEDURES No Known procedures INSTRUCTIONS MEDICATIONS ADMINISTERED No Known Medications MEDICAL (GENERAL) HISTORY Type Description Date Medical History ADHD Medical History depression Medical History anxiety Surgical History tongue clipped as a child
--- OUTSIDE RECORDS SUMMARY | 2017-10-23 22:19 | XMS REPORT ---
Author Author SHELLY ALVAREZ Organization [facility] Address [address] 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 508024001 Problem Major depressive disorder, recurrent, moderate F33.1 Active 18185967 Problem Post-traumatic stress disorder, unspecified F43.10 Active 79897465 ALLERGIES No Information ENCOUNTERS Encounter Location Date Diagnosis [facility] [address] [place] [address] Aug, [facility] [address] [address] Aug, [facility] [address] [place] [address] July, Opioid dependence, uncomplicated F11.20 and Methamphetamine abuse, 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 [facility] [address] [place] [address] July, Opioid dependence, uncomplicated F11.20 and Methamphetamine abuse, 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 [facility] [address] [place] [address] July, Opioid dependence, uncomplicated F11.20 and Methamphetamine abuse, 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 [facility] [address] [address] Jun, Opioid dependence, uncomplicated F11.20 [facility] [address] [place] [address] Jun, Opioid dependence, uncomplicated F11.20 and Methamphetamine abuse, 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 [facility] [place] [id number] [place] [address] Jun, [facility] [id number] [place], [place] [address] Jun, Moderate episode of recurrent major depressive disorder F33.1 ; Post-traumatic stress disorder, unspecified F43.10 and Opioid dependence , uncomplicated F11.20 [facility] [id number] [place] [address] Jun, Opioid dependence, uncomplicated F11.20 [facility] [id number] [place] [address] May, Opioid dependence, uncomplicated F11.20 [facility] [address] [id number] May, Opioid dependence, uncomplicated F11.20 and Methamphetamine abuse, 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 [facility] [id number] [place] [address] May, Opioid dependence, uncomplicated F11.20 [facility] [place] [id number] [place] [address] May, Opioid dependence, uncomplicated F11.20 [facility] [address] [place] [address] May, Opioid dependence, uncomplicated F11.20 and Methamphetamine abuse, 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 [facility] [id number] [place] [address] May, Moderate episode of recurrent major depressive disorder F33.1 ; Post-traumatic stress disorder, unspecified F43.10 and Opioid dependence , uncomplicated F11.20 [facility] [id number] [place] [id number] May, [facility] [id number] [place] [address] Apr, Opioid dependence, uncomplicated F11.20 [facility] [address] [place] [address] Apr, Opioid dependence, uncomplicated F11.20 and Methamphetamine abuse, 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 [facility] [address] [address] Apr, Opioid dependence, uncomplicated F11.20 [facility] [address] [address] Apr, Opioid dependence, uncomplicated F11.20 and Methamphetamine abuse, 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 [facility] [address] [address]492[address] Apr, Opioid dependence, uncomplicated F11.20 [facility] [address] [address] Apr, Opioid dependence, uncomplicated F11.20 [facility] [address] [address] Apr, Opioid dependence, uncomplicated F11.20 [facility] [address] [place] [address] Mar, Opioid dependence, uncomplicated F11.20 [facility] [address] [address] Mar, Opioid dependence, uncomplicated F11.20 [facility] [address] [id number] Mar, Opioid dependence, uncomplicated F11.20 [facility] [id number] [place] [address] 2543 Mar, [facility] [address] [address] 2548 Mar, Opioid dependence, uncomplicated F11.20 [facility] [address] [id number]- [address] Mar, Opioid dependence, uncomplicated F11.20 [facility] [id number] [place] [address] Mar, Moderate episode of recurrent major depressive disorder F33.1 ; Post-traumatic stress disorder, unspecified F43.10 and Opioid dependence , uncomplicated F11.20 [facility] [id number] [place] [address] 80151 2546 02 Mar, 2017 Opioid dependence, uncomplicated F11.20 [facility] [id number] [place] [address] 25016 2546 28 Feb, 2017 Moderate episode of recurrent major depressive disorder F33.1 [facility] [address] [place] [address] 28 Feb, 2017 Opioid dependence, uncomplicated F11.20 [facility] [id number] [place] [address] 2546 27 Feb, 2017 Opioid dependence, uncomplicated F11.20 [facility] [id number] [place] [address] 00537 2546 20 Feb, 2017 Opioid dependence, uncomplicated F11.20 [facility] [id number] [place] [address] 73867 2546 19 Feb, 2017 [facility] [id number] [place] [address] 17[address] 2546 18 Feb, 2017 [facility] [id number] [place] [address] 97572 2546 15 Feb, 2017 Moderate episode of recurrent major depressive disorder F33.1 [facility] [address] [place] [address] 14 Feb, 2017 Opioid dependence, uncomplicated F11.20 [facility] [id number] [place] [address]79 2546 14 Feb, 2017 [facility] [id number] [place] [address] 96195 2546 14 Feb, 2017 [facility] [id number] [place] [address] 585[address] 2546 14 Feb, 2017 [facility] [id number] [place] [address] 97138 2546 13 Feb, 2017 [facility] [id number] [place] [address] Feb, [facility] [id number] [address] Feb, Moderate episode of recurrent major depressive disorder F33.1 ; Post-traumatic stress disorder, unspecified F43.10 and Opioid dependence , uncomplicated F11.20 [facility] [id number] [place] [address] 92299 2546 12 Feb, 2017 [facility] [id number] [place] [address] 20[address] 2546 Feb, [facility] [address] [place] [address] Feb, Opioid dependence, uncomplicated F11.20 [facility] [id number] [place] [address] 93960 2546 Feb, Moderate episode of recurrent major depressive disorder F33.1 [facility] [id number] [place] [address] 80670- 65[address] Feb, Opioid dependence, uncomplicated F11.20 [facility] [id number] [place] [address] 25673 2546 Feb, [facility] [id number] [place] [address] 01572 2546 Feb, [facility] [id number] [place] [address] 55829 2546 Feb, [facility] [id number] [place] [address] 04297 2546 Feb, [facility] [id number] [place] [address] 40586 2546 Feb, [facility] [address] [place] [address] Feb, Opioid dependence, uncomplicated F11.20 [facility] [id number] [address] 2546 Feb, [facility] [id number] [place] [address] 51244 2546 Jan, Opioid dependence, uncomplicated F11.20 and Drug induced constipation K59.03 [facility] [id number] [place] [address] 6[address] 1847 Jan, [facility] [address] 732152- [address] Jan, Moderate episode of recurrent major depressive disorder F33.1 and Post-traumatic stress disorder, unspecified F43.10 [facility] [address] [place] [address] Jan, [facility] [address] [address] Jan, [facility] [address] [address] Jan, [facility] [address] [place] [address] Jan, [facility] [address] [place] [address] Jan, Opioid dependence, uncomplicated F11.20 ; Drug induced constipation K59.03 and Adverse effect of other opioids, initial encounter T40.2X5A [facility] [address] [place] [address]- [address] Jan, [facility] [address] [address] Jan, [facility] [address] [address] Jan, Opiate dependence, continuous F11.20 [facility] [address] [place] [address] Jan, Opiate dependence, continuous F11.20 ; 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 ; Benzodiazepine abuse F13.10 ; Alcohol dependence, binge pattern F10.20 and Marijuana abuse F12.10 [facility] [id number] [place] [address]12- [address] Jan, [facility] [address] [place] [address] 17[address]- 9[address] Jan, [facility] [id number] [place] [address] 27208- 8806 15 Jan, 2017 [facility] [id number] [place] [address] 78036- 9433 14 Jan, 2017 Urinary frequency R35.0 and Opiate dependence, continuous F11.20 [facility] [address] [place] [address] 10 Jan, 2017 Opiate dependence, continuous F11.20 ; 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 ; Benzodiazepine abuse F13.10 ; Alcohol dependence, binge pattern F10.20 and Marijuana abuse F12.10 [facility] [address] [place] [address] 08 Jan, 2017 [facility] [id number] [place] [address] 7[address]- [address] 08 Jan, 2017 Moderate episode of recurrent major depressive disorder F33.1 and Post-traumatic stress disorder, unspecified F43.10 [facility] [id number] [place] [address] 69967- 8074 08 Jan, 2017 [facility] [address] [address] 07 Jan, 2017 Moderate episode of recurrent major depressive disorder F33.1 and Substance abuse withdrawal without complication F19.230 [facility] [id number] [place] [address] 65114- 9475 07 Jan, 2017 [facility] [id number] [place] [address] 79003- 3878 Jun, [facility] [id number] [place] [address] 77835- 0079 Jun, [facility] [address] [address]- [address] May, [facility] [id number] [place] [address] 53[address]- 99[address] May, [facility] [id number] [place] [address] 25881- 4322 Apr, [facility] [address] [facility] [id number] [address] Apr, [facility] [id number] [address] 2546 Apr, [facility] [id number] [address] 2546 Apr, [facility] [address] [address] 25[address] Apr, [facility] [id number] [address] 2546 Apr, [facility] [address] [address] 2546 Dec, [facility] [id number] [address] 2546 Dec, [facility] [id number] [id number] Nov, [facility] [address] [facility] [id number] [address] 2546 Sep, IMMUNIZATIONS No Known Immunizations SOCIAL [...]
--- OUTSIDE RECORDS SUMMARY | 2017-10-23 22:20 | XMS REPORT ---
Author Author SHELLY ALVAREZ Organization [facility] Address [address] 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 332451226 Problem Dysthymia F34.1 Active 68686171 Problem Drug induced constipation K59.03 Active 29370148 Problem Post-traumatic stress disorder, unspecified F43.10 Active 71521889 Problem Alcohol dependence, binge pattern F10.20 Active 320418418 Problem Opioid dependence, uncomplicated F11.20 Active 60366819 Problem Major depressive disorder, recurrent, moderate F33.1 Active [id number] ALLERGIES No Information ENCOUNTERS Encounter Location Date Diagnosis [facility] [address] [place] [address] Aug, [facility] [id number] [place] [address]287[address] 7476 Aug, Acute pain of right wrist M25.531 ; Dysthymia F34.1 ; Screening for hyperlipidemia Z13.220 ; Screening for diabetes mellitus Z13.1 and Screening for other and unspecified deficiency anemia Z13.0 [facility] [id number] [place] [address] Aug, [facility] [address] [place] [address] July, Opioid dependence, uncomplicated F11.20 and Methamphetamine abuse, 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 [facility] [address] [place] [address] July, Opioid dependence, uncomplicated F11.20 and Methamphetamine abuse, 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 [facility] [address] [place] [address] July, Opioid dependence, uncomplicated F11.20 and Methamphetamine abuse, 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 [facility] [id number] [place] [address] 649498- 0823 Jun, Opioid dependence, uncomplicated F11.20 [facility] [address] [place] [address] Jun, Opioid dependence, uncomplicated F11.20 and Methamphetamine abuse, 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 [facility] [address] 598516[address] Jun, [facility] [id number] [place] [address] 26564- 8555 Jun, Moderate episode of recurrent major depressive disorder F33.1 ; Post-traumatic stress disorder, unspecified F43.10 and Opioid dependence , uncomplicated F11.20 [facility] [id number] [place] [address] 41215- 1714 Jun, Opioid dependence, uncomplicated F11.20 [facility] [id number] [place] [address] 88234- 6132 May, Opioid dependence, uncomplicated F11.20 [facility] [address] [place] [address] May, Opioid dependence, uncomplicated F11.20 and Methamphetamine abuse, 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 [facility] [id number] [place] [address] 95238- 2472 May, Opioid dependence, uncomplicated F11.20 [facility] [id number] [place] [address] 54448- 8611 May, Opioid dependence, uncomplicated F11.20 [facility] [address] [place] [address] May, Opioid dependence, uncomplicated F11.20 and Methamphetamine abuse, 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 [facility] [id number] [place] [address] 26777- 8181 May, Moderate episode of recurrent major depressive disorder F33.1 ; Post-traumatic stress disorder, unspecified F43.10 and Opioid dependence , uncomplicated F11.20 [facility] [id number] [place] [address] 55999- 6666 May, [facility] [address] [address]46 Apr, Opioid dependence, uncomplicated F11.20 [facility] [address] [place] [address] Apr, Opioid dependence, uncomplicated F11.20 and Methamphetamine abuse, 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 [facility] [address] [address] 2546 Apr, Opioid dependence, uncomplicated F11.20 [facility] [address] [address] Apr, Opioid dependence, uncomplicated F11.20 and Methamphetamine abuse, 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 [facility] [address] [address]82[address] Apr, Opioid dependence, uncomplicated F11.20 [facility] [address] [place] [address] Apr, Opioid dependence, uncomplicated F11.20 [facility] [id number] 2546 Apr, Opioid dependence, uncomplicated F11.20 [facility] [address] [place] [address] Mar, Opioid dependence, uncomplicated F11.20 [facility] [id number] [place] [address] 98087 2546 Mar, Opioid dependence, uncomplicated F11.20 [facility] [id number] [place] [address] 97859 2546 Mar, Opioid dependence, uncomplicated F11.20 [facility] [id number] [place] [address] 45193 2546 Mar, [facility] [id number] [place] [address] 56032 2546 Mar, Opioid dependence, uncomplicated F11.20 [facility] [address] [place] [address] 29580- 9020 Mar, Opioid dependence, uncomplicated F11.20 [facility] [id number] [place] [address] 93123- 6936 Mar, Moderate episode of recurrent major depressive disorder F33.1 ; Post-traumatic stress disorder, unspecified F43.10 and Opioid dependence , uncomplicated F11.20 [facility] [id number] [place] [address] 36904- 3325 Mar, Opioid dependence, uncomplicated F11.20 [facility] [id number] [place] [address] 21062- 0396 Feb, Moderate episode of recurrent major depressive disorder F33.1 [facility] [address] [place] [address] Feb, Opioid dependence, uncomplicated F11.20 [facility] [id number] [place] [address] 58119- 8269 27 Feb, 2017 Opioid dependence, uncomplicated F11.20 [facility] [id number] [place] [address] 00658- 3484 Feb, Opioid dependence, uncomplicated F11.20 [facility] [id number] [place] [address] 35771- 6084 19 Feb, 2017 [facility] [id number] [place] [address] 69793- 8126 18 Feb, 2017 [facility] [id number] [place] [address] 71088 2545 15 Feb, 2017 Moderate episode of recurrent major depressive disorder F33.1 [facility] [address] [place] [address] 14 Feb, 2017 Opioid dependence, uncomplicated F11.20 [facility] [id number] [place] [address] 90693 2546 14 Feb, 2017 [facility] [id number] [place] [address] 69087- 1048 14 Feb, 2017 [facility] [address] [address] 14 Feb, 2017 [facility] [id number] [place] [address] 12983- 7906 13 Feb, 2017 [facility] [id number] [place] [address] 46773 2546 13 Feb, 2017 [facility] [id number] [place] [address] 40331 2546 13 Feb, 2017 Moderate episode of recurrent major depressive disorder F33.1 ; Post-traumatic stress disorder, unspecified F43.10 and Opioid dependence , uncomplicated F11.20 [facility] [id number] [place] [address] 30318- 2776 12 Feb, 2017 [facility] [id number] [place] [address] 81462- 1826 11 Feb, 2017 [facility] [address] [place] [address] 08 Feb, 2017 Opioid dependence, uncomplicated F11.20 [facility] [address] [place] [address] 08385 2546 08 Feb, 2017 Moderate episode of recurrent major depressive disorder F33.1 [facility] [address] [place] [address] 31653 2546 07 Feb, 2017 Opioid dependence, uncomplicated F11.20 [facility] [address] [place] [address] 98848 2546 07 Feb, 2017 [facility] [address] [place] [address] 21104 2546 Feb, [facility] [id number] [place] [address] 85109 2546 05 Feb, 2017 [facility] [address] [place] [address] 69941 2546 Feb, [facility] [address] [place] [address] 60276 2546 Feb, [facility] [address] [place] [address] Feb, Opioid dependence, uncomplicated F11.20 [facility] [address] [address] 2546 Feb, [facility] [address] [address] 2546 Jan, Opioid dependence, uncomplicated F11.20 and Drug induced constipation K59.03 [facility] [address] 43263 2546 Jan, [facility] [address] [address] 2546 Jan, Moderate episode of recurrent major depressive disorder F33.1 and Post-traumatic stress disorder, unspecified F43.10 [facility] [address] [place] [address] Jan, [facility] [address] [address] 2546 Jan, [facility] [address] 6[address] 2549 Jan, [facility] [address] [place] [address] Jan, [facility] [id number] [place] [address] 17650 2546 Jan, Opioid dependence, uncomplicated F11.20 ; Drug induced constipation K59.03 and Adverse effect of other opioids, initial encounter T40.2X5A [facility] [id number] [place] [address] 74822 2546 Jan, [facility] [address] [address] 2546 Jan, [facility] [id number] [place] [address] 50742 2546 Jan, Opiate dependence, continuous F11.20 [facility] [address] [place] [address] Jan, Opiate dependence, continuous F11.20 ; 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 ; Benzodiazepine abuse F13.10 ; Alcohol dependence, binge pattern F10.20 and Marijuana abuse F12.10 [facility] [id number] [place] [address] 63923- 1268 16 Jan, 2017 [facility] [id number] [place] [address] 03416- 9034 15 Jan, 2017 [facility] [address] 10589- 3042 15 Jan, 2017 [facility] [id number] [place] [address] 54387- 1687 14 Jan, 2017 Urinary frequency R35.0 and Opiate dependence, continuous F11.20 [facility] [address] [place] [address] 10 Jan, 2017 Opiate dependence, continuous F11.20 ; 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 ; Benzodiazepine abuse F13.10 ; Alcohol dependence, binge pattern F10.20 and Marijuana abuse F12.10 [facility] [address] [place] [address] 08 Jan, 2017 [facility] [address] 10789- [address]9 08 Jan, 2017 Moderate episode of recurrent major depressive disorder F33.1 and Post-traumatic stress disorder, unspecified F43.10 [facility] [id number] [place] [address] 59665- 5847 08 Jan, 2017 [facility] [id number] [place] [address] 31160- 6764 07 Jan, 2017 Moderate episode of recurrent major depressive disorder F33.1 and Substance abuse withdrawal without complication F19.230 [facility] [address] 52763- 8193 07 Jan, 2017 [facility] [id number] [place] [address] 03777- 4780 14 Jun, 2014 [facility] [address] 59260- 6348 Jun, [facility] [id number] [address]- [address]16 May, [facility] [address] [address]- 6476 May, [facility] [address] [address]- 5767 Apr, [facility] [address] [address]- 5856 Apr, [facility] [address] [address] Apr, [facility] [address] [address]- 7536 Apr, [facility] [address] [address]- 7606 Apr, [facility] [address] [address]- 3246 Apr, [facility] [id number] [address]- 4116 Dec, [facility] [address] [address]- 2[address] Dec, [facility] [id number] [id number] Nov, [facility] [address] [address]- [address] Sep, IMMUNIZATIONS No Known Immunizations SOCIAL HISTORY [...]
--- OUTSIDE RECORDS SUMMARY | 2017-10-23 22:20 | XMS REPORT ---
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 610306098 Problem Major depressive disorder, recurrent, moderate F33.1 Active 77507242 Problem Post-traumatic stress disorder, unspecified F43.10 Active [id number] ALLERGIES No Information ENCOUNTERS Encounter Location Date Diagnosis [facility] [address] [place] [address] Aug, [facility] [address] [place] [id number] [place] [address] Aug, [facility] [address] [place] [address] July, Opioid dependence, uncomplicated F11.20 and Methamphetamine abuse, episodic F15.[address] [facility] [address] [place] [address] July, Opioid dependence, uncomplicated F11.20 and Methamphetamine abuse, 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 [facility] [address] [place] [address] July, Opioid dependence, uncomplicated F11.20 and Methamphetamine abuse, 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 [facility] [id number] [place] [address] 68210- 2219 Jun, Opioid dependence, uncomplicated F11.20 [facility] [address] [place] [address] Jun, Opioid dependence, uncomplicated F11.20 and Methamphetamine abuse, 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 [facility] [id number] [place] [address] 53225- 5492 Jun, [facility] [place] [id number] [place] [address] Jun, Moderate episode of recurrent major depressive disorder F33.1 ; Post-traumatic stress disorder, unspecified F43.10 and Opioid dependence , uncomplicated F11.20 [facility] [place] [id number] [place] [address] 92203- 1122 Jun, Opioid dependence, uncomplicated F11.20 [facility] [id number] [place] [address] [id number]- 6338 May, Opioid dependence, uncomplicated F11.20 [facility] [address] [place] [address] May, Opioid dependence, uncomplicated F11.20 and Methamphetamine abuse, 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 [facility] [place] [id number] [place] [address] 23150- 6299 May, Opioid dependence, uncomplicated F11.20 [facility] [id number] [place] [address] 80567- 8052 May, Opioid dependence, uncomplicated F11.20 [facility] [address] [place] [address] May, Opioid dependence, uncomplicated F11.20 and Methamphetamine abuse, 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 [facility], [place] [id number] [place] [address] 34975- 4049 May, Moderate episode of recurrent major depressive disorder F33.1 ; Post-traumatic stress disorder, unspecified F43.10 and Opioid dependence , uncomplicated F11.20 [facility], [place] [id number] [place] [id number] May, [facility], [place] [id number] [place] [address] 51096- 6685 Apr, Opioid dependence, uncomplicated F11.20 [facility] [address] [place] [address] Apr, Opioid dependence, uncomplicated F11.20 and Methamphetamine abuse, 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 [facility] [address] [address] Apr, Opioid dependence, uncomplicated F11.20 [facility] [address] [place] [address] Apr, Opioid dependence, uncomplicated F11.20 and Methamphetamine abuse, 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 [facility] [address] [address] 2276 Apr, Opioid dependence, uncomplicated F11.20 [facility] [address] [place] [address] Apr, Opioid dependence, uncomplicated F11.20 [facility] [id number] [place] [address] 01662- 2143 Apr, Opioid dependence, uncomplicated F11.20 [facility] [address] [place] [address] Mar, Opioid dependence, uncomplicated F11.20 [facility] [address] [address]34[address] Mar, Opioid dependence, uncomplicated F11.20 [facility] [id number] [place] [address] 98268- 4281 Mar, Opioid dependence, uncomplicated F11.20 [facility] [place] [id number] [place] [address] 15990- 5891 Mar, [facility] [address] [address] 2548 Mar, Opioid dependence, uncomplicated F11.20 [facility] [id number] [place] [address] 31633- 9892 Mar, Opioid dependence, uncomplicated F11.20 [facility] [id number] [place] [address] 02018- 1560 Mar, Moderate episode of recurrent major depressive disorder F33.1 ; Post-traumatic stress disorder, unspecified F43.10 and Opioid dependence , uncomplicated F11.20 [facility] [id number] [place] [address] 88787 2546 02 Mar, 2017 Opioid dependence, uncomplicated F11.20 [facility] [id number] [place] [address] 94681 2546 28 Feb, 2017 Moderate episode of recurrent major depressive disorder F33.1 [facility] [address] [place] [address] 28 Feb, 2017 Opioid dependence, uncomplicated F11.20 [facility] [id number] [place] [address] 32852 2546 27 Feb, 2017 Opioid dependence, uncomplicated F11.20 [facility] [id number] [place] [address] 72886 2546 20 Feb, 2017 Opioid dependence, uncomplicated F11.20 [facility] [id number] [place] [address] 87300 2546 19 Feb, 2017 [facility] [id number] [place] [address] 81257 2546 18 Feb, 2017 [facility] [id number] [place] [address] 74897 2546 15 Feb, 2017 Moderate episode of recurrent major depressive disorder F33.1 [facility] [address] [place] [address] 14 Feb, 2017 Opioid dependence, uncomplicated F11.20 [facility] [address] [place] [address] 99410 2546 14 Feb, 2017 [facility] [id number] [place] [address] 39555 2546 14 Feb, 2017 [facility] [id number] [place] [address] 00228 2546 14 Feb, 2017 [facility] [id number] [place] [address] 22942 2546 13 Feb, 2017 [facility] [id number] [place] [address] 03160 2546 13 Feb, 2017 [facility] [place] [address] [place] [address] 69156- 1076 Feb, Moderate episode of recurrent major depressive disorder F33.1 ; Post-traumatic stress disorder, unspecified F43.10 and Opioid dependence , uncomplicated F11.20 [facility] [place] [id number] [place] [address] 01030- 9986 12 Feb, 2017 [facility] [place] [id number] [place] [address] 72926 2546 Feb, [facility] [address] [place] [address] Feb, Opioid dependence, uncomplicated F11.20 [facility] [place] [id number] [place] [address] 72882- 9896 Feb, Moderate episode of recurrent major depressive disorder F33.1 [facility] [place] [id number] [place] [address] 39978- 1656 07 Feb, 2017 Opioid dependence, uncomplicated F11.20 [facility] [place] [address] [place] [address] 89428 2546 Feb, [facility] [place] [id number] [place] [address] 81938 2546 Feb, [facility] [place] [address] [place] [address] 91041 2546 Feb, [facility] [place] [id number] [place] [address] 34720 2546 Feb, [facility] [place] [address] [place] [address] 13368 2546 Feb, [facility] [address] [place] [address] Feb, Opioid dependence, uncomplicated F11.20 [facility] [place] [address] [place] [address] 63485 2546 Feb, [facility], [place] [address] [place] [address] 28267- 5563 Jan, Opioid dependence, uncomplicated F11.20 and Drug induced constipation K59.03 [facility], [place] [id number] [place] [address] 25032- 9595 Jan, [facility], [place] [address] [id number]- 8770 Jan, Moderate episode of recurrent major depressive disorder F33.1 and Post-traumatic stress disorder, unspecified F43.10 [facility] [address] [id number] Jan, [facility] [id number] [place] [address] 58957- 4562 Jan, [facility], [place] [address] 37005- 8572 Jan, [facility] [address] [place] [address] Jan, [facility] [place] [address] [place] [address] 16964- 1491 Jan, Opioid dependence, uncomplicated F11.20 ; Drug induced constipation K59.03 and Adverse effect of other opioids, initial encounter T40.2X5A [facility] [place] [address] [place] [address] 63399- 8647 Jan, [facility] [place] [id number] [place] [address] 65499- 6799 Jan, [facility] [place] [address] [place] [address] 92044- 1549 Jan, Opiate dependence, continuous F11.20 [facility] [address] [place] [address] Jan, Opiate dependence, continuous F11.20 ; 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 ; Benzodiazepine abuse F13.10 ; Alcohol dependence, binge pattern F10.20 and Marijuana abuse F12.10 [facility] [place] [id number] [place] [address] 25131- 3853 16 Jan, 2017 [facility] [place] [address] 42640- 5132 Jan, [facility] [place] [id number] [place] [address] 67910- 4468 15 Jan, 2017 [facility] [place] [id number] [place] [address] 60913- 2661 14 Jan, 2017 Urinary frequency R35.0 and Opiate dependence, continuous F11.20 [facility] [address] [place] [address] 10 Jan, 2017 Opiate dependence, continuous F11.20 ; 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 ; Benzodiazepine abuse F13.10 ; Alcohol dependence, binge pattern F10.20 and Marijuana abuse F12.10 [facility] [address] [place] [address] 08 Jan, 2017 [facility] [place] [address] 47568- 3257 08 Jan, 2017 Moderate episode of recurrent major depressive disorder F33.1 and Post-traumatic stress disorder, unspecified F43.10 [facility] [place] [id number] [place] [address] 81163- 8738 08 Jan, 2017 [facility] [place] [address] 11440- 9813 07 Jan, 2017 Moderate episode of recurrent major depressive disorder F33.1 and Substance abuse withdrawal without complication F19.230 [facility] [place] [id number] [place] [address] 84429- 2562 07 Jan, 2017 [facility] [place] [id number] [place] [address] 64807- 7030 Jun, [facility] [place] [id number] [place] [address] 23959- 2684 Jun, [facility] [place] [address] 70974- 2900 May, [facility] [place] [id number] [place] [address] 42940- 1897 May, [facility] [place] [id number] [place] [address] 77537- 8948 Apr, [facility] [place] [address] [facility] [id number] [address]- 0746 Apr, [facility] [place] [address] [id number] 5916 Apr, [facility] [place] [address] [id number] [address]- 0846 Apr, [facility] [place] [address] [address]- 2406 Apr, [facility] [place] [address] [id number] [address]- 9404 Apr, [facility] [place] [address] [address]- 8166 Dec, [facility] [place] [address] [id number] [address] 0056 Dec, [facility] [address] [id number] [id number] Nov, [facility] [place] [address] [facility] [id number], [place] [address]- 5136 Sep, IMMUNIZATIONS No Known Immunizations SOCIAL HISTORY [...]
--- OUTSIDE RECORDS SUMMARY | 2017-10-23 22:20 | XMS REPORT ---
Author Author SHELLY ALVAREZ Organization [facility] Address [address] 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 302725610 Problem Major depressive disorder, recurrent, moderate F33.1 Active 82981127 Problem Post-traumatic stress disorder, unspecified F43.10 Active [id number] ALLERGIES No Information ENCOUNTERS Encounter Location Date Diagnosis [facility] [address] [place] [address] Aug, [facility] [address] [address] Aug, [facility] [address] [place] [address] July, Opioid dependence, uncomplicated F11.20 and Methamphetamine abuse, 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 [id number] [place] [address] Jun, [facility] [id number] [place], [place] [address] Jun, Moderate episode of recurrent major depressive disorder F33.1 ; Post-traumatic stress disorder, unspecified F43.10 and Opioid dependence , uncomplicated F11.20 [facility] [id number] [place] [address] Jun, Opioid dependence, uncomplicated F11.20 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 [facility] [id number] [place] [address] May, Moderate episode of recurrent major depressive disorder F33.1 ; Post-traumatic stress disorder, unspecified F43.10 and Opioid dependence , uncomplicated F11.20 [facility] [id number] [place] [id number] May, [facility] [id number] [place] [address] Apr, Opioid dependence, uncomplicated F11.20 [facility] [address] [place] [address] Apr, Opioid dependence, uncomplicated F11.20 and Methamphetamine abuse, 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 [facility] [address] [address] Apr, Opioid dependence, uncomplicated F11.20 [facility] [address] [address] Apr, Opioid dependence, uncomplicated F11.20 and Methamphetamine abuse, 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 [facility] [address] [address]902[address] Apr, Opioid dependence, uncomplicated F11.20 [facility] [address] [address] Apr, Opioid dependence, uncomplicated F11.20 [facility] [address] [address] Apr, Opioid dependence, uncomplicated F11.20 [facility] [address] [place] [address] Mar, Opioid dependence, uncomplicated F11.20 [facility] [address] [address] Mar, Opioid dependence, uncomplicated F11.20 [facility] [address] [id number] Mar, Opioid dependence, uncomplicated F11.20 [facility] [id number] [place] [address] Mar, [facility] [address] [address] Mar, Opioid dependence, uncomplicated F11.20 [facility] [address] [id number]- [address] Mar, Opioid dependence, uncomplicated F11.20 [facility] [id number] [place] [address] Mar, Moderate episode of recurrent major depressive disorder F33.1 ; Post-traumatic stress disorder, unspecified F43.10 and Opioid dependence , uncomplicated F11.20 [facility] [id number] [place] [address] 2546 02 Mar, 2017 Opioid dependence, uncomplicated F11.20 [facility] [id number] [place] [address] 80245 2546 28 Feb, 2017 Moderate episode of recurrent major depressive disorder F33.1 [facility] [address] [place] [address] 28 Feb, 2017 Opioid dependence, uncomplicated F11.20 [facility] [id number] [place] [address] 2546 27 Feb, 2017 Opioid dependence, uncomplicated F11.20 [facility] [id number] [place] [address] 2546 20 Feb, 2017 Opioid dependence, uncomplicated F11.20 [facility] [id number] [place] [address] 10234 2546 19 Feb, 2017 [facility] [id number] [place] [address] 94498 2546 18 Feb, 2017 [facility] [id number] [place] [address]24 2546 15 Feb, 2017 Moderate episode of recurrent major depressive disorder F33.1 [facility] [address] [place] [address] 14 Feb, 2017 Opioid dependence, uncomplicated F11.20 [facility] [id number] [place] [address] 78996 2546 14 Feb, 2017 [facility] [id number] [place] [address] 41466 2546 14 Feb, 2017 [facility] [id number] [place] [address] 88972 2546 14 Feb, 2017 [facility] [id number] [place] [address] 41692 2546 13 Feb, 2017 [facility] [id number] [place] [address]- [address] Feb, [facility] [address] [address] Feb, Moderate episode of recurrent major depressive disorder F33.1 ; Post-traumatic stress disorder, unspecified F43.10 and Opioid dependence , uncomplicated F11.20 [facility] [id number] [place] [address] 2546 12 Feb, 2017 [facility] [id number] [place] [address] 74967 2546 Feb, [facility] [address] [place] [address] Feb, Opioid dependence, uncomplicated F11.20 [facility] [id number] [place] [address]20 2546 Feb, Moderate episode of recurrent major depressive disorder F33.1 [facility] [id number] [place] [address]- [address] Feb, Opioid dependence, uncomplicated F11.20 [facility] [id number] [place] [address] 64263 2546 Feb, [facility] [id number] [place] [address] 41719 2546 Feb, [facility] [id number] [place] [address] 81338 2546 Feb, [facility] [id number] [place] [address] 34697 2546 Feb, [facility] [id number] [place] [address] 95160 2546 Feb, [facility] [address] [place] [address] Feb, Opioid dependence, uncomplicated F11.20 [facility] [address], [place] [address] 2546 Feb, [facility] [id number] [place] [address] 2546 Jan, Opioid dependence, uncomplicated F11.20 and Drug induced constipation K59.03 [facility] [id number] [place] [address] Jan, [facility] [address] [address]- [address] Jan, Moderate episode of recurrent major depressive disorder F33.1 and Post-traumatic stress disorder, unspecified F43.10 [facility] [address] [place] [address] Jan, [facility] [address] [address] Jan, [facility] [address] [address] Jan, [facility] [address] [place] [address] Jan, [facility] [address] [place] [address] 96152- [address] Jan, Opioid dependence, uncomplicated F11.20 ; Drug induced constipation K59.03 and Adverse effect of other opioids, initial encounter T40.2X5A [facility] [address] [place] [address]31- [address] Jan, [facility] [address] [address] Jan, [facility] [address] [address] Jan, Opiate dependence, continuous F11.20 [facility] [address] [place] [address] Jan, Opiate dependence, continuous F11.20 ; 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 ; Benzodiazepine abuse F13.10 ; Alcohol dependence, binge pattern F10.20 and Marijuana abuse F12.10 [facility] [id number] [place] [address]- 240[address] Jan, [facility] [address] [place] [address] 49585- 0377 Jan, [facility] [id number] [place] [address] 80[address]- 5744 15 Jan, 2017 [facility] [id number] [place] [address]- [address] 14 Jan, 2017 Urinary frequency R35.0 and Opiate dependence, continuous F11.20 [facility] [address] [place] [address] 10 Jan, 2017 Opiate dependence, continuous F11.20 ; 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 ; Benzodiazepine abuse F13.10 ; Alcohol dependence, binge pattern F10.20 and Marijuana abuse F12.10 [facility] [address] [place] [address] 08 Jan, 2017 [facility] [id number] [place] [address]- [address] 08 Jan, 2017 Moderate episode of recurrent major depressive disorder F33.1 and Post-traumatic stress disorder, unspecified F43.10 [facility] [id number] [place] [address]- [address] 08 Jan, 2017 [facility] [address] [address] 07 Jan, 2017 Moderate episode of recurrent major depressive disorder F33.1 and Substance abuse withdrawal without complication F19.230 [facility] [id number] [place] [address] 97682- 1564 07 Jan, 2017 [facility] [id number] [place] [address]- 1739 Jun, [facility] [id number] [place] [address] 50965- 14[address] Jun, [facility] [address] [address] May, [facility] [id number] [place] [address]- [address] May, [facility] [id number] [place] [address] 29485- 3017 Apr, [facility] [address] [facility] [id number] [address] Apr, [facility] [id number] [address] Apr, [facility] [id number] [address] Apr, [facility] [address] [place] [address] Apr, [facility] [id number] [address] Apr, [facility] [address], [place] [address] Dec, [facility] [id number] [address] Dec, [facility] [address] [id number] [id number] Nov, [facility] [address] [facility] [id number] [address] Sep, IMMUNIZATIONS No Known Immunizations SOCIAL HISTORY Never Assessed REASON FOR VISIT Med Dispense PLAN OF CARE VITAL SIGNS MEDICATIONS Medication Instructions Dosage Frequency Start Date End Date Duration Status Suboxone 8-2 MG Sublingual Once a day 3 film under the tongue and allow to dissolve 24h 07 days Active RESULTS No Results PROCEDURES No Known procedures INSTRUCTIONS MEDICATIONS ADMINISTERED No Known Medications MEDICAL (GENERAL) HISTORY Type Description Date Medical History ADHD Medical History depression Medical History anxiety Surgical History tongue clipped as a child
--- OUTSIDE RECORDS SUMMARY | 2017-10-23 22:20 | XMS REPORT ---
Author Author SHELLY ALVAREZ Organization [facility] Address [address] 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 699509758 Problem Dysthymia F34.1 Active 14056033 Problem Drug induced constipation K59.03 Active 80308013 Problem Post-traumatic stress disorder, unspecified F43.10 Active 39190290 Problem Alcohol dependence, binge pattern F10.20 Active 051149274 Problem Opioid dependence, uncomplicated F11.20 Active 89318150 Problem Major depressive disorder, recurrent, moderate F33.1 Active 41494781 ALLERGIES No Information ENCOUNTERS Encounter Location Date Diagnosis [facility] [address] [place] [address] Aug, [facility] [id number] [place] [address]11[address]68 Aug, Acute pain of right wrist M25.531 ; Dysthymia F34.1 ; Screening for hyperlipidemia Z13.220 ; Screening for diabetes mellitus Z13.1 and Screening for other and unspecified deficiency anemia Z13.0 [facility] [id number] [place] [address] Aug, [facility] [address] [place] [address] July, Opioid dependence, uncomplicated F11.20 and Methamphetamine abuse, 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 [facility] [address] [place] [address] July, Opioid dependence, uncomplicated F11.20 and Methamphetamine abuse, 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 [facility] [address] [place] [address] July, Opioid dependence, uncomplicated F11.20 and Methamphetamine abuse, 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 [facility] [id number] [place] [address] 146724- 4410 Jun, Opioid dependence, uncomplicated F11.20 [facility] [address] [place] [address] Jun, Opioid dependence, uncomplicated F11.20 and Methamphetamine abuse, 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 [facility] [address] 0747[address] Jun, [facility] [id number] [place] [address] 86446- 0771 Jun, Moderate episode of recurrent major depressive disorder F33.1 ; Post-traumatic stress disorder, unspecified F43.10 and Opioid dependence , uncomplicated F11.20 [facility] [id number] [place] [address] 86271[address] Jun, Opioid dependence, uncomplicated F11.20 [facility] [id number] [place] [address] 88659- 1564 May, Opioid dependence, uncomplicated F11.20 [facility] [address] [place] [address] May, Opioid dependence, uncomplicated F11.20 and Methamphetamine abuse, 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 [facility] [id number] [place] [address] 04562- 5676 May, Opioid dependence, uncomplicated F11.20 [facility] [id number] [place] [address] 71122- 1542 May, Opioid dependence, uncomplicated F11.20 [facility] [address] [place] [address] May, Opioid dependence, uncomplicated F11.20 and Methamphetamine abuse, 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 [facility] [id number] [place] [address] 61558- 7885 May, Moderate episode of recurrent major depressive disorder F33.1 ; Post-traumatic stress disorder, unspecified F43.10 and Opioid dependence , uncomplicated F11.20 [facility] [id number] [place] [address] 35637- 6666 May, [facility] [address] [address]46 Apr, Opioid dependence, uncomplicated F11.20 [facility] [address] [place] [address] Apr, Opioid dependence, uncomplicated F11.20 and Methamphetamine abuse, 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 [facility] [address] [address]46 Apr, Opioid dependence, uncomplicated F11.20 [facility] [address] [address] Apr, Opioid dependence, uncomplicated F11.20 and Methamphetamine abuse, 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 [facility] [address] [address]678[address] Apr, Opioid dependence, uncomplicated F11.20 [facility] [address] [place] [address] Apr, Opioid dependence, uncomplicated F11.20 [facility] [address] 2546 Apr, Opioid dependence, uncomplicated F11.20 [facility] [address] [place] [address] Mar, Opioid dependence, uncomplicated F11.20 [facility] [id number] [place] [address] 42920 2546 Mar, Opioid dependence, uncomplicated F11.20 [facility] [id number] [place] [address] 50732 2546 Mar, Opioid dependence, uncomplicated F11.20 [facility] [id number] [place] [address] 15475 2546 Mar, [facility] [id number] [place] [address] 80391 2546 Mar, Opioid dependence, uncomplicated F11.20 [facility] [address] [place] [address] 02328- 0346 Mar, Opioid dependence, uncomplicated F11.20 [facility] [id number] [place] [address] 71767- 7376 Mar, Moderate episode of recurrent major depressive disorder F33.1 ; Post-traumatic stress disorder, unspecified F43.10 and Opioid dependence , uncomplicated F11.20 [facility] [id number] [place] [address] 95679- 4712 Mar, Opioid dependence, uncomplicated F11.20 [facility] [id number] [place] [address] 94390- 5946 Feb, Moderate episode of recurrent major depressive disorder F33.1 [facility] [address] [place] [address] Feb, Opioid dependence, uncomplicated F11.20 [facility] [id number] [place] [address] 03370- 1949 27 Feb, 2017 Opioid dependence, uncomplicated F11.20 [facility] [id number] [place] [address] 02562- 6451 Feb, Opioid dependence, uncomplicated F11.20 [facility] [id number] [place] [address] 08175- 9186 19 Feb, 2017 [facility] [id number] [place] [address] 49293- 3386 18 Feb, 2017 [facility] [id number] [place] [address] 08471 2543 15 Feb, 2017 Moderate episode of recurrent major depressive disorder F33.1 [facility] [address] [place] [address] 14 Feb, 2017 Opioid dependence, uncomplicated F11.20 [facility] [id number] [place] [address] 51400 2546 14 Feb, 2017 [facility] [id number] [place] [address] 99068- 4808 14 Feb, 2017 [facility] [address] [address] 14 Feb, 2017 [facility] [id number] [place] [address] 89047- 3826 13 Feb, 2017 [facility] [id number] [place] [address] 95520 2546 13 Feb, 2017 [facility] [id number] [place] [address] 33613 2546 13 Feb, 2017 Moderate episode of recurrent major depressive disorder F33.1 ; Post-traumatic stress disorder, unspecified F43.10 and Opioid dependence , uncomplicated F11.20 [facility] [id number] [place] [address] 19593- 0286 12 Feb, 2017 [facility] [id number] [place] [address] 28690- 1656 11 Feb, 2017 [facility] [address] [place] [address] 08 Feb, 2017 Opioid dependence, uncomplicated F11.20 [facility] [address] [place] [address] 22854 2546 08 Feb, 2017 Moderate episode of recurrent major depressive disorder F33.1 [facility] [address] [place] [address] 41253 2546 07 Feb, 2017 Opioid dependence, uncomplicated F11.20 [facility] [address] [place] [address] 03854 2546 07 Feb, 2017 [facility] [id number] [place] [address] 57718 2546 Feb, [facility] [id number] [place] [address] 32331 2546 05 Feb, 2017 [facility] [id number] [place] [address] 69649 2546 Feb, [facility] [id number] [place] [address] 06617 2546 Feb, [facility] [address] [place] [address] Feb, Opioid dependence, uncomplicated F11.20 [facility] [address] [address] 2546 Feb, [facility] [address] [address] 2546 Jan, Opioid dependence, uncomplicated F11.20 and Drug induced constipation K59.03 [facility] [address] [address] 2546 Jan, [facility] [address] [address] 2546 Jan, Moderate episode of recurrent major depressive disorder F33.1 and Post-traumatic stress disorder, unspecified F43.10 [facility] [address] [place] [address] Jan, [facility] [address] [address] 2546 Jan, [facility] [address] [address] 2547 Jan, [facility] [address] [place] [address] Jan, [facility] [id number] [place] [address] 16985 2546 Jan, Opioid dependence, uncomplicated F11.20 ; Drug induced constipation K59.03 and Adverse effect of other opioids, initial encounter T40.2X5A [facility] [id number] [place] [address] 32261 2546 Jan, [facility] [address] [address] 2546 Jan, [facility] [id number] [place] [address] 41526 2546 Jan, Opiate dependence, continuous F11.20 [facility] [address] [place] [address] Jan, Opiate dependence, continuous F11.20 ; 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 ; Benzodiazepine abuse F13.10 ; Alcohol dependence, binge pattern F10.20 and Marijuana abuse F12.10 [facility] [id number] [place] [address] 02299- 3379 16 Jan, 2017 [facility] [id number] [place] [address] 19957- 0119 15 Jan, 2017 [facility] [address] 42491- 3317 15 Jan, 2017 [facility] [id number] [place] [address] 51752- 6368 14 Jan, 2017 Urinary frequency R35.0 and Opiate dependence, continuous F11.20 [facility] [address] [place] [address] 10 Jan, 2017 Opiate dependence, continuous F11.20 ; 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 ; Benzodiazepine abuse F13.10 ; Alcohol dependence, binge pattern F10.20 and Marijuana abuse F12.10 [facility] [address] [place] [address] 08 Jan, 2017 [facility] [address] 02477- [address]61 08 Jan, 2017 Moderate episode of recurrent major depressive disorder F33.1 and Post-traumatic stress disorder, unspecified F43.10 [facility] [id number] [place] [address] 89747- 9873 08 Jan, 2017 [facility] [id number] [place] [address] 69322- 7354 07 Jan, 2017 Moderate episode of recurrent major depressive disorder F33.1 and Substance abuse withdrawal without complication F19.230 [facility] [address] 63674- 3149 07 Jan, 2017 [facility] [id number] [place] [address] 25854- 8477 14 Jun, 2014 [facility] [address] 32907- 1109 Jun, [facility] [id number] [address]- 25[address] May, [facility] [address] [address]- 2546 May, [facility] [address] [address]- 2546 Apr, [facility] [address] [address]- 2546 Apr, [facility] [address] [address]- 2546 Apr, [facility] [address] [address]- 2546 Apr, [facility] [address] [address]- 2546 Apr, [facility] [address] [address]- 2546 Apr, [facility] [address] [address] Dec, [facility] [address] [address] 2546 Dec, [facility] [id number] [address] Nov, [facility] [address] [address] 2546 Sep, IMMUNIZATIONS No Known Immunizations SOCIAL HISTORY Never Assessed REASON FOR VISIT suboxone rx (03/28-03/31) PLAN OF CARE VITAL SIGNS MEDICATIONS Medication Instructions Dosage Frequency Start Date End Date Duration Status Suboxone 8-2 MG Sublingual Once a day 3 film under the tongue and allow to dissolve 24h 4 days Active RESULTS No Results PROCEDURES No Known procedures INSTRUCTIONS MEDICATIONS ADMINISTERED No Known Medications MEDICAL (GENERAL) HISTORY Type Description Date Medical History ADHD Medical History depression Medical History anxiety Surgical History tongue clipped as a child
--- OUTSIDE RECORDS SUMMARY | 2017-10-23 22:21 | XMS REPORT ---
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 849065927 Problem Major depressive disorder, recurrent, moderate F33.1 Active 41191140 Problem Post-traumatic stress disorder, unspecified F43.10 Active 99578097 ALLERGIES No Information ENCOUNTERS Encounter Location Date Diagnosis [facility] [address] [place] [address] Aug, [facility] [address] [place] [address] Aug, [facility] [address] [place] [address] July, Opioid dependence, uncomplicated F11.20 and Methamphetamine abuse, 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 [facility] [address] [place] [address] July, Opioid dependence, uncomplicated F11.20 and Methamphetamine abuse, 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 [facility] [address] [place] [address] July, Opioid dependence, uncomplicated F11.20 and Methamphetamine abuse, 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 [facility] [id number] [place] [address] Jun, Opioid dependence, uncomplicated F11.20 [facility] [address] [place] [address] Jun, Opioid dependence, uncomplicated F11.20 and Methamphetamine abuse, 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 [facility] [id number] [place] [address]147[address] 9429 Jun, [facility] [id number] [place] [address] Jun, Moderate episode of recurrent major depressive disorder F33.1 ; Post-traumatic stress disorder, unspecified F43.10 and Opioid dependence , uncomplicated F11.20 [facility] [id number] [place] [address] 89363[address]86 Jun, Opioid dependence, uncomplicated F11.20 [facility] [id number] [place] [address]6670- 2881 May, Opioid dependence, uncomplicated F11.20 [facility] [address] [place] [address] May, Opioid dependence, uncomplicated F11.20 and Methamphetamine abuse, 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 [facility] [id number] [place] [address] May, Opioid dependence, uncomplicated F11.20 [facility] [id number] [place] [address]012[address] 4616 May, Opioid dependence, uncomplicated F11.20 [facility] [address] [place] [address] May, Opioid dependence, uncomplicated F11.20 and Methamphetamine abuse, 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 [facility] [id number] [place] [address]853- 7604 May, Moderate episode of recurrent major depressive disorder F33.1 ; Post-traumatic stress disorder, unspecified F43.10 and Opioid dependence , uncomplicated F11.20 [facility] [id number] [place] [id number] May, [facility] [id number] [place] [address] 38594- 7441 Apr, Opioid dependence, uncomplicated F11.20 [facility] [address] [place] [address] Apr, Opioid dependence, uncomplicated F11.20 and Methamphetamine abuse, 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 [facility] [address] [address] Apr, Opioid dependence, uncomplicated F11.20 [facility] [address] [place] [address] Apr, Opioid dependence, uncomplicated F11.20 and Methamphetamine abuse, 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 [facility] [address] [address] Apr, Opioid dependence, uncomplicated F11.20 [facility] [address] [place] [address] Apr, Opioid dependence, uncomplicated F11.20 [facility] [id number] [place] [address] 87160- 7516 Apr, Opioid dependence, uncomplicated F11.20 [facility] [address] [place] [address] Mar, Opioid dependence, uncomplicated F11.20 [facility] [address] [address] Mar, Opioid dependence, uncomplicated F11.20 [facility] [id number] [place] [address] 12835 2542 Mar, Opioid dependence, uncomplicated F11.20 [facility] [id number] [place] [address] 19293 2541 Mar, [facility] [address] [address] 2541 Mar, Opioid dependence, uncomplicated F11.20 [facility] [address] [address] 2546 Mar, Opioid dependence, uncomplicated F11.20 [facility] [id number] [place] [address] 30936 254 Mar, Moderate episode of recurrent major depressive disorder F33.1 ; Post-traumatic stress disorder, unspecified F43.10 and Opioid dependence , uncomplicated F11.20 [facility] [id number] [place] [address] 53440 2546 02 Mar, 2017 Opioid dependence, uncomplicated F11.20 [facility] [id number] [place] [address] 66382 2546 28 Feb, 2017 Moderate episode of recurrent major depressive disorder F33.1 [facility] [address] [place] [address] 28 Feb, 2017 Opioid dependence, uncomplicated F11.20 [facility] [id number] [place] [address] 76423 2546 27 Feb, 2017 Opioid dependence, uncomplicated F11.20 [facility] [id number] [place] [address] 12006 2546 20 Feb, 2017 Opioid dependence, uncomplicated F11.20 [facility] [id number] [place] [address] 07764 2546 19 Feb, 2017 [facility] [id number] [place] [address] 30072 2546 18 Feb, 2017 [facility] [id number] [place] [address] 98248 2546 15 Feb, 2017 Moderate episode of recurrent major depressive disorder F33.1 [facility] [address] [place] [address] 14 Feb, 2017 Opioid dependence, uncomplicated F11.20 [facility] [id number] [place] [address] 26022 2546 14 Feb, 2017 [facility] [id number] [place] [address] 33680 2546 14 Feb, 2017 [facility] [id number] [place] [address] 77974 2546 14 Feb, 2017 [facility] [id number] [place] [address] 88040 2546 13 Feb, 2017 [facility] [id number] [place] [address] 67499 2546 13 Feb, 2017 [facility] [address] [address] Feb, Moderate episode of recurrent major depressive disorder F33.1 ; Post-traumatic stress disorder, unspecified F43.10 and Opioid dependence , uncomplicated F11.20 [facility] [address] [place] [address] 88589- 0856 12 Feb, 2017 [facility] [id number] [place] [address] 60178 2546 Feb, [facility] [address] [place] [address] Feb, Opioid dependence, uncomplicated F11.20 [facility] [id number] [place] [address] 94929- 9096 Feb, Moderate episode of recurrent major depressive disorder F33.1 [facility] [id number] [place] [address] 57361- 0836 07 Feb, 2017 Opioid dependence, uncomplicated F11.20 [facility] [address] [place] [address] 62921 2546 Feb, [facility] [id number] [place] [address] 86590 2546 Feb, [facility] [address] [place] [address] 68893 2546 Feb, [facility] [id number] [place] [address] 14995 2546 Feb, [facility] [address] [place] [address] 31926 2546 Feb, [facility] [address] [place] [address] Feb, Opioid dependence, uncomplicated F11.20 [facility] [address] [place] [address] 53649 2546 Feb, [facility] [address] [place] [address] 05960- 3392 Jan, Opioid dependence, uncomplicated F11.20 and Drug induced constipation K59.03 [facility] [id number] [place] [address] 36717- 4247 Jan, [facility] [address] [address] Jan, Moderate episode of recurrent major depressive disorder F33.1 and Post-traumatic stress disorder, unspecified F43.10 [facility] [address] [place] [address] Jan, [facility] [address] [address] 8067 Jan, [facility] [address] [place] [address] 71450- 6971 Jan, [facility] [address] [place] [address] Jan, [facility] [address] [place] [address] 48605- 7046 Jan, Opioid dependence, uncomplicated F11.20 ; Drug induced constipation K59.03 and Adverse effect of other opioids, initial encounter T40.2X5A [facility] [address] [place] [address] 41981- 2688 Jan, [facility] [id number] [place] [address] 06281- 3310 Jan, [facility] [address] [address] Jan, Opiate dependence, continuous F11.20 [facility] [address] [place] [address] Jan, Opiate dependence, continuous F11.20 ; 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 ; Benzodiazepine abuse F13.10 ; Alcohol dependence, binge pattern F10.20 and Marijuana abuse F12.10 [facility] [id number] [place] [address] 43303- 5991 16 Jan, 2017 [facility] [address] [address]- [address] Jan, [facility] [id number] [place] [address] 73136- 7377 15 Jan, 2017 [facility] [id number] [place] [address] 98388- 5234 14 Jan, 2017 Urinary frequency R35.0 and Opiate dependence, continuous F11.20 [facility] [address] [place] [address] 10 Jan, 2017 Opiate dependence, continuous F11.20 ; 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 ; Benzodiazepine abuse F13.10 ; Alcohol dependence, binge pattern F10.20 and Marijuana abuse F12.10 [facility] [address] [place] [address] 08 Jan, 2017 [facility] [id number] [place] [address] 57640- 0479 08 Jan, 2017 Moderate episode of recurrent major depressive disorder F33.1 and Post-traumatic stress disorder, unspecified F43.10 [facility] [id number] [place] [address] 85437- 6308 08 Jan, 2017 [facility] [id number] [place] [address] 66044- 6439 07 Jan, 2017 Moderate episode of recurrent major depressive disorder F33.1 and Substance abuse withdrawal without complication F19.230 [facility] [id number] [place] [address] 91141- 6307 07 Jan, 2017 [facility] [id number] [place] [address] 89400- 7998 Jun, [facility] [id number] [place] [address] 75303- 6754 Jun, [facility] [address] [address]- [address] May, [facility] [id number] [place] [address] 39259- 1477 May, [facility] [id number] [place] [address] 88221- 1637 Apr, [facility] [address] [facility] [id number] [address] Apr, [facility] [id number] [address] Apr, [facility] [id number] [address] 2546 Apr, [facility] [address] [address] 25[address] Apr, [facility] [id number] [address]- 2546 Apr, [facility] [address] [address] 2546 Dec, [facility] [id number] [address] Dec, [facility] [address] [id number] [id number] Nov, [facility] [address] [facility] [id number] [address] 2546 Sep, IMMUNIZATIONS No Known Immunizations SOCIAL HISTORY Never Assessed REASON FOR VISIT RN MAT Visit PLAN OF CARE VITAL SIGNS MEDICATIONS Medication Instructions Dosage Frequency Start Date End Date Duration Status Suboxone 8-2 MG Sublingual Once a day 2 film under the tongue and allow to dissolve 24h Jan, 1 dose Active RESULTS No Results PROCEDURES No Known procedures INSTRUCTIONS MEDICATIONS ADMINISTERED No Known Medications MEDICAL (GENERAL) HISTORY Type Description Date Medical History ADHD Medical History depression Medical History anxiety Surgical History tongue clipped as a child
--- OUTSIDE RECORDS SUMMARY | 2017-10-23 22:21 | XMS REPORT ---
Author Author SHELLY ALVAREZ Organization [facility] Address [address] 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 271647555 Problem Major depressive disorder, recurrent, moderate F33.1 Active 69445690 Problem Post-traumatic stress disorder, unspecified F43.10 Active [id number] ALLERGIES No Information ENCOUNTERS Encounter Location Date Diagnosis [facility] [address] [place] [address] Aug, [facility] [address] [address] Aug, [facility] [address] [place] [address] July, Opioid dependence, uncomplicated F11.20 and Methamphetamine abuse, 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 [facility] [address] [place] [address] July, Opioid dependence, uncomplicated F11.20 and Methamphetamine abuse, 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 [facility] [address] [place] [address] July, Opioid dependence, uncomplicated F11.20 and Methamphetamine abuse, 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 [facility] [address] [address] Jun, Opioid dependence, uncomplicated F11.20 [facility] [address] [place] [address] Jun, Opioid dependence, uncomplicated F11.20 and Methamphetamine abuse, 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 [facility] [id number] [place] [address] Jun, [facility] [id number] [place], [place] [address] Jun, Moderate episode of recurrent major depressive disorder F33.1 ; Post-traumatic stress disorder, unspecified F43.10 and Opioid dependence , uncomplicated F11.20 [facility] [id number] [place] [address] Jun, Opioid dependence, uncomplicated F11.20 [facility] [id number] [place] [address] 988503- [address] May, Opioid dependence, uncomplicated F11.20 [facility] [place] [address] [id number] May, Opioid dependence, uncomplicated F11.20 and Methamphetamine abuse, 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 [facility] [id number] [place] [address] May, Opioid dependence, uncomplicated F11.20 [facility] [id number] [place] [address]59[address] May, Opioid dependence, uncomplicated F11.20 [facility] [place] [address] [place] [address] May, Opioid dependence, uncomplicated F11.20 and Methamphetamine abuse, 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 [facility] [id number] [place] [address] May, Moderate episode of recurrent major depressive disorder F33.1 ; Post-traumatic stress disorder, unspecified F43.10 and Opioid dependence , uncomplicated F11.20 [facility] [id number] [place] [id number] May, [facility] [id number] [place] [address]01[address] Apr, Opioid dependence, uncomplicated F11.20 [facility] [address] [place] [address] Apr, Opioid dependence, uncomplicated F11.20 and Methamphetamine abuse, 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 [facility] [address] [address]157[address] Apr, Opioid dependence, uncomplicated F11.20 [facility] [place] [address] [address] Apr, Opioid dependence, uncomplicated F11.20 and Methamphetamine abuse, 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 [facility] [address] 615722- [address] Apr, Opioid dependence, uncomplicated F11.20 [facility] [address] [address] Apr, Opioid dependence, uncomplicated F11.20 [facility] [address] [address] Apr, Opioid dependence, uncomplicated F11.20 [facility] [address] [place] [address] Mar, Opioid dependence, uncomplicated F11.20 [facility] [address] [address] Mar, Opioid dependence, uncomplicated F11.20 [facility] [address] [id number]- [address] Mar, Opioid dependence, uncomplicated F11.20 [facility] [id number] [place] [address] 40[address] 2548 Mar, [facility] [address] [address] 2542 Mar, Opioid dependence, uncomplicated F11.20 [facility] [address] [id number]- [address] Mar, Opioid dependence, uncomplicated F11.20 [facility] [id number] [place] [address] 30[address] Mar, Moderate episode of recurrent major depressive disorder F33.1 ; Post-traumatic stress disorder, unspecified F43.10 and Opioid dependence , uncomplicated F11.20 [facility] [id number] [place] [address] 77446 2546 02 Mar, 2017 Opioid dependence, uncomplicated F11.20 [facility] [id number] [place] [address] 18544 2546 28 Feb, 2017 Moderate episode of recurrent major depressive disorder F33.1 [facility] [address] [place] [address] 28 Feb, 2017 Opioid dependence, uncomplicated F11.20 [facility] [id number] [place] [address] 59068 2546 27 Feb, 2017 Opioid dependence, uncomplicated F11.20 [facility] [id number] [place] [address] 95276 2546 20 Feb, 2017 Opioid dependence, uncomplicated F11.20 [facility] [id number] [place] [address] 59209 2546 19 Feb, 2017 [facility] [id number] [place] [address] 53291 2546 18 Feb, 2017 [facility] [id number] [place] [address] 82036 2546 15 Feb, 2017 Moderate episode of recurrent major depressive disorder F33.1 [facility] [address] [place] [address] 14 Feb, 2017 Opioid dependence, uncomplicated F11.20 [facility] [id number] [place] [address] 59716 2546 14 Feb, 2017 [facility] [id number] [place] [address] 03574 2546 14 Feb, 2017 [facility] [id number] [place] [address] 32625 2546 14 Feb, 2017 [facility] [id number] [place] [address] 30858 2546 13 Feb, 2017 [facility] [id number] [place] [address] 24887- 2546 Feb, [facility] [address] [address] Feb, Moderate episode of recurrent major depressive disorder F33.1 ; Post-traumatic stress disorder, unspecified F43.10 and Opioid dependence , uncomplicated F11.20 [facility] [address] [place] [address] 32875 2546 12 Feb, 2017 [facility] [id number] [place] [address] 00348 2546 Feb, [facility] [address] [place] [address] Feb, Opioid dependence, uncomplicated F11.20 [facility] [id number] [place] [address] 27797 2546 Feb, Moderate episode of recurrent major depressive disorder F33.1 [facility] [id number] [place] [address] 87134- 9096 Feb, Opioid dependence, uncomplicated F11.20 [facility] [id number] [place] [address] 32483 2546 Feb, [facility] [id number] [place] [address] 75458 2546 Feb, [facility] [address] [place] [address] 63293 2546 Feb, [facility] [id number] [place] [address] 15105 2546 Feb, [facility] [address] [place] [address] 94122 2546 Feb, [facility] [address] [place] [address] Feb, Opioid dependence, uncomplicated F11.20 [facility] [address] [address] 2546 Feb, [facility] [address] [place] [address] 55391 2546 Jan, Opioid dependence, uncomplicated F11.20 and Drug induced constipation K59.03 [facility] [id number] [place] [address] 07842- 3483 Jan, [facility] [address] 280323- 7551 Jan, Moderate episode of recurrent major depressive disorder F33.1 and Post-traumatic stress disorder, unspecified F43.10 [facility] [address] [place] [address] Jan, [facility] [address] [address] Jan, [facility] [address] [address]- 8373 Jan, [facility] [address] [place] [address] Jan, [facility] [address] [place] [address] 9[address]88- [address]25 Jan, Opioid dependence, uncomplicated F11.20 ; Drug induced constipation K59.03 and Adverse effect of other opioids, initial encounter T40.2X5A [facility] [address] [place] [address] 32231- 3593 Jan, [facility] [address] [address]- [address]68 Jan, [facility] [address] [address]- [address] Jan, Opiate dependence, continuous F11.20 [facility] [address] [place] [address] Jan, Opiate dependence, continuous F11.20 ; 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 ; Benzodiazepine abuse F13.10 ; Alcohol dependence, binge pattern F10.20 and Marijuana abuse F12.10 [facility] [id number] [place] [address] 23770- 1226 Jan, [facility] [address] [place] [address] 41358- 9339 Jan, [facility] [id number] [place] [address] 16200- 0905 15 Jan, 2017 [facility] [id number] [place] [address] 60816- 7282 14 Jan, 2017 Urinary frequency R35.0 and Opiate dependence, continuous F11.20 [facility] [address] [place] [address] 10 Jan, 2017 Opiate dependence, continuous F11.20 ; 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 ; Benzodiazepine abuse F13.10 ; Alcohol dependence, binge pattern F10.20 and Marijuana abuse F12.10 [facility] [address] [place] [address] 08 Jan, 2017 [facility] [id number] [place] [address] 84066- 3159 08 Jan, 2017 Moderate episode of recurrent major depressive disorder F33.1 and Post-traumatic stress disorder, unspecified F43.10 [facility] [id number] [place] [address] 64471- 0492 08 Jan, 2017 [facility] [address] [address]- [address] 07 Jan, 2017 Moderate episode of recurrent major depressive disorder F33.1 and Substance abuse withdrawal without complication F19.230 [facility] [id number] [place] [address] 47868- 6198 07 Jan, 2017 [facility] [id number] [place] [address] 94607- 1361 Jun, [facility] [id number] [place] [address] 08066- 6259 Jun, [facility] [address] [address] May, [facility] [id number] [place] [address] 07001- 0527 May, [facility] [id number] [place] [address] 21652- 3465 Apr, [facility] [address] [facility] [id number] [address] Apr, [facility] [id number] [address] 2546 Apr, [facility] [id number] [address] 2546 Apr, [facility] [address] [address] 25[address] Apr, [facility] [id number], [place] [address] 2546 Apr, [facility] [address] [address] 2546 Dec, [facility] [id number] [address] 2546 Dec, [facility] [address] [id number] [id number] Nov, [facility] [address] [facility] [id number] [address] 2546 Sep, IMMUNIZATIONS No Known Immunizations SOCIAL [...]
--- OUTSIDE RECORDS SUMMARY | 2017-10-23 22:21 | XMS REPORT ---
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 074976385 Problem Major depressive disorder, recurrent, moderate F33.1 Active 91653004 Problem Post-traumatic stress disorder, unspecified F43.10 Active 72709030 ALLERGIES No Information ENCOUNTERS Encounter Location Date Diagnosis [facility] [address] [place] [address] Aug, [facility] [address] [place] [id number] [place] [address] Aug, [facility] [address] [place] [address] July, Opioid dependence, uncomplicated F11.20 and Methamphetamine abuse, episodic F15.10 [facility] [address] [place] [address] July, Opioid dependence, uncomplicated F11.20 and Methamphetamine abuse, 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 [facility] [address] [place] [address] July, Opioid dependence, uncomplicated F11.20 and Methamphetamine abuse, 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 [facility] [id number] [place] [address] 10394- 7785 Jun, Opioid dependence, uncomplicated F11.20 [facility] [address] [place] [address] Jun, Opioid dependence, uncomplicated F11.20 and Methamphetamine abuse, 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 [facility] [place] [id number] [place] [address]138- 5792 Jun, [facility] [id number] [place], [place] [address] Jun, Moderate episode of recurrent major depressive disorder F33.1 ; Post-traumatic stress disorder, unspecified F43.10 and Opioid dependence , uncomplicated F11.20 [facility] [id number] [place] [address] 59423- 2458 Jun, Opioid dependence, uncomplicated F11.20 [facility] [place] [id number] [place] [address] 191827- 1824 May, Opioid dependence, uncomplicated F11.20 [facility] [address] [place] [address] May, Opioid dependence, uncomplicated F11.20 and Methamphetamine abuse, 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 [facility] [id number] [place] [address] 18227- 5745 May, Opioid dependence, uncomplicated F11.20 [facility] [id number] [place] [address] 45300- 5426 May, Opioid dependence, uncomplicated F11.20 [facility] [address] [place] [address] May, Opioid dependence, uncomplicated F11.20 and Methamphetamine abuse, 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 [facility] [id number] [place] [address] 97436- 4048 May, Moderate episode of recurrent major depressive disorder F33.1 ; Post-traumatic stress disorder, unspecified F43.10 and Opioid dependence , uncomplicated F11.20 [facility] [id number] [place] [address] May, [facility] [id number] [place] [address] 13328- 3227 Apr, Opioid dependence, uncomplicated F11.20 [facility] [address] [place] [address] Apr, Opioid dependence, uncomplicated F11.20 and Methamphetamine abuse, 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 [facility] [address] [address] Apr, Opioid dependence, uncomplicated F11.20 [facility] [address] [place] [address] Apr, Opioid dependence, uncomplicated F11.20 and Methamphetamine abuse, 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 [facility] [address] [address] Apr, Opioid dependence, uncomplicated F11.20 [facility] [address] [place] [address] Apr, Opioid dependence, uncomplicated F11.20 [facility] [id number] [place] [address] 31778- 2288 Apr, Opioid dependence, uncomplicated F11.20 [facility] [address] [place] [address] Mar, Opioid dependence, uncomplicated F11.20 [facility] [address] [address] Mar, Opioid dependence, uncomplicated F11.20 [facility] [id number] [place] [address] 84149- 0222 Mar, Opioid dependence, uncomplicated F11.20 [facility] [id number] [place] [address] 14443- 6716 Mar, [facility] [address] [address] 2541 Mar, Opioid dependence, uncomplicated F11.20 [facility] [id number] [place] [address] 84304- 2519 Mar, Opioid dependence, uncomplicated F11.20 [facility] [id number] [place] [address] 95762- 0732 Mar, Moderate episode of recurrent major depressive disorder F33.1 ; Post-traumatic stress disorder, unspecified F43.10 and Opioid dependence , uncomplicated F11.20 [facility] [id number] [place] [address] 17791 2546 02 Mar, 2017 Opioid dependence, uncomplicated F11.20 [facility] [id number] [place] [address] 55303 2546 28 Feb, 2017 Moderate episode of recurrent major depressive disorder F33.1 [facility] [address] [place] [address] 28 Feb, 2017 Opioid dependence, uncomplicated F11.20 [facility] [id number] [place] [address] 04257 2546 27 Feb, 2017 Opioid dependence, uncomplicated F11.20 [facility] [id number] [place] [address] 40604 2546 20 Feb, 2017 Opioid dependence, uncomplicated F11.20 [facility] [id number] [place] [address] 73648 2546 19 Feb, 2017 [facility] [id number] [place] [address] 07329 2546 18 Feb, 2017 [facility] [id number] [place] [address] 82065 2546 15 Feb, 2017 Moderate episode of recurrent major depressive disorder F33.1 [facility] [address] [place] [address] 14 Feb, 2017 Opioid dependence, uncomplicated F11.20 [facility] [address] [place] [address] 01648 2546 14 Feb, 2017 [facility] [id number] [place] [address] 08279 2546 14 Feb, 2017 [facility] [id number] [place] [address] 45229 2546 14 Feb, 2017 [facility] [id number] [place] [address] 03839 2546 13 Feb, 2017 [facility] [id number] [place] [address] 85344 2546 13 Feb, 2017 [facility] [address] [place] [address] 96044- 6096 Feb, Moderate episode of recurrent major depressive disorder F33.1 ; Post-traumatic stress disorder, unspecified F43.10 and Opioid dependence , uncomplicated F11.20 [facility] [id number] [place] [address] 46940- 1996 12 Feb, 2017 [facility] [id number] [place] [address] 65770 2546 Feb, [facility] [address] [place] [address] Feb, Opioid dependence, uncomplicated F11.20 [facility] [id number] [place] [address] 68634- 0536 Feb, Moderate episode of recurrent major depressive disorder F33.1 [facility] [id number] [place] [address] 31217- 1456 07 Feb, 2017 Opioid dependence, uncomplicated F11.20 [facility] [address] [place] [address] 85045 2546 Feb, [facility] [id number] [place] [address] 35308 2546 Feb, [facility] [address] [place] [address] 40880 2546 Feb, [facility] [id number] [place] [address] 32162 2546 Feb, [facility] [address] [place] [address] 44896 2546 Feb, [facility] [address] [place] [address] Feb, Opioid dependence, uncomplicated F11.20 [facility] [address] [place] [address] 35391 2546 Feb, [facility] [address] [place] [address] 90086- 9606 Jan, Opioid dependence, uncomplicated F11.20 and Drug induced constipation K59.03 [facility] [id number] [place] [address] 12358- 1954 Jan, [facility] [address] [id number]- 5759 Jan, Moderate episode of recurrent major depressive disorder F33.1 and Post-traumatic stress disorder, unspecified F43.10 [facility] [address] [id number] Jan, [facility] [id number] [place] [address] 13662- 2972 Jan, [facility] [address] 7[address]24- 2048 Jan, [facility] [address] [place] [address] Jan, [facility] [address] [place] [address] 68446- 5303 Jan, Opioid dependence, uncomplicated F11.20 ; Drug induced constipation K59.03 and Adverse effect of other opioids, initial encounter T40.2X5A [facility] [address] [place] [address] 69535- 4841 Jan, [facility] [id number] [place] [address] 47245- 3349 Jan, [facility] [address] [place] [address] 30077- 4693 Jan, Opiate dependence, continuous F11.20 [facility] [address] [place] [address] Jan, Opiate dependence, continuous F11.20 ; 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 ; Benzodiazepine abuse F13.10 ; Alcohol dependence, binge pattern F10.20 and Marijuana abuse F12.10 [facility] [id number] [place] [address] 85084- 9459 16 Jan, 2017 [facility] [address] 59456- 0385 Jan, [facility] [id number] [place] [address] 97050- 9878 15 Jan, 2017 [facility] [id number] [place] [address] 83391- 1190 14 Jan, 2017 Urinary frequency R35.0 and Opiate dependence, continuous F11.20 [facility] [address] [place] [address] 10 Jan, 2017 Opiate dependence, continuous F11.20 ; 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1 and Substance abuse withdrawal without complication F19.230 [facility] [id number] [place] [address] 20351- 9225 07 Jan, 2017 [facility] [id number] [place] [address] 62551- 8879 Jun, [facility] [id number] [place] [address] 51513- 0437 Jun, [facility] [address] 06182- 9445 May, [facility] [id number] [place] [address] 35480- 9074 May, [facility] [id number] [place] [address] 82769- 7833 Apr, [facility] [address] [facility] [id number] [address] Apr, [facility] [address] [id number] [address] 9416 Apr, [facility] [address] [id number] [address] 9956 Apr, [facility] [address] [address]- 8186 Apr, [facility] [address] [id number] [address] 4438 Apr, [facility] [address] [address]- 1026 Dec, [facility] [address] [id number] [address] 1756 Dec, [facility] [id number] [id number] Nov, [facility] [address] [facility] [id number], [place] [address] Sep, IMMUNIZATIONS No Known Immunizations SOCIAL HISTORY Never Assessed REASON FOR VISIT PS F/U PLAN OF CARE VITAL SIGNS MEDICATIONS Unknown Medications RESULTS No Results PROCEDURES Procedure Date Ordered Result Body Site Alcohol and/or drug services Feb 16, 2017 INSTRUCTIONS MEDICATIONS ADMINISTERED No Known Medications MEDICAL (GENERAL) HISTORY Type Description Date Medical History ADHD Medical History depression Medical History anxiety Surgical History tongue clipped as a child
--- OUTSIDE RECORDS SUMMARY | 2017-10-23 22:22 | XMS REPORT ---
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 457838739 Problem Major depressive disorder, recurrent, moderate F33.1 Active 20770173 Problem Post-traumatic stress disorder, unspecified F43.10 Active [id number] ALLERGIES No Information ENCOUNTERS Encounter Location Date Diagnosis [facility] [address] [place] [address] Aug, [facility] [address] [place] [id number] [place] [address]30[address] Aug, [facility] [address] [place] [address] July, Opioid dependence, uncomplicated F11.20 and Methamphetamine abuse, 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 [facility] [address] [place] [address] July, Opioid dependence, uncomplicated F11.20 and Methamphetamine abuse, 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 [facility] [address] [place] [address] July, Opioid dependence, uncomplicated F11.20 and Methamphetamine abuse, 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 [facility] [id number] [place] [address] 14696- 0397 Jun, Opioid dependence, uncomplicated F11.20 [facility] [address] [place] [address] Jun, Opioid dependence, uncomplicated F11.20 and Methamphetamine abuse, 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 [facility] [id number] [place] [address] 89359- 3180 Jun, [facility] [id number] [place], [place] [address] Jun, Moderate episode of recurrent major depressive disorder F33.1 ; Post-traumatic stress disorder, unspecified F43.10 and Opioid dependence , uncomplicated F11.20 [facility] [id number] [place] [address] 47199- 9867 Jun, Opioid dependence, uncomplicated F11.20 [facility] [id number] [place] [address] 364726- 2340 May, Opioid dependence, uncomplicated F11.20 [facility] [address] [place] [address] May, Opioid dependence, uncomplicated F11.20 and Methamphetamine abuse, 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 [facility] [id number] [place] [address] 39689- 2469 May, Opioid dependence, uncomplicated F11.20 [facility] [id number] [place] [address] 64204- 5236 May, Opioid dependence, uncomplicated F11.20 [facility] [address] [place] [address] May, Opioid dependence, uncomplicated F11.20 and Methamphetamine abuse, 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 [facility] [id number] [place] [address] 76143- 5934 May, Moderate episode of recurrent major depressive disorder F33.1 ; Post-traumatic stress disorder, unspecified F43.10 and Opioid dependence , uncomplicated F11.20 [facility] [id number] [place] [id number] May, [facility] [id number] [place] [address] 55543- 9334 Apr, Opioid dependence, uncomplicated F11.20 [facility] [address] [place] [address] Apr, Opioid dependence, uncomplicated F11.20 and Methamphetamine abuse, 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 [facility] [address] [address] Apr, Opioid dependence, uncomplicated F11.20 [facility] [address] [place] [address] Apr, Opioid dependence, uncomplicated F11.20 and Methamphetamine abuse, 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 [facility] [address] [address]296 Apr, Opioid dependence, uncomplicated F11.20 [facility] [address] [place] [address] Apr, Opioid dependence, uncomplicated F11.20 [facility] [id number] [place] [address] 83748- 5948 Apr, Opioid dependence, uncomplicated F11.20 [facility] [address] [place] [address] Mar, Opioid dependence, uncomplicated F11.20 [facility] [address] [address]83[address] 9[address] Mar, Opioid dependence, uncomplicated F11.20 [facility] [id number] [place] [address] 05302- 1036 Mar, Opioid dependence, uncomplicated F11.20 [facility] [id number] [place] [address] 12237- 5226 Mar, [facility] [address] [address] 2540 Mar, Opioid dependence, uncomplicated F11.20 [facility] [id number] [place] [address] 06910- 6232 Mar, Opioid dependence, uncomplicated F11.20 [facility] [id number] [place] [address] 29223- 3965 Mar, Moderate episode of recurrent major depressive disorder F33.1 ; Post-traumatic stress disorder, unspecified F43.10 and Opioid dependence , uncomplicated F11.20 [facility] [id number] [place] [address] 66659 2546 02 Mar, 2017 Opioid dependence, uncomplicated F11.20 [facility] [id number] [place] [address] 31846 2546 28 Feb, 2017 Moderate episode of recurrent major depressive disorder F33.1 [facility] [address] [place] [address] 28 Feb, 2017 Opioid dependence, uncomplicated F11.20 [facility] [id number] [place] [address] 31769 2546 27 Feb, 2017 Opioid dependence, uncomplicated F11.20 [facility] [id number] [place] [address] 91071 2546 20 Feb, 2017 Opioid dependence, uncomplicated F11.20 [facility] [id number] [place] [address] 89612 2546 19 Feb, 2017 [facility] [id number] [place] [address] 73467 2546 18 Feb, 2017 [facility] [id number] [place] [address] 99978 2546 15 Feb, 2017 Moderate episode of recurrent major depressive disorder F33.1 [facility] [address] [place] [address] 14 Feb, 2017 Opioid dependence, uncomplicated F11.20 [facility] [address] [place] [address] 39919 2546 14 Feb, 2017 [facility] [id number] [place] [address] 04911 2546 14 Feb, 2017 [facility] [id number] [place] [address] 96059 2546 14 Feb, 2017 [facility] [id number] [place] [address] 03975 2546 13 Feb, 2017 [facility] [id number] [place] [address] 54058 2546 13 Feb, 2017 [facility] [address] [place] [address] 51719- 6827 Feb, Moderate episode of recurrent major depressive disorder F33.1 ; Post-traumatic stress disorder, unspecified F43.10 and Opioid dependence , uncomplicated F11.20 [facility] [id number] [place] [address] 88919- 3976 12 Feb, 2017 [facility] [id number] [place] [address] 84725 2546 Feb, [facility] [address] [place] [address] Feb, Opioid dependence, uncomplicated F11.20 [facility] [id number] [place] [address] 94794- 0306 Feb, Moderate episode of recurrent major depressive disorder F33.1 [facility] [id number] [place] [address] 15496- 7716 07 Feb, 2017 Opioid dependence, uncomplicated F11.20 [facility] [address] [place] [address] 33918 2546 Feb, [facility] [id number] [place] [address] 82203 2546 Feb, [facility] [address] [place] [address] 51434 2546 Feb, [facility] [id number] [place] [address] 06655 2546 Feb, [facility] [address] [place] [address] 21582 2546 Feb, [facility] [address] [place] [address] Feb, Opioid dependence, uncomplicated F11.20 [facility] [address] [place] [address] 50897 2546 Feb, [facility] [address] [place] [address] 90934- 5158 Jan, Opioid dependence, uncomplicated F11.20 and Drug induced constipation K59.03 [facility] [id number] [place] [address] 84561- 0965 Jan, [facility] [address] [id number]- 4082 Jan, Moderate episode of recurrent major depressive disorder F33.1 and Post-traumatic stress disorder, unspecified F43.10 [facility] [address] [id number] Jan, [facility] [id number] [place] [address] 48978- 4097 Jan, [facility] [address] 70483- 1234 Jan, [facility] [address] [place] [address] Jan, [facility] [address] [place] [address] 48852- 1025 Jan, Opioid dependence, uncomplicated F11.20 ; Drug induced constipation K59.03 and Adverse effect of other opioids, initial encounter T40.2X5A [facility] [address] [place] [address] 13044- 9651 Jan, [facility] [id number] [place] [address] 13990- 7962 Jan, [facility] [address] [place] [address] 79195- 0985 Jan, Opiate dependence, continuous F11.20 [facility] [address] [place] [address] Jan, Opiate dependence, continuous F11.20 ; 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 ; Benzodiazepine abuse F13.10 ; Alcohol dependence, binge pattern F10.20 and Marijuana abuse F12.10 [facility] [id number] [place] [address] 33015- 1736 16 Jan, 2017 [facility] [address] 49421- 9872 Jan, [facility] [id number] [place] [address] 55264- 0946 15 Jan, 2017 [facility] [id number] [place] [address] 19306- 3944 14 Jan, 2017 Urinary frequency R35.0 and Opiate dependence, continuous F11.[address] 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 [address] [place] [address] 08 Jan, 2017 [facility] [address] 18493- 7782 08 Jan, 2017 Moderate episode of recurrent major depressive disorder F33.1 and Post-traumatic stress disorder, unspecified F43.10 [facility] [id number] [place] [address] 69194- 8609 08 Jan, 2017 [facility] [address] 21518- 2340 07 Jan, 2017 Moderate episode of recurrent major depressive disorder F33.1 and Substance abuse withdrawal without complication F19.230 [facility] [id number] [place] [address] 16794- 0071 07 Jan, 2017 [facility] [id number] [place] [address] 34197- 6220 Jun, [facility] [id number] [place] [address] 20152- 1278 Jun, [facility] [address] 43981- 8273 May, [facility] [id number] [place] [address] 21684- 3024 May, [facility] [id number] [place] [address] 30560- 6119 Apr, [facility] [address] [facility] [id number] [address]- 3216 Apr, [facility] [address] [id number] [address]- 3866 Apr, [facility] [address] [id number] [address]- 6146 Apr, [facility] [address] [address]- 3636 Apr, [facility] [address] [id number] [address]- 0561 Apr, [facility] [address] [address]- 5516 Dec, [facility] [address] [id number] [address]- 5966 Dec, [facility] [address] [id number] [id number] Nov, [facility] [address] [facility] [id number] [address] Sep, IMMUNIZATIONS No Known Immunizations SOCIAL HISTORY Never Assessed REASON FOR VISIT PRSUB-GRP PLAN OF CARE VITAL SIGNS MEDICATIONS Unknown Medications RESULTS No Results PROCEDURES Procedure Date Ordered Result Body Site Alcohol and/or drug services Feb 17, 2017 INSTRUCTIONS MEDICATIONS ADMINISTERED No Known Medications MEDICAL (GENERAL) HISTORY Type Description Date Medical History ADHD Medical History depression Medical History anxiety Surgical History tongue clipped as a child
--- OUTSIDE RECORDS SUMMARY | 2017-10-23 22:22 | XMS REPORT ---
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 958508001 Problem Major depressive disorder, recurrent, moderate F33.1 Active 59430184 Problem Post-traumatic stress disorder, unspecified F43.10 Active 90030052 ALLERGIES No Information ENCOUNTERS Encounter Location Date Diagnosis [facility] [address] [place] [address] Aug, [facility] [address] [place] [id number] [place] [address]34[address] Aug, [facility] [address] [place] [address] July, Opioid dependence, uncomplicated F11.20 and Methamphetamine abuse, episodic F15.10 [facility] [address] [place] [address] July, Opioid dependence, uncomplicated F11.20 and Methamphetamine abuse, 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 [facility] [address] [place] [address] July, Opioid dependence, uncomplicated F11.20 and Methamphetamine abuse, 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 [facility] [id number] [place] [address] 22981- 8821 Jun, Opioid dependence, uncomplicated F11.20 [facility] [address] [place] [address] Jun, Opioid dependence, uncomplicated F11.20 and Methamphetamine abuse, 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 [facility] [id number] [place] [address] 78165- 7698 Jun, [facility] [id number] [place] [address] Jun, Moderate episode of recurrent major depressive disorder F33.1 ; Post-traumatic stress disorder, unspecified F43.10 and Opioid dependence , uncomplicated F11.20 [facility] [id number] [place] [address] 09617- 0962 Jun, Opioid dependence, uncomplicated F11.20 [facility] [id number] [place] [address] 805420- 2787 May, Opioid dependence, uncomplicated F11.20 [facility] [address] [place] [address] May, Opioid dependence, uncomplicated F11.20 and Methamphetamine abuse, 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 [facility] [id number] [place] [address] 97805- 3224 May, Opioid dependence, uncomplicated F11.20 [facility] [id number] [place] [address] 20067- 6109 May, Opioid dependence, uncomplicated F11.20 [facility] [address] [place] [address] May, Opioid dependence, uncomplicated F11.20 and Methamphetamine abuse, 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 [facility] [id number] [place] [address] 00054- 1707 May, Moderate episode of recurrent major depressive disorder F33.1 ; Post-traumatic stress disorder, unspecified F43.10 and Opioid dependence , uncomplicated F11.20 [facility] [id number] [place] [id number] May, [facility] [id number] [place] [address] 68639- 0685 Apr, Opioid dependence, uncomplicated F11.20 [facility] [address] [place] [address] Apr, Opioid dependence, uncomplicated F11.20 and Methamphetamine abuse, 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 [facility] [address] [address]48- [address]46 Apr, Opioid dependence, uncomplicated F11.20 [facility] [address] [place] [address] Apr, Opioid dependence, uncomplicated F11.20 and Methamphetamine abuse, 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 [facility] [address] 11683- 4056 Apr, Opioid dependence, uncomplicated F11.20 [facility] [address] [place] [address] Apr, Opioid dependence, uncomplicated F11.20 [facility] [id number] [place] [address] 77507- 8605 Apr, Opioid dependence, uncomplicated F11.20 [facility] [address] [place] [address] Mar, Opioid dependence, uncomplicated F11.20 [facility] [address] 23103- [address]453 Mar, Opioid dependence, uncomplicated F11.20 [facility] [id number] [place] [address] 59722- 2052 Mar, Opioid dependence, uncomplicated F11.20 [facility] [id number] [place] [address] 86054- 4899 Mar, [facility] [address] 24678 2549 Mar, Opioid dependence, uncomplicated F11.20 [facility] [id number] [place] [address] 93726- 7367 Mar, Opioid dependence, uncomplicated F11.20 [facility] [id number] [place] [address] 42670- 9935 Mar, Moderate episode of recurrent major depressive disorder F33.1 ; Post-traumatic stress disorder, unspecified F43.10 and Opioid dependence , uncomplicated F11.20 [facility] [id number] [place] [address] 20526 2546 02 Mar, 2017 Opioid dependence, uncomplicated F11.20 [facility] [id number] [place] [address] 99587 2546 28 Feb, 2017 Moderate episode of recurrent major depressive disorder F33.1 [facility] [address] [place] [address] 28 Feb, 2017 Opioid dependence, uncomplicated F11.20 [facility] [id number] [place] [address] 21489 2546 27 Feb, 2017 Opioid dependence, uncomplicated F11.20 [facility] [id number] [place] [address] 57547 2546 20 Feb, 2017 Opioid dependence, uncomplicated F11.20 [facility] [id number] [place] [address] 27260 2546 19 Feb, 2017 [facility] [id number] [place] [address] 79276 2546 18 Feb, 2017 [facility] [id number] [place] [address] 45931 2546 15 Feb, 2017 Moderate episode of recurrent major depressive disorder F33.1 [facility] [address] [place] [address] 14 Feb, 2017 Opioid dependence, uncomplicated F11.20 [facility] [address] [place] [address] 58445 2546 14 Feb, 2017 [facility] [id number] [place] [address] 82645 2546 14 Feb, 2017 [facility] [id number] [place] [address] 09867 2546 14 Feb, 2017 [facility] [id number] [place] [address] 34897 2546 13 Feb, 2017 [facility] [id number] [place] [address] 44073 2546 13 Feb, 2017 [facility] [address] [place] [address] 56542- 8948 Feb, Moderate episode of recurrent major depressive disorder F33.1 ; Post-traumatic stress disorder, unspecified F43.10 and Opioid dependence , uncomplicated F11.20 [facility] [id number] [place] [address] 00064- 1606 12 Feb, 2017 [facility] [id number] [place] [address] 11488 2546 Feb, [facility] [address] [place] [address] Feb, Opioid dependence, uncomplicated F11.20 [facility] [id number] [place] [address] 02040- 0776 Feb, Moderate episode of recurrent major depressive disorder F33.1 [facility] [id number] [place] [address] 75157- 6696 07 Feb, 2017 Opioid dependence, uncomplicated F11.20 [facility] [address] [place] [address] 75843 2546 Feb, [facility] [id number] [place] [address] 07623 2546 Feb, [facility] [address] [place] [address] 93333 2546 Feb, [facility] [id number] [place] [address] 22685 2546 Feb, [facility] [address] [place] [address] 26716 2546 Feb, [facility] [address] [place] [address] Feb, Opioid dependence, uncomplicated F11.20 [facility] [address] [place] [address] 38316 2546 Feb, [facility] [address] [place] [address] 87411- 9282 Jan, Opioid dependence, uncomplicated F11.20 and Drug induced constipation K59.03 [facility] [id number] [place] [address] 39044- 3059 Jan, [facility] [address] [id number]- 8850 Jan, Moderate episode of recurrent major depressive disorder F33.1 and Post-traumatic stress disorder, unspecified F43.10 [facility] [address] [id number] Jan, [facility] [id number] [place] [address] 37883- 3649 Jan, [facility] [address] 40180- 0718 Jan, [facility] [address] [place] [address] Jan, [facility] [address] [place] [address] 68483- 9274 Jan, Opioid dependence, uncomplicated F11.20 ; Drug induced constipation K59.03 and Adverse effect of other opioids, initial encounter T40.2X5A [facility] [address] [place] [address] 38002- 2918 Jan, [facility] [id number] [place] [address] 45786- 2021 Jan, [facility] [address] [place] [address] 24475- 1311 Jan, Opiate dependence, continuous F11.20 [facility] [address] [place] [address] Jan, Opiate dependence, continuous F11.20 ; 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 ; Benzodiazepine abuse F13.10 ; Alcohol dependence, binge pattern F10.20 and Marijuana abuse F12.10 [facility] [id number] [place] [address] 11129- 4888 16 Jan, 2017 [facility] [address] 27051- 5409 Jan, [facility] [id number] [place] [address] 01070- 4864 15 Jan, 2017 [facility] [id number] [place] [address] 68572- 1409 14 Jan, 2017 Urinary frequency R35.0 and Opiate dependence, continuous F11.20 [facility] [address] [place] [address] 10 Jan, 2017 Opiate dependence, continuous F11.20 ; 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 ; Benzodiazepine abuse F13.10 ; Alcohol dependence, binge pattern F10.20 and Marijuana abuse F12.10 [facility] [address] [place] [address] 08 Jan, 2017 [facility] [address] 49398- 6197 08 Jan, 2017 Moderate episode of recurrent major depressive disorder F33.1 and Post-traumatic stress disorder, unspecified F43.10 [facility] [id number] [place] [address] 29879- 2913 08 Jan, 2017 [facility] [address] 23811- 4789 07 Jan, 2017 Moderate episode of recurrent major depressive disorder F33.1 and Substance abuse withdrawal without complication F19.230 [facility] [id number] [place] [address] 99641- 9428 07 Jan, 2017 [facility] [id number] [place] [address] 50545- 5412 Jun, [facility] [id number] [place] [address] 97016- 8093 Jun, [facility] [address] 48181- 8308 May, [facility] [id number] [place] [address] 35408- 8541 May, [facility] [id number] [place] [address] 18560- 2558 Apr, [facility] [address] [facility] [id number] [address] Apr, [facility] [id number] [address]- 3666 Apr, [facility] [id number] [address]- 6336 Apr, [facility] [address] [address] 2546 Apr, [facility] [id number] [address]- 2616 Apr, [facility] [address] [address]- 5436 Dec, [facility] [id number] [address]6 Dec, [facility] [address] [id number] [id number] Nov, [facility] [address] [facility] [id number] [address] Sep, IMMUNIZATIONS No Known Immunizations SOCIAL HISTORY Never Assessed REASON FOR VISIT SUBAB-F/U PLAN OF CARE Activity Details Follow Up 1 Week Reason:subabu VITAL SIGNS MEDICATIONS Medication Instructions Dosage Frequency Start Date End Date Duration Status Suboxone 8-2 MG Sublingual Once a day 3 film under the tongue and allow to dissolve 24h 07 days Active RESULTS No Results PROCEDURES Procedure Date Ordered Result Body Site Alcohol and/or drug services Feb 04, 2017 INSTRUCTIONS MEDICATIONS ADMINISTERED No Known Medications MEDICAL (GENERAL) HISTORY Type Description Date Medical History ADHD Medical History depression Medical History anxiety Surgical History tongue clipped as a child
--- OUTSIDE RECORDS SUMMARY | 2017-10-23 22:22 | XMS REPORT ---
Author Author SHELLY ALVAREZ Organization [facility] Address [address] 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 531653274 Problem Major depressive disorder, recurrent, moderate F33.1 Active 99772497 Problem Post-traumatic stress disorder, unspecified F43.10 Active 50388438 ALLERGIES No Information ENCOUNTERS Encounter Location Date Diagnosis [facility] [address] [place] [address] Aug, [facility] [address] [address] Aug, [facility] [address] [place] [address] July, Opioid dependence, uncomplicated F11.20 and Methamphetamine abuse, 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 [facility] [address] [place] [address] July, Opioid dependence, uncomplicated F11.20 and Methamphetamine abuse, 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 [facility] [address] [place] [address] July, Opioid dependence, uncomplicated F11.20 and Methamphetamine abuse, 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 [facility] [address] [address] Jun, Opioid dependence, uncomplicated F11.20 [facility] [address] [place] [address] Jun, Opioid dependence, uncomplicated F11.20 and Methamphetamine abuse, 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 [facility] [id number] [place] [address] Jun, [facility] [id number] [place] [place] [address] Jun, Moderate episode of recurrent major depressive disorder F33.1 ; Post-traumatic stress disorder, unspecified F43.10 and Opioid dependence , uncomplicated F11.20 [facility] [id number] [place] [address] Jun, Opioid dependence, uncomplicated F11.20 [facility] [id number] [place] [address]387[address] May, Opioid dependence, uncomplicated F11.20 [facility] [address] [id number] May, Opioid dependence, uncomplicated F11.20 and Methamphetamine abuse, 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 [facility] [id number] [place] [address] May, Opioid dependence, uncomplicated F11.20 [facility] [id number] [place] [address] May, Opioid dependence, uncomplicated F11.20 [facility] [address] [place] [address] May, Opioid dependence, uncomplicated F11.20 and Methamphetamine abuse, 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 [facility] [id number] [place] [address] May, Moderate episode of recurrent major depressive disorder F33.1 ; Post-traumatic stress disorder, unspecified F43.10 and Opioid dependence , uncomplicated F11.20 [facility] [id number] [place] [id number] May, [facility] [id number] [place] [address] Apr, Opioid dependence, uncomplicated F11.20 [facility] [address] [place] [address] Apr, Opioid dependence, uncomplicated F11.20 and Methamphetamine abuse, 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 [facility] [address] [address] Apr, Opioid dependence, uncomplicated F11.20 [facility] [address] [address] Apr, Opioid dependence, uncomplicated F11.20 and Methamphetamine abuse, 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 [facility] [address] [address] Apr, Opioid dependence, uncomplicated F11.20 [facility] [address] [address] Apr, Opioid dependence, uncomplicated F11.20 [facility] [address] [address] Apr, Opioid dependence, uncomplicated F11.20 [facility] [address] [place] [address] Mar, Opioid dependence, uncomplicated F11.20 [facility] [address] [address] Mar, Opioid dependence, uncomplicated F11.20 [facility] [address] [id number] Mar, Opioid dependence, uncomplicated F11.20 [facility] [id number] [place] [address] 2545 Mar, [facility] [address] [address] 2542 Mar, Opioid dependence, uncomplicated F11.20 [facility] [address] [id number] Mar, Opioid dependence, uncomplicated F11.20 [facility] [id number] [place] [address] Mar, Moderate episode of recurrent major depressive disorder F33.1 ; Post-traumatic stress disorder, unspecified F43.10 and Opioid dependence , uncomplicated F11.20 [facility] [id number] [place] [address] 17516 2546 02 Mar, 2017 Opioid dependence, uncomplicated F11.20 [facility] [id number] [place] [address] 28852 2546 28 Feb, 2017 Moderate episode of recurrent major depressive disorder F33.1 [facility] [address] [place] [address] 28 Feb, 2017 Opioid dependence, uncomplicated F11.20 [facility] [id number] [place] [address] 81629 2546 27 Feb, 2017 Opioid dependence, uncomplicated F11.20 [facility] [id number] [place] [address] 55892 2546 20 Feb, 2017 Opioid dependence, uncomplicated F11.20 [facility] [id number] [place] [address] 46139 2546 19 Feb, 2017 [facility] [id number] [place] [address] 75700 2546 18 Feb, 2017 [facility] [id number] [place] [address] 53941 2546 15 Feb, 2017 Moderate episode of recurrent major depressive disorder F33.1 [facility] [address] [place] [address] 14 Feb, 2017 Opioid dependence, uncomplicated F11.20 [facility] [id number] [place] [address] 94529 2546 14 Feb, 2017 [facility] [id number] [place] [address] 21843 2546 14 Feb, 2017 [facility] [id number] [place] [address] 93702 2546 14 Feb, 2017 [facility] [id number] [place] [address] 12840 2546 13 Feb, 2017 [facility] [id number] [place] [address] 72855- [address] Feb, [facility] [address] [address] Feb, Moderate episode of recurrent major depressive disorder F33.1 ; Post-traumatic stress disorder, unspecified F43.10 and Opioid dependence , uncomplicated F11.20 [facility] [address] [place] [address] 38916 2546 12 Feb, 2017 [facility] [id number] [place] [address] 33376 2546 Feb, [facility] [address] [place] [address] Feb, Opioid dependence, uncomplicated F11.20 [facility] [id number] [place] [address] 89313 2546 Feb, Moderate episode of recurrent major depressive disorder F33.1 [facility] [id number] [place] [address] 78925- 0[address] Feb, Opioid dependence, uncomplicated F11.20 [facility] [id number] [place] [address] 61048 2546 Feb, [facility] [id number] [place] [address] 16115 2546 Feb, [facility] [address] [place] [address] 42355 2546 Feb, [facility] [id number] [place] [address] 36407 2546 Feb, [facility] [address] [place] [address] 08474 2546 Feb, [facility] [address] [place] [address] Feb, Opioid dependence, uncomplicated F11.20 [facility] [address], [place] [address] 2546 Feb, [facility] [address] [place] [address] 74399 2546 Jan, Opioid dependence, uncomplicated F11.20 and Drug induced constipation K59.03 [facility] [id number] [place] [address] 8[address]85- [address] Jan, [facility] [address] 190[address]- [address] Jan, Moderate episode of recurrent major depressive disorder F33.1 and Post-traumatic stress disorder, unspecified F43.10 [facility] [address] [place] [address] Jan, [facility] [address] [address] Jan, [facility] [address] [address] Jan, [facility] [address] [place] [address] Jan, [facility] [address] [place] [address] Jan, Opioid dependence, uncomplicated F11.20 ; Drug induced constipation K59.03 and Adverse effect of other opioids, initial encounter T40.2X5A [facility] [address] [place] [address] 97874- 9937 Jan, [facility] [address] [address] Jan, [facility] [address] [address] Jan, Opiate dependence, continuous F11.20 [facility] [address] [place] [address] Jan, Opiate dependence, continuous F11.20 ; 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 ; Benzodiazepine abuse F13.10 ; Alcohol dependence, binge pattern F10.20 and Marijuana abuse F12.10 [facility] [id number] [place] [address] 94014- 5178 Jan, [facility] [address] [place] [address] 18085- 6920 Jan, [facility] [id number] [place] [address] 29435- 5788 15 Jan, 2017 [facility] [id number] [place] [address] 88840- [address] 14 Jan, 2017 Urinary frequency R35.0 and Opiate dependence, continuous F11.20 [facility] [address] [place] [address] 10 Jan, 2017 Opiate dependence, continuous F11.20 ; 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 ; Benzodiazepine abuse F13.10 ; Alcohol dependence, binge pattern F10.20 and Marijuana abuse F12.10 [facility] [address] [place] [address] 08 Jan, 2017 [facility] [id number] [place] [address] 05394- [address] 08 Jan, 2017 Moderate episode of recurrent major depressive disorder F33.1 and Post-traumatic stress disorder, unspecified F43.10 [facility] [id number] [place] [address] 90621- 5690 08 Jan, 2017 [facility] [address] [address] 07 Jan, 2017 Moderate episode of recurrent major depressive disorder F33.1 and Substance abuse withdrawal without complication F19.230 [facility] [id number] [place] [address] 31461- 6048 07 Jan, 2017 [facility] [id number] [place] [address] 32398- 4032 Jun, [facility] [id number] [place] [address] 56885- 9988 Jun, [facility] [address] [address] May, [facility] [id number] [place] [address] 08136- [address] May, [facility] [id number] [place] [address] 86340- 0698 Apr, [facility] [address] [facility] [id number] [address] Apr, [facility] [id number] [address] Apr, [facility] [id number], [place] [address] Apr, [facility] [id number], [place] [address] Apr, [facility] [id number], [place] [address] Apr, [facility] [id number], [place] [address] Dec, [facility] [address] [id number], [place] [address] Dec, [facility] [address] [id number] [id number] Nov, [facility] [address] [facility] [id number], [place] [address] Sep, IMMUNIZATIONS No Known Immunizations SOCIAL HISTORY Never Assessed REASON FOR VISIT Suboxone RX (03/08-03/15) PLAN OF CARE VITAL SIGNS MEDICATIONS Medication Instructions Dosage Frequency Start Date End Date Duration Status Suboxone 8-2 MG Sublingual Once a day 3 film under the tongue and allow to dissolve 24h Mar, 8 days Active RESULTS No Results PROCEDURES No Known procedures INSTRUCTIONS MEDICATIONS ADMINISTERED No Known Medications MEDICAL (GENERAL) HISTORY Type Description Date Medical History ADHD Medical History depression Medical History anxiety Surgical History tongue clipped as a child
--- OUTSIDE RECORDS SUMMARY | 2017-10-23 22:23 | XMS REPORT ---
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 492131254 Problem Major depressive disorder, recurrent, moderate F33.1 Active 87373975 Problem Post-traumatic stress disorder, unspecified F43.10 Active 30647801 ALLERGIES No Information ENCOUNTERS Encounter Location Date Diagnosis [facility] [address] [place] [address] Aug, [facility] [address] [place] [id number] [place] [address]892[address] Aug, [facility] [address] [place] [address] July, Opioid dependence, uncomplicated F11.20 and Methamphetamine abuse, episodic F15.10 [facility] [address] [place] [address] July, Opioid dependence, uncomplicated F11.20 and Methamphetamine abuse, 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 [facility] [address] [place] [address] July, Opioid dependence, uncomplicated F11.20 and Methamphetamine abuse, 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 [facility] [id number] [place] [address]228[address] Jun, Opioid dependence, uncomplicated F11.20 [facility] [address] [place] [address] Jun, Opioid dependence, uncomplicated F11.20 and Methamphetamine abuse, 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 [facility] [id number] [place] [address] 71870- 3578 Jun, [facility] [id number] [place] [address] Jun, Moderate episode of recurrent major depressive disorder F33.1 ; Post-traumatic stress disorder, unspecified F43.10 and Opioid dependence , uncomplicated F11.20 [facility] [id number] [place] [address] 79324- 3449 Jun, Opioid dependence, uncomplicated F11.20 [facility] [id number] [place] [address] 775863- 7811 May, Opioid dependence, uncomplicated F11.20 [facility] [address] [place] [address] May, Opioid dependence, uncomplicated F11.20 and Methamphetamine abuse, 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 [facility] [id number] [place] [address] 02231- 2562 May, Opioid dependence, uncomplicated F11.20 [facility] [id number] [place] [address] 92892- 5078 May, Opioid dependence, uncomplicated F11.20 [facility] [address] [place] [address] May, Opioid dependence, uncomplicated F11.20 and Methamphetamine abuse, 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 [facility] [id number] [place] [address] 13124- 0902 May, Moderate episode of recurrent major depressive disorder F33.1 ; Post-traumatic stress disorder, unspecified F43.10 and Opioid dependence , uncomplicated F11.20 [facility] [id number] [place] [address] May, [facility] [id number] [place] [address] 44098- 6537 Apr, Opioid dependence, uncomplicated F11.20 [facility] [address] [place] [address] Apr, Opioid dependence, uncomplicated F11.20 and Methamphetamine abuse, 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 [facility] [address] [address] Apr, Opioid dependence, uncomplicated F11.20 [facility] [address] [place] [address] Apr, Opioid dependence, uncomplicated F11.20 and Methamphetamine abuse, 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 [facility] [address] [address] Apr, Opioid dependence, uncomplicated F11.20 [facility] [address] [place] [address] Apr, Opioid dependence, uncomplicated F11.20 [facility] [id number] [place] [address] 62109- 0173 Apr, Opioid dependence, uncomplicated F11.20 [facility] [address] [place] [address] Mar, Opioid dependence, uncomplicated F11.20 [facility] [address] [address] 6970 Mar, Opioid dependence, uncomplicated F11.20 [facility] [id number] [place] [address] 11398- 4021 Mar, Opioid dependence, uncomplicated F11.20 [facility] [id number] [place] [address] 09197- 6988 Mar, [facility] [address] [address]841 2548 Mar, Opioid dependence, uncomplicated F11.20 [facility] [id number] [place] [address] 81665- 7433 Mar, Opioid dependence, uncomplicated F11.20 [facility] [id number] [place] [address] 81702- 3847 Mar, Moderate episode of recurrent major depressive disorder F33.1 ; Post-traumatic stress disorder, unspecified F43.10 and Opioid dependence , uncomplicated F11.20 [facility] [id number] [place] [address] 89004 2546 02 Mar, 2017 Opioid dependence, uncomplicated F11.20 [facility] [id number] [place] [address] 70157 2546 28 Feb, 2017 Moderate episode of recurrent major depressive disorder F33.1 [facility] [address] [place] [address] 28 Feb, 2017 Opioid dependence, uncomplicated F11.20 [facility] [id number] [place] [address] 64842 2546 27 Feb, 2017 Opioid dependence, uncomplicated F11.20 [facility] [id number] [place] [address] 66661 2546 20 Feb, 2017 Opioid dependence, uncomplicated F11.20 [facility] [id number] [place] [address] 59913 2546 19 Feb, 2017 [facility] [id number] [place] [address] 89513 2546 18 Feb, 2017 [facility] [id number] [place] [address] 72847 2546 15 Feb, 2017 Moderate episode of recurrent major depressive disorder F33.1 [facility] [address] [place] [address] 14 Feb, 2017 Opioid dependence, uncomplicated F11.20 [facility] [address] [place] [address] 57888 2546 14 Feb, 2017 [facility] [id number] [place] [address] 03358 2546 14 Feb, 2017 [facility] [id number] [place] [address] 68544 2546 14 Feb, 2017 [facility] [id number] [place] [address] 54939 2546 13 Feb, 2017 [facility] [id number] [place] [address] 66231 2546 13 Feb, 2017 [facility] [address] [place] [address] 92284- 3198 Feb, Moderate episode of recurrent major depressive disorder F33.1 ; Post-traumatic stress disorder, unspecified F43.10 and Opioid dependence , uncomplicated F11.20 [facility] [id number] [place] [address] 94062- 0276 12 Feb, 2017 [facility] [id number] [place] [address] 97890 2546 Feb, [facility] [address] [place] [address] Feb, Opioid dependence, uncomplicated F11.20 [facility] [id number] [place] [address] 23565- 7816 Feb, Moderate episode of recurrent major depressive disorder F33.1 [facility] [id number] [place] [address] 82405- 9036 07 Feb, 2017 Opioid dependence, uncomplicated F11.20 [facility] [address] [place] [address] 39504 2546 Feb, [facility] [id number] [place] [address] 39071 2546 Feb, [facility] [address] [place] [address] 18675 2546 Feb, [facility] [id number] [place] [address] 62121 2546 Feb, [facility] [address] [place] [address] 68247 2546 Feb, [facility] [address] [place] [address] Feb, Opioid dependence, uncomplicated F11.20 [facility] [address] [place] [address] 84923 2546 Feb, [facility] [address] [place] [address] 40313- 6635 Jan, Opioid dependence, uncomplicated F11.20 and Drug induced constipation K59.03 [facility] [id number] [place] [address] 34018- 0052 Jan, [facility] [address] [id number]- 6512 Jan, Moderate episode of recurrent major depressive disorder F33.1 and Post-traumatic stress disorder, unspecified F43.10 [facility] [address] [id number] Jan, [facility] [id number] [place] [address] 36266- 6874 Jan, [facility] [address] 25456- 0458 Jan, [facility] [address] [place] [address] Jan, [facility] [address] [place] [address] 30413- 1077 Jan, Opioid dependence, uncomplicated F11.20 ; Drug induced constipation K59.03 and Adverse effect of other opioids, initial encounter T40.2X5A [facility] [address] [place] [address] 02496- 1286 Jan, [facility] [id number] [place] [address] 00718- 5483 Jan, [facility] [address] [place] [address] 05921- 6864 Jan, Opiate dependence, continuous F11.20 [facility] [address] [place] [address] Jan, Opiate dependence, continuous F11.20 ; 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 ; Benzodiazepine abuse F13.10 ; Alcohol dependence, binge pattern F10.20 and Marijuana abuse F12.10 [facility] [id number] [place] [address] 70547- 7200 16 Jan, 2017 [facility] [address] 20274- 6589 Jan, [facility] [id number] [place] [address] 35723- 8656 15 Jan, 2017 [facility] [id number] [place] [address] 62537- 9025 14 Jan, 2017 Urinary frequency R35.0 and Opiate dependence, continuous F11.20 [facility] [address] [place] [address] 10 Jan, 2017 Opiate dependence, continuous F11.20 ; 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 ; Benzodiazepine abuse F13.10 ; Alcohol dependence, binge pattern F10.20 and Marijuana abuse F12.10 [facility] [address] [place] [address] 08 Jan, 2017 [facility] [address] 93265- 6682 08 Jan, 2017 Moderate episode of recurrent major depressive disorder F33.1 and Post-traumatic stress disorder, unspecified F43.10 [facility] [id number] [place] [address] 01022- 5825 08 Jan, 2017 [facility] [address] 26076- 2901 07 Jan, 2017 Moderate episode of recurrent major depressive disorder F33.1 and Substance abuse withdrawal without complication F19.230 [facility] [id number] [place] [address] 37189- 3117 07 Jan, 2017 [facility] [id number] [place] [address] 84728- 2181 Jun, [facility] [id number] [place] [address] 28623- 0146 Jun, [facility] [address] 52032- 9134 May, [facility] [id number] [place] [address] 96626- 6394 May, [facility] [id number] [place] [address] 69294- 7516 Apr, [facility] [address] [facility] [id number] [address] Apr, [facility] [address] [id number] [address] 8676 Apr, [facility] [address] [id number] [address] 9136 Apr, [facility] [address] [address] 2546 Apr, [facility] [address] [id number] [address]- 4236 Apr, [facility] [address] [address] 7656 Dec, [facility] [address] [id number] [address]- 8446 Dec, [id number] [id number] Nov, [facility] [address] [facility] [id number] [address] Sep, IMMUNIZATIONS No Known Immunizations SOCIAL HISTORY Never Assessed REASON FOR VISIT SUBAB-F/U PLAN OF CARE Activity Details Follow Up 1 Week Reason:subabfu VITAL SIGNS MEDICATIONS Medication Instructions Dosage Frequency Start Date End Date Duration Status Suboxone 8-2 MG Sublingual Once a day 3 film under the tongue and allow to dissolve 24h 6 days Active RESULTS No Results PROCEDURES Procedure Date Ordered Result Body Site Alcohol and/or drug services Mar 03, 2017 INSTRUCTIONS MEDICATIONS ADMINISTERED No Known Medications MEDICAL (GENERAL) HISTORY Type Description Date Medical History ADHD Medical History depression Medical History anxiety Surgical History tongue clipped as a child
--- OUTSIDE RECORDS SUMMARY | 2017-10-23 22:23 | XMS REPORT ---
Author Author SHELLY ALVAREZ Organization [facility] Address [address] 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 939555519 Problem Major depressive disorder, recurrent, moderate F33.1 Active 06060370 Problem Post-traumatic stress disorder, unspecified F43.10 Active 10645080 ALLERGIES No Information ENCOUNTERS Encounter Location Date Diagnosis [facility] [address] [place] [address] Aug, [facility] [address] [address] Aug, [facility] [address] [place] [address] July, Opioid dependence, uncomplicated F11.20 and Methamphetamine abuse, 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 [facility] [address] [place] [address] July, Opioid dependence, uncomplicated F11.20 and Methamphetamine abuse, 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 [facility] [address] [place] [address] July, Opioid dependence, uncomplicated F11.20 and Methamphetamine abuse, 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 [facility] [address] [address] Jun, Opioid dependence, uncomplicated F11.20 [facility] [address] [place] [address] Jun, Opioid dependence, uncomplicated F11.20 and Methamphetamine abuse, 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 [facility] [place] [id number] [place] [address] Jun, [facility] [id number] [place] [address] Jun, Moderate episode of recurrent major depressive disorder F33.1 ; Post-traumatic stress disorder, unspecified F43.10 and Opioid dependence , uncomplicated F11.20 [facility] [id number] [place] [address] Jun, Opioid dependence, uncomplicated F11.20 [facility] [id number] [place] [address] May, Opioid dependence, uncomplicated F11.20 [facility] [address] [id number] May, Opioid dependence, uncomplicated F11.20 and Methamphetamine abuse, 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 [facility] [id number] [place] [address] May, Opioid dependence, uncomplicated F11.20 [facility] [place] [id number] [place] [address] May, Opioid dependence, uncomplicated F11.20 [facility] [address] [place] [address] May, Opioid dependence, uncomplicated F11.20 and Methamphetamine abuse, 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 [facility] [id number] [place] [address] May, Moderate episode of recurrent major depressive disorder F33.1 ; Post-traumatic stress disorder, unspecified F43.10 and Opioid dependence , uncomplicated F11.20 [facility] [id number] [place], [place] [id number] May, [facility] [id number] [place] [address] Apr, Opioid dependence, uncomplicated F11.20 [facility] [address] [place] [address] Apr, Opioid dependence, uncomplicated F11.20 and Methamphetamine abuse, 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 [facility] [address] [address] Apr, Opioid dependence, uncomplicated F11.20 [facility] [address] [address] Apr, Opioid dependence, uncomplicated F11.20 and Methamphetamine abuse, 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 [facility] [address] [address]232[address] Apr, Opioid dependence, uncomplicated F11.20 [facility] [address] [address] Apr, Opioid dependence, uncomplicated F11.20 [facility] [address] [address] Apr, Opioid dependence, uncomplicated F11.20 [facility] [address] [place] [address] Mar, Opioid dependence, uncomplicated F11.20 [facility] [address] [address] Mar, Opioid dependence, uncomplicated F11.20 [facility] [address] [id number] Mar, Opioid dependence, uncomplicated F11.20 [facility] [id number] [place] [address] 2547 Mar, [facility] [address] [address]45 Mar, Opioid dependence, uncomplicated F11.20 [facility] [address] [id number]- [address] Mar, Opioid dependence, uncomplicated F11.20 [facility] [id number] [place] [address] Mar, Moderate episode of recurrent major depressive disorder F33.1 ; Post-traumatic stress disorder, unspecified F43.10 and Opioid dependence , uncomplicated F11.20 [facility] [id number] [place] [address] 76999 2546 02 Mar, 2017 Opioid dependence, uncomplicated F11.20 [facility] [id number] [place] [address] 85197 2546 28 Feb, 2017 Moderate episode of recurrent major depressive disorder F33.1 [facility] [address] [place] [address] 28 Feb, 2017 Opioid dependence, uncomplicated F11.20 [facility] [id number] [place] [address] 40843 2546 27 Feb, 2017 Opioid dependence, uncomplicated F11.20 [facility] [id number] [place] [address]1018 2546 20 Feb, 2017 Opioid dependence, uncomplicated F11.20 [facility] [id number] [place] [address] 10935 2546 19 Feb, 2017 [facility] [id number] [place] [address] 70023 2546 18 Feb, 2017 [facility] [id number] [place] [address] 89043 2546 15 Feb, 2017 Moderate episode of recurrent major depressive disorder F33.1 [facility] [address] [place] [address] 14 Feb, 2017 Opioid dependence, uncomplicated F11.20 [facility] [id number] [place] [address] 14948 2546 14 Feb, 2017 [facility] [id number] [place] [address] 70838 2546 14 Feb, 2017 [facility] [id number] [place] [address] 37875 2546 14 Feb, 2017 [facility] [id number] [place] [address] 01519 2546 13 Feb, 2017 [facility] [id number] [place] [address] 26545[address] Feb, [facility] [address] [address] Feb, Moderate episode of recurrent major depressive disorder F33.1 ; Post-traumatic stress disorder, unspecified F43.10 and Opioid dependence , uncomplicated F11.20 [facility] [id number] [place] [address] 86195 2546 12 Feb, 2017 [facility] [id number] [place] [address] 59118 2546 Feb, [facility] [address] [place] [address] Feb, Opioid dependence, uncomplicated F11.20 [facility] [id number] [place] [address] 45549 2546 Feb, Moderate episode of recurrent major depressive disorder F33.1 [facility] [id number] [place] [address]686 Feb, Opioid dependence, uncomplicated F11.20 [facility] [id number] [place] [address] 11504 2546 Feb, [facility] [id number] [place] [address] 33250 2546 Feb, [facility] [id number] [place] [address] 78657 2546 Feb, [facility] [id number] [place] [address] 58197 2546 Feb, [facility] [id number] [place] [address] 85779 2546 Feb, [facility] [address] [place] [address] Feb, Opioid dependence, uncomplicated F11.20 [facility] [address] [address] 2546 Feb, [facility] [address] [place] [address] 40038 2546 Jan, Opioid dependence, uncomplicated F11.20 and Drug induced constipation K59.03 [facility] [id number] [place] [address] 59[address] Jan, [facility] [address] [address]- [address] Jan, Moderate episode of recurrent major depressive disorder F33.1 and Post-traumatic stress disorder, unspecified F43.10 [facility] [address] [place] [address] Jan, [facility] [address] [address] Jan, [facility] [address] [address] Jan, [facility] [address] [place] [address] Jan, [facility] [address] [place] [address] Jan, Opioid dependence, uncomplicated F11.20 ; Drug induced constipation K59.03 and Adverse effect of other opioids, initial encounter T40.2X5A [facility] [address] [place] [address] 395[address] Jan, [facility] [address] [address] Jan, [facility] [address] [address] Jan, Opiate dependence, continuous F11.20 [facility] [address] [place] [address] Jan, Opiate dependence, continuous F11.20 ; 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 ; Benzodiazepine abuse F13.10 ; Alcohol dependence, binge pattern F10.20 and Marijuana abuse F12.10 [facility] [id number] [place] [address] 85548- 6[address] Jan, [facility] [address] [place] [address] 31755- 7976 Jan, [facility] [id number] [place] [address]21- 04[address] 15 Jan, 2017 [facility] [id number] [place] [address] 05795- [address]67 14 Jan, 2017 Urinary frequency R35.0 and Opiate dependence, continuous F11.20 [facility] [address] [place] [address] 10 Jan, 2017 Opiate dependence, continuous F11.20 ; 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 ; Benzodiazepine abuse F13.10 ; Alcohol dependence, binge pattern F10.20 and Marijuana abuse F12.10 [facility] [address] [place] [address] 08 Jan, 2017 [facility] [id number] [place] [address]390- 270[address] 08 Jan, 2017 Moderate episode of recurrent major depressive disorder F33.1 and Post-traumatic stress disorder, unspecified F43.10 [facility] [id number] [place] [address]85- 6[address] 08 Jan, 2017 [facility] [address] [address] 07 Jan, 2017 Moderate episode of recurrent major depressive disorder F33.1 and Substance abuse withdrawal without complication F19.230 [facility] [id number] [place] [address]2660- [address]254 07 Jan, 2017 [facility] [id number] [place] [address] 23552- 9069 Jun, [facility] [id number] [place] [address] 09646- 8103 Jun, [facility] [address] [address] May, [facility] [id number] [place] [address] 30977- 5273 May, [facility] [id number] [place] [address] 30669- 8433 Apr, [facility] [address] [facility] [id number] [address]46 Apr, [facility] [id number] [address] Apr, [facility] [address] [id number], [place] [address] 25[address] Apr, [facility] [id number], [place] [address]- 2546 Apr, [facility] [id number], [place] [address]- 2546 Apr, [facility] [address] [id number] [address] Dec, [facility] [address] [id number] [address] Dec, [place] [address] [id number] [id number] Nov, [facility] [address] [facility] [id number] [address] Sep, IMMUNIZATIONS No Known Immunizations SOCIAL HISTORY Never Assessed REASON FOR VISIT Med Dispense PLAN OF CARE VITAL SIGNS MEDICATIONS Medication Instructions Dosage Frequency Start Date End Date Duration Status Zoloft 50 mg Orally Once a day. Please voucher 1 tablet Jan, 30 day(s) Active RESULTS No Results PROCEDURES No Known procedures INSTRUCTIONS MEDICATIONS ADMINISTERED No Known Medications MEDICAL (GENERAL) HISTORY Type Description Date Medical History ADHD Medical History depression Medical History anxiety Surgical History tongue clipped as a child
--- OUTSIDE RECORDS SUMMARY | 2017-10-23 22:24 | XMS REPORT ---
Author Author SHELLY ALVAREZ Organization [facility] [place] Address [address] 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 200101184 Problem Major depressive disorder, recurrent, moderate F33.1 Active 77600872 Problem Post-traumatic stress disorder, unspecified F43.10 Active [id number] ALLERGIES No Information ENCOUNTERS Encounter Location Date Diagnosis [facility] [address] [place] [address] Aug, [facility] [place] [address] [address] Aug, [facility] [address] [place] [address] July, Opioid dependence, uncomplicated F11.20 and Methamphetamine abuse, 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 [id number] [place] [address] Jun, [facility] [place] [id number] [place], [place] [address] Jun, Moderate episode of recurrent major depressive disorder F33.1 ; Post-traumatic stress disorder, unspecified F43.10 and Opioid dependence , uncomplicated F11.20 [facility] [place] [id number] [place] [address] Jun, Opioid dependence, uncomplicated F11.20 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 [facility] [place] [id number] [place] [address] May, Moderate episode of recurrent major depressive disorder F33.1 ; Post-traumatic stress disorder, unspecified F43.10 and Opioid dependence , uncomplicated F11.20 [facility] [place] [id number] [place], [place] [address] May, [facility] [place] [id number] [place] [address] Apr, Opioid dependence, uncomplicated F11.20 [facility] [address] [place] [address] Apr, Opioid dependence, uncomplicated F11.20 and Methamphetamine abuse, 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 [facility] [address] [address] Apr, Opioid dependence, uncomplicated F11.20 [facility] [address] [address] Apr, Opioid dependence, uncomplicated F11.20 and Methamphetamine abuse, 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 [facility] [place] [address] [address] Apr, Opioid dependence, uncomplicated F11.20 [facility] [address] [address] Apr, Opioid dependence, uncomplicated F11.20 [facility] [address] [address] Apr, Opioid dependence, uncomplicated F11.20 [facility] [address] [place] [address] Mar, Opioid dependence, uncomplicated F11.20 [facility] [address] [address] Mar, Opioid dependence, uncomplicated F11.20 [facility] [place] [address] [id number] Mar, Opioid dependence, uncomplicated F11.20 [facility] [place] [id number] [place] [address] 254 Mar, [facility] [place] [address] [address] Mar, Opioid dependence, uncomplicated F11.20 [facility] [place] [address] [id number] Mar, Opioid dependence, uncomplicated F11.20 [facility] [place] [id number] [place] [address] Mar, Moderate episode of recurrent major depressive disorder F33.1 ; Post-traumatic stress disorder, unspecified F43.10 and Opioid dependence , uncomplicated F11.20 [facility] [id number] [place] [address]47 2546 02 Mar, 2017 Opioid dependence, uncomplicated F11.20 [facility] [place] [id number] [place] [address]56 2546 28 Feb, 2017 Moderate episode of recurrent major depressive disorder F33.1 [facility] [address] [place] [address] 28 Feb, 2017 Opioid dependence, uncomplicated F11.20 [facility] [place] [id number] [place] [address]25 2546 27 Feb, 2017 Opioid dependence, uncomplicated F11.20 [facility] [id number] [place] [address] 45903 2546 20 Feb, 2017 Opioid dependence, uncomplicated F11.20 [facility] [id number] [place] [address] 52086 2546 19 Feb, 2017 [facility] [id number] [place] [address] 7[address]38 2546 18 Feb, 2017 [facility] [id number] [place] [address] 60580 2546 15 Feb, 2017 Moderate episode of recurrent major depressive disorder F33.1 [facility] [address] [place] [address] 14 Feb, 2017 Opioid dependence, uncomplicated F11.20 [facility] [place] [id number] [place] [address] 45327 2546 14 Feb, 2017 [facility] [id number] [place] [address] 85351 2546 14 Feb, 2017 [facility] [id number] [place] [address] 53199 2546 14 Feb, 2017 [facility] [id number] [place] [address] 33506 2546 13 Feb, 2017 [facility] [place] [id number] [place] [address] Feb, [facility] [place] [address] [address] Feb, Moderate episode of recurrent major depressive disorder F33.1 ; Post-traumatic stress disorder, unspecified F43.10 and Opioid dependence , uncomplicated F11.20 [facility] [place] [address] [place] [address] 97195 2546 12 Feb, 2017 [facility] [place] [id number] [place] [address] 80879 2546 Feb, [facility] [address] [place] [address] Feb, Opioid dependence, uncomplicated F11.20 [facility] [place] [id number] [place] [address] 14937 2546 Feb, Moderate episode of recurrent major depressive disorder F33.1 [facility] [place] [id number] [place] [address] 25542- 4196 Feb, Opioid dependence, uncomplicated F11.20 [facility] [place] [id number] [place] [address] 07753 2546 Feb, [facility] [place] [id number] [place] [address] 05397 2546 Feb, [facility] [place] [address] [place] [address] 96480 2546 Feb, [facility] [place] [id number] [place] [address] 78303 2546 Feb, [facility] [place] [address] [place] [address]123 2546 Feb, [facility] [address] [place] [address] Feb, Opioid dependence, uncomplicated F11.20 [facility] [place] [address] [address] 2546 Feb, [facility] [place] [address] [place] [address] 23674 2546 Jan, Opioid dependence, uncomplicated F11.20 and Drug induced constipation K59.03 [facility] [place] [id number] [place] [address] 45121[address] Jan, [facility] [place] [address] [address]187- [address] Jan, Moderate episode of recurrent major depressive disorder F33.1 and Post-traumatic stress disorder, unspecified F43.10 [facility] [address] [place] [address] Jan, [facility] [address] [address] Jan, [facility] [place] [address] [address] Jan, [facility] [address] [place] [address] Jan, [facility] [place] [address] [place] [address] Jan, Opioid dependence, uncomplicated F11.20 ; Drug induced constipation K59.03 and Adverse effect of other opioids, initial encounter T40.2X5A [facility] [place] [address] [place] [address]- [address] Jan, [facility] [place] [address] [address] Jan, [facility] [place] [address] [address] Jan, Opiate dependence, continuous F11.20 [facility] [address] [place] [address] Jan, Opiate dependence, continuous F11.20 ; 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 ; Benzodiazepine abuse F13.10 ; Alcohol dependence, binge pattern F10.20 and Marijuana abuse F12.10 [facility] [place] [id number] [place] [address]38- 60[address] Jan, [facility] [place] [address] [place] [address]- [address] Jan, [facility] [place] [id number] [place] [address]75- [address] 15 Jan, 2017 [facility] [place] [id number] [place] [address] 47842- 6[address] 14 Jan, 2017 Urinary frequency R35.0 and Opiate dependence, continuous F11.20 [facility] [address] [place] [address] 10 Jan, 2017 Opiate dependence, continuous F11.20 ; 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 ; Benzodiazepine abuse F13.10 ; Alcohol dependence, binge pattern F10.20 and Marijuana abuse F12.10 [facility] [address] [place] [address] 08 Jan, 2017 [facility] [place] [id number] [place] [address]40- 230[address] 08 Jan, 2017 Moderate episode of recurrent major depressive disorder F33.1 and Post-traumatic stress disorder, unspecified F43.10 [facility] [place] [id number] [place] [address]12- 2922 08 Jan, 2017 [facility] [place] [address] [address] 07 Jan, 2017 Moderate episode of recurrent major depressive disorder F33.1 and Substance abuse withdrawal without complication F19.230 [facility] [place] [id number] [place] [address] 32711- 8118 07 Jan, 2017 [facility] [place] [id number] [place] [address] 23816- 9052 Jun, [facility] [place] [id number] [place] [address] 34660- 8109 Jun, [facility] [place] [address] [address] May, [facility] [place] [id number] [place] [address] 78266- 9625 May, [facility] [place] [id number] [place] [address] 30714- 4123 Apr, [facility] [place] [address] [facility] [id number] [address] Apr, [facility] [place] [id number] [address] Apr, [facility] [place] [id number] [address] Apr, [facility] [place] [address] [address] 2546 Apr, [facility] [place] [address] [address] Apr, [facility] [place] [address] [place] [address] 47247- 0376 Dec, [facility] [place] [id number] [address]46 Dec, [facility] [address] [id number] [id number] Nov, [facility] [place] [id number] [address] Sep, IMMUNIZATIONS No Known Immunizations SOCIAL HISTORY Never Assessed REASON FOR VISIT MAT F/U, last used opiates/benzos yesterday morning. Took xanax 1mg and took #2 7.5mg hydrocodone and #1 5mg hydrocodone yesterday morning. PLAN OF CARE Activity Details Follow Up tomorrow Reason:MAT VITAL SIGNS Height 69.5 in 2017-01-18 Weight 176.7 lbs 2017-01-18 Temperature 98.8 degrees Fahrenheit 2017-01-18 Heart Rate 84 bpm 2017-01-18 Respiratory Rate 18 2017-01-18 BMI 25.72 kg/m2 2017-01-18 Blood pressure systolic 124 mmHg 2017-01-18 Blood pressure diastolic 70 mmHg 2017-01-18 MEDICATIONS Medication Instructions Dosage Frequency Start Date End Date Duration Status Suboxone 8-2 MG Sublingual Once. May repeat in an hour. Charge to [facility] Wali 0.5 film under the tongue and allow to dissolve Jan, 1 days Active RESULTS Name Result Date Reference Range TEST, URINE (IN HOUSE) 2017-01-18 RESULTS neg Lot # [id number] Control + Exp date 06/04/2018 URINE DRUG SCREEN (IN HOUSE) 2017-01-18 Lot # [id number] Exp date 09/2018 Control + COCAINE neg AMPH neg MTD neg THC neg OPIATE neg BENZO + PCP neg BAR neg OXY neg MAMP neg TCA n/a BUP neg MDMA neg UA LONG DIP (IN HOUSE) 2017-01-18 Lot # [id number] Exp date 10/04/2017 Clarity clear Color yellow Odor no GLU neg ALANA neg KET neg SG 1.025 BLO neg pH 7.5 Protein neg URO 0.2 NIT neg SANDRO neg Lot # Exp date PROCEDURES Procedure Date Ordered Result Body Site URINALYSIS, AUTO, W/O SCOPE Jan 18, 2017 DRUG TEST PRSMV DIR OPT OBS Jan 18, 2017 URINE TEST Jan 18, 2017 INSTRUCTIONS MEDICATIONS ADMINISTERED No Known Medications MEDICAL (GENERAL) HISTORY Type Description Date Medical History ADHD Medical History depression Medical History anxiety Surgical History tongue clipped as a child
--- OUTSIDE RECORDS SUMMARY | 2017-10-23 22:24 | XMS REPORT | Continuity of Care Document ---
Demographics Preferred Language Unknown Marital Status Unknown Mu-Ism Affiliation Unknown Race Unknown Ethnic Group Unknown Author Author [employer] [facility] Organization [facility] [facility] Address Unknown Phone Unavailable Allergies There is no data. Medications There is no data. 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 Results There is no data. Encounters ACCT No. Visit Date/Time Discharge Status Pt. Type Provider Facility Loc./Unit Complaint [id number] 01/16/2013 13:50:00 01/16/2013 15:40:00 DIS Emergency [id number] 04/26/2013 10:25:00 04/26/2013 23:59:59 CLS Outpatient RACH RENNER MD [id number] 01/17/2013 10:09:00 01/17/2013 23:59:59 CLS Outpatient REI SANCHEZ DDS [id number] 01/04/2013 15:52:00 01/04/2013 23:59:59 [place] [id number] 09/08/2017 17:00:00 09/08/2017 23:59:59 CLS Outpatient [facility]
--- OUTSIDE RECORDS SUMMARY | 2017-10-23 22:24 | XMS REPORT ---
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 098681376 Problem Major depressive disorder, recurrent, moderate F33.1 Active 31738849 Problem Post-traumatic stress disorder, unspecified F43.10 Active 71264319 ALLERGIES No Information ENCOUNTERS Encounter Location Date Diagnosis [facility] [address] [place] [address] Aug, [facility] [address] [place] [id number] [place] [address] Aug, [facility] [address] [place] [address] July, Opioid dependence, uncomplicated F11.20 and Methamphetamine abuse, 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 [facility] [address] [place] [address] July, Opioid dependence, uncomplicated F11.20 and Methamphetamine abuse, 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 [facility] [address] [place] [address] July, Opioid dependence, uncomplicated F11.20 and Methamphetamine abuse, 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 [facility] [id number] [place] [address]57[address] Jun, Opioid dependence, uncomplicated F11.20 [facility] [address] [place] [address] Jun, Opioid dependence, uncomplicated F11.20 and Methamphetamine abuse, 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 [facility] [id number] [place] [address]3 Jun, [facility] [id number] [place], [place] [address] Jun, Moderate episode of recurrent major depressive disorder F33.1 ; Post-traumatic stress disorder, unspecified F43.10 and Opioid dependence , uncomplicated F11.20 [facility] [id number] [place] [address] 25833[address] 8379 Jun, Opioid dependence, uncomplicated F11.20 [facility] [id number] [place] [address] 056576- 6886 May, Opioid dependence, uncomplicated F11.20 [facility] [address] [place] [address] May, Opioid dependence, uncomplicated F11.20 and Methamphetamine abuse, 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 [facility] [id number] [place] [address] 10385[address] 9402 May, Opioid dependence, uncomplicated F11.20 [facility] [id number] [place] [address] 68633- 3196 May, Opioid dependence, uncomplicated F11.20 [facility] [address] [place] [address] May, Opioid dependence, uncomplicated F11.20 and Methamphetamine abuse, 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 [facility] [id number] [place] [address] 21095- 2981 May, Moderate episode of recurrent major depressive disorder F33.1 ; Post-traumatic stress disorder, unspecified F43.10 and Opioid dependence , uncomplicated F11.20 [facility] [id number] [place] [id number] May, [facility] [id number] [place] [address] 98003- 1811 Apr, Opioid dependence, uncomplicated F11.20 [facility] [address] [place] [address] Apr, Opioid dependence, uncomplicated F11.20 and Methamphetamine abuse, 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 [facility] [address] [address] Apr, Opioid dependence, uncomplicated F11.20 [facility] [address] [place] [address] Apr, Opioid dependence, uncomplicated F11.20 and Methamphetamine abuse, 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 [facility] [address] [address] Apr, Opioid dependence, uncomplicated F11.20 [facility] [address] [place] [address] Apr, Opioid dependence, uncomplicated F11.20 [facility] [id number] [place] [address] 66968- 7606 Apr, Opioid dependence, uncomplicated F11.20 [facility] [address] [place] [address] Mar, Opioid dependence, uncomplicated F11.20 [facility] [address] [address] Mar, Opioid dependence, uncomplicated F11.20 [facility] [id number] [place] [address] 25086- 1843 Mar, Opioid dependence, uncomplicated F11.20 [facility] [id number] [place] [address] 71843- 6327 Mar, [facility] [address] [address] Mar, Opioid dependence, uncomplicated F11.20 [facility] [id number] [place] [address] 92818- 0745 Mar, Opioid dependence, uncomplicated F11.20 [facility] [id number] [place] [address] 80956- 1729 Mar, Moderate episode of recurrent major depressive disorder F33.1 ; Post-traumatic stress disorder, unspecified F43.10 and Opioid dependence , uncomplicated F11.20 [facility] [id number] [place] [address] 32931 2546 02 Mar, 2017 Opioid dependence, uncomplicated F11.20 [facility] [id number] [place] [address] 85724 2546 28 Feb, 2017 Moderate episode of recurrent major depressive disorder F33.1 [facility] [address] [place] [address] 28 Feb, 2017 Opioid dependence, uncomplicated F11.20 [facility] [id number] [place] [address] 93540 2546 27 Feb, 2017 Opioid dependence, uncomplicated F11.20 [facility] [id number] [place] [address] 63643 2546 20 Feb, 2017 Opioid dependence, uncomplicated F11.20 [facility] [id number] [place] [address] 24976 2546 19 Feb, 2017 [facility] [id number] [place] [address] 23038 2546 18 Feb, 2017 [facility] [id number] [place] [address] 16587 2546 15 Feb, 2017 Moderate episode of recurrent major depressive disorder F33.1 [facility] [address] [place] [address] 14 Feb, 2017 Opioid dependence, uncomplicated F11.20 [facility] [address] [place] [address] 64551 2546 14 Feb, 2017 [facility] [id number] [place] [address] 63089 2546 14 Feb, 2017 [facility] [id number] [place] [address] 71567 2546 14 Feb, 2017 [facility] [id number] [place] [address] 93508 2546 13 Feb, 2017 [facility] [id number] [place] [address] 35028 2546 13 Feb, 2017 [facility] [id number] [place] [address] 21819- 7301 Feb, Moderate episode of recurrent major depressive disorder F33.1 ; Post-traumatic stress disorder, unspecified F43.10 and Opioid dependence , uncomplicated F11.20 [facility] [id number] [place] [address] 81922- 9526 12 Feb, 2017 [facility] [id number] [place] [address] 86139 2546 Feb, [facility] [address] [place] [address] Feb, Opioid dependence, uncomplicated F11.20 [facility] [id number] [place] [address] 04418- 3306 Feb, Moderate episode of recurrent major depressive disorder F33.1 [facility] [id number] [place] [address] 19943- 9916 07 Feb, 2017 Opioid dependence, uncomplicated F11.20 [facility] [address] [place] [address] 69919 2546 Feb, [facility] [id number] [place] [address] 93985 2546 Feb, [facility] [address] [place] [address] 25675 2546 Feb, [facility] [id number] [place] [address] 96176 2546 Feb, [facility] [address] [place] [address] 63430 2546 Feb, [facility] [address] [place] [address] Feb, Opioid dependence, uncomplicated F11.20 [facility] [address] [place] [address] 40480 2546 Feb, [facility] [address] [place] [address] 84864- 2826 Jan, Opioid dependence, uncomplicated F11.20 and Drug induced constipation K59.03 [facility] [id number] [place] [address] 91834- 3346 Jan, [facility] [address] [id number]- [address]19 Jan, Moderate episode of recurrent major depressive disorder F33.1 and Post-traumatic stress disorder, unspecified F43.10 [facility] [address] [id number] Jan, [facility] [id number] [place] [address] 95276- 8576 Jan, [facility] [address] [address] Jan, [facility] [address] [place] [address] Jan, [facility] [address] [place] [address] 61082- 6802 Jan, Opioid dependence, uncomplicated F11.20 ; Drug induced constipation K59.03 and Adverse effect of other opioids, initial encounter T40.2X5A [facility] [address] [place] [address] 99550- 0266 Jan, [facility] [id number] [place] [address] 76258- 1343 Jan, [facility] [address] [place] [address] 61937- 4393 Jan, Opiate dependence, continuous F11.20 [facility] [address] [place] [address] Jan, Opiate dependence, continuous F11.20 ; 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 ; Benzodiazepine abuse F13.10 ; Alcohol dependence, binge pattern F10.20 and Marijuana abuse F12.10 [facility] [id number] [place] [address] 85041- 7495 16 Jan, 2017 [facility] [address] [address]- 5623 Jan, [facility] [id number] [place] [address] 12736- 2097 15 Jan, 2017 [facility] [id number] [place] [address] 82579- 4405 14 Jan, 2017 Urinary frequency R35.0 and Opiate dependence, continuous F11.20 [facility] [address] [place] [address] 10 Jan, 2017 Opiate dependence, continuous F11.20 ; 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 ; Benzodiazepine abuse F13.10 ; Alcohol dependence, binge pattern F10.20 and Marijuana abuse F12.10 [facility] [address] [place] [address] 08 Jan, 2017 [facility] [address] 02493- [address]83 08 Jan, 2017 Moderate episode of recurrent major depressive disorder F33.1 and Post-traumatic stress disorder, unspecified F43.10 [facility] [id number] [place] [address] 13370- 9236 08 Jan, 2017 [facility] [address] 78829- 9478 07 Jan, 2017 Moderate episode of recurrent major depressive disorder F33.1 and Substance abuse withdrawal without complication F19.230 [facility] [id number] [place] [address] 14490- 0999 07 Jan, 2017 [facility] [id number] [place] [address] 42545- 8878 Jun, [facility] [id number] [place] [address] 82280- 2977 Jun, [facility] [address] 55080- 2535 May, [facility] [id number] [place] [address] 83170- 3950 May, [facility] [id number] [place] [address] 09045- 2313 Apr, [facility] [address] [facility] [id number] [address] Apr, [facility] [id number] [address] Apr, [facility] [id number] [address] 1466 Apr, [facility] [address] [address] 1816 Apr, [facility] [id number] [address] 6939 Apr, [facility] [address] [address] Dec, [facility] [id number] [address] Dec, [facility] [id number] [id number] Nov, [facility] [address] [facility] [id number] [address] Sep, IMMUNIZATIONS No Known Immunizations SOCIAL HISTORY [...]
--- NOTE | 2017-10-23 22:40 | ED Upper Extremity ---
General Chief Complaint: Upper Extremity Stated Complaint: RT HAND PAIN Source: patient Exam Limitations: no limitations History of Present Illness Date Seen by Provider: Oct 23, 2017 Time Seen by Provider: 22:36 Initial Comments Patient is a 27-year-old female who presents to the emergency room with complaints of right wrist pain for 2 months. She reports that she was working at [employer] when she felt like she jammed her wrist. She was seen at [facility] urgent care at the time of the injury and they gave her a prescription for naproxen and didn't x-ray but report normal x-ray findings. Patient is tearful on exam with pain. She reports that she has not followed up with anyone. She has a wrist splint in place. Pain/Injury Location: right wrist Method of Injury: twisted (jammed) Modifying Factors: Improves With Movement Allergies and Home Medications Allergies Coded Allergies: No Known Drug Allergies (Unverified , 07/12/10) Home Medications Alprazolam 1 Mg Tab.rapdis, 1 MG PO TID, (Reported) Cephalexin Monohydrate 500 Mg Capsule, 1 EACH PO TID Prescribed by: ENRRIQUE BALBUENA on 01/16/13 1529 Hydrocodone Bit/Acetaminophen 1 Each Tablet, 1-2 EACH PO Q6H PRN for PAIN Prescribed by: ENRRIQUE BALBUENA on 01/16/13 1536 Methylphenidate Hcl 20 Mg Tablet, 20 MG PO BID, (Reported) Naproxen 500 Mg Tablet, 1 EACH PO BID PRN for PAIN Prescribed by: ENRRIQUE BALBUENA on 01/16/13 1529 Paroxetine Hcl 30 Mg Tablet, 30 MG PO DAILY, (Reported) Patient Home Medication List Home Medication List Reviewed: Yes Constitutional: see HPI; No chills, No dizziness Musculoskeletal: see HPI, joint pain (right wrist pain) All Other Systems Reviewed Negative Unless Noted: Yes Past Jgnmqbj-Yvbfbo-Gjwbie Hx Immunizations Up To Date Tetanus Booster (TDap): More than 5yrs Past Medical History Reproductive Disorders: Yes (IRREGULAR MENSES) Female Reproductive Disorders: Menstrual Problems Anxiety, Depression Physical Exam Vital Signs Capillary Refill : Height, Weight, BMI Height: '" Weight: 160lbs. oz. 72.821457vk; BMI Method:Stated Progress/Results/Core Measures Results/Orders My Orders Orders - FIORDALIZA VELARDE Wrist, Right, 3 Views Or More (8/19/18 22:33) Hydrocodone/Apap 5/325 Tablet (Lortab 5 (10/23/17 22:45) Progress Progress Note : Time: 22:58 Progress Note I have seen and evaluated the patient. I had informed her of normal x-ray imaging. She is to continue to use her wrist splint as needed for comfort. Close follow-up with primary care provider was instructed. Return precautions given. Departure Impression Primary Impression: Contusion of wrist Disposition: HOME, SELF-CARE Condition: Stable/Unchanged Departure-Patient Inst. Decision time for Depature: 22:59 Referrals: EMILY DONG BRIAN J MD SEGLIE, FLOYD R MD (PCP/Family) Primary Care Physician Patient Instructions: Common Wrist Injuries (DC), Wrist Sprain (DC) Add. Discharge Instructions: You may use ibuprofen and Tylenol as directed by the bottle for pain. Wear the wrist splint that you have on as needed for comfort. Follow-up with your primary care provider within 1 week for recheck. Follow-up with Dr. MORALES the orthopedic surgeon within 1 week for recheck. Return back to the emergency room for any worsening symptoms or concerns as needed. All discharge instructions reviewed with patient and/or family. Voiced understanding. FIORDALIZA VELARDE Oct 23, 2017 22:40
[2017-10-23] MEDS ORDERED: HYDROcodone/APAP 5 MG/325 MG (LORTAB) TAB PO ONE (22:45)
[2017-10-23 23:10] VITALS: BP 124/64
--- NOTE | 2017-10-24 07:53 | Diagnostic Imaging Report ---
INDICATION: Ongoing pain for 3 months. TECHNIQUE: 3 views of the right wrist CORRELATION STUDY: None FINDINGS: The osseous structures of the wrist have an unremarkable appearance. Alignment is anatomic. There is no acute bony abnormality. The visualized soft tissues appearing unremarkable. IMPRESSION: 1. Negative examination of the wrist. Dictated by: Dictated on workstation # [id number]
== END 2017-10-23 23:12 | disposition home or self-care (01) ==
LOC: EDUNIT# 22:01 → ER 22:02
DX: S60.211A Contusion of right wrist, initial encounter (principal); F41.9 Anxiety disorder, unspecified; F32.9 Major depressive disorder, single episode, unspecified; X50.0XXA Overexertion from strenuous movement or load, initial encounter; Y99.0 Civilian activity done for income or pay
CPT/HCPCS: 73110

== ENCOUNTER 2018-09-18 11:07 | Outpatient (CLI) | payer MEDICAID ==
[~2018-09-18] VITALS: Ht 172.7 cm; Wt 86.7 kg
--- NOTE | 2018-09-18 10:57 | NUR ---
KARINA ROCKWELL presented to unit via AMBULATORY from HOME, accompanied by S/O, with c/o ABD PAIN. KARINA ROCKWELL weighed, gowned, voided, and to bed. EFHM and TOCO applied, VS taken. KARINA R[facility]LL oriented to bed controls, call light, TV, heat, and A/C controls.
[2018-09-18 11:19] VITALS: BP 125/74
[2018-09-18] MEDS ORDERED: PREN-37 PO (11:37)
[2018-09-18] MEDS ORDERED: ONDN4T PO (11:38)
[2018-09-18] MEDS ORDERED: SERT100T PO (11:38)
[2018-09-18] MEDS ORDERED: BUPR8TAB SL (11:41)
--- NOTE | 2018-09-18 12:17 | NUR ---
REFER TO LABOR FLOW SHEET.
--- NOTE | 2018-09-18 12:18 | NUR ---
DR. DONG CALLED AND NOTIFIED OF PT'S ARRIVAL, C/O, 39-04/13, , DR. RENNER'S PT, SVE, REVIEW OF STRIP, SVE #2, APPT WITH DR. RENNER TOMORROW. NEW ORDER RECEIVED TO DISCHARGE HOME.
--- NOTE | 2018-09-18 12:28 | NUR ---
DISCHARGE PAPERS PROVIDED AND REVIEWED WITH PT, PT VERBALIZES UNDERSTANDING AND DENIES ANY QUESTIONS AT THIS TIME. PAPER SIGNED.
--- NOTE | 2018-09-18 12:30 | NUR ---
PT DISCHARGED FROM [facility] TO PERSONAL [facility] VIA AMBULATORY IN STABLE CONDITION ACC BY S/O.
--- NOTE | 2018-09-22 15:47 | Physician Query-Final Dx ---
ALEXEI GUAJARDO 09/22/18 1547: Clinic Account Progress/Dx Physician Query: Please give diagnosis Need dx and weeks of gestation Date of Service Sep 18, 2018 at 11:07 EMILY DONG DO 09/23/18 0959: Clinic Account Progress/Dx DIAGNOSIS: Diagnosis 39 wk GA contractions, not in active labor ALEXEI GUAJARDO Sep 22, 2018 15:47 EMILY DONG DO Sep 23, 2018 09:59
== END 2018-09-18 12:30 | disposition home or self-care (01) ==
LOC: LDRP 11:07 → WSo 11:07
PROVIDERS: ATTEND Family Medicine
DX: O47.1 False labor at or after 37 completed weeks of gestation (principal); Z3A.39 39 weeks gestation of pregnancy
CPT/HCPCS: 99213

== ENCOUNTER 2018-09-19 04:49 | Inpatient (IN) | payer MEDICAID ==
[2018-09-19] VITALS (59 sets, daily range): BP systolic 97–169; BP diastolic 41–108
[~2018-09-19] VITALS: Ht 172.7 cm; Wt 86.7 kg
[~2018-09-19 04:49] MED LIST changes: +BUPR8TAB SL; +ONDN4T PO; +PREN-37 PO; +SERT100T PO
--- NOTE | 2018-09-19 05:00 | NUR ---
KARINA ROCKWELL presented to unit via wheelchair from ED, accompanied by SO , with c/o CONTRACTIONS. KARINA ROCKWELL weighed, gowned, voided, and to bed. EFHM and TOCO applied, VS taken. KARINA ROCKWELL oriented to bed controls, call light, TV, heat, and A/C controls.
[2018-09-19] MEDS ORDERED: AMPICILLIN FOR IV USE 2,000 MG VIAL ONE (06:18)
[2018-09-19] MEDS ORDERED: WATER (STERILE) FOR INJECTION 20 ML ONE ×3 (06:19→12:06)
[2018-09-19] MEDS ORDERED: AMPICILLIN FOR IV USE 2,000 MG in WATER (STERILE) FOR INJECTION 14.8 ML IV SCH (06:47)
[2018-09-19 06:48] LABS: BILIRUBIN,URINE NEGATIVE (NEGATIVE); CLARITY,URINE CLEAR; COLOR,URINE YELLOW; GLUCOSE, URINE (UA) NEGATIVE (NEGATIVE); KETONES,URINE NEGATIVE (NEGATIVE); LEUKOCYTE ESTERASE ,URINE 1+ (NEGATIVE); NITRITE,URINE NEGATIVE (NEGATIVE); PH,URINE 7 (5-9); PROTEIN,URINE 1+ (NEGATIVE); UROBILINOGEN,URINE NORMAL (NORMAL)
[2018-09-19 06:57] LABS: BACTERIA,URINE FEW /HPF; SQUAMOUS EPITHELIAL CELL,UR 0-2 /HPF
[2018-09-19] MEDS ORDERED: ONDANSETRON 4 MG/2 ML (SDV) Z0FRAN IVP PRN ×2 (07:00→13:30)
[2018-09-19] MEDS ORDERED: LACTATED RINGERS 1,000 ML IV SCH (07:00)
[2018-09-19] MEDS ORDERED: D5 LR IV SOLUTION 1,000 ML IV ONE (07:11)
[2018-09-19] MEDS ORDERED: SUFENTA 0.6MCG/ML BUPIVA 0.125 100 ML ONE (07:12)
[2018-09-19 07:22] LABS: BASOPHILS % (AUTO) 0 % (0-10); EOSINOPHILS # (AUTO) 0.1 10^3/uL (0.0-0.3); EOSINOPHILS % (AUTO) 1 % (0-10); HEMATOCRIT 44 % (35-52); HEMOGLOBIN 14.3 G/DL (11.5-16.0); LYMPHOCYTES # (AUTO) 1.7 X 10^3 (1.0-4.0); LYMPHOCYTES % (AUTO) 11 % (12-44); MEAN CORPUSCULAR HEMOGLOBIN 29 PG (25-34); MEAN CORPUSCULAR HGB CONC 33 G/DL (32-36); MEAN CORPUSCULAR VOLUME 89 FL (80-99); MEAN PLATELET VOLUME 11.3 FL (7.4-10.4); MONOCYTES # (AUTO) 1.1 X 10^3 (0.0-1.0); MONOCYTES % (AUTO) 7 % (0-12); NEUTROPHILS # (AUTO) 12.8 X 10^3 (1.8-7.8); NEUTROPHILS % (AUTO) 81 % (42-75); PLATELET COUNT 259 10^3/uL (130-400); RED CELL DISTRIBUTION WIDTH 13.7 % (10.0-14.5); WHITE BLOOD COUNT 15.8 10^3/uL (4.3-11.0)
[2018-09-19] MEDS ORDERED: BUPIVACAINE 0.25% 30 ML (SENSORCAINE) VIAL ONE (07:27)
[2018-09-19] MEDS ORDERED: fentaNYL INJECTION 100 MCG/2 ML AMP ONE ×2 (07:27→12:32)
--- NOTE | 2018-09-19 07:36 | NUR ---
0736 Carmen GARCIA CRNA here for epidural placement. Procedure explained, consent reviewed and signed by anesthesia. Questions answered to patient's satisfaction. Time out taken to verify correct patient/procedure. 0741 Patient up to side of bed, assisted into sitting position. 0743 Betadine prep done x3 and sterile drape applied. 0744 Local done, see anesthesia record. 0748 Test dose given, see anesthesia record for drug and dosage. Epidural catheter secured in place. Epidural placement complete. 0754 Assisted back into bed, monitors adjusted. Epidural dosed, see anesthesia record. Epidural of Sufenta/Bupvicaine @12cc/hr stated per pump. Patient tolerated procedure well.
[2018-09-19 08:00] LABS: BAND NEUTROPHILS 1 %; BASOPHILS % (MANUAL) 0 %; EOSINOPHILS % (MANUAL) 0 %; LYMPHOCYTES % (MANUAL) 14 %; MONOCYTES % (MANUAL) 6 %; NEUTROPHILS % (MANUAL) 79 %; RBC MORPH NORMAL
[2018-09-19] MEDS ORDERED: LACTATED RINGERS 1,000 ML IV ONE (08:07)
[2018-09-19] MEDS ORDERED: OXYTOCIN/NORMAL SALINE 500 ML IV ONE ×2 (08:12→12:20)
[2018-09-19] MEDS ORDERED: LIDOCAINE/EPI 2% 1:200,00 (XYLOCAINE) 10 ML VIAL ONE (08:12)
[2018-09-19] MEDS ORDERED: MINERAL OIL CONCENTRATE 99.9% 15 ML UDC ONE (08:12)
[2018-09-19] MEDS ORDERED: EPIDURAL (SUFENTA 0.6MCG/ML BUPIVA 0.125%) 100 ML BAG EPI SCH (08:15)
[2018-09-19] MEDS ORDERED: CATHETER FLUSH 10 ML SYR IV PRN (08:15)
[2018-09-19] MEDS ORDERED: NALOXONE 0.4 MG/ML 1 ML (NARCAN) VIAL IV PRN (08:15)
[2018-09-19] MEDS ORDERED: METOCLOPRAMIDE INJ 10 MG/2 ML (REGLAN) ONE (08:31)
[2018-09-19] MEDS ORDERED: CITRIC ACID/SOB CIT (BICITRA) 30 ML UDC ONE (08:31)
[2018-09-19] MEDS ORDERED: FAMOTIDINE 20MG/2ML IV (PEPCID) ONE (08:31)
[2018-09-19] MEDS ORDERED: ceFAZolin INJECTION 2,000 MG ONE (08:31)
--- NOTE | 2018-09-19 08:50 | History & Physical-OB ---
OB - Chief Complaint & HPI Date/Time Date of Admission: Date of Admission: Date seen by a Provider: Sep 19, 2018 Time Seen by a Provider: 08:15 Chief Complaint/History OB-Reason for Admission/Chief: Onset of Labor Hx : 1 Hx Para: 0 Expected Date of Delivery: Oct 01, 2018 Gestational Age in Weeks: 38 Gestational Age in Days: 2 History of Labs B+, antibody neg, RI. GC/chlamydia neg. HIV/HepB/RPR NR. Glucola nml. GBS pos. Allergies and Home Medications Allergies Coded Allergies: No Known Drug Allergies (Unverified , 07/12/10) Home Medications Buprenorphine HCl 8 Mg Tab.subl, 8 MG SL TID, (Reported) Ondansetron HCl 4 Mg Tab, 4 MG PO DAILY, (Reported) Vit/Iron Fumarate/FA 1 Each Tablet, 1 EACH PO DAILY, (Reported) Sertraline HCl 100 Mg Tablet, 100 MG PO DAILY, (Reported) Patient Home Medication List Home Medication List Reviewed: Yes OB - History Hx of Present Care: Yes Ultrasounds: Normal mid trimester US Obstetrical Complications: None Medical Complications: Psychiatric (depression/anxiety on sertraline), Other (on Suboxone for opiate use disorder treatment) Information Induced Hypertension: No Maternal Gestational Diabetes: No Hemorrhage: No Obstetrical History Hx : 1 Hx Para: 0 Delivery History Hx Blood Disorders: No Patient Past Medical History PMHx: H/O methamphetamine abuse Opiate use disorder ADHD Anxiety Depression SurgHx: Frenulotomy Social History/Family History HIV/AIDS: No Recent Infectious Disease Expo: No Sexually Transmitted Disease: No Alcohol Use: Denies Use Recreational Drug Use: No (history of, no current use) Smoking Cessation: Current every day smoker Immunizations Tetanus Booster (TDap): Less than 5yrs (08/10/2018) Rubella: immune RPR/VDRL: Negative GBS Status: Positive HBsAG: Negative OB - Admission Exam Physical Exam HEENT: NCAT Abdomen: Gravid Extremities: Edema (trace) Cervical Dilatation: 7cm Effacement: 100% Station: -2 Membranes: Intact Accelerations: No Accelerations Decelerations: Variable Decelerations Short Term Variability: Present Relief Worker Variability: Average (6-25) Contractions on Admission: < 5 Minutes Apart Date/Time Contractions Began;: 09/19/2018 at 0200 Intensity: Firm Labs Laboratory Tests Test 09/19/18 05:35 09/19/18 06:40 Range/Units White Blood Count 15.8 H 4.3-11.0 10^3/uL Red Blood Count 4.91 4.35-5.85 10^6/uL Hemoglobin 14.3 11.5-16.0 G/DL Hematocrit 44 35-52 % Mean Corpuscular Volume 89 80-99 FL Mean Corpuscular Hemoglobin 29 25-34 PG Mean Corpuscular Hemoglobin Concent 33 32-36 G/DL Red Cell Distribution Width 13.7 10.0-14.5 % Platelet Count 259 130-400 10^3/uL Mean Platelet Volume 11.3 H 7.4-10.4 FL Neutrophils (%) (Auto) 81 H 42-75 % Lymphocytes (%) (Auto) 11 L 12-44 % Monocytes (%) (Auto) 7 0-12 % Eosinophils (%) (Auto) 1 0-10 % Basophils (%) (Auto) 0 0-10 % Neutrophils # (Auto) 12.8 H 1.8-7.8 X 10^3 Lymphocytes # (Auto) 1.7 1.0-4.0 X 10^3 Monocytes # (Auto) 1.1 H 0.0-1.0 X 10^3 Eosinophils # (Auto) 0.1 0.0-0.3 10^3/uL Basophils # (Auto) 0.0 0.0-0.1 10^3/uL Neutrophils % (Manual) 79 % Lymphocytes % (Manual) 14 % Monocytes % (Manual) 6 % Eosinophils % (Manual) 0 % Basophils % (Manual) 0 % Band Neutrophils 1 % Blood Morphology Comment NORMAL Urine Color YELLOW Urine Clarity CLEAR Urine pH 7 5-9 Urine Specific [place] 1.010 L 1.016-1.022 Urine Protein 1+ H NEGATIVE Urine Glucose (UA) NEGATIVE NEGATIVE Urine Ketones NEGATIVE NEGATIVE Urine Nitrite NEGATIVE NEGATIVE Urine Bilirubin NEGATIVE NEGATIVE Urine Urobilinogen NORMAL NORMAL MG/DL Urine Leukocyte Esterase 1+ H NEGATIVE Urine RBC (Auto) 2+ H NEGATIVE Urine RBC 2-5 H /HPF Urine WBC 2-5 /HPF Urine Squamous Epithelial Cells 0-2 /HPF Urine Crystals NONE /LPF Urine Bacteria FEW H /HPF Urine Casts NONE /LPF Urine Mucus SMALL H /LPF Urine Culture Indicated YES OB - Assessment/Plan/Diagnosis Assessment Assessment: active labor, group B positive strep Admission Dx Term intrauterine at 39 weeks gestation Active labor Group B strep positive Opiate use disorder Depression and Anxiety Admission Status: Inpatient Order (span 2 midnights) Reason for Inpatient Admission: Labor and delivery and course Plan Plan: Expectant Management, Other ( heart rate tracing category II with baseline 115 and recurrent variable decelerations but good variability at time of my arrival, AROM done with thick meconium stained fluid, persistent bradycardia noted which did improve with position change, fluid bolus and supplemental oxygen- now with no decelerations and baseline normalized, but now with minimal variability. Dr. Huang and Anesthesia notified, will monitor very closely for possible need for .) Induction Method: RACH MADRID MD Sep 19, 2018 08:50
[2018-09-19] MEDS ORDERED: D5 LR IV SOLUTION 1,000 ML IV SCH (09:08)
[2018-09-19] MEDS ORDERED: ceFAZolin 2 GM/50 ML NS 50 ML IV ONE (10:30)
[2018-09-19] MEDS ORDERED: AMPICILLIN FOR IV USE 1,000 MG in WATER (STERILE) FOR INJECTION 7.4 ML IV SCH (11:00)
[2018-09-19] MEDS ORDERED: LIDOCAINE PF 2% 5 ML (XYLOCAINE) VIAL ONE ×2 (11:35→12:07)
[2018-09-19] MEDS ORDERED: ceFAZolin INJECTION 1,000 MG ONE (12:06)
[2018-09-19] MEDS ORDERED: AZITHROMYCIN 500 MG (ZITHROMAX) VIAL ONE (12:06)
--- NOTE | 2018-09-19 12:16 | Progress Note-Pre Operative ---
Pre-Operative Progress Note H&P Reviewed The H&P was reviewed, patient examined and no changes noted. Date Seen by Provider: Sep 19, 2018 Time Seen by Provider: 12:10 Date H&P Reviewed: Sep 19, 2018 Time H&P Reviewed: 12:10 Pre-Operative Diagnosis: non reassuring hearttone, remote from delivery, DESTINEE THOMSON DO Sep 19, 2018 12:16 pm
[2018-09-19] MEDS ORDERED: OXYTOCIN/NORMAL SALINE 500 ML IV SCH (12:18)
--- NOTE | 2018-09-19 12:18 | Cesarean Section Operative ---
Procedure Procedure Note Pre-operative Diagnosis: Brunilda Jamil is merle (27 /Para 1 / 0, Gestational Age 39 3/7 weeks (H&P dates are incorrect), non reassuring status, thick particulate meconium, Post-operative Diagnosis: same, persistent OP presentation, CPD, body cord (wrapped around both feet) Procedure: Primary low transverse section, with extension of the incision in the right lower quadrant Physician: DESTINEE THOMSON Estimated blood loss: 800 mL Disposition: stable and asleep Findings: Viable male infant, Apgars [], weight 3530 grams, intact placenta, 3vc, normal appearing uterus, tubes, and ovaries. Indications:Brunilda bloom 27 /Para 1 / 0,Gestational Age 39 3/7 weeks (H&P dates are incorrect presenting in active labor. I was asked to do an emergency section due to hearttones in the 80s for 4 minths. The hearttones did resume to the baseline but due to position, and no progress (8 cm for over 2 hours), and continued variable decelerations, we opted for primary section Anesthesia: epidural, redosed.. Procedure Details: The patient was seen in pre-op and the procedure was discussed with the patient in full, including the risks, benefits, and alternatives. All questions were answered. The patient was taken to the operating room and a time out was performed, verifying patient and procedure. After spinal anesthesia was placed by our anesthesia colleagues, the patient was placed in the dorsal supine with leftward tilt for uterine displacement.~ Her abdomen was then prepped and draped in the typical sterile fashion. A Pfannenstiel skin incision was made using a scalpel and carried down through the underlying fascia. The fascia was incised in the midline and tented up using Jarocho clamps. On both the inferior and superior fascia side the rectus muscle was dissected off bluntly and sharply using Raya scissors. The peritoneum was identified and entered bluntly in the midline. This was then stretched laterally using manual strength. After entering the abdominal cavity and confirming lack of intraperitoneal adhesions, a large Joe retractor was placed and the lower uterine segment was visualized. A bladder flap was created with the use of Metzenbaum scissors.~ A scalpel was utilized to make a low transverse uterine incision. Amniotomy was performed with an Allis clamp with return of clear fluid. The 's head was grasped and brought to the level of the incision. Fundal pressure was applied and was delivered without difficulty. Mouth and nares were suctioned with bulb suction. After the umbilical cord was clamped and cut, the infant was handed off to the pediatric staff. A sample of cord blood was then obtained. The placenta was delivered intact via uterine massage. The uterus was exteriorized and cleared of all clots and debris. The uterine incision was closed using 0 Vicryl in a running locked fashion. A second imbricated layer was placed using 0 Vicryl in a running fashion as well. The uterus was flexed forward and the posterior rectouterine space was inspected and cleared of all clots and debris. Again the hysterotomy site was examined and hemostasis was observed. The bilateral tubes and ovaries appeared normal. The uterus was placed back into the abdominal cavity and abdominal gutters were cleared of all clots and debris. A final check of the uterine incision showed it to be hemostatic. The peritoneum was closed using 3-0 Vicryl in a running fashion. The fascia was closed with 0 Vicryl in a running fashion. The subcutaneous space was hemostatic, and irrigated. The subcutaneous space was closed with 3-0 Vicryl in several single interrupted stitches. The skin was then closed using 4-0 Monocryl in a running subcuticular fashion. The skin edges were reapproximated together and were hemostatic. A pressure dressing was applied. All sponge, lap and needle counts were correct at the end of the procedure per nursing. Vitals - Labs Vital Signs - I&O Vital Signs Date Time Temp Pulse Resp B/P (MAP) Pulse Ox O2 Delivery O2 Flow Rate FiO2 09/19/18 10:00 77 20 122/83 (96) Non Rebreather 15.00 09/19/18 09:50 77 20 130/74 (92) Non Rebreather 15.00 09/19/18 09:45 83 20 141/68 (92) Non Rebreather 15.00 09/19/18 09:39 90 20 125/88 (100) Non Rebreather 15.00 09/19/18 09:35 85 20 127/74 (91) Non Rebreather 15.00 09/19/18 09:28 88 20 114/67 (83) Non Rebreather 15.00 09/19/18 09:24 86 20 140/65 (90) Non Rebreather 15.00 09/19/18 09:15 88 20 143/74 (97) Non Rebreather 15.00 09/19/18 09:07 72 20 128/73 (91) Non Rebreather 15.00 09/19/18 09:03 80 20 125/67 (86) Non Rebreather 15.00 09/19/18 08:57 78 20 113/71 (85) Non Rebreather 15.00 09/19/18 08:52 70 20 136/65 (88) Non Rebreather 15.00 09/19/18 08:48 84 20 132/75 (94) Non Rebreather 15.00 09/19/18 08:44 77 20 134/72 (92) Non Rebreather 15.00 09/19/18 08:38 97.6 71 20 142/87 (105) Non Rebreather 15.00 09/19/18 08:30 58 20 115/55 (75) 100 Non Rebreather 15.00 09/19/18 08:23 72 20 131/78 (95) Room Air 09/19/18 08:20 71 20 131/70 (90) Room Air 09/19/18 08:11 73 20 134/74 (94) Room Air 09/19/18 08:08 69 20 137/74 (95) 100 Room Air 09/19/18 08:05 75 20 137/80 (99) Room Air 09/19/18 08:03 81 20 152/72 (98) 93 Room Air 09/19/18 07:56 85 20 169/70 (103) 100 Room Air 09/19/18 07:53 78 20 133/65 (87) Room Air 09/19/18 07:50 78 20 136/80 (98) 99 Room Air 09/19/18 07:46 77 20 139/86 (103) 100 Room Air 09/19/18 07:44 79 20 126/81 (96) Room Air 09/19/18 07:41 108 20 122/79 (93) 97 Room Air Labs Laboratory Tests 09/19/18 05:35: White Blood Count 15.8H, Red Blood Count 4.91, Hemoglobin 14.3, Hematocrit 44, Mean Corpuscular Volume 89, Mean Corpuscular Hemoglobin 29, Mean Corpuscular Hemoglobin Concent 33, Red Cell Distribution Width 13.7, Platelet Count 259, Mean Platelet Volume 11.3H, Neutrophils (%) (Auto) 81H, Lymphocytes (%) (Auto) 11L, Monocytes (%) (Auto) 7, Eosinophils (%) (Auto) 1, Basophils (%) (Auto) 0, Neutrophils # (Auto) 12.8H, Lymphocytes # (Auto) 1.7, Monocytes # (Auto) 1.1H, Eosinophils # (Auto) 0.1, Basophils # (Auto) 0.0, Neutrophils % (Manual) 79, Lymphocytes % (Manual) 14, Monocytes % (Manual) 6, Eosinophils % (Manual) 0, Basophils % (Manual) 0, Band Neutrophils 1, Blood Morphology Comment NORMAL 09/19/18 06:40: Urine Color YELLOW, Urine Clarity CLEAR, Urine pH 7, Urine Specific [place] 1.010L, Urine Protein 1+H, Urine Glucose (UA) NEGATIVE, Urine Ketones NEGATIVE, Urine Nitrite NEGATIVE, Urine Bilirubin NEGATIVE, Urine Urobilinogen NORMAL, Urine Leukocyte Esterase 1+H, Urine RBC (Auto) 2+H, Urine RBC 2-5H, Urine WBC 2- 5, Urine Squamous Epithelial Cells 0-2, Urine Crystals NONE, Urine Bacteria FEWH , Urine Casts NONE, Urine Mucus SMALLH, Urine Culture Indicated YES DESTINEE THOMSON DO Sep 19, 2018 12:18 pm
--- NOTE | 2018-09-19 12:20 | NUR ---
REFER TO LABOR FLOW SHEET.
[2018-09-19] MEDS ORDERED: KETAMINE/NaCl 50 MG/5 ML SYRINGE ONE (12:27)
[2018-09-19] MEDS ORDERED: MEASLES,MUMPS,RUBELLA 1 EA INJ SC SCH (12:30)
[2018-09-19] MEDS ORDERED: TETANUS,DIPTH,PERTUSS P/F (BOOSTRIX) 0.5 ML VIAL IM SCH (12:30)
[2018-09-19] MEDS ORDERED: MIDAZOLAM 2 MG/2 ML (VERSED) VIAL ONE (12:31)
[2018-09-19] MEDS ORDERED: proPOfol 200 MG/20 ML (DIPRIVAN) VIAL IV ONE ×2 (12:38→12:52)
[2018-09-19] MEDS ORDERED: HYDROmorphone 2 MG/ML VIAL (DILAUDID) IV NR (13:30)
[2018-09-19] MEDS ORDERED: CATHETER FLUSH 10 ML SYR IV SCH ×2 (14:00)
--- NOTE | 2018-09-19 14:20 | NUR ---
PT TRANSFERRED FROM [facility] TO [facility]IA BED IN STABLE CONDITION ACC BY THIS RN, Mayra MANUEL, RN AND S/O. TEACHING DONE RE: ROOM SURROUNDINGS AND ROOM SERVICE. PITOCIN INFUSING @ 125 ML/HR/PUMP. SCDS ON CALVES BILATERALLY. CALL LIGHT WITHIN REACH.
[2018-09-19] MEDS: KETOROLAC 30 MG/ML VIAL IV SCH ×2 (14:44→20:02)
--- NOTE | 2018-09-19 15:05 | NUR ---
DR. RENNER TO PT'S BEDSIDE.
--- NOTE | 2018-09-19 17:42 | NUR ---
RT NOTIFIED OF NEED FOR INITIATION OF INCENTIVE SPIROMETRY.
--- NOTE | 2018-09-19 18:12 | NUR ---
PT UP TO THE BATHROOM. + VOID, + PERICARE PER PT. PT AMBULATES FROM [id number] TO [facility] IN STABLE CONDITION ACC BY S/O TO SEE .
--- NOTE | 2018-09-19 18:45 | NUR ---
RT AT PT'S BEDSIDE TO PERFORM INCENTIVE SPIROMETRY.
[2018-09-19] MEDS: DOCUSATE SODIUM 100 MG (COLACE) CAP PO SCH (20:02)
[2018-09-19] MEDS: METOCLOPRAMIDE 10 MG (REGLAN) TAB PO SCH (20:02)
[2018-09-19] MEDS: ACETAMINOPHEN 500 MG TAB (TYLENOL) PO SCH (20:02)
[2018-09-20] MEDS: KETOROLAC 30 MG/ML VIAL IV SCH (02:12)
[2018-09-20] MEDS: METOCLOPRAMIDE 10 MG (REGLAN) TAB PO SCH ×4 (02:20→20:37)
[2018-09-20 04:11] VITALS: BP 137/67
[2018-09-20] MEDS: ACETAMINOPHEN 500 MG TAB (TYLENOL) PO SCH ×3 (04:11→20:37)
[2018-09-20] MEDS ORDERED: MILK OF MAGNESIA 400 MG/5 ML 30 ML UDC PO PRN (05:00)
[2018-09-20 06:11] LABS: BASOPHILS % (AUTO) 0 % (0-10); EOSINOPHILS % (AUTO) 0 % (0-10); HEMATOCRIT 33 % (35-52); LYMPHOCYTES # (AUTO) 1.3 X 10^3 (1.0-4.0); LYMPHOCYTES % (AUTO) 8 % (12-44); MEAN CORPUSCULAR HEMOGLOBIN 30 PG (25-34); MEAN CORPUSCULAR HGB CONC 33 G/DL (32-36); MEAN CORPUSCULAR VOLUME 89 FL (80-99); MEAN PLATELET VOLUME 11.3 FL (7.4-10.4); MONOCYTES # (AUTO) 1.1 X 10^3 (0.0-1.0); MONOCYTES % (AUTO) 7 % (0-12); NEUTROPHILS # (AUTO) 13.5 X 10^3 (1.8-7.8); NEUTROPHILS % (AUTO) 85 % (42-75); PLATELET COUNT 182 10^3/uL (130-400); RED CELL DISTRIBUTION WIDTH 13.1 % (10.0-14.5)
[2018-09-20] MEDS ORDERED: IBUPROFEN 600 MG (MOTRIN) TAB PO ONE ×2 (07:36→14:16)
[2018-09-20 07:50] VITALS: BP 123/74
--- NOTE | 2018-09-20 07:50 | NUR ---
A.M. ASSESSMENT COMPLETED. VSS. PT GETTING INTO SHOWER.
[2018-09-20] MEDS: DOCUSATE SODIUM 100 MG (COLACE) CAP PO SCH ×2 (07:52→20:37)
[2018-09-20] MEDS: IBUPROFEN 600 MG (MOTRIN) TAB PO SCH ×3 (07:52→20:37)
--- NOTE | 2018-09-20 08:15 | NUR ---
PT AMBULATING TO NURSERY.
--- NOTE | 2018-09-20 08:40 | Postpartum Progress Note ---
Post Op Post-operative Day #1 s/p emergent PLTCS (epidural) NRFHT, remote from delivery, failure to progress/arrest of dilation, persistent OP presentation, CPD, thick meconium Subjective: Patient is without complaints. Ambulating, voiding after maier removed. Tolerating a regular diet without nausea or vomiting. Normal lochia. Pain is well controlled with oral pain medications. Passing flatus. breast feeding. does have history of substance abuse and is being treated with suboxone by Dr. Carmen. She has approved the use of normal post operative pain management and will help patient wean after discharge. She has toradol and tylenol as well. Objective: 09/19/18 09/20/18 23:48 04:11 Temp 98.2 98.2 Pulse 65 70 Resp 18 18 B/P (MAP) 112/65 (81) 137/67 (90) Pulse Ox 97 98 O2 Delivery Room Air Room Air 09/20/18 00:00 Intake Total 2000 ml Output Total 425 ml Balance 1575 ml Laboratory Tests Test 09/20/18 05:52 Range/Units White Blood Count 16.0 H 4.3-11.0 10^3/uL Red Blood Count 3.70 L 4.35-5.85 10^6/uL Hemoglobin 11.0 #L 11.5-16.0 G/DL Hematocrit 33 L 35-52 % Mean Corpuscular Volume 89 80-99 FL Mean Corpuscular Hemoglobin 30 25-34 PG Mean Corpuscular Hemoglobin Concent 33 32-36 G/DL Red Cell Distribution Width 13.1 10.0-14.5 % Platelet Count 182 130-400 10^3/uL Mean Platelet Volume 11.3 H 7.4-10.4 FL Neutrophils (%) (Auto) 85 H 42-75 % Lymphocytes (%) (Auto) 8 L 12-44 % Monocytes (%) (Auto) 7 0-12 % Eosinophils (%) (Auto) 0 0-10 % Basophils (%) (Auto) 0 0-10 % Neutrophils # (Auto) 13.5 H 1.8-7.8 X 10^3 Lymphocytes # (Auto) 1.3 1.0-4.0 X 10^3 Monocytes # (Auto) 1.1 H 0.0-1.0 X 10^3 Eosinophils # (Auto) 0.0 0.0-0.3 10^3/uL Basophils # (Auto) 0.0 0.0-0.1 10^3/uL Physical Exam: General - Alert and oriented, no apparent distress Abdomen - Soft, appropriately tender to palpation, non-distended, fundus firm at umbilicus Incision - clean, dry and intact; no erythema or induration, no drainage Extremities - no edema, negative Bernardo's bilaterally Assessment: 1. post-operative day # 1, status post EPLTCS. Recovering well, hemodynamically stable 2. Substance abuse history on suboxone Plan: Routine post-operative care. Encourage breast feeding. Encourage ambulation. VTE prophylaxis: SCDs. Ferrous sulfate supplementation. Plan for discharge likely tomorrow or to parent room. Vitals - Labs Vital Signs - I&O Vital Signs Date Time Temp Pulse Resp B/P (MAP) Pulse Ox O2 Delivery O2 Flow Rate FiO2 09/20/18 04:11 98.2 70 18 137/67 (90) 98 Room Air 09/19/18 23:48 98.2 65 18 112/65 (81) 97 Room Air 09/19/18 20:03 100.4 77 18 132/66 (88) 100 Room Air 09/19/18 18:47 75 Room Air 98 09/19/18 18:40 100 Room Air 09/19/18 16:31 99.5 71 18 124/70 (88) 100 Room Air 09/19/18 14:15 99.6 20 100 Room Air 09/19/18 14:15 Room Air 09/19/18 14:00 Room Air 09/19/18 13:55 98.5 20 98 Room Air 09/19/18 13:45 Room Air 09/19/18 13:40 98.0 20 99 Room Air 09/19/18 13:30 Room Air 09/19/18 13:25 98.6 20 100 Room Air 09/19/18 13:15 Room Air 09/19/18 13:10 96.7 20 100 Room Air 09/19/18 12:17 96 20 130/77 (94) Non Rebreather 15.00 09/19/18 12:13 75 20 131/68 (89) Non Rebreather 15.00 09/19/18 12:07 72 20 134/66 (88) Non Rebreather 15.00 09/19/18 12:02 69 20 118/57 (77) Non Rebreather 15.00 09/19/18 11:59 74 20 118/60 (79) Non Rebreather 15.00 09/19/18 11:52 71 20 124/76 (92) Non Rebreather 15.00 09/19/18 11:46 72 20 127/78 (94) Non Rebreather 15.00 09/19/18 11:42 98.1 81 20 117/89 (98) Non Rebreather 15.00 09/19/18 11:37 75 20 133/108 (116) Non Rebreather 15.00 09/19/18 11:26 110 20 97/76 (83) Non Rebreather 15.00 09/19/18 11:21 97.9 78 20 111/68 (82) 100 Non Rebreather 15.00 09/19/18 11:12 77 20 135/67 (89) 100 Non Rebreather 15.00 09/19/18 11:09 67 20 112/59 (76) 100 Non Rebreather 15.00 09/19/18 11:04 71 20 119/58 (78) 100 Non Rebreather 15.00 09/19/18 10:58 65 20 115/62 (79) 100 Non Rebreather 15.00 09/19/18 10:53 67 20 117/61 (79) 100 Non Rebreather 15.00 09/19/18 10:48 71 20 117/57 (77) 100 Non Rebreather 15.00 09/19/18 10:42 98.7 72 20 123/61 (81) 100 Non Rebreather 15.00 09/19/18 10:37 85 20 145/84 (104) 100 Non Rebreather 15.00 09/19/18 10:32 71 20 122/55 (77) 100 Non Rebreather 15.00 09/19/18 10:29 65 20 125/59 (81) Non Rebreather 15.00 09/19/18 10:15 98.9 71 20 106/70 (82) 100 Non Rebreather 15.00 09/19/18 10:00 77 20 122/83 (96) Non Rebreather 15.00 09/19/18 09:50 77 20 130/74 (92) Non Rebreather 15.00 09/19/18 09:45 83 20 141/68 (92) Non Rebreather 15.00 09/19/18 09:39 90 20 125/88 (100) Non Rebreather 15.00 09/19/18 09:35 85 20 127/74 (91) Non Rebreather 15.00 09/19/18 09:28 88 20 114/67 (83) Non Rebreather 15.00 09/19/18 09:24 86 20 140/65 (90) Non Rebreather 15.00 09/19/18 09:15 88 20 143/74 (97) Non Rebreather 15.00 09/19/18 09:07 72 20 128/73 (91) Non Rebreather 15.00 09/19/18 09:03 80 20 125/67 (86) Non Rebreather 15.00 09/19/18 08:57 78 20 113/71 (85) Non Rebreather 15.00 09/19/18 08:52 70 20 136/65 (88) Non Rebreather 15.00 09/19/18 08:48 84 20 132/75 (94) Non Rebreather 15.00 09/19/18 08:44 77 20 134/72 (92) Non Rebreather 15.00 09/19/18 08:38 97.6 71 20 142/87 (105) Non Rebreather 15.00 I & O 09/20/18 07:00 Intake Total 3750 ml Output Total 1025 ml Balance 2725 ml Labs Laboratory Tests 09/20/18 05:52: White Blood Count 16.0H, Red Blood Count 3.70L, Hemoglobin 11.0#L, Hematocrit 33L, Mean Corpuscular Volume 89, Mean Corpuscular Hemoglobin 30, Mean Corpuscular Hemoglobin Concent 33, Red Cell Distribution Width 13.1, Platelet Count 182, Mean Platelet Volume 11.3H, Neutrophils (%) (Auto) 85H, Lymphocytes (%) (Auto) 8L, Monocytes (%) (Auto) 7, Eosinophils (%) (Auto) 0, Basophils (%) (Auto) 0, Neutrophils # (Auto) 13.5H, Lymphocytes # (Auto) 1.3, Monocytes # (Auto) 1.1H, Eosinophils # (Auto) 0.0, Basophils # (Auto) 0.0 DESTINEE THOMSON DO Sep 20, 2018 08:40
[2018-09-20] MEDS ORDERED: PATIENT MAY USE OWN MED,SINGLE MED PO SCH (08:45)
[2018-09-20] MEDS ORDERED: SERTRALINE 100 MG (ZOLOFT) TAB PO ONE (09:00)
--- NOTE | 2018-09-20 09:09 | NUR ---
PT HAS HAD HER TDAP DURING THIS .
--- NOTE | 2018-09-20 10:25 | NUR ---
ABDOMINAL BINDER PLACED ON PT. STATES IMPROVED COMFORT.
--- NOTE | 2018-09-20 10:30 | NUR ---
IN ASSISTING WITH PUMPING BREASTS.
[2018-09-20] MEDS: BUPRENORPHINE HCL 8 MG SL SCH ×3 (10:40→18:45)
--- NOTE | 2018-09-20 11:30 | NUR ---
RESTING ON SIDE. NO APPARENT DISTRESS.
[2018-09-20 12:30] VITALS: BP 134/95
--- NOTE | 2018-09-20 12:40 | NUR ---
TO [facility] TO SEE INFANT. PAIN MEDS GIVEN.
--- NOTE | 2018-09-20 14:34 | Anesthesia-Regional Post-Op ---
Regional Patient Condition Mental Status: Alert, Oriented x3 Circulation: Same as Pre-Op Headache: Absent Sensation: Full Recovery Motor Block: Absent Post Op Complications Complications None Follow Up Care/Instructions Patient Instructions None needed. Anesthesia/Patient Condition Patient is doing well, no complaints, stable vital signs, no apparent adverse anesthesia problems. No complications reported per nursing. ELISA MONAE CRNA Sep 20, 2018 14:34
--- NOTE | 2018-09-20 15:00 | NUR ---
CONTINUES TO DO WELL. STATES FEELING MUCH BETTER THIS AFTERNOON. PT HAS BEEN PUMPING BREASTS AND GETTING LARGE AMOUNTS OF COLOSTRUM.
[2018-09-20 18:15] VITALS: BP 125/58
--- NOTE | 2018-09-20 18:30 | NUR ---
MORE TOWELS GIVEN FOR AN ADDITIONAL SHOWER TODAY. RATES PAIN 3/10. AMBULATING WELL BACK AND FORTH TO NURSERY TO SEE .
[2018-09-21] MEDS: ACETAMINOPHEN 500 MG TAB (TYLENOL) PO SCH ×3 (00:55→14:48)
[2018-09-21 01:15] VITALS: BP 109/60
[2018-09-21] MEDS: IBUPROFEN 600 MG (MOTRIN) TAB PO SCH ×3 (01:38→14:49)
[2018-09-21] MEDS: METOCLOPRAMIDE 10 MG (REGLAN) TAB PO SCH ×3 (01:38→14:49)
[2018-09-21] MEDS ORDERED: OXC5T PO ×2 (08:42→09:12)
[2018-09-21] MEDS ORDERED: DOCU100C37 PO (08:42)
[2018-09-21] MEDS ORDERED: ACET-77 PO (08:42)
[2018-09-21] MEDS ORDERED: IBUP-844 PO (08:42)
--- NOTE | 2018-09-21 08:45 | Discharge Inst-Women's Service ---
Discharge Inst-Women's Serv Depart Medication/Instructions New, Converted or Re-Newed RX: RX on Chart Instructions follow up with Dr. Padron for pain management and to help with weaning pain medication Final Diagnosis labor non reassuring hearttones/ intolerance to labor cephalopelvic disproportion OP presentation meconium primary section history of substance abuse Consults/Follow Up Additional Follow Up: Yes (1week with brianna and 4 weeks with enoch. padron as scheduled) Activity Activity: Activity as Tolerated (no lifting over 25 lbs) Driving Instructions: No Driving for 1 Week NO SMOKING: NO SMOKING Nothing Inside Vagina: No Douching, No [place] (weeks), No Tampons Diet Discharge Diet: No Restrictions Symptoms to Report to : Swelling Increased, Bleeding Excessive, Pain Increased, Fever Over 101 Degrees F, Vaginal Bleeding Increase, Cramps in Feet or Legs, Vaginal Discharge Foul For Any Problems or Questions: Contact Your Physician Skin/Wound Care Infection Signs and Symptoms: Increased Redness, Foul Odor of Wound, Increased Drainage, Skin Itchy or Has a Rash, Increased Swelling, Temperature Above 101 F Operative Area Clean and Dry: Keep Incision Clean/Dry Stitches/Proctor/Dermabond: Dermabond Bathing Instructions: DESTINEE Bennett DO Sep 21, 2018 8:45 am
[2018-09-21 08:57] VITALS: BP 133/80
--- NOTE | 2018-09-21 08:57 | NUR ---
initial shift assessment completed, see interventions for further. abd incision RUMA with Dermabond intact. abd binder in place. POC reviewed, states understanding.
[2018-09-21] MEDS ORDERED: SERTRALINE 100 MG (ZOLOFT) TAB PO SCH (09:00)
[2018-09-21] MEDS: DOCUSATE SODIUM 100 MG (COLACE) CAP PO SCH (09:00)
[2018-09-21] MEDS: BUPRENORPHINE HCL 8 MG SL SCH (09:01)
--- NOTE | 2018-09-21 11:30 | NUR ---
Sal Toledo here to see pt.
[2018-09-21 14:53] VITALS: BP 117/66
--- NOTE | 2018-09-21 15:00 | NUR ---
dismissal instructions given, verbalizes understanding. reviewed Rx's and administration schedule. follow up appointments given. signature page signed, placed on chart. dismissed to rooming in status until infant discharged from hospital.
== END 2018-09-21 15:00 | disposition home or self-care (01) | DRG 788 ==
LOC: WSo 04:49 → LDRP 04:52 → WSo 09:00 → LDRP 14:38
PROVIDERS: ADMIT Family Medicine; ATTEND Family Medicine
PROC: 10D00Z1 Extraction of Products of Conception, Low, Open Approach (ICD-10-PCS; principal; 2018-09-19 12:20)
DX: O99.824 Streptococcus B carrier state complicating childbirth (principal); O76 Abnormality in fetal heart rate and rhythm complicating labor and delivery; O69.82X0 Labor and delivery complicated by other cord entanglement, without compression, not applicable or unspecified; O77.0 Labor and delivery complicated by meconium in amniotic fluid; O62.0 Primary inadequate contractions; O64.0XX0 Obstructed labor due to incomplete rotation of fetal head, not applicable or unspecified; O99.324 Drug use complicating childbirth; F15.11 Other stimulant abuse, in remission; F11.11 Opioid abuse, in remission; O99.344 Other mental disorders complicating childbirth; F32.9 Major depressive disorder, single episode, unspecified; F41.9 Anxiety disorder, unspecified; F90.9 Attention-deficit hyperactivity disorder, unspecified type; O99.334 Smoking (tobacco) complicating childbirth; F17.210 Nicotine dependence, cigarettes, uncomplicated; Z3A.39 39 weeks gestation of pregnancy; Z37.0 Single live birth
CPT/HCPCS: 36415; 81000; 85007; 85025; 85027; 86850; 86900; 86901; 87088; 88307; 94664; 99212

== ENCOUNTER 2020-12-31 23:52 | Emergency (ER) | payer MEDICAID ==
[~2020-12-31] VITALS: Ht 175.2 cm; Wt 68.3 kg
[~2020-12-31 23:52] MED LIST changes: +ACET-78 PO; +DOCU100C37 PO; +IBUP-844 PO; +OXC5T PO
[2021-01-01] MEDS ORDERED: LIDOCAINE 1% INJ 20 ML 20 ML VIAL INJ ONE (00:45)
[2021-01-01] MEDS ORDERED: TRIM/SULFAMETH 160/800 (SEPTRA DS) TAB PO ONE (00:45)
--- NOTE | 2021-01-01 00:45 | ED Integumentary General ---
General Chief Complaint: Eye Problems Stated Complaint: L EYE SWOLLEN,BACK PAIN Nursing Triage Note: Pt ambulatory into ER with complaint of Left Eye Swollen/Right Shoulder Blade Pain. Pt states that her left eye had what she thought was a zit over the eyebrow and she squeezed it getting some blood and pus out of it, but now its significantly worse. Pt now has swelling above and below the eye. Pt also complains of Right shoulder blade pain, but states that she took ibuprofen GOLF CADDIE and its now feeling much better. Pt states that her face breaks out bad when she is on her cycle and that she constantly picks at it. She is worried about it being an abscess. Source: patient Exam Limitations: no limitations History of Present Illness Date Seen by Provider: Jan 01, 2021 Time Seen by Provider: 00:30 Initial Comments Patient is a 30-year-old female who presents to the emergency department today with a chief complaint of an abscess to the left lateral eyebrow. Patient states she had a "sore" to the left eyebrow that she felt was just a pimple. About 15 hours ago she pressed on it gently and had quite a bit of pus return. She states she noted a little while ago that her left eye, periorbital area was very swollen and red. She denies discrete eye pain. No vision changes. No fevers, chills. 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 And every time her menstrual cycle starts she gets intense anxiety and picks a lot at sores especially on her face. She also complains of a little left upper periscapular back pain. Onset this evening. She took 600 mg of ibuprofen prior to arrival with some relief of symptoms. Denies shortness of breath or cough. No trauma. She is not a diabetic. All other review of systems reviewed and negative except as stated. Timing/Duration: this evening Severity: moderate Location: face Modifying Factors: worse with scratching Associated Symptoms: other (left parascapular) Allergies and Home Medications Allergies Coded Allergies: No Known Drug Allergies (Unverified , 07/12/10) Patient Home Medication List Home Medication List Reviewed: Yes Acetaminophen (Acetaminophen) 500 Mg Tablet, 1,000 MG PO Q8HR Prescribed by: DESTINEE THOMSON on 09/21/18 0842 Amoxicillin/Potassium Clav (Augmentin 875-125 Tablet) 1 Each Tablet, 1 EACH PO BID Prescribed by: VELVET ROMERO on 01/01/21 0124 Amoxicillin/Potassium Clav (Amox Tr-K Clv 875-125 mg Tab) 1 Each Tablet, (Reported) Entered as Reported by: GROVER QUINTANILLA on 01/01/21 235 Buprenorphine HCl (Buprenorphine HCl) 8 Mg Tab.subl, 8 MG SL TID, (Reported) Entered as Reported by: NATE RODRIGUEZ on 09/18/18 114 Desvenlafaxine Succinate (Desvenlafaxine Succinate ER) 50 Mg Tab.er.24h, (Reported) Entered as Reported by: GROVER QUINTANILLA on 01/01/21 235 Docusate Sodium (Docusate Sodium) 100 Mg Capsule, 100 MG PO BID Prescribed by: DESTINEE THOMSON on 09/21/18 0842 Ibuprofen (Ibu) 600 Mg Tablet, 600 MG PO Q6HR Prescribed by: DESTINEE THOMSON on 09/21/18 0842 Naproxen (Naprosyn) 500 Mg Tablet, 500 MG PO BID Prescribed by: ENRRIQUE BALBUENA on 01/02/21 0109 Vit/Iron Fumarate/FA ( Tablet) 1 Each Tablet, 1 EACH PO DAILY, (Reported) Entered as Reported by: NATE RODRIGUEZ on 09/18/18 1137 Sertraline HCl (Zoloft) 100 Mg Tablet, 100 MG PO DAILY, (Reported) Entered as Reported by: NATE RODRIGUEZ on 09/18/18 1138 Sulfamethoxazole/Trimethoprim (Bactrim Ds Tablet) 1 Each Tablet, 1 EACH PO BID Prescribed by: VELVET ROMERO on 01/01/21 0124 Sulfamethoxazole/Trimethoprim (Bactrim Ds Tablet) 1 Each Tablet, (Reported) Entered as Reported by: GROVER QUINTANILLA on 01/01/21 235 Review of Systems Review of Systems Constitutional: see HPI EENTM: no symptoms reported Respiratory: no symptoms reported Cardiovascular: no symptoms reported Gastrointestinal: no symptoms reported Genitourinary: no symptoms reported : No Musculoskeletal: back pain (right upper infrascapular back pain) Skin: other (abscess left eye, swelling) All Other Systems Reviewed Negative Unless Noted: Yes Past Razgujk-Adzmgs-Xiyztj Hx Patient Social History Tobacco Use?: Yes Tobacco type used: Cigarettes Smoking Status: Current Everyday Smoker Use of E-Cig and/or Vaping dev: No Substance use?: No Alcohol Use?: Yes Alcohol type: Beer, Hard Liquor, Wine Alcohol Frequency: Once in a while Pt feels they are or have been: No Immunizations Up To Date Tetanus Booster (TDap): Less than 5yrs PED Vaccines UTD: Yes Influenza Vaccine Up-to-Date: No; Not Current Seasonal Allergies Seasonal Allergies: Yes Past Medical History Surgeries: Yes (TONGUE CLIPPED - 6 Y/O) Respiratory: No Cardiac: No Neurological: No Reproductive Disorders: Yes (IRREGULAR MENSES) Female Reproductive Disorders: Denies Sexually Transmitted Disease: No HIV/AIDS: No Genitourinary: No Gastrointestinal: Yes Chronic Constipation Musculoskeletal: No Endocrine: No HEENT: No Cancer: No Psychosocial: No Anxiety, Depression Integumentary: No Blood Disorders: No Adverse Reaction/Blood Tranf: No Family Medical History Alcoholism 19 FATHER 19 MOTHER Arthritis 19 FATHER 19 MOTHER Asthma 19 FATHER 19 MOTHER Cardiovascular disease 19 FATHER 19 MOTHER Dementia 19 MOTHER Drug abuse 19 MOTHER Hypercholesterolemia 19 FATHER 19 MOTHER Hypertension 19 FATHER 19 MOTHER Myocardial infarction 19 FATHER 19 MOTHER Respiratory disorder 19 FATHER 19 MOTHER Severe allergy 19 FATHER 19 MOTHER Visual disorder 19 FATHER 19 MOTHER Physical Exam Vital Signs Vital Signs - First Documented 01/01/21 00:26 Temp 36.9 Pulse 100 Resp 18 B/P (MAP) 134/82 (99) Pulse Ox 99 O2 Delivery Room Air Capillary Refill : Less Than 3 Seconds General Appearance: WD/WN, no apparent distress HEENT: PERRL/EOMI, other (abscess noted to left lateral eyebrow, slightly "scrusted" at the center, a little fluctuant. very tender to plaption. periorbital edema noted with erythema; PERRLA, EOMI; no vision change. no eye pain with movement) Neck: supple, normal inspection Cardiovascular: regular rate, rhythm Respiratory: lungs clear, normal breath sounds, no respiratory distress, no accessory muscle use Back: normal inspection, no CVA tenderness, no vertebral tenderness, other (slight tenderness to palpation, right infrascapular region. no overlying erythema or rash) Extremities: normal range of motion, normal inspection Neurologic/Psychiatric: alert, normal mood/affect, oriented x 3 Skin: normal color Skin Problem Location: face (abscess - as above) Procedures/Interventions I&D : Site: left eyebrow Blade Size: 11 I & D Procedure: betadine prep (chlohexadine prer) Progress mild to moderate amount of pus return from I&D, copiously irrigated until clear. small hemostats used to gently further open the incision to continue irrigation Progress/Results/Core Measures Results/Orders Micro Results Microbiology 01/01/21 Gram Stain - Final, Resulted 01/01/21 Wound Culture - Preliminary, Resulted Staphylococcus aureus My Orders Orders - VELVET ROMERO MD Lidocaine 1% Inj 20 Ml (Xylocaine 1% Inj (01/01/21 00:45) Wound Culture (01/01/21 00:37) Sulfamethoxazole/Trimet Ds Tab (Bactrim (01/01/21 00:45) Amoxicillin/Clavulanate Tablet (Augmenti (01/01/21 00:47) Medications Given in ED Vital Signs/I&O 01/01/21 01/01/21 00:26 01:29 Temp 36.9 Pulse 100 79 Resp 18 18 B/P (MAP) 134/82 (99) 123/77 Pulse Ox 99 99 O2 Delivery Room Air Room Air Blood Pressure Mean: 99 Counseling-Symptomatic: 3-10 Minutes Follow-up with PCP to: Discuss Further Options Departure Impression Primary Impression: Abscess, eyebrow Additional Impressions: Preseptal cellulitis of left eye Pain of left scapula Disposition: HOME, SELF-CARE Condition: Stable Departure-Patient Inst. Decision time for Depature: 01:15 Referrals: [facility] [place] GAEL,LOCAL PHYSICIAN (PCP) Primary Care Physician Patient Instructions: Preseptal Cellulitis ED Add. Discharge Instructions: Wash the affected area on your face at least twice daily gently with warm soap and water. Keep it covered with a dry gauze dressing for the next 2 to 3 days. You will notice that it continues to drain a little bit. Try not to pick at any of the sores on your face! Please take the antibiotics twice a day as directed. You will finish the Augmentin after 7 days, the Bactrim will continue for a total of 10 days. Jziu-mzp-[id number] ibuprofen 3 tablets which is 600 mg every 6-8 hours with food as needed for pain If after couple of days you notice increasing redness, swelling, pain or high fever please come back to the emergency room for reevaluation. Hopefully the ibuprofen will also help with your right-sided back pain. If you notice any cough, shortness of breath or any other emergent developing symptoms with the back pain please come back for reevaluation to the ER. Follow-up with [facility] regarding your anxiety, you might ask them about another long-acting antianxiety medication like BuSpar? You need to followup with [facility] as well to monitor the healing from the cellulitis. Scripts Amoxicillin/Potassium Clav (Augmentin 875-125 Tablet) 1 Each Tablet 1 EACH PO BID for 7 Days, #14 TAB 0 Refills Prov: VELVET ROMERO MD 01/01/21 Sulfamethoxazole/Trimethoprim (Bactrim Ds Tablet) 1 Each Tablet 1 EACH PO BID for 10 Days, #20 TAB Prov: VELVET ROMERO MD 01/01/21 Copy Copies To 1: EMILY DONG KATHRYN M MD Jan 01, 2021 00:45
[2021-01-01] MEDS ORDERED: AUGMENTIN 875 MG TAB (AMOXICILLIN/CLAVULANATE) PO STA (00:47)
[2021-01-01] MEDS ORDERED: AMOX-358 PO (01:24)
[2021-01-01] MEDS ORDERED: SULF1TAB38 PO (01:24)
[2021-01-01 01:29] VITALS: BP 123/77
[2021-01-01] MEDS ORDERED: DESV50TA18 (23:55)
[2021-01-01] MEDS ORDERED: SULF1TAB38 (23:55)
[2021-01-01] MEDS ORDERED: AMOX1TAB12 (23:55)
[2021-01-02] MEDS ORDERED: NAPR-1071 PO (01:09)
== END 2021-01-01 01:28 | disposition home or self-care (01) ==
LOC: EDUNIT# 23:52 → ER 23:53
DX: H44.002 Unspecified purulent endophthalmitis, left eye (principal); L03.213 Periorbital cellulitis; M25.512 Pain in left shoulder; F41.9 Anxiety disorder, unspecified; F32.9 Major depressive disorder, single episode, unspecified; F17.210 Nicotine dependence, cigarettes, uncomplicated; Z79.899 Other long term (current) drug therapy
CPT/HCPCS: 87070; 87077; 87186; 87205; 99284

== ENCOUNTER 2021-01-01 23:41 | Emergency (ER) | payer MEDICAID ==
[~2021-01-01] VITALS: Ht 175.2 cm; Wt 68.3 kg
[~2021-01-01 23:41] MED LIST changes: +AMOX-358 PO; +SULF1TAB38 PO
[2021-01-01] MEDS ORDERED: SULF1TAB38 (23:55)
[2021-01-01] MEDS ORDERED: DESV50TA18 (23:55)
[2021-01-01] MEDS ORDERED: AMOX1TAB12 (23:55)
[2021-01-02] MEDS ORDERED: ORPHENADRINE 60 MG/2 ML (NORFLEX) AMP (ED ONLY) IM STA (00:47)
[2021-01-02] MEDS ORDERED: KETOROLAC 60 MG/2 ML VIAL IM STA (00:47)
[2021-01-02] MEDS ORDERED: NAPR-1071 PO (01:09)
--- NOTE | 2021-01-02 01:09 | ED Back Pain ---
General Chief Complaint: Back Problems Stated Complaint: BACK PAIN Nursing Triage Note: c/o right sided upper/lower back pain x2 days. Source of Information: Patient Exam Limitations: No Limitations History of Present Illness Date Seen by Provider: Jan 02, 2021 Time Seen by Provider: 00:40 Initial Comments Here with report of right-sided upper back pain over the last 2 days. She is unsure what caused the initial onset. She was seen yesterday for abscess and had I&D. She is currently on amoxicillin and Bactrim DS. She has tried some Tylenol as well as intermittent ibuprofen for pain. She is also tried icy hot with lidocaine and a heating pad. Pain is worsened despite this. She is wo rried about pleurisy but does not have any cough. She was requesting naproxen prescription. Denies fever or chills. Timing/Duration: 2-3 Days Severity: Moderate Pain/Injury Location: Back Radiation: Other (Right side back) Method of Injury: Unknown Modifying Factors: Worse With Movement; Improves With Pain Medication Associated Symptoms: No muscle spasms, No fever, No weakness, No numbness in legs/feet, No tingling in legs/feet, No sensory/motor loss, No lower back pain, No loss of bladder control, No loss of bowel control Allergies and Home Medications Allergies Coded Allergies: No Known Drug Allergies (Unverified , 07/12/10) Patient Home Medication List Home Medication List Reviewed: Yes Acetaminophen (Acetaminophen) 500 Mg Tablet, 1,000 MG PO Q8HR Prescribed by: DESTINEE THOMSON on 09/21/18 0842 Amoxicillin/Potassium Clav (Augmentin 875-125 Tablet) 1 Each Tablet, 1 EACH PO BID Prescribed by: VELVET ROMERO on 01/01/21 0124 Amoxicillin/Potassium Clav (Amox Tr-K Clv 875-125 mg Tab) 1 Each Tablet, (Reported) Entered as Reported by: GROVER QUINTANILLA on 01/01/212354 Last Action: New Order Buprenorphine HCl (Buprenorphine HCl) 8 Mg Tab.subl, 8 MG SL TID, (Reported) Entered as Reported by: NATE RODRIGUEZ on 09/18/18 1141 Desvenlafaxine Succinate (Desvenlafaxine Succinate ER) 50 Mg Tab.er.24h, (Reported) Entered as Reported by: GROVER QUINTANILLA on 01/01/212354 Last Action: New Order Docusate Sodium (Docusate Sodium) 100 Mg Capsule, 100 MG PO BID Prescribed by: DESTINEE THOMSON on 09/21/18 08 Ibuprofen (Ibu) 600 Mg Tablet, 600 MG PO Q6HR Prescribed by: DESTINEE THOMSON on 09/21/18 0842 Vit/Iron Fumarate/FA ( Tablet) 1 Each Tablet, 1 EACH PO DAILY, (Reported) Entered as Reported by: NATE RODRIGUEZ on 09/18/18 1137 Sertraline HCl (Zoloft) 100 Mg Tablet, 100 MG PO DAILY, (Reported) Entered as Reported by: NATE RODRIGUEZ on 09/18/18 1138 Sulfamethoxazole/Trimethoprim (Bactrim Ds Tablet) 1 Each Tablet, 1 EACH PO BID Prescribed by: VELVET ROMERO on 01/01/21 012 Sulfamethoxazole/Trimethoprim (Bactrim Ds Tablet) 1 Each Tablet, (Reported) Entered as Reported by: GROVER QUINTANILLA on 01/01/212354 Last Action: New Order Review of Systems Constitutional: see HPI; No chills, No fever EENTM: no symptoms reported Respiratory: No cough, No short of breath Cardiovascular: no symptoms reported Gastrointestinal: No nausea, No vomiting Genitourinary: no symptoms reported Musculoskeletal: back pain, muscle pain, muscle stiffness Skin: No change in color, No lesions Past Zkqxnri-Msphvk-Ifnmqm Hx Patient Social History Tobacco Use?: Yes Tobacco type used: Cigarettes Smoking Status: Current Everyday Smoker Substance use?: No Alcohol Use?: Yes Alcohol Frequency: Once in a while Pt feels they are or have been: No Immunizations Up To Date Tetanus Booster (TDap): Less than 5yrs PED Vaccines UTD: Yes Seasonal Allergies Seasonal Allergies: Yes Past Medical History Surgery/Hospitalization HX: depression, Surgeries: Yes (TONGUE CLIPPED - 6 Y/O) Respiratory: No Cardiac: No Neurological: No Last Menstrual Period: Dec 25, 2020 Reproductive Disorders: Yes (IRREGULAR MENSES) Female Reproductive Disorders: Denies Sexually Transmitted Disease: No HIV/AIDS: No Genitourinary: No Gastrointestinal: Yes Chronic Constipation Musculoskeletal: No Endocrine: No HEENT: No Cancer: No Psychosocial: No Anxiety, Depression Integumentary: No Blood Disorders: No Adverse Reaction/Blood Tranf: No Family Medical History Reviewed Nursing Family Hx Alcoholism 19 FATHER 19 MOTHER Arthritis 19 FATHER 19 MOTHER Asthma 19 FATHER 19 MOTHER Cardiovascular disease 19 FATHER 19 MOTHER Dementia 19 MOTHER Drug abuse 19 MOTHER Hypercholesterolemia 19 FATHER 19 MOTHER Hypertension 19 FATHER 19 MOTHER Myocardial infarction 19 FATHER 19 MOTHER Respiratory disorder 19 FATHER 19 MOTHER Severe allergy 19 FATHER 19 MOTHER Visual disorder 19 FATHER 19 MOTHER Physical Exam Vital Signs Vital Signs - First Documented 01/01/21 23:49 Temp 36.9 Pulse 71 Resp 16 B/P (MAP) 132/84 (100) Pulse Ox 97 O2 Delivery Room Air Capillary Refill : Less Than 3 Seconds Height, Weight, BMI Height: 5'8.00" Weight: 191lbs. 2.0oz. 86.859167md; 22.00 BMI Method:Estimated General Appearance: WD/WN, Moderate Distress Neck: Full Range of Motion, Normal Inspection, Non Tender, Supple Cardiovascular: Regular Rate, Rhythm, No Murmur Respiratory: Lungs Clear, Normal Breath Sounds Gastrointestinal: Non Tender, Soft Back: Other (Tender along the right posterior aspect of the back from shoulder blade to lower back. No obvious lesions, step-off or deformity.) Neurologic/Psychiatric: Alert, Oriented x3 Skin: Normal Color, Warm/Dry Progress/Results/Core Measures Results/Orders My Orders Orders - ENRRIQUE BALBUENA MD Ketorolac Injection (Toradol Injection) (01/02/21 00:47) Orphenadrine Inj (Ed Only) (Norflex Inje (01/02/21 00:47) Vital Signs/I&O 01/01/21 01/02/21 23:49 00:56 Temp 36.9 36.9 Pulse 71 Resp 16 B/P (MAP) 132/84 (100) Pulse Ox 97 O2 Delivery Room Air Blood Pressure Mean: 100 Progress Progress Note : Progress Note Seen and evaluated. Toradol 60 mg IM and Norflex 60 mg IM. I will prescribe naproxen that would cover for musculoskeletal pain and/or pleuritic pain. I believe this is more musculoskeletal at this point as patient has no fever, cough or upper respiratory illness. She was appreciative of the prescription. Discharged home with return precautions. Patient verbalized understanding of instructions and agreement with plan. Departure Impression Primary Impression: Back pain Qualified Codes: M54.6 - Pain in thoracic spine Disposition: HOME, SELF-CARE Condition: Stable Departure-Patient Inst. Decision time for Depature: 01:07 Referrals: NO,LOCAL PHYSICIAN (PCP/Family) Primary Care Physician Patient Instructions: Back Muscle Strain (DC), Pleuritic Chest Pain Add. Discharge Instructions: All discharge instructions reviewed with patient and/or family. Voiced understanding. Take medications as directed. Do not take ibuprofen with the prescribed naproxen as they are both the same class. You may take Tylenol/acetaminophen 1000 mg every 6-8 hours as needed for pain. You may continue topical icy hot with lidocaine or similar and careful use of heating pads for comfort. Follow- up with your doctor in a few days for recheck. Return for worse pain, fever, vomiting, weakness, breathing problems or other concerns as needed. ENRRIQUE BALBUENA MD Jan 02, 2021 01:08
[2021-01-02 01:33] VITALS: BP 132/84
== END 2021-01-02 01:33 | disposition home or self-care (01) ==
LOC: EDUNIT# 23:41 → ER 23:42
DX: M54.6 Pain in thoracic spine (principal); F41.9 Anxiety disorder, unspecified; F32.9 Major depressive disorder, single episode, unspecified; F17.210 Nicotine dependence, cigarettes, uncomplicated; Z79.899 Other long term (current) drug therapy
CPT/HCPCS: 96372; 99284

== ENCOUNTER 2021-01-05 22:37 | Emergency (ER) | payer MEDICAID ==
[~2021-01-05] VITALS: Ht 175.2 cm; Wt 68.3 kg
[~2021-01-05 22:37] MED LIST changes: +AMOX1TAB12; +DESV50TA18; +NAPR-1071 PO; +SULF1TAB38
[2021-01-05 22:40] VITALS: BP 132/83
[2021-01-05] MEDS ORDERED: NAPR-915 (22:45)
[2021-01-05] MEDS ORDERED: NAPR500T8 PO (22:58)
[2021-01-05] MEDS ORDERED: CYCL10TA9 PO (22:58)
--- NOTE | 2021-01-05 22:58 | ED Back Pain ---
General Chief Complaint: Back Problems Stated Complaint: BACK PAIN Nursing Triage Note: c/o right sided back pain denies injury. Source of Information: Patient History of Present Illness Date Seen by Provider: Jan 05, 2021 Time Seen by Provider: 22:45 Initial Comments PT ARRIVES VIA POV FROM HOME C/O RIGHT UPPER BACK PAIN FOR THE LAST FEW DAYS NO KNOWN INJURY OR UNUSUAL ACTIVITY, NO LIFTING, ETC NO RADIATION OF PAIN NO SHORTNESS OF BREATH OR PAIN WITH BREATHING NO PARESTHESIAS OR MOTOR DEFICITS NO URINARY SYMPTOMS NO COUGH, FEVER OR RECENT ILLNESS NO HISTORY OF SIMILAR WAS SEEN HERE 12/31/20 FOR ABSCESS TO LEFT BROW AREA--WAS PRESCRIBED AMOXIL AND BACTRIM FOR THAT PROBLEM SEEN HERE 01/01/21 FOR THIS SAME BACK PAIN --GIVEN TORADOL AND NORFLEX, AND STATES IT HELPED ALOT. PT HAD REQUESTED RX FOR NAPROXEN AT THAT TIME. STATES SHE IS ALMOST OUT OF NAPROXEN AND REQUESTS ANOTHER RX. STATES SHE TOOK IBUPROFEN 600 MG EARLIER TODAY PT HAS NOT ATTEMPTED TO FOLLOW UP WITH [facility] AT ANY TIME FOR EITHER OF THESE PROBLEMS LMP 1 WEEK AGO, HAS IUD IN PLACE Other Comments PCP: [facility] Allergies and Home Medications Allergies Coded Allergies: No Known Drug Allergies (Unverified , 07/12/10) Patient Home Medication List Home Medication List Reviewed: Yes Acetaminophen (Acetaminophen) 500 Mg Tablet, 1,000 MG PO Q8HR Prescribed by: DESTINEE THOMSON on 09/21/18 0842 Amoxicillin/Potassium Clav (Augmentin 875-125 Tablet) 1 Each Tablet, 1 EACH PO BID Prescribed by: VELVET ROMERO on 01/01/21 0124 Amoxicillin/Potassium Clav (Amox Tr-K Clv 875-125 mg Tab) 1 Each Tablet, (Reported) Entered as Reported by: GROVER QUINTANILLA on 01/01/21 2355 Buprenorphine HCl (Buprenorphine HCl) 8 Mg Tab.subl, 8 MG SL TID, (Reported) Entered as Reported by: NATE RODRIGUEZ on 09/18/18 1141 Cyclobenzaprine HCl (Cyclobenzaprine HCl) 10 Mg Tablet, 10 MG PO Q8H PRN for SPASMS Prescribed by: ARIAS DAVIS on 01/05/21 2258 Desvenlafaxine Succinate (Desvenlafaxine Succinate ER) 50 Mg Tab.er.24h, (Reported) Entered as Reported by: GROVER QUINTANILLA on 01/01/21 2355 Docusate Sodium (Docusate Sodium) 100 Mg Capsule, 100 MG PO BID Prescribed by: DESTINEE THOMSON on 09/21/18 0842 Ibuprofen (Ibu) 600 Mg Tablet, 600 MG PO Q6HR Prescribed by: DESTINEE THOMSON on 09/21/18 0842 Naproxen (Naprosyn) 500 Mg Tablet, 500 MG PO BID Prescribed by: ENRRIQUE BALBUENA on 01/02/21 0109 Naproxen (Naproxen) 500 Mg Tablet, (Reported) Entered as Reported by: GROVER QUINTANILLA on 01/05/21 2245 Last Action: New Order Naproxen (Naproxen) 500 Mg Tablet.dr, 500 MG PO BID Prescribed by: ARIAS DAVIS on 01/05/21 225 Vit/Iron Fumarate/FA ( Tablet) 1 Each Tablet, 1 EACH PO DAILY, (Reported) Entered as Reported by: NATE RODRIGUEZ on 09/18/18 1137 Sertraline HCl (Zoloft) 100 Mg Tablet, 100 MG PO DAILY, (Reported) Entered as Reported by: NATE RODRIGUEZ on 09/18/18 1138 Sulfamethoxazole/Trimethoprim (Bactrim Ds Tablet) 1 Each Tablet, 1 EACH PO BID Prescribed by: VELVET ROMERO on 01/01/21 0124 Sulfamethoxazole/Trimethoprim (Bactrim Ds Tablet) 1 Each Tablet, (Reported) Entered as Reported by: GROVER QUINTANILLA on 01/01/21 2355 Review of Systems Constitutional: no symptoms reported EENTM: no symptoms reported Respiratory: no symptoms reported Cardiovascular: no symptoms reported Gastrointestinal: no symptoms reported Genitourinary: no symptoms reported : No LMP: Dec 28, 2020 Control/STD Prophylaxis: IUD Musculoskeletal: see HPI, back pain Skin: no symptoms reported; No rash Psychiatric/Neurological: No Symptoms Reported; Denies Numbness, Denies Paresthesia, Denies Tingling, Denies Weakness Past [place] Hx Patient Social History Tobacco Use?: Yes Substance use?: Yes Alcohol Use?: Yes Immunizations Up To Date Tetanus Booster (TDap): Less than 5yrs PED Vaccines UTD: Yes Seasonal Allergies Seasonal Allergies: Yes Past Medical History Surgery/Hospitalization HX: depression, Surgeries: Yes (TONGUE CLIPPED - 6 Y/O) Section Respiratory: No Cardiac: No Neurological: No Reproductive Disorders: Yes (IRREGULAR MENSES) Female Reproductive Disorders: Denies Sexually Transmitted Disease: No HIV/AIDS: No Genitourinary: No Gastrointestinal: Yes Chronic Constipation Musculoskeletal: No Endocrine: No HEENT: No Cancer: No Psychosocial: Yes Anxiety, Depression Integumentary: No Blood Disorders: No Adverse Reaction/Blood Tranf: No Family Medical History Alcoholism 19 FATHER 19 MOTHER Arthritis 19 FATHER 19 MOTHER Asthma 19 FATHER 19 MOTHER Cardiovascular disease 19 FATHER 19 MOTHER Dementia 19 MOTHER Drug abuse 19 MOTHER Hypercholesterolemia 19 FATHER 19 MOTHER Hypertension 19 FATHER 19 MOTHER Myocardial infarction 19 FATHER 19 MOTHER Respiratory disorder 19 FATHER 19 MOTHER Severe allergy 19 FATHER 19 MOTHER Visual disorder 19 FATHER 19 MOTHER Physical Exam Vital Signs Vital Signs - First Documented 01/05/21 22:40 Temp 36.6 Pulse 79 Resp 16 B/P (MAP) 132/83 (99) Pulse Ox 96 O2 Delivery Room Air Capillary Refill : Less Than 3 Seconds Height, Weight, BMI Height: 5'8.00" Weight: 191lbs. 2.0oz. 86.647620kd; 22.00 BMI Method:Estimated General Appearance: No Apparent Distress, WD/WN, Other (FLAT AFFECT. KEEPS HEAD DOWN, DOES NOT MAKE EYE CONTACT. KEEPS BASEBALL HAT PULLED DOWN OVER EYES. WALKS UPRIGHT AND MOVES WITHOUT DIFFICULTY. ) HEENT: Other (DRESSING OVER LEFT BROW AREA.) Neck: Full Range of Motion, Normal Inspection, Non Tender, Supple Cardiovascular: Regular Rate, Rhythm, No Edema, No JVD, No Murmur, Normal Peripheral Pulses Respiratory: Chest Non Tender, Normal Breath Sounds, No Accessory Muscle Use, No Respiratory Distress Gastrointestinal: Non Tender, Soft Back: No Vertebral Tenderness, Other (DIFFUSE TENDERNESS TO RIGHT UPPER BACK AREA. NO VERTEBRAL TENDERNESS. NO EXTERNAL EVIDENCE OF TRAUMA, NO SORES, NO RASH, ETC. ) Extremity: Normal Capillary Refill, Normal Inspection, Normal Range of Motion, Non Tender, No Calf Tenderness, No Pedal Edema Neurologic/Psychiatric: Alert, Oriented x3, No Motor/Sensory Deficits, blue leather setter II- XII Norm as Tested Skin: Normal Color, Warm/Dry, Other (EXTENSIVE SORES/SCARS/SCABS TO FACE. ) Progress/Results/Core Measures Results/Orders My Orders Orders - ARIAS DAVIS DO Ketorolac Injection (Toradol Injection) (11/1/21 23:00) Orphenadrine Inj (Ed Only) (Norflex Inje (01/05/21 23:00) Medications Given in ED Current Medications Medications Dose Ordered Sig/Ag Route Start Time Stop Time Status Last Admin Dose Admin Ketorolac Tromethamine 60 mg ONCE ONCE IM 01/05/21 23:00 01/05/21 23:01 DC 01/05/21 23:03 60 MG Orphenadrine Citrate 60 mg ONCE ONCE IM 01/05/21 23:00 01/05/21 23:01 DC 01/05/21 23:02 60 MG Vital Signs/I&O 01/05/21 22:40 Temp 36.6 Pulse 79 Resp 16 B/P (MAP) 132/83 (99) Pulse Ox 96 O2 Delivery Room Air Blood Pressure Mean: 99 Progress Progress Note : Progress Note GIVEN TORADOL AND NORFLEX IM Departure Impression Primary Impression: Upper back pain on right side Disposition: HOME, SELF-CARE Condition: Stable Departure-Patient Inst. Decision time for Depature: 22:56 Referrals: [facility] Patient Instructions: Upper Back Pain (DC) Add. Discharge Instructions: MOIST HEAT TO SORE AREA AT 20 MINUTE INTERVALS NO LIFTING OVER 5 LBS, NO TWISTING OR BENDING FOLLOW UP WITH [facility] THIS WEEK FOR FURTHER CARE--CALL IN THE MORNING TO SCHEDULE APPOINTMENT All discharge instructions reviewed with patient and/or family. Voiced understanding. Scripts Naproxen (Naproxen) 500 Mg Tablet. 500 MG PO BID, #20 TAB Prov: ARIAS DAVIS DO 01/05/21 Cyclobenzaprine HCl (Cyclobenzaprine HCl) 10 Mg Tablet 10 MG PO Q8H PRN for SPASMS, #12 TAB 0 Refills Prov: ARIAS DAVIS DO 01/05/21 ARIAS DAVIS DO Jan 05, 2021 22:58
[2021-01-05] MEDS ORDERED: KETOROLAC 60 MG/2 ML VIAL IM ONE (23:00)
[2021-01-05] MEDS ORDERED: ORPHENADRINE 60 MG/2 ML (NORFLEX) AMP (ED ONLY) IM ONE (23:00)
== END 2021-01-05 23:06 | disposition home or self-care (01) ==
LOC: EDUNIT# 22:37 → ER 22:38
DX: M54.6 Pain in thoracic spine (principal); F41.9 Anxiety disorder, unspecified; F32.9 Major depressive disorder, single episode, unspecified; Z72.0 Tobacco use; Z79.899 Other long term (current) drug therapy
CPT/HCPCS: 99284

== ENCOUNTER 2021-10-17 15:51 | Emergency (ER) | payer MEDICAID ==
[~2021-10-17] VITALS: Ht 175.2 cm; Wt 72.5 kg
[~2021-10-17 15:51] MED LIST changes: +CYCL10TA25 PO; +NAPR-915; +NAPR500T8 PO
--- NOTE | 2021-10-17 16:12 | ED Integumentary General ---
General Chief Complaint: Skin/Wound Problems Stated Complaint: POSS ABSCESS ON CHIN Source: patient Exam Limitations: no limitations History of Present Illness Date Seen by Provider: Oct 17, 2021 Time Seen by Provider: 16:08 Timing/Duration: just prior to arrival Severity: moderate Location: face Possible Cause: no cause identified Allergies and Home Medications Allergies Coded Allergies: No Known Drug Allergies (Unverified , 07/12/10) Patient Home Medication List Home Medication List Reviewed: Yes Acetaminophen (Acetaminophen) 500 Mg Tablet, 1,000 MG PO Q8HR Prescribed by: DESTINEE THOMSON on 09/21/18 08 Amoxicillin/Potassium Clav (Augmentin 875-125 Tablet) 1 Each Tablet, 1 EACH PO BID Prescribed by: VELVET ROMERO on 01/01/21 0124 Amoxicillin/Potassium Clav (Amox Tr-K Clv 875-125 mg Tab) 1 Each Tablet, (Reported) Entered as Reported by: GROVER QUINTANILLA on 01/01/21 2355 Buprenorphine HCl (Buprenorphine HCl) 8 Mg Tab.subl, 8 MG SL TID, (Reported) Entered as Reported by: NATE RODRIGUEZ on 09/18/18 1141 Cyclobenzaprine HCl (Cyclobenzaprine HCl) 10 Mg Tablet, 10 MG PO Q8H PRN for SPASMS Prescribed by: ARIAS DAVIS on 01/05/21 225 Desvenlafaxine Succinate (Desvenlafaxine Succinate ER) 50 Mg Tab.er.24h, (Reported) Entered as Reported by: GROVER QUINTANILLA on 01/01/21 2355 Docusate Sodium (Docusate Sodium) 100 Mg Capsule, 100 MG PO BID Prescribed by: DESTINEE THOMSON on 09/21/18 08 Ibuprofen (Ibu) 600 Mg Tablet, 600 MG PO Q6HR Prescribed by: DESTINEE THOMSON on 09/21/18 0842 Naproxen (Naprosyn) 500 Mg Tablet, 500 MG PO BID Prescribed by: ENRRIQUE BALBUENA on 01/02/21 0109 Naproxen (Naproxen) 500 Mg Tablet, (Reported) Entered as Reported by: GROVER QUINTANILLA on 01/05/21 2245 Naproxen (Naproxen) 500 Mg Tablet.dr, 500 MG PO BID Prescribed by: ARIAS DAVIS on 01/05/21 225 Vit/Iron Fumarate/FA ( Tablet) 1 Each Tablet, 1 EACH PO DAILY, (Reported) Entered as Reported by: NATE RODRIGUEZ on 09/18/18 1137 Sertraline HCl (Zoloft) 100 Mg Tablet, 100 MG PO DAILY, (Reported) Entered as Reported by: NATE RODRIGUEZ on 09/18/18 1138 Sulfamethoxazole/Trimethoprim (Bactrim Ds Tablet) 1 Each Tablet, 1 EACH PO BID Prescribed by: VELVET ROMERO on 01/01/21 0124 Sulfamethoxazole/Trimethoprim (Bactrim Ds Tablet) 1 Each Tablet, (Reported) Entered as Reported by: GROVER QUINTANILLA on 01/01/21 2455 Review of Systems Review of Systems Constitutional: no symptoms reported EENTM: other (abscess on chin) Respiratory: no symptoms reported Cardiovascular: no symptoms reported Gastrointestinal: no symptoms reported Genitourinary: no symptoms reported Musculoskeletal: no symptoms reported Skin: rash (abscess) Psychiatric/Neurological: No Symptoms Reported Endocrine: No Symptoms Reported Past Rdfxfrl-Nuqagj-Cjscpa Hx Immunizations Up To Date Tetanus Booster (TDap): Less than 5yrs PED Vaccines UTD: Yes Seasonal Allergies Seasonal Allergies: Yes Past Medical History Surgery/Hospitalization HX: depression, Surgeries: Yes (TONGUE CLIPPED - 6 Y/O) Section Respiratory: No Cardiac: No Neurological: No Reproductive Disorders: Yes (IRREGULAR MENSES) Female Reproductive Disorders: Denies Sexually Transmitted Disease: No HIV/AIDS: No Genitourinary: No Gastrointestinal: Yes Chronic Constipation Musculoskeletal: No Endocrine: No HEENT: No Cancer: No Psychosocial: Yes Anxiety, Depression Integumentary: No Blood Disorders: No Adverse Reaction/Blood Tranf: No Family Medical History Alcoholism 19 FATHER 19 MOTHER Arthritis 19 FATHER 19 MOTHER Asthma 19 FATHER 19 MOTHER Cardiovascular disease 19 FATHER 19 MOTHER Dementia 19 MOTHER Drug abuse 19 MOTHER Hypercholesterolemia 19 FATHER 19 MOTHER Hypertension 19 FATHER 19 MOTHER Myocardial infarction 19 FATHER 19 MOTHER Respiratory disorder 19 FATHER 19 MOTHER Severe allergy 19 FATHER 19 MOTHER Visual disorder 19 FATHER 19 MOTHER Physical Exam Vital Signs Capillary Refill : General Appearance: WD/WN, no apparent distress HEENT: PERRL/EOMI, TMs normal, other (left chin erythematous and indurated without fluctuance ) Neck: non-tender, full range of motion Cardiovascular: regular rate, rhythm Respiratory: chest non-tender, lungs clear Gastrointestinal: normal bowel sounds, non tender Extremities: normal range of motion, non-tender Neurologic/Psychiatric: cylinder press feeder II-XII nml as tested, alert, oriented x 3 Skin: other Skin Problem Location: face Progress/Results/Core Measures Results/Orders My Orders Orders - MAAYA GOODE Dexamethasone Injection (Decadron Injec (10/17/21 16:15) Clindamycin Injection (Cleocin Injection (10/17/21 16:15) Departure Communication (Admissions) No abscess. Will start abx and close f/u. Impression Primary Impression: Cellulitis Additional Impression: Abscess Disposition: 01 HOME, SELF-CARE Condition: Stable Departure-Patient Inst. Decision time for Depature: 16:14 Referrals: NO,LOCAL PHYSICIAN (PCP/Family) Primary Care Physician Patient Instructions: Skin Abscess Scripts Clindamycin HCl (Clindamycin HCl) 150 Mg Capsule 300 MG PO QID for 10 Days, #80 CAP Prov: AMAYA GOODE 10/17/21 AMAYA GOODE Oct 17, 2021 16:12
[2021-10-17] MEDS ORDERED: CLINDAMYCIN 600 MG/4ML (CLEOCIN) VIAL IM ONE (16:15)
[2021-10-17] MEDS ORDERED: CLIN150C20 PO (16:16)
[2021-10-17 17:00] VITALS: BP 105/57
[2021-10-17] MEDS ORDERED: CLINDAMYCIN 900 MG/6ML (CLEOCIN) VIAL IM NR (17:00)
== END 2021-10-17 17:00 | disposition home or self-care (01) ==
LOC: EDUNIT# 15:51 → ER 15:53
DX: L03.211 Cellulitis of face (principal); L02.01 Cutaneous abscess of face; Z28.310 Unvaccinated for COVID-19
CPT/HCPCS: 99284

== ENCOUNTER 2022-02-03 08:28 | Emergency (ER) | payer MEDICAID ==
[~2022-02-03] VITALS: Ht 175 cm; Wt 72.0 kg
[~2022-02-03 08:28] MED LIST changes: +CLIN150C20 PO
[2022-02-03] MEDS ORDERED: ONDANSETRON 4 MG (ZOFRAN) ORAL DISSOLVE TAB PO STA (09:09)
--- NOTE | 2022-02-03 09:12 | ED General ---
General Chief Complaint: Cough/Cold/Flu Symptoms Stated Complaint: DIFFICULTY BREATHING | RUNNY NOSE Nursing Triage Note: PT AMB TO [facility] AND COLD SX COUGH, CONGESTION, WEIR SINCE THIS AM Source of Information: Patient Exam Limitations: No Limitations History of Present Illness Date Seen by Provider: Feb 03, 2022 Time Seen by Provider: 09:00 Initial Comments 31yo female to the ER for SOB. Onset this morning. Has been congested with a cough. No fever. She states that SHe has no real abdominal pain. No burning with urination, abnormal vaginal discharge, rashes. No chest pain. Mild sore throat. no ear pain. No sick contacts. Not flu vaccinated. Patient states when she got here she vomited and her shortness of breath improved. She remains a little nauseated. No other complaints of recent illness or injury. Timing/Duration: 1-3 Hours Severity: Mild Associated Systoms: Cough, Nausea/Vomiting, Other (congestion) Allergies and Home Medications Allergies Coded Allergies: No Known Drug Allergies (Unverified , 07/12/10) Patient Home Medication List Home Medication List Reviewed: Yes Acetaminophen (Acetaminophen) 500 Mg Tablet, 1,000 MG PO Q8HR Prescribed by: DESTINEE THOMSON on 09/21/18 0842 Amoxicillin/Potassium Clav (Augmentin 875-125 Tablet) 1 Each Tablet, 1 EACH PO BID Prescribed by: VELVET ROMERO on 01/01/21 0124 Amoxicillin/Potassium Clav (Amox Tr-K Clv 875-125 mg Tab) 1 Each Tablet, (Reported) Entered as Reported by: GROVER QUINTANILLA on 01/01/21 2355 Buprenorphine HCl (Buprenorphine HCl) 8 Mg Tab.subl, 8 MG SL TID, (Reported) Entered as Reported by: NATE RODRIGUEZ on 09/18/18 1141 Clindamycin HCl (Clindamycin HCl) 150 Mg Capsule, 300 MG PO QID Prescribed by: Paxton Garza on 10/17/21 1616 Cyclobenzaprine HCl (Cyclobenzaprine HCl) 10 Mg Tablet, 10 MG PO Q8H PRN for SPASMS Prescribed by: ARIAS DAVIS on 01/05/21 2258 Desvenlafaxine Succinate (Desvenlafaxine Succinate ER) 50 Mg Tab.er.24h, (Reported) Entered as Reported by: GROVER QUINTANILLA on 01/01/21 2355 Docusate Sodium (Docusate Sodium) 100 Mg Capsule, 100 MG PO BID Prescribed by: DESTINEE THOMSON on 09/21/18 0842 Ibuprofen (Ibu) 600 Mg Tablet, 600 MG PO Q6HR Prescribed by: DESTINEE THOMSON on 09/21/18 0842 Naproxen (Naprosyn) 500 Mg Tablet, 500 MG PO BID Prescribed by: ENRRIQUE BALBUENA on 01/02/21 0109 Naproxen (Naproxen) 500 Mg Tablet, (Reported) Entered as Reported by: GROVER QUINTANILLA on 01/05/21 2245 Naproxen (Naproxen) 500 Mg Tablet.dr, 500 MG PO BID Prescribed by: ARIAS DAVIS on 01/05/21 225 Vit/Iron Fumarate/FA ( Tablet) 1 Each Tablet, 1 EACH PO DAILY, (Reported) Entered as Reported by: NATE RODRIGUEZ on 09/18/18 1137 Sertraline HCl (Zoloft) 100 Mg Tablet, 100 MG PO DAILY, (Reported) Entered as Reported by: NATE RODRIGUEZ on 09/18/18 1138 Sulfamethoxazole/Trimethoprim (Bactrim Ds Tablet) 1 Each Tablet, 1 EACH PO BID Prescribed by: VELVET ROMERO on 01/01/21 0124 Sulfamethoxazole/Trimethoprim (Bactrim Ds Tablet) 1 Each Tablet, (Reported) Entered as Reported by: GROVER QUINTANILLA on 01/01/21 235 Review of Systems Review of Systems Constitutional: see HPI, malaise EENTM: nose congestion Respiratory: cough, short of breath Cardiovascular: no symptoms reported Gastrointestinal: nausea, vomiting Genitourinary: no symptoms reported : No Musculoskeletal: no symptoms reported Skin: no symptoms reported All Other Systems Reviewed Negative Unless Noted: Yes Past Yqrjogu-Gxmhuu-Ctrlxz Hx Patient Social History Tobacco Use?: Yes Tobacco type used: Cigarettes Smoking Status: Current Someday Smoker Substance use?: No Alcohol Use?: Yes Alcohol type: Beer Alcohol Frequency: Once in a while Pt feels they are or have been: No Immunizations Up To Date Tetanus Booster (TDap): Less than 5yrs PED Vaccines UTD: Yes First/Initial COVID19 Vaccinat: YES Second COVID19 Vaccination Phillip: YES COVID19 Vaccine [employer] 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 Seasonal Allergies Seasonal Allergies: Yes Past Medical History Surgery/Hospitalization HX: depression, Surgeries: Yes (TONGUE CLIPPED - 6 Y/O) Section Respiratory: No Cardiac: No Neurological: No Reproductive Disorders: Yes (IRREGULAR MENSES) Female Reproductive Disorders: Denies Sexually Transmitted Disease: No HIV/AIDS: No Genitourinary: No Gastrointestinal: Yes Chronic Constipation Musculoskeletal: No Endocrine: No HEENT: No Cancer: No Psychosocial: Yes Anxiety, Depression Integumentary: No Blood Disorders: No Adverse Reaction/Blood Tranf: No Family Medical History Alcoholism 19 FATHER 19 MOTHER Arthritis 19 FATHER 19 MOTHER Asthma 19 FATHER 19 MOTHER Cardiovascular disease 19 FATHER 19 MOTHER Dementia 19 MOTHER Drug abuse 19 MOTHER Hypercholesterolemia 19 FATHER 19 MOTHER Hypertension 19 FATHER 19 MOTHER Myocardial infarction 19 FATHER 19 MOTHER Respiratory disorder 19 FATHER 19 MOTHER Severe allergy 19 FATHER 19 MOTHER Visual disorder 19 FATHER 19 MOTHER Physical Exam Vital Signs Vital Signs - First Documented 02/03/22 08:30 Temp 35.5 Pulse 87 Resp 18 B/P (MAP) 131/74 (93) Pulse Ox 99 Capillary Refill : Less Than 3 Seconds Height, Weight, BMI Height: 5'8.00" Weight: 191lbs. 2.0oz. 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/Affect, 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 Norm as Tested Skin: Normal Color, Warm/Dry Progress/Results/Core Measures Suspected Sepsis SIRS Temperature: Pulse: 87 Respiratory Rate: 18 Blood Pressure 131 /74 Mean: 93 Results/Orders Lab Results Laboratory Tests Test 02/03/22 08:33 Range/Units Influenza Type A (RT-PCR) Not Detected Not Detecte Influenza Type B (RT-PCR) Not Detected Not Detecte SARS-CoV-2 RNA (RT-PCR) Not Detected Not Detecte My Orders Orders - VELVET ROMERO MD Covid 19 Inhouse Test (02/03/22 08:39) Influenza A And B By Pcr (02/03/22 08:39) Isolation Central Supply Req (02/03/22 08:39) Ondansetron Oral Dissolve Tab (Zofran (02/03/22 09:09) Vital Signs/I&O 02/03/22 08:30 Temp 35.5 Pulse 87 Resp 18 B/P (MAP) 131/74 (93) Pulse Ox 99 Capillary Refill : Less Than 3 Seconds Blood Pressure Mean: 93 Progress Note : Time: 09:27 Progress Note Patient seen and evaluated. SOB that improved after vomited. Question mucous plug? as she has been congested with cough. neg for flu/covid. VSS. Exam reassuring. consideration for chest xray however, history and PE not supportive. PAatient given zofran and feels better. Departure Impression Primary Impression: Viral syndrome Disposition: 01 HOME, SELF-CARE Condition: Stable Departure-Patient Inst. Decision time for Depature: 09:16 Referrals: [facility],LOCAL PHYSICIAN (PCP) Primary Care Physician Patient Instructions: Viral Syndrome (DC) Add. Discharge Instructions: Drink plenty of fluids to stay well hydrated. Take the zofran every 6-8 hours as needed for nausea. Over the counter cough/cold medications such as nyquil/dayquil. Return to the ER for fever, worsening vomiting, vomiting or any other emergent, concerning symptoms. Scripts Ondansetron (Ondansetron Odt) 4 Mg Tab.rapdis 4 MG PO Q8H PRN for NAUSEA/VOMITING, #8 TAB 0 Refills Prov: VELVET ROMERO MD 02/03/22 Copy Copies To 1: EMILY DONG KATHRYN M MD Feb 03, 2022 09:12
[2022-02-03] MEDS ORDERED: ONDA4TAB11 PO (09:17)
[2022-02-03 09:39] VITALS: BP 131/74
== END 2022-02-03 09:41 | disposition home or self-care (01) ==
LOC: EDUNIT# 08:28 → ER 08:30
DX: B34.9 Viral infection, unspecified (principal); R06.02 Shortness of breath; R05.9 Cough, unspecified; R11.2 Nausea with vomiting, unspecified; F17.210 Nicotine dependence, cigarettes, uncomplicated; Z20.822 Contact with and (suspected) exposure to COVID-19
CPT/HCPCS: 87636; 99283